=== PATIENT | male | born 1960 | race Caucasian/White ===

== ENCOUNTER 2016-07-16 07:56 | Emergency (ER) | payer BC ==
[2016-07-16 08:07] VITALS: BP 157/93; PULSE 89; RESP 18; TEMP 98.5
[2016-07-16] MEDS ORDERED: IBUPROFEN 600 MG TAB PO STA (08:19)
[2016-07-16] MEDS ORDERED: HYDROcodone/APAP 7.5-325MG 1 EACH TAB PO ONE (08:19)
--- NOTE | 2016-07-16 08:30 | ED ---
General Adult HPI - General Chief complaint: Recheck/Abnormal Lab/Rx Stated complaint: POSS HEMMEROID Time Seen by Provider: 07/16/16 08:00 Source: patient, RN notes reviewed Mode of arrival: ambulatory Limitations: no limitations - History of Present Illness Initial comments: This is a 55-year-old male with a benign history other than he is a smoker who states she's had 2 days of perirectal pain. CT worse today he could not sleep all night because of it he denies any blood per rectum he states there is a lump in that area. This started 2 days ago. He does state he was cutting firewood yesterday but it sounded muscle heavy lifting. He denies any fevers chills nausea vomiting sweats or other symptoms no prior history of hemorrhoids. - Related Data Previous Rx's Medication Instructions Recorded Hydrocodone/Acetaminophen [[place] 1 each PO Q6HR PRN #20 tab 07/16/16 5-325] Hydrocortisone [Anusol-Hc] 1 applic RECTAL TID #30 gm 07/16/16 Ibuprofen [Motrin] 800 mg PO Q6HR PRN #20 tab 07/16/16 Allergies Allergy/AdvReac Type Severity Reaction Status Date / Time No Known Allergies Allergy Verified 07/16/16 08:07 Review of Systems ROS Statement: Those systems with pertinent positive or pertinent negative responses have been documented in the HPI. ROS Other: All systems not noted in ROS Statement are negative. Past Medical History Past Medical History: Hypertension, Thyroid Disorder History of Any Multi-Drug Resistant Organisms: None Reported Additional Past Surgical History / Comment(s): Throat surgery Past Psychological History: No Psychological Hx Reported Smoking Status: Current every day smoker Past Alcohol Use History: Occasional Past Drug Use History: None Reported General Exam - General Exam Comments Initial Comments: This is a well-developed well-nourished awake alert oriented 3 male Limitations: no limitations General appearance: alert, anxious, in distress Head exam: Present: atraumatic, normocephalic, normal inspection Eye exam: Present: normal appearance, PERRL, EOMI Neck exam: Present: normal inspection Rectal exam: Present: hemorrhoids, other (There is a tender enlarged hemorrhoid at about 7 o'clock position. Is approximately 1 cm in diameter. It is pink in color somewhat tender to palpation no bleeding. No anal fissures noted. Rectal tone is normal) Neurological exam: Present: alert, oriented X3, CN II-XII intact Psychiatric exam: Present: normal affect, normal mood Skin exam: Present: warm, dry, intact, normal color. Absent: rash Course Vital Signs 07/16/16 08:03 Temperature 98.5 F Pulse Rate 89 Respiratory 18 Rate Blood Pressure 157/93 O2 Sat by Pulse 96 Oximetry Medical Decision Making - Medical Decision Making I did a long discussion with patient regarding the findings he does demonstrate inflamed hemorrhoid. It is not ready for surgical intervention. He'll be placed on appropriate care he is a follow-up with his doctor in 2 days or return when necessary he did take one 200 mg Advil prior to coming to the hospital he'll be given additional medication prior to discharge Disposition Clinical Impression: Inflamed external hemorrhoid, Anal or rectal pain Disposition: HOME SELF-CARE Condition: Good Instructions: Hemorrhoids (ED), Thrombosed Hemorrhoid (ED) Prescriptions: Hydrocodone/Acetaminophen [[place] 5-325] 1 each PO Q6HR PRN #20 tab PRN Reason: Pain Hydrocortisone [Anusol-Hc] 1 applic RECTAL TID #30 gm Ibuprofen [Motrin] 800 mg PO Q6HR PRN #20 tab PRN Reason: Pain
== END 2016-07-16 08:45 | disposition home or self-care (01) ==
LOC: EC 07:56
DX: K64.4 Residual hemorrhoidal skin tags (principal); F17.200 Nicotine dependence, unspecified, uncomplicated
CPT/HCPCS: 99283

== ENCOUNTER → 2016-07-22 | Outpatient (CLI) | payer BC ==
--- NOTE | 2016-07-22 14:56 | XR ---
EXAMINATION TYPE: XR chest 2V DATE OF EXAM: 07/22/2016 2:15 PM COMPARISON: NONE HISTORY: Chest pain, R07.89 TECHNIQUE: Frontal and lateral views of the chest are obtained. FINDINGS: There is no focal air space opacity, pleural effusion, or pneumothorax seen. The cardiac silhouette size is within normal limits. Metallic density present within the soft tissues the anterio r aspect of the abdomen. Density measures approximately 6 mm in greatest dimension, correlate for his tory of penetrating trauma. The osseous structures are intact. IMPRESSION: No acute cardiopulmonary process.
--- NOTE | 2016-07-23 12:30 | ECHOF ---
Referral Reason:R07.89 Chest Pain MEASUREMENTS -------- HEIGHT: 182.9 cm WEIGHT: 88.5 kg BP: IVSd: 1.2 cm (0.6 - 1.1) LVIDd: 4.7 cm (3.9 - 5.3) LVPWd: 1.2 cm (0.6 - 1.1) IVSs: 1.9 cm LVIDs: 3.4 cm LVPWs: 1.6 cm Ao Diam: 2.8 cm (2.0 - 3.7) AV Cusp: 2.1 cm (1.5 - 2.6) LA Diam: 3.9 cm (2.7 - 3.8) MV EXCURSION: 18.395 mm (> 18.000) MV EF SLOPE: 90 mm/s (70 - 150) EPSS: 0.8 cm MV E Giovanni: 1.10 m/s MV DecT: 155 ms MV A Giovanni: 1.13 m/s MV E/A Ratio: 0.98 RAP: 5.00 mmHg RVSP: 13.09 mmHg FINDINGS -------- Sinus rhythm. This was a technically good study. There is mild concentric left ventricular hypertrophy. Overall left ventricular systolic function is mildly impaired with, an EF between 45 - 50 %. Apical lateral LV wall motion is normal. Apical inferior LV wall motion is normal. The right ventricle is normal in size and function. The left atrium is normal in size. The right atrium is normal in size. Aortic valve is trileaflet and is mildly thickened. The mitral valve leaflets are mildly thickened. Mild mitral annular calcification present. Mild mitral regurgitation is present. Mild tricuspid regurgitation present. The right ventricular systolic pressure, as measured by Doppler, is 13.09mmHg. Pulmonic valve appears structurally normal. The aortic root, ascending aorta and aortic arch are normal. The pericardium is normal. CONCLUSIONS -------- 1. Sinus rhythm. 2. Aortic valve is trileaflet and is mildly thickened. 3. The mitral valve leaflets are mildly thickened. 4. Mild mitral annular calcification present. 5. Mild mitral regurgitation is present. 6. Mild tricuspid regurgitation present. 7. The right ventricular systolic pressure, as measured by Doppler, is 13.09mmHg. 8. Pulmonic valve appears structurally normal. 9. The aortic root, ascending aorta and aortic arch are normal. 10. The pericardium is normal. 11. This was a technically good study. 12. There is mild concentric left ventricular hypertrophy. 13. Overall left ventricular systolic function is mildly impaired with, an EF between 45 - 50 %. 14. Apical lateral LV wall motion is normal. 15. Apical inferior LV wall motion is normal. 16. The right ventricle is normal in size and function. 17. The left atrium is normal in size. 18. The right atrium is normal in size. [employer]: Deb Guzman RDCS
== END | disposition home or self-care (01) ==
LOC: RADECHMAIN 13:50
PROVIDERS: ATTEND Family Medicine
DX: I08.1 Rheumatic disorders of both mitral and tricuspid valves (principal); J20.8 Acute bronchitis due to other specified organisms
CPT/HCPCS: 71020; 93306

== ENCOUNTER → 2016-08-08 | Outpatient (CLI) | payer BC ==
--- NOTE | 2016-08-08 22:45 | CTL ---
EXAMINATION TYPE: CT Low Dose Lung DATE OF EXAM ORDERED: 08/08/2016 7:52 PM COMPARISON: None HISTORY: Cough, tobacco use. Lung cancer screening CT DLP: 110.[address] CTDI: 2.80 mGy Automated exposure control for dose reduction was used. SCREENING VISIT: COMPARISON: None TECHNIQUE: Low dose computed tomography scan was performed through the chest at 1 mm thick sections a nd reconstructed images in the coronal plane at [address] DIAGNOSTIC QUALITY: Satisfactory FINDINGS: LUNG NODULES: None. 3 mm nodule right upper lobe axial image 95 a nodule with a size of . Nodule Size in Millimeters mm was visualized with Nodule Type: that is Nod ule state: in nature on image # CT Image slide number . LUNGS: Changes of mild COPD noted. There are subsegmental areas of consolidation most likely the basis of at electasis. Within the right upper lobe anteriorly there is interlobular septal thickening may been th e basis of early interstitial lung disease or pulmonary fibrosis. No consolidation or pneumothorax. No pleural effusion. There is neural pleural thickening or calcifications. The heart is enlarged. Hypertrophic degenerative changes spine. Shotty adenopathy in the mediastinum. Assessment for adenopa thy limited due to lack of contrast in technique. There is coronary artery calcification small hiatal hernia noted Atherosclerotic change aorta noted. IMPRESSION: Single 3 mm right upper lobe pulmonary nodule. FOLLOW UP CT CHEST RECOMMENDATION: 6 month follow-up recommended CT LUNG RAD: Lung-Rad 2 Benign Appearance or Behavior
== END | disposition home or self-care (01) ==
LOC: RADCTMAIN 19:21
PROVIDERS: ATTEND Internal Medicine Cardiovascular Disease
DX: Z12.2 Encounter for screening for malignant neoplasm of respiratory organs (principal); R91.1 Solitary pulmonary nodule; Z87.891 Personal history of nicotine dependence

== ENCOUNTER → 2016-08-17 | Outpatient (CLI) | payer BC | END | disposition home or self-care (01) | LOC: LABWHC1 12:58 | PROVIDERS: ATTEND Internal Medicine Cardiovascular Disease | DX: B34.8 Other viral infections of unspecified site (principal); I10 Essential (primary) hypertension | CPT/HCPCS: 36415 ==

== ENCOUNTER → 2017-07-12 | Outpatient (CLI) | payer BC ==
[2017-07-12 10:24] LABS: Cholesterol 152 mg/dL (<200); HDL Cholesterol 56 mg/dL (40-60); LDL Cholesterol,Calculated 74 mg/dL (0-99); Triglycerides 111 mg/dL (<150)
== END | disposition home or self-care (01) ==
LOC: LABWHC1 09:12
PROVIDERS: ATTEND Internal Medicine Cardiovascular Disease
DX: E78.5 Hyperlipidemia, unspecified (principal)
CPT/HCPCS: 36415; 80061

== ENCOUNTER 2019-08-24 10:32 | Emergency (ER) | payer BC ==
[2019-08-24 10:57] VITALS: TEMP 98.1
[2019-08-24] MEDS ORDERED: SODIUM CHLORIDE 0.9% 1,000 ML IV STA (11:29)
[2019-08-24] MEDS ORDERED: KETOROLAC 30 MG/ML 1 ML VIAL IVP STA (11:29)
[2019-08-24] MEDS ORDERED: ORPHENADRINE 30 MG/ML 2 ML VIAL IVP STA (11:30)
[2019-08-24 12:00] LABS: Appearance,Urine Clear (Clear); Bilirubin,Urine Negative (Negative); Blood,Urine Negative (Negative); Color,Urine Yellow; Glucose,Urine (UA) Negative (Negative); Ketones,Urine Negative (Negative); Leukocyte Esterase,Urine Negative (Negative); Nitrite,Urine Negative (Negative); Protein,Urine Negative (Negative); Specific Gravity,Urine 1.015 (1.001-1.035); Urobilinogen,Urine <2.0 mg/dL (<2.0)
[2019-08-24 12:02] LABS: Basophils # (A) 0.2 k/uL (0-0.2); Basophils % (A) 2 %; Eosinophils # (A) 0.8 k/uL (0-0.7); Eosinophils % (A) 6 %; HGB 16.1 gm/dL (13.0-17.5); Lymphocytes # (A) 1.3 k/uL (1.0-4.8); Lymphocytes % (A) 11 %; MCH 30.5 pg (25.0-35.0); MCHC 33.6 g/dL (31.0-37.0); MCV 90.7 fL (80.0-100.0); Monocytes # (A) 0.7 k/uL (0-1.0); Monocytes % (A) 6 %; Neutrophils # (A) 8.6 k/uL (1.3-7.7); Neutrophils % (A) 73 %; Platelet Count 222 k/uL (150-450); RBC 5.29 m/uL (4.30-5.90); RDW 12.9 % (11.5-15.5); WBC 11.7 k/uL (3.8-10.6)
[2019-08-24 12:09] LABS: Albumin 4.4 g/dL (3.5-5.0); Calcium 9.5 mg/dL (8.4-10.2); Potassium 4.9 mmol/L (3.5-5.1); Total Bilirubin 0.7 mg/dL (0.2-1.3); Total Protein 7.3 g/dL (6.3-8.2)
[2019-08-24 12:13] LABS: INR 0.9 (<1.2); Partial Thromboplastin Time 24.8 sec (22.0-30.0); Prothrombin Time 9.8 sec (9.0-12.0)
--- NOTE | 2019-08-24 12:16 | ED ---
Back Pain HPI - General Chief Complaint: Back Pain/Injury Stated Complaint: Back Pain Time Seen by Provider: 08/24/19 11:21 Source: patient, RN notes reviewed Mode of arrival: ambulatory Limitations: no limitations - History of Present Illness Initial Comments: 58-year-old male presents emergency Department chief complaint low back pain. Patient states started day or 2 ago. Patient denies any injury. He states that he hasn't soreness in which she states she took a bath. Patient states the pain seemed to worsen. Patient states that he has constant pain in his lower back that is minimally exacerbated by movement. He has no symptoms into his legs including paresthesias, saddle anesthesias or pain of his lower extremity is. Patient denies any bowel, bladder incontinence or retention denies any abdominal pain no fevers or chills. Patient denies a history kidney stones no recent infections. - Related Data Previous Rx's Medication Instructions Recorded Hydrocodone/Acetaminophen [[place] 1 each PO Q6HR PRN #20 tab 07/16/16 5-325] Hydrocortisone [Anusol-Hc] 1 applic RECTAL TID #30 gm 07/16/16 Ibuprofen [Motrin] 800 mg PO Q6HR PRN #20 tab 07/16/16 Cyclobenzaprine [Flexeril] 10 mg PO TID PRN #15 tab 08/24/19 Ibuprofen [Motrin] 600 mg PO Q8HR PRN #30 tab 08/24/19 Allergies Allergy/AdvReac Type Severity Reaction Status Date / Time No Known Allergies Allergy Verified 08/24/19 10:56 Review of Systems ROS Statement: Those systems with pertinent positive or pertinent negative responses have been documented in the HPI. ROS Other: All systems not noted in ROS Statement are negative. Past Medical History Past Medical History: Coronary Artery Disease (CAD), Hypertension, Thyroid Disorder History of Any Multi-Drug Resistant Organisms: None Reported Past Surgical History: Heart Catheterization With Stent Additional Past Surgical History / Comment(s): Throat surgery Past Psychological History: No Psychological Hx Reported Smoking Status: Current every day smoker Past Alcohol Use History: Occasional Past Drug Use History: None Reported General Exam Limitations: no limitations General appearance: alert, in no apparent distress Head exam: Present: atraumatic, normocephalic, normal inspection Neck exam: Present: normal inspection, full ROM. Absent: tenderness, meningismus, lymphadenopathy Respiratory exam: Present: normal lung sounds bilaterally. Absent: respiratory distress, wheezes, rales, rhonchi, stridor Cardiovascular Exam: Present: regular rate, normal rhythm, normal heart sounds. Absent: systolic murmur, diastolic murmur, rubs, gallop, clicks GI/Abdominal exam: Present: soft, normal bowel sounds. Absent: distended, tenderness, guarding, rebound, rigid Back exam: Present: full ROM, tenderness, paraspinal tenderness. Absent: CVA tenderness (R), CVA tenderness (L), vertebral tenderness Neurological exam: Present: alert, oriented X3, CN II-XII intact, reflexes normal. Absent: motor sensory deficit Skin exam: Present: warm, dry, intact, normal color. Absent: rash Course Vital Signs 08/24/19 08/24/19 10:54 13:11 Temperature 98.1 F Pulse Rate 82 61 Respiratory 16 18 Rate Blood Pressure 131/79 155/98 O2 Sat by Pulse 96 98 Oximetry Medical Decision Making - Medical Decision Making 58-year-old male presents for back pain. Patient had labs, urinalysis and CT which has not shown any other causes for back pain-1 listhesis L5-S1. Patient is neurovascularly intact with no red flag symptoms. Patient be discharged in stable condition return parameters were discussed. - Lab Data Result diagrams: 08/24/19 11:51 08/24/19 11:51 Lab Results 08/24/19 08/24/19 08/24/19 Range/Units 11:51 11:51 11:51 WBC 11.7 H (3.8-10.6) k/uL RBC 5.29 (4.30-5.90) m/uL Hgb 16.1 (13.0-17.5) gm/dL Hct 48.0 (39.0-53.0) % MCV 90.7 (80.0-100.0) fL MCH 30.5 (25.0-35.0) pg MCHC 33.6 (31.0-37.0) g/dL RDW 12.9 (11.5-15.5) % Plt Count 222 (150-450) k/uL Neutrophils % 73 % Lymphocytes % 11 % Monocytes % 6 % Eosinophils % 6 % Basophils % 2 % Neutrophils # 8.6 H (1.3-7.7) k/uL Lymphocytes # 1.3 (1.0-4.8) k/uL Monocytes # 0.7 (0-1.0) k/uL Eosinophils # 0.8 H (0-0.7) k/uL Basophils # 0.2 (0-0.2) k/uL PT 9.8 (9.0-12.0) sec INR 0.9 (<1.2) APTT 24.8 (22.0-30.0) sec Sodium 133 L (137-145) mmol/L Potassium 4.9 (3.5-5.1) mmol/L Chloride 104 (98-107) mmol/L Carbon Dioxide 20 L (22-30) mmol/L Anion Gap 9 mmol/L BUN 21 H (9-20) mg/dL Creatinine 1.08 (0.66-1.25) mg/dL Est GFR (CKD-EPI)AfAm 86 (>60 ml/min/1.73 sqM) Est GFR (CKD-EPI)NonAf 74 (>60 ml/min/1.73 sqM) Glucose 106 H (74-99) mg/dL Calcium 9.5 (8.4-10.2) mg/dL Total Bilirubin 0.7 (0.2-1.3) mg/dL AST 27 (17-59) U/L ALT 21 (4-49) U/L Alkaline Phosphatase 80 (38-126) U/L Total Protein 7.3 (6.3-8.2) g/dL Albumin 4.4 (3.5-5.0) g/dL Amylase 78 (30-110) U/L Lipase 98 (23-300) U/L Urine Color Urine Appearance (Clear) Urine pH (5.0-8.0) Ur Specific [place] (1.001-1.035) Urine Protein (Negative) Urine Glucose (UA) (Negative) Urine Ketones (Negative) Urine Blood (Negative) Urine Nitrite (Negative) Urine Bilirubin (Negative) Urine Urobilinogen (<2.0) mg/dL Ur Leukocyte Esterase (Negative) 08/24/19 Range/Units 11:51 WBC (3.8-10.6) k/uL RBC (4.30-5.90) m/uL Hgb (13.0-17.5) gm/dL Hct (39.0-53.0) % MCV (80.0-100.0) fL MCH (25.0-35.0) pg MCHC (31.0-37.0) g/dL RDW (11.5-15.5) % Plt Count (150-450) k/uL Neutrophils % % Lymphocytes % % Monocytes % % Eosinophils % % Basophils % % Neutrophils # (1.3-7.7) k/uL Lymphocytes # (1.0-4.8) k/uL Monocytes # (0-1.0) k/uL Eosinophils # (0-0.7) k/uL Basophils # (0-0.2) k/uL PT (9.0-12.0) sec INR (<1.2) APTT (22.0-30.0) sec Sodium (137-145) mmol/L Potassium (3.5-5.1) mmol/L Chloride (98-107) mmol/L Carbon Dioxide (22-30) mmol/L Anion Gap mmol/L BUN (9-20) mg/dL Creatinine (0.66-1.25) mg/dL Est GFR (CKD-EPI)AfAm (>60 ml/min/1.73 sqM) Est GFR (CKD-EPI)NonAf (>60 ml/min/1.73 sqM) Glucose (74-99) mg/dL Calcium (8.4-10.2) mg/dL Total Bilirubin (0.2-1.3) mg/dL AST (17-59) U/L ALT (4-49) U/L Alkaline Phosphatase (38-126) U/L Total Protein (6.3-8.2) g/dL Albumin (3.5-5.0) g/dL Amylase (30-110) U/L Lipase (23-300) U/L Urine Color Yellow Urine Appearance Clear (Clear) Urine pH 6.0 (5.0-8.0) Ur Specific [place] 1.015 (1.001-1.035) Urine Protein Negative (Negative) Urine Glucose (UA) Negative (Negative) Urine Ketones Negative (Negative) Urine Blood Negative (Negative) Urine Nitrite Negative (Negative) Urine Bilirubin Negative (Negative) Urine Urobilinogen <2.0 (<2.0) mg/dL Ur Leukocyte Esterase Negative (Negative) Disposition Clinical Impression: Lumbar back pain Disposition: HOME SELF-CARE Condition: Stable Instructions (If sedation given, give patient instructions): Acute Low Back Pain (ED) Additional Instructions: Please return to the Emergency Department if symptoms worsen or any other concerns. Prescriptions: Cyclobenzaprine [Flexeril] 10 mg PO TID PRN #15 tab PRN Reason: Muscle Spasm Ibuprofen [Motrin] 600 mg PO Q8HR PRN #30 tab PRN Reason: Pain Is patient prescribed a controlled substance at d/c from ED?: No Referrals: Jose Kern DO [Primary Care Provider] - 1-2 days Time of Disposition: 13:32
[2019-08-24] MEDS ORDERED: ONDANSETRON 4 MG/2 ML VIAL IVP STA (12:17)
[2019-08-24] MEDS ORDERED: MORPHINE SULFATE 4 MG/ML SYRINGE IVP STA (12:17)
[2019-08-24 13:11] VITALS: BP 155/98; PULSE 61; RESP 18
--- NOTE | 2019-08-24 13:22 | CT ---
EXAMINATION TYPE: CT abdomen pelvis w con DATE OF EXAM: 08/24/2019 REFERENCE: NONE HISTORY: low back pain, flank pain HISTORY: Right lower back/flank pain CT DLP: 1017.4 mGy Automated exposure control for dose reduction was used. TECHNIQUE: Helical acquisition through the abdomen and pelvis was obtained following the oral ingesti on of without Oral Contrast and following intravenous administration of 100 mL of Isovue 300. The mary a was reformatted in axial, coronal and sagittal projections. FINDINGS: There is a slightly irregular, 1.3 cm pleural-based mass in the right middle lobe best see n on image 1. Visualized portions of the lungs are otherwise clear. There is no pleural or pericardia l fluid. The heart is not enlarged. There are coronary artery calcifications as well as other vascula r calcifications present. Within the abdomen. The liver and spleen are unremarkable. There is a tiny splenule just anterior to the spleen. The gallbladder is contracted. Both adrenal glands are unremarkable. Both kidneys demonstrate function and appear morphologically normal. The pancreas is unremarkable. There is no significant retroperitoneal, iliac or inguinal adenopathy. The bladder wall appears mildly thickened. This may be due to chronic bladder outlet obstruction. There is diverticulosis of the sigmoid colon: With scattered diverticula elsewhere throughout the lef t side of the colon without radiographic evidence of diverticulitis. The appendix is not visualized w ith certainty. Small bowel loops are normal in caliber. There is a bilateral lysis at L5 with a grade 1 spondylolisthesis of L5 on S1. There is degenerative disc disease at the L5-S1 level. There is mild hypertrophic spondylosis throughout the lumbar and vis ualized thoracic spine. No bony destructive lesion is seen. IMPRESSION: 1. SOLITARY RIGHT-SIDED PULMONARY NODULE. A NONEMERGENT CT SCAN OF THE CHEST WOULD BE SUGGESTED. 2. THICKENING OF THE BLADDER WALL MAY REFLECT CHRONIC BLADDER OUTLET OBSTRUCTION. 3. UNCOMPLICATED DIVERTICULOSIS OF THE SIGMOID COLON. 4. BILATERAL LYSIS AT L5 WITH A GRADE 1 SPONDYLOLISTHESIS OF L5 ON S1. 5. DEGENERATIVE CHANGE WITHIN THE SPINE.
[2019-08-24] MEDS ORDERED: ACET/COD 300 MG/30 MG STARTER PACK 6 TAB BTL PO STA (13:30)
== END 2019-08-24 13:46 | disposition home or self-care (01) ==
LOC: EC 10:32
DX: M43.17 Spondylolisthesis, lumbosacral region (principal); I25.10 Atherosclerotic heart disease of native coronary artery without angina pectoris; I10 Essential (primary) hypertension; F17.200 Nicotine dependence, unspecified, uncomplicated; Z95.5 Presence of coronary angioplasty implant and graft
CPT/HCPCS: 36415; 80053; 82150; 83690; 85025; 85610; 85730; 81003; 74177; 99284; 96374; 96375 ×3; 96361; J2270; J2360; J2405; J1885; Q9967

== ENCOUNTER → 2019-10-01 | Outpatient (CLI) | payer BC ==
--- NOTE | 2019-10-01 13:42 | CT ---
EXAMINATION TYPE: CT chest wo/w con DATE OF EXAM: 10/01/2019 COMPARISON: 08/08/[address] abdomen pelvis 08/24/2019 HISTORY: Pulmonary mass CT DLP: 745.1 mGycm Automated exposure control for dose reduction was used. CONTRAST: CT scan of the chest is performed without and with IV Contrast, patient injected with 100 mL of Isovu e 300. FINDINGS: LUNGS: Subpleural nodular density measuring 1 cm redemonstrated however is present back to 08/08/2016 and is felt to reflect an area of parenchymal scarring. No concerning pulmonary nodule or mass is salas ntified. There is no pleural effusion or pneumothorax seen. The tracheobronchial tree is patent. MEDIASTINUM: There are no greater than 1 cm hilar or mediastinal lymph nodes. No pericardial effusi on is seen. Thoracic aorta is of normal caliber. The heart is not enlarged. UPPER ABDOMEN: Fatty liver. OTHER: No additional significant abnormality is seen. IMPRESSION: Subpleural nodular density measuring 1 cm redemonstrated however is present back to 08/08 and is felt to reflect an area of parenchymal scarring. No concerning pulmonary nodule or mass is identified.
== END | disposition home or self-care (01) ==
LOC: RADCTMAIN 12:58
PROVIDERS: ATTEND Family Medicine
DX: J98.4 Other disorders of lung (principal)
CPT/HCPCS: 71270; Q9967

== ENCOUNTER 2020-12-05 19:32 | Emergency (ER) | payer BC ==
[2020-12-05] MEDS ORDERED: SODIUM CHLORIDE 0.9% 1,000 ML IV STA (19:53)
[2020-12-05] MEDS ORDERED: KETOROLAC 15 MG/ML 1 ML VIAL IVP STA (19:53)
--- NOTE | 2020-12-05 19:56 | ED ---
General Adult HPI - General Chief complaint: Abdominal Pain Stated complaint: lower abdominal pain Time Seen by Provider: 12/05/20 19:38 Source: patient, RN notes reviewed Mode of arrival: ambulatory Limitations: no limitations - History of Present Illness Initial comments: 59-year-old male with a past medical history of CAD, hypertension presents to [facility] emergency room for chief complaint of lower abdominal pain. Patient was sports this started about 8 hours prior to arrival. Patient denies nausea vomiting or diarrhea. States that since then the pain seems to have worsened. Patient denies fevers or chills. Patient denies having this pain before. Patient does have a history of diverticulosis found on colonoscopy.Patient has no other complaints at this time including shortness of breath, chest pain, nausea or vomiting, headache, or visual changes. - Related Data Home Medications Medication Instructions Recorded Confirmed Aspirin 81 mg PO DAILY 12/05/20 12/05/20 Atorvastatin Calcium [Lipitor] 80 mg PO DAILY 12/05/20 12/05/20 Chlorthalidone 25 mg PO DAILY 12/05/20 12/05/20 Clopidogrel [Plavix] 75 mg PO DAILY 12/05/20 12/05/20 Ezetimibe [Zetia] 10 mg PO DAILY 12/05/20 12/05/20 Levothyroxine Sodium 25 mcg PO DAILY 12/05/20 12/05/20 Losartan Potassium [Cozaar] 100 mg PO DAILY 12/05/20 12/05/20 Metoprolol Succinate (ER) [Toprol 50 mg PO DAILY 12/05/20 12/05/20 Xl] Previous Rx's Medication Instructions Recorded Dicyclomine [Bentyl] 20 mg PO TID PRN #20 tablet 12/05/20 Allergies Allergy/AdvReac Type Severity Reaction Status Date / Time No Known Allergies Allergy Verified 12/05/20 20:33 Review of Systems ROS Statement: Those systems with pertinent positive or pertinent negative responses have been documented in the HPI. ROS Other: All systems not noted in ROS Statement are negative. Past Medical History Past Medical History: Coronary Artery Disease (CAD), Hypertension, Thyroid Disorder History of Any Multi-Drug Resistant Organisms: None Reported Past Surgical History: Heart Catheterization With Stent Additional Past Surgical History / Comment(s): Throat surgery Past Psychological History: No Psychological Hx Reported Smoking Status: Current every day smoker Past Alcohol Use History: Occasional Past Drug Use History: Marijuana General Exam Limitations: no limitations General appearance: alert, in no apparent distress Head exam: Present: atraumatic, normocephalic, normal inspection Eye exam: Present: normal appearance, PERRL, EOMI. Absent: scleral icterus, conjunctival injection, periorbital swelling ENT exam: Present: normal exam, mucous membranes moist Neck exam: Present: normal inspection, full ROM. Absent: tenderness, meningismus, lymphadenopathy Respiratory exam: Present: normal lung sounds bilaterally. Absent: respiratory distress, wheezes, rales, rhonchi, stridor Cardiovascular Exam: Present: regular rate, normal rhythm, normal heart sounds. Absent: systolic murmur, diastolic murmur, rubs, gallop, clicks GI/Abdominal exam: Present: soft, normal bowel sounds. Absent: distended, tenderness, guarding, rebound, rigid Neurological exam: Present: alert Course Vital Signs 12/05/20 19:33 Temperature 98.1 F Pulse Rate 87 Respiratory 20 Rate Blood Pressure 152/77 O2 Sat by Pulse 98 Oximetry Medical Decision Making - Medical Decision Making Vitals are stable. Patient well-appearing. No abdominal tenderness on exam. CBC CMP unremarkable. Slight dehydration, patient was given IV fluids. Urinalysis unremarkable. CT abdomen and pelvis showed a normal appendix without renal stone or obstruction. There is some colonic diverticulosis without diverticulitis. No adverse change compared to old exam. Patient was given Toradol and had resolution of pain. At this time patient can be discharged to [facility] with primary care. I recommend he returns for any worsening symptoms. - Lab Data Result diagrams: 12/05/20 20:04 12/05/20 20:04 Lab Results 12/05/20 12/05/20 12/05/20 Range/Units 20:04 20:04 20:04 WBC 8.4 (3.8-10.6) k/uL RBC 4.87 (4.30-5.90) m/uL Hgb 14.9 (13.0-17.5) gm/dL Hct 43.8 (39.0-53.0) % MCV 89.8 (80.0-100.0) fL MCH 30.6 (25.0-35.0) pg MCHC 34.1 (31.0-37.0) g/dL RDW 12.5 (11.5-15.5) % Plt Count 131 L (150-450) k/uL MPV 8.8 Neutrophils % 65 % Lymphocytes % 19 % Monocytes % 5 % Eosinophils % 9 % Basophils % 1 % Neutrophils # 5.5 (1.3-7.7) k/uL Lymphocytes # 1.6 (1.0-4.8) k/uL Monocytes # 0.4 (0-1.0) k/uL Eosinophils # 0.8 H (0-0.7) k/uL Basophils # 0.1 (0-0.2) k/uL Sodium 136 L (137-145) mmol/L Potassium 4.0 (3.5-5.1) mmol/L Chloride 102 (98-107) mmol/L Carbon Dioxide 25 (22-30) mmol/L Anion Gap 9 mmol/L BUN 22 H (9-20) mg/dL Creatinine 0.94 (0.66-1.25) mg/dL Est GFR (CKD-EPI)AfAm >90 (>60 ml/min/1.73 sqM) Est GFR (CKD-EPI)NonAf 88 (>60 ml/min/1.73 sqM) Glucose 119 H (74-99) mg/dL Plasma Lactic Acid Gareth (0.7-2.0) mmol/L Calcium 9.5 (8.4-10.2) mg/dL Total Bilirubin 0.4 (0.2-1.3) mg/dL AST 38 (17-59) U/L ALT 34 (4-49) U/L Alkaline Phosphatase 88 (38-126) U/L Total Protein 7.1 (6.3-8.2) g/dL Albumin 4.4 (3.5-5.0) g/dL Amylase 83 (30-110) U/L Lipase 109 (23-300) U/L Urine Color Yellow Urine Appearance Clear (Clear) Urine pH 6.5 (5.0-8.0) Ur Specific [place] 1.021 (1.001-1.035) Urine Protein Trace H (Negative) Urine Glucose (UA) Negative (Negative) Urine Ketones Negative (Negative) Urine Blood Negative (Negative) Urine Nitrite Negative (Negative) Urine Bilirubin Negative (Negative) Urine Urobilinogen 2.0 (<2.0) mg/dL Ur Leukocyte Esterase Negative (Negative) 12/05/20 Range/Units 20:04 WBC (3.8-10.6) k/uL RBC (4.30-5.90) m/uL Hgb (13.0-17.5) gm/dL Hct (39.0-53.0) % MCV (80.0-100.0) fL MCH (25.0-35.0) pg MCHC (31.0-37.0) g/dL RDW (11.5-15.5) % Plt Count (150-450) k/uL MPV Neutrophils % % Lymphocytes % % Monocytes % % Eosinophils % % Basophils % % Neutrophils # (1.3-7.7) k/uL Lymphocytes # (1.0-4.8) k/uL Monocytes # (0-1.0) k/uL Eosinophils # (0-0.7) k/uL Basophils # (0-0.2) k/uL Sodium (137-145) mmol/L Potassium (3.5-5.1) mmol/L Chloride (98-107) mmol/L Carbon Dioxide (22-30) mmol/L Anion Gap mmol/L BUN (9-20) mg/dL Creatinine (0.66-1.25) mg/dL Est GFR (CKD-EPI)AfAm (>60 ml/min/1.73 sqM) Est GFR (CKD-EPI)NonAf (>60 ml/min/1.73 sqM) Glucose (74-99) mg/dL Plasma Lactic Acid Gareth 0.9 (0.7-2.0) mmol/L Calcium (8.4-10.2) mg/dL Total Bilirubin (0.2-1.3) mg/dL AST (17-59) U/L ALT (4-49) U/L Alkaline Phosphatase (38-126) U/L Total Protein (6.3-8.2) g/dL Albumin (3.5-5.0) g/dL Amylase (30-110) U/L Lipase (23-300) U/L Urine Color Urine Appearance (Clear) Urine pH (5.0-8.0) Ur Specific [place] (1.001-1.035) Urine Protein (Negative) Urine Glucose (UA) (Negative) Urine Ketones (Negative) Urine Blood (Negative) Urine Nitrite (Negative) Urine Bilirubin (Negative) Urine Urobilinogen (<2.0) mg/dL Ur Leukocyte Esterase (Negative) Disposition Clinical Impression: Abdominal pain Disposition: HOME SELF-CARE Condition: Good Instructions (If sedation given, give patient instructions): Abdominal Pain (ED) Additional Instructions: Please follow-up with your doctor in one to 2 days. Return to the emergency room for any worsening symptoms. Prescriptions: Dicyclomine [Bentyl] 20 mg PO TID PRN #20 tablet PRN Reason: abdominal pain Is patient prescribed a controlled substance at d/c from ED?: No Referrals: Jose Kern DO [Primary Care Provider] - 1-2 days Time of Disposition: 21:50
[2020-12-05 20:23] LABS: Basophils # (A) 0.1 k/uL (0-0.2); Basophils % (A) 1 %; Eosinophils # (A) 0.8 k/uL (0-0.7); Eosinophils % (A) 9 %; HCT 43.8 % (39.0-53.0); HGB 14.9 gm/dL (13.0-17.5); Lymphocytes # (A) 1.6 k/uL (1.0-4.8); Lymphocytes % (A) 19 %; MCH 30.6 pg (25.0-35.0); MCHC 34.1 g/dL (31.0-37.0); MCV 89.8 fL (80.0-100.0); Mean Platelet Volume 8.8; Monocytes # (A) 0.4 k/uL (0-1.0); Monocytes % (A) 5 %; Neutrophils # (A) 5.5 k/uL (1.3-7.7); Neutrophils % (A) 65 %; Platelet Count 131 k/uL (150-450); RBC 4.87 m/uL (4.30-5.90); RDW 12.5 % (11.5-15.5); WBC 8.4 k/uL (3.8-10.6)
[2020-12-05 20:28] LABS: Appearance,Urine Clear (Clear); Bilirubin,Urine Negative (Negative); Blood,Urine Negative (Negative); Color,Urine Yellow; Glucose,Urine (UA) Negative (Negative); Ketones,Urine Negative (Negative); Leukocyte Esterase,Urine Negative (Negative); Nitrite,Urine Negative (Negative); PH, Urine 6.5 (5.0-8.0); Protein,Urine Trace (Negative); Specific Gravity,Urine 1.021 (1.001-1.035)
[2020-12-05 20:40] LABS: ALT 34 U/L (4-49); African American GFR (CKD) >90 (>60 ml/min/1.73 sqM); Albumin 4.4 g/dL (3.5-5.0); Amylase 83 U/L (30-110); Anion Gap 9 mmol/L; Blood Urea Nitrogen 22 mg/dL (9-20); Calcium 9.5 mg/dL (8.4-10.2); Carbon Dioxide 25 mmol/L (22-30); Chloride 102 mmol/L (98-107); Glucose 119 mg/dL (74-99); Lipase 109 U/L (23-300); Non-African American GFR(CKD) 88 (>60 ml/min/1.73 sqM); Sodium 136 mmol/L (137-145); Total Bilirubin 0.4 mg/dL (0.2-1.3); Total Protein 7.1 g/dL (6.3-8.2)
[2020-12-05 20:42] LABS: AST 38 U/L (17-59); Alkaline Phosphatase 88 U/L (38-126)
--- NOTE | 2020-12-05 21:26 | CT ---
EXAMINATION TYPE: CT abdomen pelvis w con DATE OF EXAM: 12/05/2020 COMPARISON: 08/24/2019 HISTORY: lower anterior abdominal pain CT DLP: 1052.4 mGycm Automated exposure control for dose reduction was used. CONTRAST: Performed with IV Contrast, patient injected with 100 mL of Isovue 300. Images obtained from the diaphragm to the floor the pelvis with IV contrast. Lung bases are clear. There is no pleural effusion. Heart size is normal. There is no pericardial eff usion. Liver spleen stomach pancreas gallbladder appear normal. The bile ducts are not dilated. Gallb ladder is contracted. There is no adrenal mass. There is normal contrast opacification of the kidneys. There is no hydronep hrosis. There is 1 cm cortical cyst upper pole left kidney. Delayed images show normal renal excretio n. There is 1 cm cortical cyst medial left kidney. There is no retroperitoneal adenopathy. Ureters ar e not dilated. Bladder distends smoothly. There is no inguinal hernia. There is no free fluid in the pelvis. There are numerous sigmoid diverticula. I see no diverticulitis . There is no mesenteric edema. There is no ascites or free air. There is no bowel obstruction. Appendi x appears normal. There is a mild first-degree L5-S1 spondylolisthesis. There is bilateral L5 spondylolysis. There is n o lumbar compression fracture. Bony pelvis is intact. The hip joints are intact. IMPRESSION: Normal appendix. No renal stone or obstruction. There is some colonic diverticulosis without divertic ulitis. No adverse change compared to old exam.
[2020-12-05 22:14] VITALS: BP 137/89; PULSE 69; RESP 18; TEMP 98.3
== END 2020-12-05 22:10 | disposition home or self-care (01) ==
LOC: EC 19:32
DX: R10.30 Lower abdominal pain, unspecified (principal); I10 Essential (primary) hypertension; I25.10 Atherosclerotic heart disease of native coronary artery without angina pectoris; F17.200 Nicotine dependence, unspecified, uncomplicated; F12.90 Cannabis use, unspecified, uncomplicated; Z79.82 Long term (current) use of aspirin
CPT/HCPCS: 36415; 80053; 82150; 83605; 83690; 85025; 81003; 74177; 99284; 96374; J1885; Q9967

== ENCOUNTER → 2023-10-24 | Outpatient (CLI) | payer BC ==
--- NOTE | 2023-10-24 13:51 | XR ---
EXAMINATION TYPE: XR chest 2V DATE OF EXAM: 10/24/2023 1:25 PM CLINICAL INDICATION:Male, 62 years old with history of J44.1 COPD; PHH COMPARISON: None TECHNIQUE: XR chest 2V Frontal and lateral views of the chest. FINDINGS: Lungs/Pleura: There is flattening of the diaphragm with increased lucency of the lungs. No evidence o f pneumothorax, pleural effusion or focal consolidation. Pulmonary vascularity: Unremarkable. Heart/mediastinum: Cardiomediastinal silhouette is unremarkable. Musculoskeletal: No acute osseous pathology. Other findings: None IMPRESSION: 1. No acute cardiopulmonary disease process. 2. COPD changes.
== END | disposition home or self-care (01) ==
LOC: RADXRMAIN 13:12
PROVIDERS: ATTEND Family Medicine
DX: J44.1 Chronic obstructive pulmonary disease with (acute) exacerbation (principal)
CPT/HCPCS: 71046

== ENCOUNTER → 2023-12-15 | Outpatient (CLI) | payer MEDICARE ==
--- NOTE | 2023-12-21 09:58 | CTL ---
EXAMINATION TYPE: CT Low Dose Lung DATE OF EXAM: 12/15/2023 1:37 PM CLINICAL INDICATION:Male, 62 years old with history of Z122 ENCNTR SCREEN FOR MALIGNANT NEOPLASM OF R ABBEY; personal tobacco use , history of tobacco use. COMPARISON: Subsequent CT 12/21/2023. TECHNIQUE: Multiple axial non-contrast scans were obtained from approximately the lung apices through the upper abdomen. Coronal and sagittal reformatted images were obtained. Low dose technique was uti lized. CT DLP: 87.1 mGycm, Automated exposure control for dose reduction was used. CT Contrast: Contrast used: None Oral contrast used: None FINDINGS: ======== Lack of intravenous contrast and low dose technique limits the evaluation of the vascular and soft ti ssue structures. LUNGS: Scattered airspace opacities are seen in the left lower lobe and area of suspected partial obs truction due to left perihilar mass. No focal consolidation, pneumothorax or pleural effusion. Nodules: RUL: None. RML: None. RLL: None. DEEPTHI: left perihilar conglomerate mass measuring at least 4.9 x 3.8 cm. LLL: None. AIRWAY: There is narrowing of the airway near the left pulmonary hilum multiple airways. HEART: Size within normal limits. Mild coronary artery atherosclerosis. MEDIASTINUM: Multiple enlarged lymph nodes right paratracheal and left 10L.r higher paratracheal aruna uring up to 12 mm prevascular space measuring up to 8 mm, AP window measuring up to 11 mm all in shor t axis. VASCULATURE No aortic aneurysm. MUSCULOSKELETAL: No acute osseous abnormalities SOFT TISSUES/LYMPH NODES: Unremarkable. LOWER NECK: No significant findings. UPPER ABDOMEN: No significant findings. IMPRESSION: 1. Left perihilar mass very suspicious for malignancy. Mediastinal lymph nodes also present concernin g for metastatic disease. PET/CT for evaluation there is recommended for staging as well as bronchosc opic guided tissue sampling. 2. Mild emphysema. CT LUNG RAD AND CT CHEST RECOMMENDATION: Lung-Rad 4B or 4X Very Suspicious: Follow-up Chest CT with o r without contrast or PET/CT and/or tissue sampling. PET/CT may be used when there is a > 8 mm solid component. S Modifier (other clinically significant findings): None Recommend smoking cessation (if current smoker), or continuation of smoking cessation (if prior smoke r). Annual screening for lung cancer with low-dose computed tomography is recommended in adults ages 55 to 77 years who have a 30 pack-year smoking history and currently smoke or have quit within the pa st 15 years. Screening should be discontinued once a person has not smoked for 15 years or develops a health problem that substantially limits life expectancy or the ability or willingness to have curat emerald lung surgery. Lung rads 2021 [email or web address]
== END | disposition home or self-care (01) ==
LOC: RADCTMAIN 12:55
PROVIDERS: ATTEND Internal Medicine
DX: Z12.2 Encounter for screening for malignant neoplasm of respiratory organs (principal); F17.210 Nicotine dependence, cigarettes, uncomplicated; J43.9 Emphysema, unspecified
CPT/HCPCS: 71271

== ENCOUNTER 2023-12-20 16:09 | Inpatient (IN) | payer MEDICARE ==
--- NOTE | 2023-12-20 17:03 | ED ---
Chest Pain HPI - General Source: patient, RN notes reviewed Mode of arrival: ambulatory Limitations: no limitations <Marilyn Morton - Last Filed: 12/20/23 17:01> <Sebastián Parra - Last Filed: 12/20/23 22:09> - General Chief Complaint: Chest Pain Stated Complaint: coughing up blood sent by Time Seen by Provider: 12/20/23 17:01 - History of Present Illness Initial Comments: Quick [id number] male presenting with hemoptysis x 1 day. States he has been coughing up a large amount of blood since last night with some shortness of breath and chest pain. States he recently had a CT scan about 1 week ago where they told him they found a nodule suspicious for lung cancer. He is currently awaiting a PET scan. He was sent by his PCP for immediate evaluation. (Marilyn Morton) Dictation was produced using [employer] dictation software. please excuse any grammatical, word or spelling errors. Chief Complaint: 62-year-old male presents to the ER for worsening hemoptysis History of Present Illness: Patient 62-year-old male presents to the emergency department with hemoptysis. Patient has had worsening dyspnea for the last several weeks. He has had outpatient workups. He had a recent CT that was concerning for lung malignancy. He has a scheduled PET scan and spine follow-up with the agricultural technical officer. Today he complained to the agricultural technical officer that he was having worsening hemoptysis. States that he coughed up about a handful of bright red blood. He was instructed to come to the ER for further evaluation. Patient does complain of some mild sharp pain. He has a known area of lung mass on his left chest. It is unclear what this mass is. He spoke with agricultural technical officer and they were considering performing a bronchoscopy while inpatient. States that his shortness of breath has been progressively getting worse. The ROS documented in this emergency department record has been reviewed and confirmed by me. Those systems with pertinent positive or negative responses have been documented in the HPI. All other systems are other negative and/or noncontributory. (Sebastián Parra) - Related Data Home Medications Medication Instructions Recorded Confirmed Aspirin 81 mg PO DAILY 12/05/20 12/05/20 Atorvastatin Calcium [Lipitor] 80 mg PO DAILY 12/05/20 12/05/20 Chlorthalidone 25 mg PO DAILY 12/05/20 12/05/20 Clopidogrel [Plavix] 75 mg PO DAILY 12/05/20 12/05/20 Ezetimibe [Zetia] 10 mg PO DAILY 12/05/20 12/05/20 Levothyroxine Sodium 25 mcg PO DAILY 12/05/20 12/05/20 Losartan Potassium [Cozaar] 100 mg PO DAILY 12/05/20 12/05/20 Metoprolol Succinate (ER) [Toprol 50 mg PO DAILY 12/05/20 12/05/20 Xl] Previous Rx's Medication Instructions Recorded Dicyclomine [Bentyl] 20 mg PO TID PRN #20 tablet 12/05/20 Allergies Allergy/AdvReac Type Severity Reaction Status Date / Time No Known Allergies Allergy Verified 12/20/23 16:57 Review of Systems ROS Other: All systems not noted in ROS Statement are negative. <Marilyn Morton - Last Filed: 12/20/23 17:01> ROS Other: All systems not noted in ROS Statement are negative. <Sebastián Parra - Last Filed: 12/20/23 22:09> ROS Statement: Those systems with pertinent positive or pertinent negative responses have been documented in the HPI. Past Medical History Past Medical History: Coronary Artery Disease (CAD), Hypertension, Thyroid Disorder History of Any Multi-Drug Resistant Organisms: None Reported Past Surgical History: Heart Catheterization With Stent Additional Past Surgical History / Comment(s): Throat surgery Past Psychological History: No Psychological Hx Reported Smoking Status: Former smoker Past Alcohol Use History: Occasional Past Drug Use History: Marijuana <Marilyn Morton - Last Filed: 12/20/23 17:01> General Exam Limitations: no limitations <Marilyn Morton - Last Filed: 12/20/23 17:01> <Sebastián Parra - Last Filed: 12/20/23 22:09> - General Exam Comments Initial Comments: Visual Physical Exam Vital signs reviewed General: Well-appearing, nontoxic, no acute distress. Head: Normocephalic, atraumatic Eyes: PERRLA, EOMI ENT: Airway patent Chest: Nonlabored breathing Skin: No visual rash, normal skin tone Neuro: Alert and oriented 3 Musculoskeletal: No gross abnormalities (Marilyn Morton) PHYSICAL EXAM: General Impression: Alert and oriented x3, not in acute distress HEENT: Normocephalic atraumatic, extra-ocular movements intact, pupils equal and reactive to light bilaterally, mucous membranes moist. Cardiovascular: Heart regular rate and rhythm Chest: diminished lung sounds to the left chest Abdomen: abdomen soft, non-tender, non-distended, no organomegaly Musculoskeletal: Pulses present and equal in all extremities, no peripheral edema Motor: no focal deficits noted Neurological: CN II-XII grossly intact, no focal motor or sensory deficits noted Skin: Intact with no visualized rashes Psych: Normal affect and mood (Sebastián Parra) Course Vital Signs 12/20/23 16:52 Temperature 98.3 F Pulse Rate 104 H Respiratory 18 Rate Blood Pressure 123/78 O2 Sat by Pulse 97 Oximetry Chest Pain MDM <Marilyn Morton - Last Filed: 12/20/23 17:01> <Sebastián Parra - Last Filed: 12/20/23 22:09> - MDM I completed the quick note portion of this chart signed Marilyn Morton PA-C (Marilyn Morton) Was pt. sent in by a medical professional or institution ([facility], PROPERTY TECHNICIAN, urgent care, hospital, or skilled nursing...) When possible be specific @ -No Did you speak to anyone other than the patient for history (EMS, parent, family, police, friend...)? What history was obtained from this source @ -No Did you review nursing and triage notes (agree or disagree)? Why? @ -I reviewed and agree with nursing and triage notes Were old charts reviewed (outside hosp., previous admission, EMS record, old EKG, old radiological studies, urgent care reports/EKG's, skilled nursing records)? Report findings @ -Previous low-dose CT was obtained showing perihilar mass Differential Diagnosis (chest pain, altered mental status, abdominal pain women, abdominal pain men, vaginal bleeding, musculoskeletal, weakness, fever, dyspnea, syncope, headache, dizziness, GI bleed, back pain, seizure, CVA, palpatations, mental health)? @ -Differential Dyspnea: Coronary syndrome, arrhythmia, tamponade, asthma, COPD, pulmonary embolism, pneumonia, pneumothorax, pulmonary effusion, anaphylaxis, diabetic ketoacidosis, flailed chest, pulmonary contusion, diaphragmatic rupture, anemia, neuromuscular, this is not meant to be an all-inclusive list. EKG interpreted by me (3pts min.). @ -None done X-rays interpreted by me (1pt min.). @ -Chest x-ray shows left lower lung airspace disease CT interpreted by me (1pt min.). @ -None done U/S interpreted by me (1pt. min.). @ -None done What testing was considered but not performed or refused? (CT, X-rays, U/S, labs)? Why? @ -None What meds were considered but not given or refused? Why? @ -None Did you discuss the management of the patient with other professionals (professionals i.e. , PA, PROPERTY TECHNICIAN, lab, RT, psych nurse, transition social worker, rouge presser, teacher, aviation tactical readiness officer, onsite case manager)? Give summary @ -Case discussed with hospitalist for admission Was smoking cessation discussed for >3mins.? @ -No Was critical care preformed (if so, how long)? @ -No Were there social determinants of health that impacted care today? How? ([place] elessness, low income, unemployed, alcoholism, drug addiction, transportation, low edu. Level, literacy, decrease access to med. care, skilled nursing, rehab)? @ -No Was there de-escalation of care discussed even if they declined (Discuss DNR or withdrawal of care, Hospice)? DNR status @ -No What co-morbidities impacted this encounter? (DM, HTN, Smoking, COPD, CAD, Cancer, CVA, ARF, Chemo, Hep., AIDS, mental health diagnosis, sleep apnea, morbid obesity)? @ -None Was patient admitted / discharged? Hospital course, mention meds given and route, prescriptions, significant lab abnormalities, going to OR and other pertinent info. @ -62-year-old male sent in by agricultural technical officer for hospital admission for worsening hemoptysis. Patient has tentative diagnosis of new onset lung cancer. Vital signs upon arrival shows tachycardia 104, rest of vital signs within acceptable limits. Laboratory evaluation obtained. CBC, coag panel metabolic panel is unremarkable. Troponin is negative. D-dimer is age-adjusted normal. Patient be admitted consultation to pulmonology. Undiagnosed new problem with uncertain prognosis? @ -No Drug Therapy requiring intensive monitoring for toxicity (Heparin, Nitro, Insul in, Cardizem)? @ -No Were any procedures done? @ -No Diagnosis/symptom? Acute, or Chronic, or Acute on Chronic? Uncomplicated (without systemic symptoms) or Complicated (systemic symptoms)? @ -Hemoptysis Side effects of treatment? @ -No Exacerbation, Progression, or Severe Exacerbation? @ -No Poses a threat to life or bodily function? How? (Chest pain, [place], NH, pneumonia, PE, COPD, DKA, ARF, appy, cholecystitis, CVA, Diverticulitis, Homicidal, Suicidal, threat to staff... and all critical care pts) @ -yes (Sebastián Parra) Disposition <Marilyn Morton - Last Filed: 12/20/23 17:01> Decision Time: 22:09 <Sebastián Parra - Last Filed: 12/20/23 22:09> Clinical Impression: Hemoptysis Disposition: ADMITTED IP TO THIS HOSP Condition: Fair Referrals: Jose Kern DO [Primary Care Provider] - 1-2 days
[2023-12-20 17:48] LABS: INR 0.9 (<1.2); Partial Thromboplastin Time 24.9 sec (22.0-30.0); Prothrombin Time 10.1 sec (10.0-12.5)
[2023-12-20 17:50] LABS: ALT 18 U/L (4-49); AST 23 U/L (17-59); African American GFR (CKD) 89 (>60 ml/min/1.73 sqM); Albumin 3.7 g/dL (3.5-5.0); Alkaline Phosphatase 114 U/L (38-126); Anion Gap 6 mmol/L; Blood Urea Nitrogen 21 mg/dL (9-20); Calcium 8.9 mg/dL (8.4-10.2); Carbon Dioxide 22 mmol/L (22-30); Chloride 103 mmol/L (98-107); Glucose 102 mg/dL (74-99); Magnesium 1.8 mg/dL (1.6-2.3); Non-African American GFR(CKD) 77 (>60 ml/min/1.73 sqM); Potassium 3.8 mmol/L (3.5-5.1); Sodium 131 mmol/L (137-145); Total Bilirubin 0.6 mg/dL (0.2-1.3); Total Protein 6.6 g/dL (6.3-8.2)
[2023-12-20 18:01] LABS: Basophils % (A) 0 %; Eosinophils # (A) 0.1 k/uL (0-0.7); Eosinophils % (A) 1 %; HCT 35.3 % (39.0-53.0); HGB 11.8 gm/dL (13.0-17.5); Lymphocytes # (A) 1.5 k/uL (1.0-4.8); Lymphocytes % (A) 13 %; MCH 28.9 pg (25.0-35.0); MCHC 33.4 g/dL (31.0-37.0); MCV 86.5 fL (80.0-100.0); Monocytes # (A) 0.8 k/uL (0-1.0); Monocytes % (A) 7 %; Neutrophils # (A) 9.1 k/uL (1.3-7.7); Neutrophils % (A) 78 %; Platelet Count 267 k/uL (150-450); RBC 4.08 m/uL (4.30-5.90); RDW 14.7 % (11.5-15.5); WBC 11.7 k/uL (3.8-10.6)
--- NOTE | 2023-12-20 21:07 | XR ---
EXAMINATION TYPE: XR chest 1V portable DATE OF EXAM: 12/20/2023 8:51 PM CLINICAL INDICATION:Male, 62 years old with history of chest pain; H COMPARISON: Chest radiographs from 12/01/2023 TECHNIQUE: XR chest 1V portable Frontal view of the chest. FINDINGS: Lungs/Pleura: Left lower lung airspace disease as seen on recent CT chest. Pulmonary vascularity: Unremarkable. Heart/mediastinum: Cardiomediastinal silhouette is unremarkable. Musculoskeletal: No acute osseous pathology. IMPRESSION: Left lower lung airspace disease, concerning for infectious/inflammatory process.
[2023-12-20] MEDS ORDERED: NALOXONE 0.4 MG/ML 1 ML VIAL IV PRN (22:04)
[2023-12-20] MEDS: SODIUM CHLORIDE 0.9% 1,000 ML IV SCH (23:21)
[2023-12-21] MEDS: KETOROLAC 15 MG/ML 1 ML VIAL IVP STA (00:07)
[2023-12-21] MEDS ORDERED: RX INFO: IV CONTRAST WAS GIVEN 1 EACH MISC MISCELLANE PRN (00:18)
--- NOTE | 2023-12-21 05:11 | CT ---
EXAM: CT Chest With Intravenous Contrast CLINICAL HISTORY: ITS.REASON CT Reason: hemoptysis and lung mass TECHNIQUE: Axial computed tomography images of the chest with intravenous contrast. CTDI is 7.10 mGy and DLP is 34.9 mGy-cm. This CT exam was performed using one or more of the following dose reduction techniques: automated exposure control, adjustment of the mA and/or kV according to patient size, and/or use of iterative reconstruction technique. COMPARISON: Prior dated 12/15/2023 FINDINGS: Lungs: Approximately 4 cm left lower lobe mass similar to the prior. [place] or involves the left lower lobe bronchus. Debris within the left mainstem bronchus and within the upper and lower lobe airways. Left lower lobe atelectasis new since the prior and may reflect postobstructive atelectasis. Multiple left lower lobe nodules not well visualized. Mild dependent right basilar atelectasis. Pleural space: Unremarkable. No pneumothorax. No significant effusion. Heart: Marked coronary calcifications. No cardiomegaly. No significant pericardial effusion. Mediastinum: Mediastinal and left hilar adenopathy as on the recent prior. Bones/joints: Degenerative changes of the spine. No acute fracture. No dislocation. Soft tissues: Unremarkable. Vasculature: Unremarkable. No thoracic aortic aneurysm. Lymph nodes: See above. Kidneys and ureters: Left renal low-density lesions similar to the prior and likely cysts. IMPRESSION: 1. Approximately 4 cm left lower lobe mass similar to the prior. Worrisome for malignancy. [place] or involves the left lower lobe bronchus. Debris within the left mainstem bronchus and within the upper and lower lobe airways. 2. Left lower lobe atelectasis new since the prior and may reflect postobstructive atelectasis. Multiple left lower lobe nodules not well visualized. 3. Mediastinal and left hilar adenopathy as on the recent prior.
[2023-12-21] MEDS: AZITHROMYCIN 500 MG in SODIUM CHLORIDE 0.9% 250 ML IVPB SCH (06:11)
--- NOTE | 2023-12-21 06:38 | P.CNPUL ---
History of Present Illness Consult date: 12/21/23 Requesting physician: Sebastián Parra Reason for consult: lung mass, other (Hemoptysis) Chief complaint: Hemoptysis History of present illness: Patient is a 62-year-old white male with past medical history significant for coronary artery disease with previous PCI/stenting approximately 5 years ago, prior CVA/TIA, hyperlipidemia, hypertension, hypothyroidism, and former tobacco smoker. Patient quit smoking approximately 1 month ago. Prior to this he was a 1 pack/day smoker for most of his adult life. His primary care provider is Dr. Kern. Over the last couple months he has had a mostly nonproductive persistent chronic cough. This is accompanied with sustained left-sided chest pain. He was recently found to have a new left hilar lung mass and did have an office visit with Dr. Suárez 2 days ago. He is scheduled for a PET scan on January 03. Last night he reportedly developed some hemoptysis. Reportedly initially covering the palm of his hand, this is since slowed down to mostly quarter or nickel size. No current samples for direct observation and quantification. Probably less then 100 ml/24hrs. No signs of asphyxiation. He does take Plavix and 81 mg strength aspirin outpatient. Initial chest x-ray on arrival showed a left lower lung airspace disease, concerning for infectious or inflammatory process. CBC: WBC count 11.7, hemoglobin 11.8, hematocrit 35.3, platelets 267. Coagulation profile unremarkable. BMP also unremarkable. Troponin less than 0.012. Patient is currently lying in bed, on room air, in no acute distress. SpO2 95%. He continues to have a persistent cough, hemoptysis has significantly lessened. Plavix is on hold. Afebrile. Continues to have persistent left- sided chest pain. Follow-up chest CT with contrast redemonstrates the prior id entified left hilar mass that is pushing on the left left lower bronchus with cutoff sign, along with some new left lower lobe opacification possible reabsorptive atelectasis, but underlying postobstructive pneumonia cannot be excluded. Review of Systems REVIEW OF SYSTEMS: CONSTITUTIONAL: Denies any recent unexplained weight loss, fevers, night sweats EYES: Denies change in vision. EARS, NOSE, MOUTH, THROAT: Denies headaches, denies sore throat. CARDIOVASCULAR: Denies radiating chest pain, heart palpitations, syncopal events. RESPIRATORY: See HPI. GASTROINTESTINAL: Denies change in appetite, abdominal pain, nausea and vomiting, or diarrhea GENITOURINARY: Denies hematuria, denies infections. MUSKULOSKELETAL: Denies pain, denies swelling. INTEGUMENTARY: Denies rash, denies eczema. NEUROLOGICAL: Denies recent memory loss, no recent seizure activity. PSYCHIATRIC: Denies anxiety, denies depression. HEMATOLOGIC/LYMPHATIC: Denies anemia, denies enlarged lymph node Past Medical History Past Medical History: Coronary Artery Disease (CAD), Hypertension, Thyroid Disorder History of Any Multi-Drug Resistant Organisms: None Reported Past Surgical History: Heart Catheterization With Stent Additional Past Surgical History / Comment(s): Throat surgery Past Psychological History: No Psychological Hx Reported Smoking Status: Former smoker Past Alcohol Use History: Occasional Past Drug Use History: Marijuana Medications and Allergies Home Medications Medication Instructions Recorded Confirmed Type Aspirin 81 mg PO DAILY 12/05/20 12/21/23 History Atorvastatin Calcium [Lipitor] 80 mg PO HS 12/05/20 12/21/23 History Clopidogrel [Plavix] 75 mg PO DAILY 12/05/20 12/21/23 History Ezetimibe [Zetia] 10 mg PO DAILY 12/05/20 12/21/23 History Levothyroxine Sodium 25 mcg PO DAILY 12/05/20 12/21/23 History Losartan Potassium [Cozaar] 100 mg PO DAILY 12/05/20 12/21/23 History Metoprolol Succinate (ER) [Toprol 50 mg PO DAILY 12/05/20 12/21/23 History Xl] Albuterol Sulfate [Ventolin HFA] 2 puff INHALATION RT-Q4H 12/21/23 12/21/23 History Fluticasone/Umeclidin/Vilanter 1 puff INHALATION RT-DAILY 12/21/23 12/21/23 History [Trelegy Ellipta 100-62.5-25] Sildenafil Citrate [Sildenafil] 20 mg PO DAILY PRN 12/21/23 12/21/23 History Allergies Allergy/AdvReac Type Severity Reaction Status Date / Time No Known Allergies Allergy Verified 12/21/23 07:29 Physical Exam Vitals: Vital Signs Temp Pulse Resp BP Pulse Ox 12/21/23 04:00 90 18 98/67 95 12/21/23 02:13 98.4 F 89 18 104/60 95 12/21/23 01:43 82 16 88/50 95 12/21/23 00:22 98 16 103/68 94 L 12/20/23 23:14 100 16 87/46 93 L 12/20/23 16:52 98.3 F 104 H 18 123/78 97 Intake and Output 12/20/23 12/20/23 12/21/23 14:59 22:59 06:59 Other: Weight 87.543 kg GENERAL EXAM: Alert, 62-year-old white male, well-nourished, with a congested persistent cough, fairly comfortable in no apparent distress. HEAD: Normocephalic and atraumatic EYES: Normal reaction of pupils, equal size. NOSE: Clear with pink turbinates. THROAT: No erythema or exudates. NECK: No masses, no JVD. CHEST: No chest wall deformity. LUNGS: Equal air entry with diminished left basilar lung sounds along with scattered rhonchi. On room air. No conversational dyspnea or accessory muscle use.. CVS: S1 and S2 normal with no audible murmur, regular rhythm. No extra heart sounds ABDOMEN: No hepatosplenomegaly, active bowel sounds, no guarding or rigidity. SPINE: No scoliosis or deformity SKIN: No rashes CENTRAL NERVOUS SYSTEM: No focal deficits, tone is normal in all 4 extremities. EXTREMITIES: There is no peripheral edema, clubbing, or cyanosis. Peripheral pulses are intact. Results - Laboratory Findings CBC and BMP: 12/21/23 09:26 12/21/23 09:26 PT/INR, D-dimer PT 10.1 sec (10.0-12.5) 12/20/23 16:56 INR 0.9 (<1.2) 12/20/23 16:56 D-Dimer 0.52 mg/L FEU (<0.60) 12/20/23 16:56 Abnormal lab findings: Abnormal Labs 12/20/23 12/20/23 16:56 16:56 WBC 11.7 H RBC 4.08 L Hgb 11.8 L Hct 35.3 L Neutrophils # 9.1 H Sodium 131 L BUN 21 H Glucose 102 H - Diagnostic Findings Chest x-ray: image reviewed CT scan - chest: image reviewed Assessment and Plan Assessment: Hemoptysis, nonmassive, likely < 100 ml/24hrs, no signs of asphyxiation, improved, currently n.p.o. for possible bronchoscopy and airway examination. Left hilar mass, measuring approximately 4 cm, highly suspicious for bronchogenic carcinoma. I did order a follow-up chest CT with contrast which redemonstrated the previously seen left hilar fullness/mass encroaching on the left lower lobe bronchus, along with cutoff sign, debris in the ascending left main bronchus, and new lower lobe opacification, likely postobstructive atelectasis, however, cannot completely exclude underlying postobstructive pneu monia. Mediastinal and left hilar adenopathy redemonstrated. PET scan reportedly scheduled for January 03 Chronic obstructive pulmonary disease, patient was recently started on Trelegy and as needed albuterol inhaler by Dr. Suárez in the pulmonary office. History of CVA/TIA History of coronary artery disease with remote history of PCI/stenting History of hyperlipidemia History of hypertension Former tobacco smoker, with over 55-stbc-tsoe history, quitting approximately 1 month ago Marijuana smoker Plan: Currently on room air. Patient's hemoptysis has significantly improved while in the emergency department. No sign of respiratory compromise. Follow-up CT scan of the chest with contrast was performed, and noted as above. Patient will be given at least 1 dose of azithromycin and Rocephin. Check procalcitonin level. Patient is currently n.p.o., possible bronchoscopy with airway examination later this morning. Left hilar mass in question will have to be biopsied, however, patient is currently on dual antiplatelet medications including Plavix. Last dose reportedly taken yesterday morning. Continue to hold Plavix and aspirin Follow-up PET scan scheduled outpatient for January 03 Additional recommendations are forthcoming. I have personally seen and examined the patient, performed the documentation and the assessment and plan as written. Number of minutes spent on the visit:20 This is a 62-year-old male patient was seen in consultation for hemoptysis. The patient is currently on Plavix. CAT scan of the chest was done with contrast and it showed a 4 cm left lower lobe mass worrisome for malignancy. There is also narrowing of the left lower lobe bronchus and debris's in the distal left mainstem bronchus which could be potentially blood versus endobronchial tumor. There is also atelectatic changes in the left lower lobe. There is also evidence of mediastinal lymphadenopathy and left hilar lymphadenopathy. Obviously, the findings are very worrisome for malignancy. The patient is currently hospitalized. The patient is on broad-spectrum antibiotics. I had a nice discussion with the patient explaining to him the findings. The plan is to keep the patient n.p.o. after midnight for a bronchoscopy and airway inspection and biopsies tomorrow. Plavix will be kept on hold. He is known to have coronary disease with previous PCI and stenting along with hypertension hyperlipidemia. He is smoke-free for now. 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 This evaluation was done and joint evaluation. Case was discussed with the patient and his and daughter at the bedside. Evaluation was done more than 30 minutes. Bronchoscopy is to follow. Time with Patient: Greater than 30
[2023-12-21] MEDS: ALBUTEROL NEBULIZED 2.5 MG/3 ML INHALATION PRN (08:46)
[2023-12-21] MEDS: SYMBICORT 80-4.5 MCG INHALER INHALATION SCH (08:46)
[2023-12-21 09:51] LABS: Basophils # (A) 0.1 k/uL (0-0.2); Basophils % (A) 1 %; Eosinophils # (A) 0.2 k/uL (0-0.7); Eosinophils % (A) 2 %; HCT 33.5 % (39.0-53.0); HGB 10.8 gm/dL (13.0-17.5); Lymphocytes # (A) 1.6 k/uL (1.0-4.8); Lymphocytes % (A) 17 %; MCH 28.7 pg (25.0-35.0); MCHC 32.3 g/dL (31.0-37.0); MCV 88.9 fL (80.0-100.0); Mean Platelet Volume 8.2; Monocytes # (A) 0.9 k/uL (0-1.0); Monocytes % (A) 9 %; Neutrophils # (A) 6.4 k/uL (1.3-7.7); Neutrophils % (A) 69 %; Platelet Count 255 k/uL (150-450); RBC 3.77 m/uL (4.30-5.90); RDW 15.1 % (11.5-15.5); WBC 9.3 k/uL (3.8-10.6)
[2023-12-21] MEDS ORDERED: KETOROLAC 15 MG/ML 1 ML VIAL IVP PRN (09:55)
[2023-12-21 09:57] LABS: African American GFR (CKD) 63 (>60 ml/min/1.73 sqM); Anion Gap 4 mmol/L; Blood Urea Nitrogen 25 mg/dL (9-20); Calcium 8.4 mg/dL (8.4-10.2); Carbon Dioxide 24 mmol/L (22-30); Chloride 104 mmol/L (98-107); Glucose 97 mg/dL (74-99); Non-African American GFR(CKD) 54 (>60 ml/min/1.73 sqM); Sodium 132 mmol/L (137-145)
[2023-12-21] MEDS: CLOPIDOGREL 75 MG TAB PO SCH (10:07)
[2023-12-21] MEDS: traMADol 50 MG TAB PO SCH (10:34)
[2023-12-21] MEDS: LEVOTHYROXINE 25 MCG TAB PO SCH (11:52)
[2023-12-21] MEDS: EZETIMIBE 10 MG TAB PO SCH (11:52)
[2023-12-21] MEDS: ALBUTEROL HFA INHALER INHALATION SCH (13:26)
[2023-12-21] MEDS: ACETAMINOPHEN TAB 325 MG TAB PO PRN (14:45)
[2023-12-21] MEDS: BENZONATATE 100 MG CAP PO PRN (14:46)
[2023-12-21] MEDS: ATORVASTATIN 80 MG TAB PO SCH (21:01)
--- NOTE | 2023-12-21 22:57 | P.HPIM ---
History of Present Illness H&P Date: 12/21/23 This is a 62-year-old male with medical history of coronary artery disease with prior cardiac stenting, hypertension, hypothyroidism and former smoker. Patient reports quitting around . Patient comes in with a 3 to 4-week history of hemoptysis shortness of breath. Patient does report taking up to 6 aspirin per day and feels this may be attributing to some of his bloody sputum. He is maintained on aspirin and Plavix daily for the history of the cardiac stenting. Patient denies any chest pain he is not having any shortness of breath no nausea vomiting or diarrhea he is not having any bloody stool. His chest x-ray shows left lower lung airspace disease concerning for infectious or inflammatory process. He has a normal D-dimer. Sodium of 131 BUN of 21 creatinine 1.03 troponin level is negative and procalcitonin was checked at 0.06. A follow-up chest CT was obtained revealing approximately 4 cm left lower lobe mass similar to the prior. Worrisome for malignancy. [place] or involves the left lower lobe bronchus debris within the left mainstem bronchus and within the upper and lower lobe airways. Left lower lobe atelectasis new since the prior and may reflect postobstructive atelectasis. Multiple left lower lobe nodules not well-visualized. Mediastinal and left hilar adenopathy as on the recent prior. Patient was admitted to the hospital with a pulmonary cons ultation. He has been started empirically on IV ceftriaxone and oral azithromycin. REVIEW OF SYSTEMS: CONSTITUTIONAL: No fever, no malaise, no fatigue. HEENT: No recent visual problems or hearing problems. Denied any sore throat. CARDIOVASCULAR: No chest pain, orthopnea, PND, no palpitations, no syncope. PULMONARY: Reports shortness of breath, cough and hemoptysis GASTROINTESTINAL: No diarrhea, no nausea, no vomiting, no abdominal pain. NEUROLOGICAL: No headaches, no weakness, no numbness. HEMATOLOGICAL: Denies any bleeding or petechiae. GENITOURINARY: Denies any burning micturition, frequency, or urgency. MUSCULOSKELETAL/RHEUMATOLOGICAL: Denies any joint pain, or any muscle pain. ENDOCRINE: Denies any polyuria or polydipsia. The rest of the 14-point review of systems is negative. PHYSICAL EXAMINATION: GENERAL: The patient is alert and oriented x3, not in any acute distress. Well developed, well nourished. Obese. HEENT: Pupils are round and equally reacting to light. EOMI. No scleral icterus. No conjunctival pallor. Normocephalic, atraumatic. No pharyngeal erythema. No thyromegaly. CARDIOVASCULAR: S1 and S2 present. No murmurs, rubs, or gallops. PULMONARY: Chest is clear to auscultation, no wheezing or crackles. ABDOMEN: Soft, nontender, nondistended, normoactive bowel sounds. No palpable organomegaly. MUSCULOSKELETAL: No joint swelling or deformity. EXTREMITIES: No cyanosis, clubbing. no edema. NEUROLOGICAL: Gross neurological examination did not reveal any focal deficits. SKIN: No rashes. Assessment and Plan Hemoptysis secondary to pneumonia; post obstructive Lung mass, left hilar, concern for carcinoma and involvement of the left lower lobe bronchus. Patient scheduled to undergo bronchoscopy and biopsy tomorrow. 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 on discharge Chronic obstructive pulmonary disease maintained on trelegy which has been resumed Hyponatremia possible hypervolemic will stop IV fluids and repeat blood work in the AM Mild acute renal injury again will stop IV fluids and repeat blood work in the AM Hx of heart failure with systolic dysfunction EF 45-50% back in 2017 History of CVA/TIA Hx of hypertension Hx of hyperlipidemia Hypothyroidism resumed on levothyroxine Former smoker quit 1 month ago was about a 1 pack per day smoker Marijuana use GI prophylaxis DVT prophylaxis Full Code The impression and plan of care has been dictated by Denia Soni, Nurse Practitioner as directed. Dr. Delmar MD I have performed a history and physical examination and medical decision making of this patient, discussed the same with the dictator, and agree with the dictators assessment and plan as written, documented as a scribe. Based on total visit time, I have performed more than 50% of this visit. Past Medical History Past Medical History: Coronary Artery Disease (CAD), Hypertension, Thyroid Disorder History of Any Multi-Drug Resistant Organisms: None Reported Past Surgical History: Heart Catheterization With Stent Additional Past Surgical History / Comment(s): Throat surgery Past Psychological History: No Psychological Hx Reported Smoking Status: Former smoker Past Alcohol Use History: Occasional Past Drug Use History: Marijuana - Past Family History Father History Unknown: Yes Family Medical History: Cancer Additional Family Medical History / Comment(s): Lung ca Mother Additional Family Medical History / Comment(s): at age og 96 Medications and Allergies Home Medications Medication Instructions Recorded Confirmed Type Aspirin 81 mg PO DAILY 12/05/20 12/21/23 History Atorvastatin Calcium [Lipitor] 80 mg PO HS 12/05/20 12/21/23 History Clopidogrel [Plavix] 75 mg PO DAILY 12/05/20 12/21/23 History Ezetimibe [Zetia] 10 mg PO DAILY 12/05/20 12/21/23 History Levothyroxine Sodium 25 mcg PO DAILY 12/05/20 12/21/23 History Losartan Potassium [Cozaar] 100 mg PO DAILY 12/05/20 12/21/23 History Metoprolol Succinate (ER) [Toprol 50 mg PO DAILY 12/05/20 12/21/23 History Xl] Albuterol Sulfate [Ventolin HFA] 2 puff INHALATION RT-Q4H 12/21/23 12/21/23 History Fluticasone/Umeclidin/Vilanter 1 puff INHALATION RT-DAILY 12/21/23 12/21/23 History [Trelegy Ellipta 100-62.5-25] Sildenafil Citrate [Sildenafil] 20 mg PO DAILY PRN 12/21/23 12/21/23 History Allergies Allergy/AdvReac Type Severity Reaction Status Date / Time No Known Allergies Allergy Verified 12/21/23 07:29 Physical Exam Vitals: Vital Signs Temp Pulse Pulse Resp BP BP Pulse Ox 12/21/23 08:58 75 12/21/23 08:49 70 12/21/23 08:00 98.2 F 73 20 105/59 96 12/21/23 06:11 80 18 112/59 96 12/21/23 04:00 90 18 98/67 95 12/21/23 02:13 98.4 F 89 18 104/60 95 12/21/23 01:43 82 16 88/50 95 12/21/23 00:22 98 16 103/68 94 L 12/20/23 23:14 100 16 87/46 93 L 12/20/23 16:52 98.3 F 104 H 18 123/78 97 Intake and Output 12/20/23 12/21/23 12/21/23 22:59 06:59 14:59 Other: Voiding Method Toilet # Voids 1 Weight 87.543 kg Results CBC & Chem 7: 12/21/23 09:26 12/21/23 09:26 Labs: Abnormal Lab Results - Last 24 Hours (Table) 12/20/23 12/20/23 12/21/23 Range/Units 16:56 16:56 09:26 WBC 11.7 H (3.8-10.6) k/uL RBC 4.08 L 3.77 L (4.30-5.90) m/uL Hgb 11.8 L 10.8 L (13.0-17.5) gm/dL Hct 35.3 L 33.5 L (39.0-53.0) % Neutrophils # 9.1 H (1.3-7.7) k/uL Sodium 131 L (137-145) mmol/L BUN 21 H (9-20) mg/dL Creatinine (0.66-1.25) mg/dL Glucose 102 H (74-99) mg/dL 12/21/23 Range/Units 09:26 WBC (3.8-10.6) k/uL RBC (4.30-5.90) m/uL Hgb (13.0-17.5) gm/dL Hct (39.0-53.0) % Neutrophils # (1.3-7.7) k/uL Sodium 132 L (137-145) mmol/L BUN 25 H (9-20) mg/dL Creatinine 1.37 H (0.66-1.25) mg/dL Glucose (74-99) mg/dL Assessment and Plan Time with Patient: Greater than 30
[2023-12-22] MEDS ORDERED: NON FORMULARY DRUG (Fluticasone/Umeclidin/Vilanter [Trelegy Ellipta 100-62.5-25] 1 EACH Bl INHALATION SCH (08:00)
[2023-12-22 08:38] LABS: Basophils # (A) 0.07 X 10*3/uL (0.00-0.10); Basophils % (A) 0.5 %; Eosinophils # (A) 0.09 X 10*3/uL (0.04-0.35); Eosinophils % (A) 0.7 %; HCT 32.2 % (39.6-50.0); HGB 10.2 g/dL (13.0-17.0); Lymphocytes # (A) 0.86 X 10*3/uL (0.90-5.00); Lymphocytes % (A) 6.6 %; MCH 27.9 pg (27.0-32.0); MCHC 31.7 g/dL (32.0-37.0); Mean Platelet Volume 10.7 FL (9.5-12.2); Monocytes # (A) 0.81 X 10*3/uL (0.20-1.00); Monocytes % (A) 6.3 %; NRBC Per 100 WBC 0 X 10*3/uL (0.00-0.01); Neutrophils # (A) 11.07 X 10*3/uL (1.80-7.70); Neutrophils % (A) 85.6 %; Platelet Count 260 X 10*3/uL (140-440); RBC 3.66 X 10*6/uL (4.40-5.60); RDW 15.8 % (11.5-14.5); WBC 12.94 X 10*3/uL (4.50-10.00)
[2023-12-22 08:53] LABS: Blood Urea Nitrogen 17.4 mg/dL (9.0-27.0); Glucose 114 mg/dL (70-110)
[2023-12-22 08:54] LABS: Calcium 8.7 mg/dL (8.7-10.3); Carbon Dioxide 20.1 mmol/L (21.6-31.8); Chloride 99 mmol/L (96-109); Magnesium 1.7 mg/dL (1.5-2.4); Potassium 4.1 mmol/L (3.5-5.5); Sodium 133 mmol/L (135-145)
[2023-12-22] MEDS: METOPROLOL SUCCINATE (ER) 50 MG TAB.ER.24H PO SCH (09:00)
[2023-12-22] MEDS: ASPIRIN 81 MG PO SCH (10:03)
[2023-12-22] MEDS ORDERED: Magnesium Replacement Protocol 1 EACH MISC MISCELLANE PRN (10:19)
[2023-12-22] MEDS: MAGNESIUM SULFATE-D5W PMX 1 GM in DEXTROSE/WATER 1 100ML.BAG IVPB ONE (10:49)
[2023-12-22] MEDS: IV FLUID CONTINUATION 1,000 ML IV ONE ×2 (12:15→15:15)
[2023-12-22] MEDS: ONDANSETRON 4 MG/2 ML VIAL IVP STA (12:51)
[2023-12-22] MEDS: DEXAMETHASONE SOD PHOSPHATE 4 MG/ML 1 ML VIAL IVP STA (12:58)
[2023-12-22] MEDS ORDERED: GLYCOPYRROLATE 0.2 MG/ML 2 ML VIAL ONE (13:50)
[2023-12-22] MEDS ORDERED: fentaNYL (PF) 50 MCG/ML 2 ML AMP ONE (13:50)
[2023-12-22] MEDS ORDERED: MIDAZOLAM 2 MG/2 ML VIAL ONE (13:50)
[2023-12-22] MEDS ORDERED: NEOSTIGMINE 1 MG/ML 10 ML VIAL ONE (13:50)
[2023-12-22] MEDS ORDERED: SUCCINYLCHOLINE CHLORIDE 200 MG/10 ML VIAL IV ONE (13:50)
[2023-12-22] MEDS ORDERED: PROPOFOL 10 MG/ML 20 ML VIAL IV ONE (13:50)
[2023-12-22] MEDS ORDERED: LIDOCAINE 1% INJ 10MG/ML (20 ML MDV) ONE (13:50)
[2023-12-22] MEDS ORDERED: ROCURONIUM 10 MG/ML (5 ML VIAL) IV ONE (13:50)
[2023-12-22] MEDS: HEPARIN SODIUM,PORCINE 5,000 UNIT/ML 1 ML VIAL SQ SCH (21:00)
--- NOTE | 2023-12-23 00:04 | P.PN ---
Subjective Progress Note Date: 12/22/23 Patient is a 62-year-old white male with past medical history significant for coronary artery disease with previous PCI/stenting approximately 5 years ago, prior CVA/TIA, hyperlipidemia, hypertension, hypothyroidism, and former tobacco smoker. Patient quit smoking approximately 1 month ago. Prior to this he was a 1 pack/day smoker for most of his adult life. His primary care provider is Dr. Kern. Over the last couple months he has had a mostly nonproductive persistent chronic cough. This is accompanied with sustained left-sided chest pain. He was recently found to have a new left hilar lung mass and did have an office visit with Dr. Suárez 2 days ago. He is scheduled for a PET scan on January 03. Last night he reportedly developed some hemoptysis. Reportedly initially covering the palm of his hand, this is since slowed down to mostly quarter or nickel size. No current samples for direct observation and quantification. Probably less then 100 ml/24hrs. No signs of asphyxiation. He does take Plavix and 81 mg strength aspirin outpatient. Initial chest x-ray on arrival showed a left lower lung airspace disease, concerning for infectious or inflammatory process. CBC: WBC count 11.7, hemoglobin 11.8, hematocrit 35.3, platelets 267. Coagulation profile unremarkable. BMP also unremarkable. Troponin less than 0.012. Patient is currently lying in bed, on room air, in no acute distress. SpO2 95%. He continues to have a persistent cough, hemoptysis has significantly lessened. Plavix is on hold. Afebrile. Continues to have persistent left- sided chest pain. Follow-up chest CT with contrast redemonstrates the prior identified left hilar mass that is pushing on the left left lower bronchus with cutoff sign, along with some new left lower lobe opacification possible reab sorptive atelectasis, but underlying postobstructive pneumonia cannot be excluded. On today's evaluation of 12/22/2023, the patient is still having some episodes of hemoptysis. He is currently on Plavix. He is n.p.o. and the patient is going to undergo a bronchoscopy today. He is doing well. No specific complaints. He is NPO. White cell count is at 12 with a hemoglobin of 10.2 and a platelet count of 260. Electrolytes are all within normal limits. proBNP level is 637. Objective - Vital Signs Vital signs: Vital Signs Temp 97.9 F 12/22/23 17:49 Pulse 85 12/22/23 17:49 Resp 14 12/22/23 17:49 BP 106/74 12/22/23 17:49 Pulse Ox 97 12/22/23 17:49 FiO2 Intake & Output 12/21/23 12/22/23 12/22/23 18:59 06:59 18:59 Intake Total 600 350 Balance 600 350 Weight 87.543 kg Intake: IV 350 Oral 600 Other: Voiding Method Toilet Toilet Toilet # Voids 1 1 - Exam GENERAL EXAM: Alert, 62-year-old white male, well-nourished, with a congested persistent cough, fairly comfortable in no apparent distress. HEAD: Normocephalic and atraumatic EYES: Normal reaction of pupils, equal size. NOSE: Clear with pink turbinates. THROAT: No erythema or exudates. NECK: No masses, no JVD. CHEST: No chest wall deformity. LUNGS: Equal air entry with diminished left basilar lung sounds along with scattered rhonchi. On room air. No conversational dyspnea or accessory muscle use.. CVS: S1 and S2 normal with no audible murmur, regular rhythm. No extra heart sounds ABDOMEN: No hepatosplenomegaly, active bowel sounds, no guarding or rigidity. SPINE: No scoliosis or deformity SKIN: No rashes CENTRAL NERVOUS SYSTEM: No focal deficits, tone is normal in all 4 extremities. EXTREMITIES: There is no peripheral edema, clubbing, or cyanosis. Peripheral pulses are intact. - Labs CBC & Chem 7: 12/22/23 05:36 12/22/23 05:36 Labs: Abnormal Lab Results - Last 24 Hours (Table) 12/22/23 12/22/23 Range/Units 05:36 05:36 WBC 12.94 H (4.50-10.00) X 10*3/uL RBC 3.66 L (4.40-5.60) X 10*6/uL Hgb 10.2 L (13.0-17.0) g/dL Hct 32.2 L (39.6-50.0) % MCHC 31.7 L (32.0-37.0) g/dL RDW 15.8 H (11.5-14.5) % Neutrophils # 11.07 H (1.80-7.70) X 10*3/uL Lymphocytes # 0.86 L (0.90-5.00) X 10*3/uL Sodium 133 L (135-145) mmol/L Carbon Dioxide 20.1 L (21.6-31.8) mmol/L Anion Gap 13.90 H (4.00-12.00) mmol/L Glucose 114 H (70-110) mg/dL Microbiology - Last 24 Hours (Table) 12/21/23 05:45 Blood Culture - Preliminary Blood 12/21/23 05:30 Blood Culture - Preliminary Blood Assessment and Plan Assessment: Hemoptysis, nonmassive, likely < 100 ml/24hrs, no signs of asphyxiation, improved, currently n.p.o. for possible bronchoscopy and airway examination. Left hilar mass, measuring approximately 4 cm, highly suspicious for bronchogenic carcinoma. I did order a follow-up chest CT with contrast which redemonstrated the previously seen left hilar fullness/mass encroaching on the left lower lobe bronchus, along with cutoff sign, debris in the ascending left main bronchus, and new lower lobe opacification, likely postobstructive atelectasis, however, cannot completely exclude underlying postobstructive pneumonia. Mediastinal and left hilar adenopathy redemonstrated. PET scan reportedly scheduled for January 03 Chronic obstructive pulmonary disease, patient was recently started on Trelegy and as needed albuterol inhaler by Dr. Suárez in the pulmonary office. History of CVA/TIA History of coronary artery disease with remote history of PCI/stenting History of hyperlipidemia History of hypertension Former tobacco smoker, with over [id number] history, quitting approximately 1 month ago Marijuana smoker Plan: Currently on room air. Keep the antiplatelet agents on hold Bronchoscopy today
--- NOTE | 2023-12-23 00:11 | P.PCN ---
Date of Procedure: 12/23/23 Preoperative Diagnosis: Hemoptysis Postoperative Diagnosis: Left lower lobe mass invading the secondary manuel on the left with significant compromise of the airways to the left upper lobe and left lower lobe Hemoptysis originating from left lower lobe mass Procedure(s) Performed: Flexible bronchoscopy and airway inspection Endobronchial biopsy left lower lobe mass bronchoalveolar lavage of the left lower lobe Endobronchial ultrasound Endobronchial ultrasound-guided transbronchial needle aspirate of the left lower lobe mass and subcarinal station 7 lymph nodes Anesthesia: GETA Surgeon: Rocco Weiss Estimated Blood Loss (ml): 0 Pathology: other Condition: stable Disposition: same day Operative Findings: This is a 62-year-old male patient has been encountering hemoptysis and there is suspicion for a lung cancer as the patient has a left lower lobe mass causing left lower lobe atelectasis and hemoptysis. The patient was intubated in the usual fashion and placed on mechanical ventilator. The patient was intubated by #8 orotracheal tube. After achieving adequate oxygenation, the flexible bronchoscope was introduced through the orotracheal tube and airway inspection was done. Distal trachea was within normal limits. Right mainstem bronchus, right upper lobe bronchus, bronchus intermedius and right middle lobe and right lower lobe bronchi were all within normal limits and there was no significant abnormalities noted on the right side and the 10 segments on the right were inspected and they were within normal limits. Left mainstem bronchus was then examined. There was some limited scant bloody respiratory secretions. The secretions were suctioned out. The bronchoscope was advanced and the secondary manuel between the left upper and left lower lobe was abnormal. There was significant bulge representation of the left lower lobe mass that was invading the manuel causing significant airway compromise to the left lower lobe and reduction of the lumen of the left lower lobe bronchus by around 90%. Left upper lobe bronchus was also significant narrowing in the order of 60 to 70%. The pleural surface of the tumor was friable. Along its medial border, the tumor was friable and I anticipated that this was the source of bleeding. There was no active bleed. I was able to pass the bronchoscope into the left lower lobe with some difficulties as the airway was considerably narrowed. I was also able to introduce my bronchoscope into the left upper lobe. I estimate the left upper lobe bronchus to be around 6 mm in size and the left lower lobe bronchus is even narrower than 5 mm. Under direct visualization, endobronchial biopsies obtained from the left lower lobe mass. Following that, the endobronchial ultrasound was introduced. The left lower lobe mass was clearly seen by endobronchial ultrasound and using a 22-gauge VISI shot needle, transbronchial needle aspirate of left lower lobe mass was done and a total of 6-8 passes were taken. Following that, mediastinal evaluation was done and the patient was found to hav e around 3 cm subcarinal station 7 lymph node. Transbronchial needle aspirate of the subcarinal station was done and a total of 3 passes were obtained. Bronchial lavage of the left lower lobe was also done with a total of 60 cc of fluid was infused and 20 cc was aspirated without any major difficulties. The aspirate was bloody. Therapeutic airway suctioning was done. The bronchoscope was removed and the patient went was extubated and transferred to recovery in stable condition. Extubated some scant hemoptysis. There was no active bleeding at the completion of the procedure.
--- NOTE | 2023-12-23 07:29 | P.PN ---
Subjective Progress Note Date: 12/22/23 This is a 62-year-old male with medical history of coronary artery disease with prior cardiac stenting, hypertension, hypothyroidism and former smoker. Patient reports quitting around . Patient comes in with a 3 to 4-week history of hemoptysis shortness of breath. Patient does report taking up to 6 aspirin per day and feels this may be attributing to some of his bloody sputum. He is maintained on aspirin and Plavix daily for the history of the cardiac stenting. Patient denies any chest pain he is not having any shortness of breath no nausea vomiting or diarrhea he is not having any bloody stool. His chest x-ray shows left lower lung airspace disease concerning for infectious or inflammatory process. He has a normal D-dimer. Sodium of 131 BUN of 21 creatinine 1.03 troponin level is negative and procalcitonin was checked at 0.06. A follow-up chest CT was obtained revealing approximately 4 cm left lower lobe mass similar to the prior. Worrisome for malignancy. [place] or involves the left lower lobe bronchus debris within the left mainstem bronchus and within the upper and lower lobe airways. Left lower lobe atelectasis new since the prior and may reflect postobstructive atelectasis. Multiple left lower lobe nodules not well-visualized. Mediastinal and left hilar adenopathy as on the recent prior. Patient was admitted to the hospital with a pulmonary consultati on. He has been started empirically on IV ceftriaxone and oral azithromycin. 12/22/2023 Patient is evaluated in follow up. He will be undergoing bronchoscopy and biopsy today. He continues on IV azithromycin and IV ceftriaxone. Sodium up to 133, BUN 17.4 and creatinine 1.0. Continue off IV fluids at this time. REVIEW OF SYSTEMS: CONSTITUTIONAL: No fever, no malaise, no fatigue. HEENT: No recent visual problems or hearing problems. Denied any sore throat. CARDIOVASCULAR: No chest pain, orthopnea, PND, no palpitations, no syncope. PULMONARY: Reports shortness of breath, cough and hemoptysis GASTROINTESTINAL: No diarrhea, no nausea, no vomiting, no abdominal pain. NEUROLOGICAL: No headaches, no weakness, no numbness. The rest of the 14-point review of systems is negative. PHYSICAL EXAMINATION: GENERAL: The patient is alert and oriented x3, not in any acute distress. Well developed, well nourished. Obese. HEENT: Pupils are round and equally reacting to light. EOMI. No scleral icterus. No conjunctival pallor. Normocephalic, atraumatic. No pharyngeal erythema. No thyromegaly. CARDIOVASCULAR: S1 and S2 present. No murmurs, rubs, or gallops. PULMONARY: Chest is clear to auscultation, no wheezing or crackles. ABDOMEN: Soft, nontender, nondistended, normoactive bowel sounds. No palpable organomegaly. MUSCULOSKELETAL: No joint swelling or deformity. EXTREMITIES: No cyanosis, clubbing. no edema. NEUROLOGICAL: Gross neurological examination did not reveal any focal deficits. SKIN: No rashes. Assessment and Plan Hemoptysis secondary to pneumonia; post obstructive Lung mass, left hilar, concern for carcinoma and involvement of the left lower lobe bronchus. Patient scheduled to undergo bronchoscopy and biopsy today Postobstructive pneumonia patient has been started on IV azithromycin and ceftriaxone Hx of coronary artery disease on aspirin plavix, last coronary stent placed in 2016 and patient can probably stop the plavix at this time and continue on aspirin only recommending to discuss with primary orderly on discharge Chronic obstructive pulmonary disease maintained on trelegy which has been resumed Hyponatremia possible hypervolemic will stop IV fluids and repeat blood work in the AM Mild acute renal injury again will stop IV fluids and repeat blood work in the AM Hx of heart failure with systolic dysfunction EF 45-50% back in 2017 History of CVA/TIA Hx of hypertension Hx of hyperlipidemia Hypothyroidism resumed on levothyroxine Former smoker quit 1 month ago was about a 1 pack per day smoker Marijuana use GI prophylaxis DVT prophylaxis Full Code The impression and plan of care has been dictated by Denia Soni, Nurse Practitioner as directed. Dr. Delmar MD I have performed a history and physical examination and medical decision making of this patient, discussed the same with the dictator, and agree with the dictators assessment and plan as written, documented as a scribe. Based on total visit time, I have performed more than 50% of this visit. Objective - Vital Signs Vital signs: Vital Signs Temp 98.8 F 12/22/23 12:22 Pulse 84 12/22/23 12:22 Resp 18 12/22/23 12:22 BP 111/65 12/22/23 12:22 Pulse Ox 96 12/22/23 12:22 FiO2 Intake & Output 12/21/23 12/22/23 12/22/23 18:59 06:59 18:59 Intake Total 600 275 Balance 600 275 Intake: IV 275 Oral 600 Other: Voiding Method Toilet Toilet Toilet # Voids 1 1 - Labs CBC & Chem 7: 12/22/23 05:36 12/22/23 05:36 Labs: Abnormal Lab Results - Last 24 Hours (Table) 12/22/23 12/22/23 Range/Units 05:36 05:36 WBC 12.94 H (4.50-10.00) X 10*3/uL RBC 3.66 L (4.40-5.60) X 10*6/uL Hgb 10.2 L (13.0-17.0) g/dL Hct 32.2 L (39.6-50.0) % MCHC 31.7 L (32.0-37.0) g/dL RDW 15.8 H (11.5-14.5) % Neutrophils # 11.07 H (1.80-7.70) X 10*3/uL Lymphocytes # 0.86 L (0.90-5.00) X 10*3/uL Sodium 133 L (135-145) mmol/L Carbon Dioxide 20.1 L (21.6-31.8) mmol/L Anion Gap 13.90 H (4.00-12.00) mmol/L Glucose 114 H (70-110) mg/dL Microbiology - Last 24 Hours (Table) 12/21/23 05:45 Blood Culture - Preliminary Blood 12/21/23 05:30 Blood Culture - Preliminary Blood Assessment and Plan Time with Patient: Less than 30
[2023-12-23 07:52] LABS: Basophils % (A) 0 %; Eosinophils % (A) 0 %; HGB 10.4 gm/dL (13.0-17.5); Lymphocytes # (A) 1.4 k/uL (1.0-4.8); Lymphocytes % (A) 12 %; MCH 28.9 pg (25.0-35.0); MCHC 32.6 g/dL (31.0-37.0); MCV 88.6 fL (80.0-100.0); Mean Platelet Volume 7.9; Monocytes # (A) 0.6 k/uL (0-1.0); Monocytes % (A) 6 %; Neutrophils % (A) 80 %; Platelet Count 273 k/uL (150-450); RBC 3.61 m/uL (4.30-5.90); RDW 14.8 % (11.5-15.5); WBC 11.2 k/uL (3.8-10.6)
[2023-12-23 07:56] VITALS: RESP 20
[2023-12-23 08:06] LABS: African American GFR (CKD) >90 (>60 ml/min/1.73 sqM); Anion Gap 6 mmol/L; Blood Urea Nitrogen 18 mg/dL (9-20); Calcium 8.5 mg/dL (8.4-10.2); Carbon Dioxide 23 mmol/L (22-30); Chloride 102 mmol/L (98-107); Glucose 115 mg/dL (74-99); Magnesium 1.7 mg/dL (1.6-2.3); Non-African American GFR(CKD) >90 (>60 ml/min/1.73 sqM); Potassium 3.8 mmol/L (3.5-5.1); Sodium 131 mmol/L (137-145)
[2023-12-23] MEDS: PANTOPRAZOLE 40 MG TABLET PO SCH (09:54)
[2023-12-23] MEDS: MAGNESIUM SULFATE-D5W PMX 1 GM in DEXTROSE/WATER 1 100ML.BAG IVPB ONE (11:09)
[2023-12-23 13:23] VITALS: BP 113/67; PULSE 78; TEMP 98.8
--- NOTE | 2023-12-23 15:44 | P.PN ---
Progress Note - Text Progress Note Date: 12/23/23 Pt's chart reviewed, however pt was discharged prior to being seen
--- NOTE | 2023-12-23 20:28 | P.PN ---
Subjective Progress Note Date: 12/23/23 Patient is a 62-year-old white male with past medical history significant for coronary artery disease with previous PCI/stenting approximately 5 years ago, prior CVA/TIA, hyperlipidemia, hypertension, hypothyroidism, and former tobacco smoker. Patient quit smoking approximately 1 month ago. Prior to this he was a 1 pack/day smoker for most of his adult life. His primary care provider is Dr. Kern. Over the last couple months he has had a mostly nonproductive persistent chronic cough. This is accompanied with sustained left-sided chest pain. He was recently found to have a new left hilar lung mass and did have an office visit with Dr. Suárez 2 days ago. He is scheduled for a PET scan on January 03. Last night he reportedly developed some hemoptysis. Reportedly initially covering the palm of his hand, this is since slowed down to mostly quarter or nickel size. No current samples for direct observation and quantification. Probably less then 100 ml/24hrs. No signs of asphyxiation. He does take Plavix and 81 mg strength aspirin outpatient. Initial chest x-ray on arrival showed a left lower lung airspace disease, concerning for infectious or inflammatory process. CBC: WBC count 11.7, hemoglobin 11.8, hematocrit 35.3, platelets 267. Coagulation profile unremarkable. BMP also unremarkable. Troponin less than 0.012. Patient is currently lying in bed, on room air, in no acute distress. SpO2 95%. He continues to have a persistent cough, hemoptysis has significantly lessened. Plavix is on hold. Afebrile. Continues to have persistent left- sided chest pain. Follow-up chest CT with contrast redemonstrates the prior identified left hilar mass that is pushing on the left left lower bronchus with cutoff sign, along with some new left lower lobe opacification possible reab sorptive atelectasis, but underlying postobstructive pneumonia cannot be excluded. On today's evaluation of 12/22/2023, the patient is still having some episodes of hemoptysis. He is currently on Plavix. He is n.p.o. and the patient is going to undergo a bronchoscopy today. He is doing well. No specific complaints. He is NPO. White cell count is at 12 with a hemoglobin of 10.2 and a platelet count of 260. Electrolytes are all within normal limits. proBNP level is 637. On today's evaluation of 12/23/2023, the patient is stable. Doing well. No ongoing hemoptysis for now. Bronchoscopy and biopsies and endobronchial ultrasound was also completed and the results are still pending for now. The patient has some exertional dyspnea. He is on room air oxygen. WBC count 11.2 with anemia 10.4. BUN is 18 with a creatinine of 0.8 and sodium is at 131. The patient is currently off antiplatelet agents. He is maintained on Trelegy Ellipta on outpatient basis. Objective - Vital Signs Vital signs: Vital Signs Temp 98.5 F 12/23/23 07:30 Pulse 73 12/23/23 07:30 Resp 20 12/23/23 07:30 BP 122/78 12/23/23 07:30 Pulse Ox 94 L 12/23/23 07:30 FiO2 Intake & Output 12/22/23 12/23/23 12/23/23 18:59 06:59 18:59 Intake Total 350 750 Balance 350 750 Weight 87.543 kg Intake: IV 350 Oral 750 Other: Voiding Method Toilet Toilet Toilet # Voids 2 - Exam GENERAL EXAM: Alert, 62-year-old white male, well-nourished, with a congested persistent cough, fairly comfortable in no apparent distress. HEAD: Normocephalic and atraumatic EYES: Normal reaction of pupils, equal size. NOSE: Clear with pink turbinates. THROAT: No erythema or exudates. NECK: No masses, no JVD. CHEST: No chest wall deformity. LUNGS: Equal air entry with diminished left basilar lung sounds along with scattered rhonchi. On room air. No conversational dyspnea or accessory muscle use.. CVS: S1 and S2 normal with no audible murmur, regular rhythm. No extra heart sounds ABDOMEN: No hepatosplenomegaly, active bowel sounds, no guarding or rigidity. SPINE: No scoliosis or deformity SKIN: No rashes CENTRAL NERVOUS SYSTEM: No focal deficits, tone is normal in all 4 extremities. EXTREMITIES: There is no peripheral edema, clubbing, or cyanosis. Peripheral pulses are intact. - Labs CBC & Chem 7: 12/23/23 07:20 12/23/23 07:20 Labs: Abnormal Lab Results - Last 24 Hours (Table) 12/23/23 12/23/23 Range/Units 07:20 07:20 WBC 11.2 H (3.8-10.6) k/uL RBC 3.61 L (4.30-5.90) m/uL Hgb 10.4 L (13.0-17.5) gm/dL Hct 32.0 L (39.0-53.0) % Neutrophils # 9.0 H (1.3-7.7) k/uL Sodium 131 L (137-145) mmol/L Glucose 115 H (74-99) mg/dL Microbiology - Last 24 Hours (Table) 12/22/23 14:02 Gram Stain - Preliminary Bronchoalviolar Lavage - Left 12/21/23 05:45 Blood Culture - Preliminary Blood 12/21/23 05:30 Blood Culture - Preliminary Blood Assessment and Plan Assessment: Hemoptysis, currently inactive and stable and the patient is off Plavix. Left hilar mass, measuring approximately 4 cm, highly suspicious for bronchogenic carcinoma. I did order a follow-up chest CT with contrast which redemonstrated the previously seen left hilar fullness/mass encroaching on the left lower lobe bronchus, along with cutoff sign, debris in the ascending left main bronchus, and new lower lobe opacification, likely postobstructive atelectasis. Please refer to the results of the bronchoscopy and endobronchial ultrasound. PET scan reportedly scheduled for January 03 Chronic obstructive pulmonary disease, patient was recently started on Trelegy and as needed albuterol inhaler by Dr. Suárez in the pulmonary office. History of CVA/TIA History of coronary artery disease with remote history of PCI/stenting History of hyperlipidemia History of hypertension Former tobacco smoker, with over [id number] history, quitting approximately 1 month ago Marijuana smoker Plan: Bronchoscopy, biopsy of the left lower lobe mass, endobronchial ultrasound was done and the results are still pending for now. No active hemoptysis the patient is off Plavix Currently on room air. The patient to be discharged home today to be followed up on outpatient basis. Will need immediate attention and treatment once diagnosis is confirmed.
--- NOTE | 2023-12-25 23:22 | P.DS ---
Providers Date of admission: 12/20/23 22:04 Attending physician: Telma Dave Consults: 12/20/23 22:02 Consult Physician Routine Consulting Provider: Rocco Weiss Consult Reason/Comments: hemoptysis Do you want consulting provider notified?: Yes 12/23/23 10:35 Consult Physician Routine Consulting Provider: Debo Dawkins Consult Reason/Comments: new lung mass Do you want consulting provider notified?: Yes Primary care physician: Jose K[facility] Hospital Course: Final Diagnosis Hemoptysis secondary to pneumonia; post obstructive Lung mass, left hilar, concern for carcinoma and involvement of the left lower lobe bronchus. Postobstructive pneumonia patient has been started on IV azithromycin and ceftriaxone Hx of coronary artery disease on aspirin plavix, last coronary stent placed in 2016 Chronic obstructive pulmonary disease maintained on trelegy Hyponatremia possible hypervolemic Mild acute renal injury again will stop IV fluids and repeat blood work in the AM Hx of heart failure with systolic dysfunction EF 45-50% back in 2017 History of CVA/TIA Hx of hypertension Hx of hyperlipidemia Hypothyroidism resumed on levothyroxine Former smoker quit 1 month ago was about a 1 pack per day smoker Marijuana use Discharge Disposition Patient is stable for discharge home. Will require close follow up in the office with pulmonary and oncology services and to further discuss biopsy results. Patient recommended to remain off plavix at this time however he wishes to discuss this further with his primary commercial assistant. Patient has been taken off losartan at this time. Has a PET scan already scheduled on January 03 and recommending to keep this appointment. Repeat blood work in 2 to 3 days. Follow up with Dr. Kern in 1 to 2 days. Hospital Course This is a 62-year-old male with medical history of coronary artery disease with prior cardiac stenting, hypertension, hypothyroidism and former smoker. Patient reports quitting around . Patient comes in with a 3 to 4-week history of hemoptysis shortness of breath. Patient does report taking up to 6 aspirin per day and feels this may be attributing to some of his bloody sputum. He is maintained on aspirin and Plavix daily for the history of the cardiac stenting. Patient denies any chest pain he is not having any shortness of breath no nausea vomiting or diarrhea he is not having any bloody stool. His chest x-ray shows left lower lung airspace disease concerning for infectious or inflammatory process. He has a normal D-dimer. Sodium of 131 BUN of 21 creatinine 1.03 troponin level is negative and procalcitonin was checked at 0.06. A follow-up chest CT was obtained revealing approximately 4 cm left lower lobe mass similar to the prior. Worrisome for malignancy. [place] or involves the left lower lobe bronchus debris within the left mainstem bronchus and within the upper and lower lobe airways. Left lower lobe atelectasis new since the prior and may reflect postobstructive atelectasis. Multiple left lower lobe nodules not well-visualized. Mediastinal and left hilar adenopathy as on the recent prior. Patient was admitted to the hospital with a pulmonary consultation. He has been started empirically on IV ceftriaxone and oral azithromycin. Bronchoscopy and biopsies and endobronchial ultrasound was also completed by pulmonary. Patient will follow up in the office for reports. Patie nts hemoptysis has improved and advise to continue on aspirin 81 mg daily and avoid any additional aspirin products on discharge. Patient will see oncology in the office as well. Sodium level 131, BUN 18, creatinine 0.86. Magnesium 1.7. Please see medication reconciliation for a list of current medications. Thank you for allowing us to participate in the care of this patient. The impression and plan of care has been dictated by Denia Soni, Nurse Practitioner as directed. Dr. Delmar MD I have performed a history and physical examination and medical decision making of this patient, discussed the same with the dictator, and agree with the dictators assessment and plan as written, documented as a scribe. Based on total visit time, I have performed more than 50% of this visit. Patient Condition at Discharge: Good Plan - Discharge Summary New Discharge Prescriptions: New Benzonatate [Tessalon Perles] 200 mg PO TID PRN #30 cap PRN Reason: Cough Continue Metoprolol Succinate (ER) [Toprol XL] 50 mg PO DAILY Levothyroxine Sodium 25 mcg PO DAILY Atorvastatin Calcium [Lipitor] 80 mg PO HS Aspirin 81 mg PO DAILY Sildenafil Citrate 20 mg PO DAILY PRN PRN Reason: E.D. Albuterol Sulfate [Ventolin HFA] 2 puff INHALATION RT-Q4H Ezetimibe [Zetia] 10 mg PO DAILY Fluticasone/Umeclidin/Vilanter [Trelegy Ellipta 100-62.5-25] 1 puff INHALATION RT-DAILY Discontinued Clopidogrel [Plavix] 75 mg PO DAILY Losartan Potassium [Cozaar] 100 mg PO DAILY Discharge Medication List Aspirin 81 mg PO DAILY 12/05/20 [History] Atorvastatin Calcium [Lipitor] 80 mg PO HS 12/05/20 [History] Ezetimibe [Zetia] 10 mg PO DAILY 12/05/20 [History] Levothyroxine Sodium 25 mcg PO DAILY 12/05/20 [History] Metoprolol Succinate (ER) [Toprol XL] 50 mg PO DAILY 12/05/20 [History] Albuterol Sulfate [Ventolin HFA] 2 puff INHALATION RT-Q4H 12/21/23 [History] Fluticasone/Umeclidin/Vilanter [Trelegy Ellipta 100-62.5-25] 1 puff INHALATION RT-DAILY 12/21/23 [History] Sildenafil Citrate 20 mg PO DAILY PRN 12/21/23 [History] Benzonatate [Tessalon Perles] 200 mg PO TID PRN #30 cap 12/23/23 [Rx] Follow up Appointment(s)/Referral(s): Jose Kern DO [Primary Care Provider] - 1-2 days Angel Suárez MD [STAFF PHYSICIAN] - 1 Week Debo Dawkins MD [STAFF PHYSICIAN] - 1 Week Ambulatory/Diagnostic Orders: Basic Metabolic Panel [LAB.AMB] Time Frame: 3 Days, Location: None Selected Magnesium [LAB.AMB] Location: None Selected Patient Instructions/Handouts: Benzonatate (By mouth) Activity/Diet/Wound Care/Special Instructions: Keep your PET scan for 01/03 Recommend to hold plavix but can follow up your commercial assistant to discuss. Follow up with pulmonary in the office Discharge Disposition: HOME SELF-CARE
--- NOTE | 2023-12-29 11:22 | CDI ---
Documentation Clarification Form Date: 12/23/23 From: Zahira Teran Admit Date: 12/20/2023 10:04:00 PM Patient Name: Chris Vaughan Visit Number: [id number] Discharge Date: 12/23/2023 02:55:00 PM ATTENTION: The Clinical Documentation Specialists (CDI) and [facility] Coding Staff appreciate your assistance in clarifying documentation. Please respond to the clarification below the line at the bottom and electronically sign. The CDI & [facility] Coding staff will review the response and follow-up if needed. Please note: Queries are made part of the Legal Health Record. If you have any questions, please contact the author of this message via ITS. Dr. 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 And SUBCARINAL STATION 7NODE, ASPIRATE: Rare atypical cells suspicious fornon-small cell carcinoma, limited for definitive diagnosis due to low cellularity. Coding guidelines do not allow coding professionals to code based on pathology results; therefore, clarification is requested. History/risk factors: HTN w chronic systolic CHF, hypothyroidism, HLD, CAD Clinical Indicators: Encounteringhemoptysisand there is suspicion for alung canceras the patient has a left lower lobemasscausing left lower lobeatelectasisandhemoptysis. Treatment: Bronchoscopy with endobronchial biopsy, transbronchial needle aspirate and subcarnial lymph nodes. 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 And SUBCARINAL STATION 7NODE, ASPIRATE: Rare atypical cells suspicious fornon- small cell carcinoma, limited for definitive diagnosis due to low cellularity: [ x] Yes [ ] No [ ] Other (please specify) [ ] Unable to determine MITCHELLD
== END 2023-12-23 14:55 | disposition home or self-care (01) | DRG 167 ==
LOC: EC 16:09 → 5NMEDONC 22:04
PROVIDERS: ADMIT Hospitalist; ATTEND Hospitalist
PROC: 07D78ZX Extraction of Thorax Lymphatic, Via Natural or Artificial Opening Endoscopic, Diagnostic (ICD-10-PCS; principal; 2023-12-20)
PROC: 0BBJ8ZX Excision of Left Lower Lung Lobe, Via Natural or Artificial Opening Endoscopic, Diagnostic (ICD-10-PCS; principal; 2023-12-20)
PROC: 0B9J8ZX Drainage of Left Lower Lung Lobe, Via Natural or Artificial Opening Endoscopic, Diagnostic (ICD-10-PCS; principal; 2023-12-20)
PROC: 0BDJ8ZX Extraction of Left Lower Lung Lobe, Via Natural or Artificial Opening Endoscopic, Diagnostic (ICD-10-PCS; principal; 2023-12-20)
PROC: 0B9J8ZZ Drainage of Left Lower Lung Lobe, Via Natural or Artificial Opening Endoscopic (ICD-10-PCS; principal; 2023-12-20)
DX: J18.9 Pneumonia, unspecified organism (principal); C34.32 Malignant neoplasm of lower lobe, left bronchus or lung; E87.1 Hypo-osmolality and hyponatremia; N17.9 Acute kidney failure, unspecified; R04.2 Hemoptysis; I50.22 Chronic systolic (congestive) heart failure; J98.11 Atelectasis; I11.0 Hypertensive heart disease with heart failure; D64.9 Anemia, unspecified; E03.9 Hypothyroidism, unspecified; E78.5 Hyperlipidemia, unspecified; I25.10 Atherosclerotic heart disease of native coronary artery without angina pectoris; R59.0 Localized enlarged lymph nodes; Z79.02 Long term (current) use of antithrombotics/antiplatelets; Z79.82 Long term (current) use of aspirin; Z79.51 Long term (current) use of inhaled steroids; Z79.890 Hormone replacement therapy; Z79.899 Other long term (current) drug therapy; Z87.891 Personal history of nicotine dependence; Z95.5 Presence of coronary angioplasty implant and graft; Z86.73 Personal history of transient ischemic attack (TIA), and cerebral infarction without residual deficits
CPT/HCPCS: 31624; 31625; 31629; 31652; 36415; 71045; 71260; 80048; 80053; 83735; 83880; 84145; 84484; 85025; 85379; 85610; 85730; 87040; 87070; 87205; 88305; 88341; 93005; 94640; 96361; 96365; 96366; 96367; 96375; 99285

== ENCOUNTER → 2023-12-27 | Outpatient (CLI) | payer MEDICARE ==
[2023-12-27 15:37] LABS: BUN/Creat Ratio 22.11 Ratio (12.00-20.00); Blood Urea Nitrogen 19.9 mg/dL (9.0-27.0); Calcium 9.3 mg/dL (8.7-10.3); Carbon Dioxide 20.8 mmol/L (21.6-31.8); Chloride 97 mmol/L (96-109); Glucose 99 mg/dL (70-110); Magnesium 1.5 mg/dL (1.5-2.4); Sodium 131 mmol/L (135-145)
== END | disposition home or self-care (01) ==
LOC: LABWHC1 10:10
PROVIDERS: ATTEND Nurse Practitioner Family
DX: E87.1 Hypo-osmolality and hyponatremia (principal)
CPT/HCPCS: 36415; 80048; 83735

== ENCOUNTER → 2024-01-03 | Outpatient (CLI) | payer MEDICARE ==
--- NOTE | 2024-01-03 22:36 | MR ---
EXAMINATION TYPE: MR brain wo/w con DATE OF EXAM: 01/03/2024 COMPARISON: NONE HISTORY: Lung cancer, Weakness left side, TECHNIQUE: Multiplanar, multisequence images of the brain and brainstem is performed without and with IV contras t, utilizing 8.5 mL intravenous Gadavist . FINDINGS: Diffusion weighted images demonstrate no evidence of a recent infarct or other diffusion ab normality. There is mild ventricular and sulcal prominence. There are some scattered foci of T2 hype rintensity seen throughout the white matter bilaterally. Approximately 15 distinct tiny lesions are s een. Lesions are nonspecific in appearance and distribution. Suspect old lacunar infarct right cerebe llum axial image 9 measuring near 4 mm in size Midline structures demonstrate normal morphology. The craniocervical junction appears within normal limits. Post contrast images demonstrate no abnormal enhancement or enhancing masses. The dural veno us sinuses appear patent. The globes are intact bilaterally.. Nasal septum slightly deviated to right of midline. Mild to moderate mucosal thickening involving the ethmoid sinuses bilaterally. Patchy fl uid signal in the mastoid air cells left greater than right is present IMPRESSION: 1. No MRI evidence for recent infarct. 2. No abnormal enhancing intraparenchymal masses to suggest metastatic disease to the brain. 3. Mild diffuse age-related cerebral atrophy and mild to moderate nonspecific white matter changes fa vor product of chronic small vessel ischemic change in patient of this age. Tiny old right cerebellar lacunar infarct. 4. Abnormal fluid in the mastoid air cells could reflect mastoiditis, left greater than right. Correl ate clinically. 5. Chronic ethmoid sinusitis.
== END | disposition home or self-care (01) ==
LOC: RADMRIMAIN 21:45
PROVIDERS: ATTEND Internal Medicine Hematology & Oncology
DX: C34.32 Malignant neoplasm of lower lobe, left bronchus or lung (principal); I67.82 Cerebral ischemia; J32.2 Chronic ethmoidal sinusitis; G31.9 Degenerative disease of nervous system, unspecified; Z86.73 Personal history of transient ischemic attack (TIA), and cerebral infarction without residual deficits
CPT/HCPCS: 70553; A9585

== ENCOUNTER → 2024-01-04 | Outpatient (CLI) | payer MEDICARE ==
--- NOTE | 2024-01-07 07:54 | PE ---
EXAMINATION TYPE: PET CT fusion skull to thigh DATE OF EXAM: 01/04/2024 CLINICAL INDICATION:Male, 63 years old with history of Lung Ca R91.8; TECHNIQUE: Following the intravenous administration of 10.28 mCi of F-18 FDG, whole body images are performed from the skull base to the midthigh. Images are reviewed on the computer in the coronal, axial, and sagittal planes. Reconstructed rotating images are created on independent workstation and reviewed on the computer. A non-contrast CT is performed in conjunction with the PET scan. Glucose level 88 mg/dL CT DLP: 463 mGycm, Automated exposure control for dose reduction was used. COMPARISON: CT 12/21/2023, PET/CT None, MRI: None FINDINGS: Mediastinal SUV mean is 1.7. Hepatic parenchyma SUV mean is 2.4. SKULL BASE AND NECK: * Right supraclavicular lymph node with elevated FDG activity max SUV 7.0 * Left supraclavicular lymph node max SUV 4.0 CHEST, MEDIASTINUM, AND HILAR REGION: N Left lower lobe consolidation changes with area of focal intense radiotracer uptake max SUV 19.80 jeniffer suring 6.1 x 4.1 cm More distal to this towards the periphery is airspace consolidation concerning for infectious/inflamm atory process.. Abnormal lymphadenopathy in the mediastinum with increased metabolic activity max SUV: * Right low paratracheal 5.7. Measuring 16 mm * AP window 9.7 measuring 12 mm * Subcarinal some 7.0 measuring 13 mm * Prevascular space left 6.8. * Prevascular space right 5.1. ABDOMEN AND PELVIS: No suspicious radiotracer activity. MUSCULOSKELETAL STRUCTURES: No suspicious radiotracer activity. OTHER CT: Atherosclerosis of the carotid arteries. Atherosclerosis of the coronary arteries. Left phu al cysts. Clonic diverticulosis. Fat-containing umbilical hernia. Left fat-containing inguinal hernia. IMPRESSION: Left lower lobe infrahilar mass with metastatic disease to the mediastinum and bilateral supraclavicu lar regions.
== END | disposition home or self-care (01) ==
LOC: RADPETMAIN 13:57
PROVIDERS: ATTEND Internal Medicine
DX: R22.2 Localized swelling, mass and lump, trunk (principal); C78.00 Secondary malignant neoplasm of unspecified lung
CPT/HCPCS: 78815; A9552

== ENCOUNTER 2024-01-13 10:52 | Inpatient (IN) | payer MEDICARE ==
--- NOTE | 2024-01-13 11:34 | ED ---
SOB HPI - General Chief Complaint: Shortness of Breath Stated Complaint: SOB Time Seen by Provider: 01/13/24 11:33 Source: patient, RN notes reviewed Mode of arrival: wheelchair Limitations: no limitations - History of Present Illness Initial Comments: This is a 63-year-old male who presents to the emergency department for shortness of breath. States that he was diagnosed with lung cancer last month and is scheduled to start chemotherapy and radiation treatment in 2 days. He has had progressively worsening shortness of breath since the diagnosis last month and has gotten to the point where he feels like he will stop breathing. He also reports an excessive amount of coughing. Denies any substantial chest pain, fevers, or chills. MD Complaint: shortness of breath, cough - Related Data Home Medications Medication Instructions Recorded Confirmed Aspirin 81 mg PO DAILY 12/05/20 01/13/24 Atorvastatin Calcium [Lipitor] 80 mg PO HS 12/05/20 01/13/24 Ezetimibe [Zetia] 10 mg PO DAILY 12/05/20 01/13/24 Levothyroxine Sodium 25 mcg PO DAILY 12/05/20 01/13/24 Metoprolol Succinate (ER) [Toprol 50 mg PO DAILY 12/05/20 01/13/24 XL] Albuterol Sulfate [Ventolin HFA] 2 puff INHALATION RT-Q4H 12/21/23 01/13/24 Fluticasone/Umeclidin/Vilanter 1 puff INHALATION RT-DAILY 12/21/23 01/13/24 [Trelegy Ellipta 100-62.5-25] Sildenafil Citrate 20 mg PO DAILY PRN 12/21/23 01/13/24 HYDROcodone/APAP 5-325MG [[place] 1 tab PO Q6H PRN 01/13/24 01/13/24 5-325] OLANZapine 10 mg PO DIRECTED 01/13/24 01/13/24 Ondansetron Odt [Zofran Odt] 4 mg PO Q6H PRN 01/13/24 01/13/24 Previous Rx's Medication Instructions Recorded Benzonatate [Tessalon Perles] 200 mg PO TID PRN #30 cap 12/23/23 Allergies Allergy/AdvReac Type Severity Reaction Status Date / Time No Known Allergies Allergy Verified 01/13/24 14:08 Review of Systems ROS Statement: Those systems with pertinent positive or pertinent negative responses have been documented in the HPI. ROS Other: All systems not noted in ROS Statement are negative. Past Medical History Past Medical History: Coronary Artery Disease (CAD), Cancer, Hypertension, Thyroid Disorder Additional Past Medical History / Comment(s): lung ca History of Any Multi-Drug Resistant Organisms: None Reported Past Surgical History: Heart Catheterization With Stent Additional Past Surgical History / Comment(s): Throat surgery Date of Last Stent Placement:: 2016 Past Psychological History: No Psychological Hx Reported Smoking Status: Former smoker Past Alcohol Use History: Occasional Past Drug Use History: Marijuana - Past Family History Father History Unknown: Yes Family Medical History: Cancer Additional Family Medical History / Comment(s): Lung ca Mother Additional Family Medical History / Comment(s): at age og 96 General Exam Limitations: no limitations General appearance: alert, in no apparent distress Head exam: Present: atraumatic, normocephalic, normal inspection Respiratory exam: Present: normal lung sounds bilaterally. Absent: respiratory distress, wheezes, rales, rhonchi, stridor Cardiovascular Exam: Present: regular rate, normal rhythm, normal heart sounds. Absent: systolic murmur, diastolic murmur, rubs, gallop, clicks Neurological exam: Present: alert, oriented X3, CN II-XII intact Psychiatric exam: Present: normal affect, normal mood Skin exam: Present: warm, dry, intact, normal color. Absent: rash Course Vital Signs 01/13/24 11:04 Temperature 99 F Pulse Rate 107 H Respiratory 24 Rate Blood Pressure 107/64 O2 Sat by Pulse 94 L Oximetry Medical Decision Making - Medical Decision Making This is a 63 year old male who presents to the emergency department for shortness of breath. Was pt. sent in by a medical professional or institution? @ -No Did you speak to anyone other than the patient for history? @ -No Did you review nursing and triage notes? @ -Yes, and I agree, it is accurate with regards to the patient's symptoms. Were old charts reviewed? @ -No Differential Diagnosis? @ -Differential Dyspnea: Coronary syndrome, arrhythmia, tamponade, asthma, COPD, pulmonary embolism, pneumonia, pneumothorax, pulmonary effusion, anaphylaxis, diabetic ketoacidosis, flailed chest, pulmonary contusion, diaphragmatic rupture, anemia, neuromuscular, this is not meant to be an all-inclusive list. EKG interpreted by me (3pts min.)? @ -EKG interpreted by me demonstrating the following: Sinus rhythm. Ventricular rate 94 bpm, NV interval 124 ms, QRS duration 101 ms, QTc 397 ms. X-rays interpreted by me (1pt min.)? @ -Chest x-ray obtained, my interpretation identifies no localized consolidations or infiltrates. CT interpreted by me (1pt min.)? @ -CTA of the chest obtained. My interpretation identifies no evidence of a pulmonary embolus. U/S interpreted by me (1pt. min.)? @ -Not obtained What testing was considered but not performed? (CT, X-rays, U/S, labs)? Why? @ -None What meds were considered but not given? Why? @ -None Did you discuss the management of the patient with other professionals? @ -Yes, Dr. Eubanks, who accepts the patient for admission. Did you reconcile home meds? @ -Yes Was smoking cessation discussed for >3mins.? @ -I discussed smoking cessation for greater than 3 minutes. The risk of smoking were discussed with the patient including but not limited to risks of cancer, stroke, coronary artery disease and COPD. Also discussed with patient were multiple methods of quitting smoking. Lastly we discussed the financial cost of smoking. Was critical care preformed (if so, how long)? @ -No Were there social determinants of health that impacted care today? How? (Homelessness, low income, unemployed, alcoholism, drug addiction, transportation, low edu. Level, literacy, decrease access to med. care, senior care, rehab)? @ -No Was there de-escalation of care discussed even if they declined? (Discuss DNR or withdrawal of care, Hospice)? @ -No What co-morbidities impacted this encounter? (DM, HTN, Smoking, COPD, CAD, Cancer, CVA, Hep., AIDS, mental health diagnosis, sleep apnea, morbid obesity)? @ -Smoking, lung cancer, CAD, HTN Was patient admitted / discharged? @ -Admitted. Lab work demonstrates leukocytosis with a white blood cell count of 12.8. He also has hyponatremia with a sodium of 129. D-dimer is elevated at 2.82, however this is not unexpected given the patient's cancer history. COVID, influenza, and RSV testing negative. Chest x-ray reveals no acute process. CTA of the chest obtained demonstrating no evidence of a pulmonary embolus. The left perihilar mass is causing near complete obstruction of the left main bronchus and obstruction of multiple left lower lung large airways. He also has scattered mediastinal and lower neck lymph nodes compatible with metastatic dis ease. CT notes that the size of the mass appears similar to imaging on 01/03. Patient continued to feel like he could not catch his breath and felt like he would stop breathing. He was also struggling to lay flat. Patient subsequently admitted to medicine for further management of shortness of breath associated with lung cancer and obstruction of left main bronchus. Consult placed for pulmonology and heme/onc. Undiagnosed new problem with uncertain prognosis? @ -None Drug Therapy requiring intensive monitoring for toxicity (Heparin, Nitro, Insulin, Cardizem)? @ -None Were any procedures done? @ -None Diagnosis/symptom? @ -Lung cancer, bronchus obstruction, dyspnea Acute, or Chronic, or Acute on Chronic? @ -Acute Uncomplicated (without systemic symptoms) or Complicated (systemic symptoms)? @ -Complicated Side effects of treatment? @ -None Exacerbation, Progression, or Severe Exacerbation] @ -Not applicable Poses a threat to life or bodily function? @ -Yes This case was discussed in detail with the attending ED physician, Dr. Loving. Presentation, findings, and treatment plan discussed in detail as well. - Lab Data Result diagrams: 01/13/24 11:34 01/13/24 11:34 Lab Results 01/13/24 01/13/24 01/13/24 Range/Units 11:24 11:34 11:34 WBC 12.8 H (3.8-10.6) k/uL RBC 3.49 L (4.30-5.90) m/uL Hgb 9.6 L (13.0-17.5) gm/dL Hct 29.8 L (39.0-53.0) % MCV 85.4 (80.0-100.0) fL MCH 27.6 (25.0-35.0) pg MCHC 32.3 (31.0-37.0) g/dL RDW 14.6 (11.5-15.5) % Plt Count 464 H (150-450) k/uL MPV 7.6 Neutrophils % 87 % Lymphocytes % 7 % Monocytes % 5 % Eosinophils % 0 % Basophils % 0 % Neutrophils # 11.1 H (1.3-7.7) k/uL Lymphocytes # 0.8 L (1.0-4.8) k/uL Monocytes # 0.6 (0-1.0) k/uL Eosinophils # 0.0 (0-0.7) k/uL Basophils # 0.1 (0-0.2) k/uL PT 11.1 (10.0-12.5) sec INR 1.0 (<1.2) APTT 25.9 (22.0-30.0) sec D-Dimer 2.82 H (<0.60) mg/L FEU Sodium (137-145) mmol/L Potassium (3.5-5.1) mmol/L Chloride (98-107) mmol/L Carbon Dioxide (22-30) mmol/L Anion Gap mmol/L BUN (9-20) mg/dL Creatinine (0.66-1.25) mg/dL Est GFR (CKD-EPI)AfAm (>60 ml/min/1.73 sqM) Est GFR (CKD-EPI)NonAf (>60 ml/min/1.73 sqM) Glucose (74-99) mg/dL Plasma Lactic Acid Gareth (0.7-2.0) mmol/L Calcium (8.4-10.2) mg/dL Magnesium (1.6-2.3) mg/dL Total Bilirubin (0.2-1.3) mg/dL AST (17-59) U/L ALT (4-49) U/L Alkaline Phosphatase (38-126) U/L Troponin I (0.000-0.034) ng/mL Total Protein (6.3-8.2) g/dL Albumin (3.5-5.0) g/dL Influenza Type A (PCR) Not Detected (Not Detectd) Influenza Type B (PCR) Not Detected (Not Detectd) RSV (PCR) Not Detected (Not Detectd) SARS-CoV-2 (PCR) Not Detected (Not Detectd) 01/13/24 01/13/24 01/13/24 Range/Units 11:34 11:34 11:34 WBC (3.8-10.6) k/uL RBC (4.30-5.90) m/uL Hgb (13.0-17.5) gm/dL Hct (39.0-53.0) % MCV (80.0-100.0) fL MCH (25.0-35.0) pg MCHC (31.0-37.0) g/dL RDW (11.5-15.5) % Plt Count (150-450) k/uL MPV Neutrophils % % Lymphocytes % % Monocytes % % Eosinophils % % Basophils % % Neutrophils # (1.3-7.7) k/uL Lymphocytes # (1.0-4.8) k/uL Monocytes # (0-1.0) k/uL Eosinophils # (0-0.7) k/uL Basophils # (0-0.2) k/uL PT (10.0-12.5) sec INR (<1.2) APTT (22.0-30.0) sec D-Dimer (<0.60) mg/L FEU Sodium 129 L (137-145) mmol/L Potassium 4.4 (3.5-5.1) mmol/L Chloride 100 (98-107) mmol/L Carbon Dioxide 24 (22-30) mmol/L Anion Gap 5 mmol/L BUN 13 (9-20) mg/dL Creatinine 0.62 L (0.66-1.25) mg/dL Est GFR (CKD-EPI)AfAm >90 (>60 ml/min/1.73 sqM) Est GFR (CKD-EPI)NonAf >90 (>60 ml/min/1.73 sqM) Glucose 142 H (74-99) mg/dL Plasma Lactic Acid Gareth 1.2 (0.7-2.0) mmol/L Calcium 8.3 L (8.4-10.2) mg/dL Magnesium 1.8 (1.6-2.3) mg/dL Total Bilirubin 0.5 (0.2-1.3) mg/dL AST 58 (17-59) U/L ALT 46 (4-49) U/L Alkaline Phosphatase 91 (38-126) U/L Troponin I <0.012 (0.000-0.034) ng/mL Total Protein 5.8 L (6.3-8.2) g/dL Albumin 2.8 L (3.5-5.0) g/dL Influenza Type A (PCR) (Not Detectd) Influenza Type B (PCR) (Not Detectd) RSV (PCR) (Not Detectd) SARS-CoV-2 (PCR) (Not Detectd) - Radiology Data Radiology results: report reviewed, image reviewed Disposition Clinical Impression: Lung cancer, Bronchial obstruction, Nicotine dependence Disposition: ADMITTED IP TO THIS HOSP
[2024-01-13 11:46] LABS: Basophils # (A) 0.1 k/uL (0-0.2); Basophils % (A) 0 %; Eosinophils % (A) 0 %; HCT 29.8 % (39.0-53.0); HGB 9.6 gm/dL (13.0-17.5); Lymphocytes # (A) 0.8 k/uL (1.0-4.8); Lymphocytes % (A) 7 %; MCH 27.6 pg (25.0-35.0); MCHC 32.3 g/dL (31.0-37.0); MCV 85.4 fL (80.0-100.0); Mean Platelet Volume 7.6; Monocytes # (A) 0.6 k/uL (0-1.0); Monocytes % (A) 5 %; Neutrophils # (A) 11.1 k/uL (1.3-7.7); Neutrophils % (A) 87 %; Platelet Count 464 k/uL (150-450); RBC 3.49 m/uL (4.30-5.90); RDW 14.6 % (11.5-15.5); WBC 12.8 k/uL (3.8-10.6)
[2024-01-13 11:59] LABS: ALT 46 U/L (4-49); AST 58 U/L (17-59); African American GFR (CKD) >90 (>60 ml/min/1.73 sqM); Albumin 2.8 g/dL (3.5-5.0); Alkaline Phosphatase 91 U/L (38-126); Anion Gap 5 mmol/L; Blood Urea Nitrogen 13 mg/dL (9-20); Calcium 8.3 mg/dL (8.4-10.2); Carbon Dioxide 24 mmol/L (22-30); Chloride 100 mmol/L (98-107); Glucose 142 mg/dL (74-99); Magnesium 1.8 mg/dL (1.6-2.3); Non-African American GFR(CKD) >90 (>60 ml/min/1.73 sqM); Potassium 4.4 mmol/L (3.5-5.1); Sodium 129 mmol/L (137-145); Total Bilirubin 0.5 mg/dL (0.2-1.3); Total Protein 5.8 g/dL (6.3-8.2)
[2024-01-13 12:03] LABS: Partial Thromboplastin Time 25.9 sec (22.0-30.0); Prothrombin Time 11.1 sec (10.0-12.5)
--- NOTE | 2024-01-13 12:03 | XR ---
EXAMINATION TYPE: XR chest 2V DATE OF EXAM: 01/13/2024 11:58 AM CLINICAL INDICATION:Male, 63 years old with history of difficulty breathing; [facility] COMPARISON: Chest radiographs from 12/20/2023 TECHNIQUE: XR chest 2V Frontal view of the chest. FINDINGS: Lungs/Pleura: There is no evidence of pleural effusion, focal consolidation, or pneumothorax. Pulmonary vascularity: Unremarkable. Heart/mediastinum: Cardiomediastinal silhouette is unremarkable. Musculoskeletal: No acute osseous pathology. IMPRESSION: No acute cardiopulmonary disease/process.
[2024-01-13] MEDS: SODIUM CHLORIDE 0.9% 1,000 ML IV STA (12:05)
--- NOTE | 2024-01-13 12:54 | CT ---
EXAMINATION TYPE: CT chest angio for PE CT DLP: 348.3 mGycm, Automated exposure control for dose reduction was used. DATE OF EXAM: 01/13/2024 12:44 PM COMPARISON: PET/CT 01/04/2024 CLINICAL INDICATION:Male, 63 years old with history of KACI, lung cancer pt; KACI, lung cancer pt. TECHNIQUE/CONTRAST: CTA scan of the thorax is performed with IV Contrast, patient injected with 100 ml mL of Isovue 370, MIP images are created and reviewed these are created on a separate workstation.. FINDINGS: Pulmonary Artery: There is no evidence for a filling defect within the pulmonary vasculature to sugge st acute pulmonary embolism. The pulmonary artery is of normal size. Lungs/Pleura: Left perihilar mass measuring similarly from 01/04/2024 at least 4 7 x 35 mm and coronal imaging. Which narrows the vascular structures and near completely obstructs the left bronchus. No e vidence of focal consolidation, pleural effusion or pneumothorax. Airway: Obstruction of the left main bronchus and left lower lobe airway secondary to ill-defined sof t tissue mass. Heart: Heart is within normal limits for size. Vasculature: No evidence of aortic aneurysm. Mediastinum: Lymph nodes throughout the mediastinum which were FDG avid on prior PET/CT 01/04/2024. Musculoskeletal: No acute osseous abnormalities Soft Tissues/lymph nodes: Unremarkable. Lower neck: There remains supraclavicular lymph nodes as seen on prior PET/CT. Measuring 11 mm on the right and millimeters on the left in short axis Upper Abdomen: No significant findings. IMPRESSION: 1. No evidence of pulmonary embolism. 2. Left inferior perihilar mass causing near complete obstruction of the left main bronchus and obstr uction multiple left lower lung large airways. There is scattered mediastinal and lower neck lymph no dania compatible with metastatic disease.
[2024-01-13] MEDS ORDERED: ACETAMINOPHEN TAB 325 MG TAB PO PRN (13:09)
[2024-01-13] MEDS ORDERED: ONDANSETRON 4 MG/2 ML VIAL IVP PRN (13:09)
[2024-01-13] MEDS ORDERED: NALOXONE 0.4 MG/ML 1 ML VIAL IV PRN (13:09)
[2024-01-13] MEDS: BENZONATATE 100 MG CAP PO STA (14:13)
[2024-01-13] MEDS: HYDROcodone/APAP 10-325MG 1 EACH TAB PO ONE (14:13)
[2024-01-13] MEDS ORDERED: ONDANSETRON ODT 4 MG TAB PO PRN (14:29)
[2024-01-13] MEDS ORDERED: HYDROcodone/APAP 5-325MG 1 EACH TAB PO PRN (14:29)
[2024-01-13] MEDS ORDERED: SILDENAFIL 20 MG TAB PO PRN (14:29)
[2024-01-13] MEDS: IPRATROPIUM-ALBUTEROL 3 ML NEB INHALATION PRN (16:54)
[2024-01-13] MEDS: HYDROcodone/APAP 5-325MG 1 EACH TAB PO PRN (20:03)
--- NOTE | 2024-01-13 20:18 | P.HPIM ---
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 Patient presents today with worsening dyspnea over 2 days, he cannot walk for shortness unless he got short of breath and he has to stop His cough and phlegm are scanned and little at the end of frequent. He complains also from some chest pain about 6-5 in severity on the left side, nonradiating. Patient recently received first radiotherapy with Dr. Bah on last Monday Also patient lost his appetite not eating much. No dysuria or urgency. No headache dizziness weakness numbness. Patient non-smoker no alcohol no illicit drugs. He quit smoking. Also patient is mildly tachycardic. Will. Blood pressure on the soft side but is improving. Patient has mild leukocytosis and anemia. Platelet count is elevated 464. Sodium low 129. D-dimer elevated 2.8 Chest x-ray was negative for acute process CTA of the chest showing no pulmonary embolism but showing a left perihilar mass with near complete obstruction of the left main bronchus with obstructing many lung airways with scattered mediastinal and lower neck lymphedema most likely secondary to metastatic disease. Review of Systems Is a 50 review of systems CONSTITUTIONAL: No fever, no malaise, no fatigue. HEENT: No recent visual problems or hearing problems. Denied any sore throat. CARDIOVASCULAR: No orthopnea, PND, no palpitations, no syncope. PULMONARY: No chest wall tenderness, no hemoptysis. GASTROINTESTINAL: No diarrhea, no nausea, no vomiting, no abdominal pain. Normoactive bowel sounds. NEUROLOGICAL: No headaches, no weakness, no numbness. HEMATOLOGICAL: Denies any bleeding or petechiae. GENITOURINARY: Denies any burning micturition, frequency, or urgency. MUSCULOSKELETAL/RHEUMATOLOGICAL: Denies any joint pain, swelling, or any muscle pain. ENDOCRINE: Denies any polyuria or polydipsia. Past Medical History Past Medical History: Coronary Artery Disease (CAD), Cancer, Hypertension, Thyroid Disorder Additional Past Medical History / Comment(s): lung ca History of Any Multi-Drug Resistant Organisms: None Reported Past Surgical History: Heart Catheterization With Stent Additional Past Surgical History / Comment(s): Throat surgery Date of Last Stent Placement:: 2016 Past Psychological History: No Psychological Hx Reported Smoking Status: Former smoker Past Alcohol Use History: Occasional Past Drug Use History: Marijuana - Past Family History Father History Unknown: Yes Family Medical History: Cancer Additional Family Medical History / Comment(s): Lung ca Mother Additional Family Medical History / Comment(s): at age og 96 Medications and Allergies Home Medications Medication Instructions Recorded Confirmed Type Aspirin 81 mg PO DAILY 12/05/20 01/13/24 History Atorvastatin Calcium [Lipitor] 80 mg PO HS 12/05/20 01/13/24 History Ezetimibe [Zetia] 10 mg PO DAILY 12/05/20 01/13/24 History Levothyroxine Sodium 25 mcg PO DAILY 12/05/20 01/13/24 History Metoprolol Succinate (ER) [Toprol 50 mg PO DAILY 12/05/20 01/13/24 History XL] Albuterol Sulfate [Ventolin HFA] 2 puff INHALATION RT-Q4H 12/21/23 01/13/24 History Fluticasone/Umeclidin/Vilanter 1 puff INHALATION RT-DAILY 12/21/23 01/13/24 History [Trelegy Ellipta 100-62.5-25] Sildenafil Citrate 20 mg PO DAILY PRN 12/21/23 01/13/24 History Benzonatate [Tessalon Perles] 200 mg PO TID PRN #30 cap 12/23/23 01/13/24 Rx HYDROcodone/APAP 5-325MG [[place] 1 tab PO Q6H PRN 01/13/24 01/13/24 History 5-325] OLANZapine 10 mg PO DIRECTED 01/13/24 01/13/24 History Ondansetron Odt [Zofran Odt] 4 mg PO Q6H PRN 01/13/24 01/13/24 History Allergies Allergy/AdvReac Type Severity Reaction Status Date / Time No Known Allergies Allergy Verified 01/13/24 14:08 Physical Exam Vitals: Vital Signs Temp Pulse Resp BP Pulse Ox 01/13/24 11:04 99 F 107 H 24 107/64 94 L Intake and Output 01/12/24 01/13/24 01/13/24 22:59 06:59 14:59 Other: Weight 86.183 kg -GENERAL: The patient is alert and oriented x3, not in any acute distress. Well developed, well nourished. Patient looks tired with mild dyspnea HEENT: Pupils are round and equally reacting to light. EOMI. No scleral icterus. No conjunctival pallor. Normocephalic, atraumatic. No pharyngeal erythema. No thyromegaly. CARDIOVASCULAR: S1 and S2 present. No murmurs, rubs, or gallops. -PULMONARY: Chest is clear to auscultation, no wheezing , no crackles. Activity is limited till you see your doctor. Decreased breath sounds on the right side ABDOMEN: Soft, nontender, nondistended, normoactive bowel sounds. No palpable organomegaly. MUSCULOSKELETAL: No joint swelling or deformity. EXTREMITIES: No cyanosis, clubbing, or pedal edema. -NEUROLOGICAL: Gross neurological examination did not reveal any focal deficits. Bilateral feet and hand swelling SKIN: No rashes. no petechiae. Results CBC & Chem 7: 01/13/24 11:34 01/13/24 11:34 Labs: Abnormal Lab Results - Last 24 Hours (Table) 01/13/24 01/13/24 01/13/24 Range/Units 11:34 11:34 11:34 WBC 12.8 H (3.8-10.6) k/uL RBC 3.49 L (4.30-5.90) m/uL Hgb 9.6 L (13.0-17.5) gm/dL Hct 29.8 L (39.0-53.0) % Plt Count 464 H (150-450) k/uL Neutrophils # 11.1 H (1.3-7.7) k/uL Lymphocytes # 0.8 L (1.0-4.8) k/uL D-Dimer 2.82 H (<0.60) mg/L FEU Sodium 129 L (137-145) mmol/L Creatinine 0.62 L (0.66-1.25) mg/dL Glucose 142 H (74-99) mg/dL Calcium 8.3 L (8.4-10.2) mg/dL Total Protein 5.8 L (6.3-8.2) g/dL Albumin 2.8 L (3.5-5.0) g/dL Assessment and Plan Assessment: Mass 4 cm with biopsy positive for non-small cell cancer squamous cell cancer with metastasis to the mediastinal and lower neck lymphadenopathy Near complete obstruction of the left main bronchus secondary to tumor Hypovolemic hyponatremia Hypertension Hypothyroidism Coronary artery disease Plan: Continue with bronchodilator Add oxygen 2 L to 3 L via nasal cannula Pulmonary consult Monitor sodium Encourage hydration Oncology team. Replace electrolytes Monitor labs Labs and medication were reviewed.. Continue same treatment. Continue with symptomatic treatment. Resume home medication. Monitor labs and vitals. DVT and GI prophylaxis. Further recommendations as per clinical course of the patient DVT prophylaxis: Subcutaneous heparin GI Prophylaxis: Pepcid PT/OT: Pending Prognosis is guarded
[2024-01-13] MEDS: IPRATROPIUM 0.5 MG/2.5 ML NEBU INHALATION SCH (21:38)
[2024-01-13] MEDS: ATORVASTATIN 80 MG TAB PO SCH (21:42)
[2024-01-13] MEDS: SYMBICORT 80-4.5 MCG INHALER INHALATION SCH (21:47)
[2024-01-13] MEDS: ALBUTEROL HFA INHALER INHALATION SCH (22:45)
[2024-01-13] MEDS: OLANZapine 10 MG TAB PO SCH (22:45)
[2024-01-14] MEDS: METOPROLOL SUCCINATE (ER) 50 MG TAB.ER.24H PO SCH (09:06)
[2024-01-14] MEDS: LEVOTHYROXINE 25 MCG TAB PO SCH (09:06)
[2024-01-14] MEDS: ASPIRIN 81 MG PO SCH (09:06)
[2024-01-14] MEDS: PANTOPRAZOLE 40 MG/10 ML VIAL IV SCH (09:07)
[2024-01-14 09:56] LABS: Basophils # (A) 0.04 X 10*3/uL (0.00-0.10); Basophils % (A) 0.3 %; Eosinophils # (A) 0.04 X 10*3/uL (0.04-0.35); Eosinophils % (A) 0.3 %; HCT 25.9 % (39.6-50.0); HGB 8.6 g/dL (13.0-17.0); Lymphocytes # (A) 0.79 X 10*3/uL (0.90-5.00); MCH 27.8 pg (27.0-32.0); MCHC 33.2 g/dL (32.0-37.0); MCV 83.8 FL (80.0-97.0); Mean Platelet Volume 10.7 FL (9.5-12.2); Monocytes # (A) 0.95 X 10*3/uL (0.20-1.00); Monocytes % (A) 7.3 %; NRBC Per 100 WBC 0 X 10*3/uL (0.00-0.01); Neutrophils # (A) 11.19 X 10*3/uL (1.80-7.70); Neutrophils % (A) 85.6 %; Platelet Count 411 X 10*3/uL (140-440); RBC 3.09 X 10*6/uL (4.40-5.60); RDW 15.6 % (11.5-14.5); WBC 13.07 X 10*3/uL (4.50-10.00)
[2024-01-14 09:58] LABS: BUN/Creat Ratio 16.29 Ratio (12.00-20.00); Blood Urea Nitrogen 11.4 mg/dL (9.0-27.0); Calcium 8.4 mg/dL (8.7-10.3); Carbon Dioxide 22.5 mmol/L (21.6-31.8); Chloride 100 mmol/L (96-109); Glucose 117 mg/dL (70-110); Potassium 4.2 mmol/L (3.5-5.5); Sodium 134 mmol/L (135-145)
[2024-01-14] MEDS: ALPRAZolam 0.5 MG TAB PO PRN ×2 (11:05→21:19)
[2024-01-14] MEDS: FUROSEMIDE 10 MG/ML 2 ML VIAL IV SCH ×2 (11:05→21:20)
[2024-01-14] MEDS: BENZONATATE 100 MG CAP PO PRN (11:05)
--- NOTE | 2024-01-14 12:22 | XR ---
EXAMINATION TYPE: XR chest 1V portable DATE OF EXAM: 01/14/2024 11:18 AM CLINICAL INDICATION:Male, 63 years old with history of SOB; COMPARISON: None TECHNIQUE: XR chest 1V portable Frontal view of the chest. FINDINGS: Lungs/Pleura: There is no evidence of pleural effusion, focal consolidation, or pneumothorax. Pulmonary vascularity: Unremarkable. Heart/mediastinum: Cardiomediastinal silhouette is unremarkable. Musculoskeletal: No acute osseous pathology. IMPRESSION: No significant change from 01/13/2024. No acute cardiopulmonary disease/process.
--- NOTE | 2024-01-14 12:39 | US ---
EXAMINATION TYPE: US venous doppler duplex LE BI DATE OF EXAM: 01/14/2024 12:31 PM COMPARISON: NONE CLINICAL INDICATION: Male, 63 years old with history of edema; Leg edema, worse on the right SIDE PERFORMED: bilateral TECHNIQUE: The lower extremity deep venous system is examined utilizing real time linear array sonog fernandez with graded compression, doppler sonography and color-flow sonography. VESSELS IMAGED: Common Femoral Vein Deep Femoral Vein Greater Saphenous Vein * Femoral Vein Popliteal Vein Small Saphenous Vein * Proximal Calf Veins (* superficial vessels) Right Leg: No evidence of DVT Left Leg: No evidence of DVT IMPRESSION: Grayscale, color doppler, spectral doppler imaging performed of the deep veins of the lo wer extremities. There is normal flow, compressibility, vascular waveforms.
--- NOTE | 2024-01-14 12:40 | P.CONS ---
History of Present Illness - Reason for Consult Consult date: 01/14/24 Lung cancer - Chief Complaint Dyspnea - History of Present Illness Mr. 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 He notes feeling warm, but denies any objective fevers, chills, night sweats, or hemoptysis. He denies any sick contacts. He feels he is working hard to breathe air in. He does have increased swelling in the lower extremities bilaterally, which is more prominent on the right. In addition, he appears to have increased swelling in the right arm. He denies any numbness or tingling in the right arm. He started radiation therapy on 01/10/2024 and was scheduled to start cisplatin/etoposide concurrently with radiation therapy on 01/15/2024. On presentation to the ED he was afebrile with maximum heart rate 107 and saturating 96 to 100% on 2 L nasal cannula. CBC noted WBC 12.8 (ANC 11.1), hemoglobin 9.6 (MCV 85.4), platelets 464. CMP noted no acute metabolic abnormalities with sodium 129. Troponin was negative. Viral PCR for influenza A/B, RSV, and COVID were negative. D-dimer was elevated at 2.82. Chest x-ray revealed no acute cardiopulmonary process. CTA revealed no evidence of pulmonary embolism, but did note left inferior perihilar mass causing near complete obstruction of the left main bronchus and obstruction of multiple left lower lung large airways. He was given 1 L bolus of normal saline and admitted to internal medicine for additional management. Review of Systems 14 point review of systems conducted pertinent positives and negatives as noted per HPI. Past Medical History Past Medical History: Coronary Artery Disease (CAD), Cancer, Hypertension, Th yroid Disorder Additional Past Medical History / Comment(s): lung ca History of Any Multi-Drug Resistant Organisms: None Reported Past Surgical History: Heart Catheterization With Stent Additional Past Surgical History / Comment(s): Throat surgery Date of Last Stent Placement:: 2016 Past Psychological History: No Psychological Hx Reported Smoking Status: Former smoker Past Alcohol Use History: Occasional Past Drug Use History: Marijuana Additional Drug Use History / Comment(s): pt quit smoking November 2023 - Past Family History Father History Unknown: Yes Family Medical History: Cancer Additional Family Medical History / Comment(s): Lung ca Mother Additional Family Medical History / Comment(s): at age og 96 Medications and Allergies Home Medications Medication Instructions Recorded Confirmed Type Aspirin 81 mg PO DAILY 12/05/20 01/13/24 History Atorvastatin Calcium [Lipitor] 80 mg PO HS 12/05/20 01/13/24 History Ezetimibe [Zetia] 10 mg PO DAILY 12/05/20 01/13/24 History Levothyroxine Sodium 25 mcg PO DAILY 12/05/20 01/13/24 History Metoprolol Succinate (ER) [Toprol 50 mg PO DAILY 12/05/20 01/13/24 History XL] Albuterol Sulfate [Ventolin HFA] 2 puff INHALATION RT-Q4H 12/21/23 01/13/24 History Fluticasone/Umeclidin/Vilanter 1 puff INHALATION RT-DAILY 12/21/23 01/13/24 History [Trelegy Ellipta 100-62.5-25] Sildenafil Citrate 20 mg PO DAILY PRN 12/21/23 01/13/24 History Benzonatate [Tessalon Perles] 200 mg PO TID PRN #30 cap 12/23/23 01/13/24 Rx HYDROcodone/APAP 5-325MG [[place] 1 tab PO Q6H PRN 01/13/24 01/13/24 History 5-325] OLANZapine 10 mg PO DIRECTED 01/13/24 01/13/24 History Ondansetron Odt [Zofran Odt] 4 mg PO Q6H PRN 01/13/24 01/13/24 History Allergies Allergy/AdvReac Type Severity Reaction Status Date / Time No Known Allergies Allergy Verified 01/13/24 14:08 Physical Exam Vitals: Vital Signs Temp Pulse Pulse Resp BP BP BP 01/14/24 09:15 80 01/14/24 09:07 01/14/24 09:06 78 01/14/24 07:42 98.2 F 78 16 102/71 01/14/24 02:00 98.5 F 91 16 113/70 01/13/24 21:58 98 18 01/13/24 21:47 98 18 01/13/24 21:20 98.2 F 18 105/52 01/13/24 20:00 91 16 01/13/24 19:34 98.8 F 97 15 108/66 01/13/24 18:00 98.2 F 99 18 105/52 01/13/24 17:05 107 H 01/13/24 16:58 100 01/13/24 11:20 16 01/13/24 11:04 99 F 107 H 24 107/64 Pulse Ox 01/14/24 09:15 01/14/24 09:07 96 01/14/24 09:06 01/14/24 07:42 96 01/14/24 02:00 100 01/13/24 21:58 01/13/24 21:47 01/13/24 21:20 99 01/13/24 20:00 01/13/24 19:34 96 01/13/24 18:00 96 01/13/24 17:05 01/13/24 16:58 01/13/24 11:20 01/13/24 11:04 94 L Intake and Output 01/13/24 01/14/24 01/14/24 22:59 06:59 14:59 Intake Total 480 Balance 480 Intake: Oral 480 Other: Voiding Method Toilet Urinal # Voids 3 Weight 86.183 kg - Constitutional General appearance: cooperative, mild distress - EENT Eyes: EOMI - Neck Increased swelling in the right upper extremity compared to the left with pa lpable right supraclavicular lymph node Neck: lymphadenopathy - Respiratory Respiratory: left: diminished (Diminished lung sounds in the left lung base) - Cardiovascular Rhythm: regular - Gastrointestinal General gastrointestinal: no distended, normal bowel sounds, soft, no tenderness - Integumentary Integumentary: no rash - Neurologic Neurologic: CNII-XII intact - Psychiatric Psychiatric: A&O x's 3 Results CBC & Chem 7: 01/14/24 06:12 01/14/24 06:12 Labs: Abnormal Lab Results - Last 24 Hours (Table) 01/13/24 01/13/24 01/13/24 Range/Units 11:34 11:34 11:34 WBC 12.8 H (3.8-10.6) k/uL RBC 3.49 L (4.30-5.90) m/uL Hgb 9.6 L (13.0-17.5) gm/dL Hct 29.8 L (39.0-53.0) % RDW (11.5-14.5) % Plt Count 464 H (150-450) k/uL Immature Gran # (0.00-0.04) X 10*3/uL Neutrophils # 11.1 H (1.3-7.7) k/uL Lymphocytes # 0.8 L (1.0-4.8) k/uL D-Dimer 2.82 H (<0.60) mg/L FEU Sodium 129 L (137-145) mmol/L Creatinine 0.62 L (0.66-1.25) mg/dL Glucose 142 H (74-99) mg/dL Calcium 8.3 L (8.4-10.2) mg/dL Total Protein 5.8 L (6.3-8.2) g/dL Albumin 2.8 L (3.5-5.0) g/dL 01/14/24 01/14/24 Range/Units 06:12 06:12 WBC 13.07 H (3.8-10.6) k/uL RBC 3.09 L (4.30-5.90) m/uL Hgb 8.6 L (13.0-17.5) gm/dL Hct 25.9 L (39.0-53.0) % RDW 15.6 H (11.5-14.5) % Plt Count (150-450) k/uL Immature Gran # 0.06 H (0.00-0.04) X 10*3/uL Neutrophils # 11.19 H (1.3-7.7) k/uL Lymphocytes # 0.79 L (1.0-4.8) k/uL D-Dimer (<0.60) mg/L FEU Sodium 134 L (137-145) mmol/L Creatinine (0.66-1.25) mg/dL Glucose 117 H (74-99) mg/dL Calcium 8.4 L (8.4-10.2) mg/dL Total Protein (6.3-8.2) g/dL Albumin (3.5-5.0) g/dL CT scan - chest: report reviewed, image reviewed Assessment and Plan (1) Stage III squamous cell carcinoma of left lung Current Visit: Yes Status: Acute Code(s): C34.92 - MALIGNANT NEOPLASM OF UNSP PART OF LEFT BRONCHUS OR LUNG SNOMED Code(s): 749520555 (2) Bronchial obstruction Current Visit: Yes Status: Acute Code(s): J98.09 - OTHER DISEASES OF BRONCHUS, NOT ELSEWHERE CLASSIFIED SNOMED Code(s): 96360717 (3) Neutrophilic leukocytosis Current Visit: Yes Status: Acute Code(s): D72.9 - DISORDER OF WHITE BLOOD CELLS, UNSPECIFIED SNOMED Code(s): 426732526 (4) Normocytic anemia Current Visit: Yes Status: Acute Code(s): D64.9 - ANEMIA, UNSPECIFIED SNOMED Code(s): 067012436 Plan: #Stage IIIC squamous cell carcinoma of the left lower lobe -Biopsy of left lower lobe lung lesion and station 7 subcarinal lymph node from 12/22/2023 revealed squamous cell carcinoma -Noted to have 6.1 cm mass in the left lower lobe with mediastinal and bilateral supraclavicular lymphadenopathy on PET/CT from 01/04/2024 -Brain MRI on 01/03/2024 notes no evidence of intracranial metastases -Circulating tumor DNA analysis revealed no targetable mutations -Initiated radiation therapy on 01/10/2024 and was scheduled to initiate chemoth erapy with cisplatin/etoposide on 01/15/2024 -He presented progressive dyspnea since initiating radiation therapy with CT PE revealing no evidence of pulmonary embolism, but did note large perihilar mass causing near complete obstruction of the left mainstem bronchus in addition to obstruction of multiple large airways of the left lower lung -Clinically, he has increased swelling of the lower extremities bilaterally as well as mild swelling of the right upper extremity compared to the left. It is unclear if he may have SVC syndrome -Imaging and case was discussed with Dr. Weiss of pulmonology -Consulted radiation oncology to resume radiation therapy inpatient -Hydrocortisone 60 mg IV every 6 hours scheduled ordered to reduce endobronchial inflammation -Given his clinical presentation and radiographic findings, I do believe he would benefit from starting chemotherapy inpatient. We will place orders for chemotherapy tomorrow -Toxicities and route of chemotherapy administration were reviewed with Chris and his today -Olanzapine 10 mg nightly has been ordered inpatient. Order for fosaprepitant IV 30 minutes prior to chemotherapy has been placed #Bilateral lower extremity swelling -More prominent on right than left -Agree with duplex of lower extremities ordered per pulmonology #Normocytic anemia -Could be anemia of inflammation secondary to malignancy -Anemia workup ordered including iron studies, vitamin B12/methylmalonic acid, and folic acid #Neutrophilic leukocytosis -Likely secondary to inflammation from malignancy without any signs or symptoms concerning for infection -Hold on infectious workup at this time Debo Dawkins MD Time with Patient: Greater than 30
--- NOTE | 2024-01-14 13:19 | P.CNPUL ---
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 I performed the patient's bronchoscopy and the patient has a left hilar mass at the level of the secondary manuel and the left lower lobe causing significant mass effect and obstruction of the left lower lobe bronchus. The patient also had an outpatient PET/CT that showed mediastinal lymphadenopathy uptake and bilateral supraclavicular lymphadenopathy uptake. Based on that, the patient was seen by medical oncology. The patient was supposed to start systemic chemotherapy with cis hughes and TOWER TECHNICIAN-16 as of tomorrow. The patient was also given a session of radiation therapy on 01/10/2024 and due to the holidays no further treatment was given. Patient is coming in with worsening shortness of breath. He is quite anxious. He also has developed some edema in his upper and lower extremities. Currently on 2 L of oxygen by nasal cannula. The viral screen has been negative. D-dimer is at 2.8. CT of the chest was done that showed no significant changes in terms of his malignancy. The patient continues to have a left hilar mass and some atelectatic changes in the left lower lobe. There is significant mass effect on the left lower lobe bronchus. The patient has no evidence of any pulmonary embolism. He is currently on 2 L of oxygen by nasal cannula. He is complaining of shortness of breath. He has also COPD maintained on Trelegy Ellipta on outpatient basis. No hemoptysis. Review of Systems Constitutional: Reports fatigue, Reports weight loss Eyes: denies as per HPI, denies blurred vision, denies bulging eye, denies decreased vision, denies diplopia, denies discharge, denies dry eye, denies irritation, denies itching, denies pain, denies photophobia, denies loss of pe ripheral vision, denies loss of vision, denies tunnel vision/blind spots Ears: deny: decreased hearing, ear discharge, earache, tinnitus Ears, nose, mouth and throat: Reports as per HPI Breasts: absent: as per HPI, gynecomastia Cardiovascular: Reports decreased exercise tolerance, Reports dyspnea on exertion, Reports shortness of breath Respiratory: Reports dyspnea, Reports wheezing Gastrointestinal: Reports as per HPI Genitourinary: Reports as per HPI Musculoskeletal: Reports as per HPI Musculoskeletal: bilateral: ankle swelling, absent: ankle pain, ankle stiffness, as per HPI, elbow pain, elbow stiffness, elbow swelling, foot pain, foot stiffness, foot swelling, hand pain, hand stiffness, hand swelling, hip pain, hip stiffness, hip swelling, knee pain, knee stiffness, knee swelling, shoulder pain, shoulder stiffness, shoulder swelling, wrist pain, wrist stiffness, wrist swelling Integumentary: Reports as per HPI Neurological: Reports weakness Psychiatric: Reports as per HPI, Reports anxiety Endocrine: Reports as per HPI, Reports fatigue Hematologic/Lymphatic: Reports as per HPI Allergic/Immunologic: Reports as per HPI Past Medical History Past Medical History: Coronary Artery Disease (CAD), Cancer, Hypertension, Thyroid Disorder Additional Past Medical History / Comment(s): lung ca History of Any Multi-Drug Resistant Organisms: None Reported Past Surgical History: Heart Catheterization With Stent Additional Past Surgical History / Comment(s): Throat surgery Date of Last Stent Placement:: 2016 Past Psychological History: No Psychological Hx Reported Smoking Status: Former smoker Past Alcohol Use History: Occasional Past Drug Use History: Marijuana Additional Drug Use History / Comment(s): pt quit smoking November 2023 - Past Family History Father History Unknown: Yes Family Medical History: Cancer Additional Family Medical History / Comment(s): Lung ca Mother Additional Family Medical History / Comment(s): at age og 96 Medications and Allergies Home Medications Medication Instructions Recorded Confirmed Type Aspirin 81 mg PO DAILY 12/05/20 01/13/24 History Atorvastatin Calcium [Lipitor] 80 mg PO HS 12/05/20 01/13/24 History Ezetimibe [Zetia] 10 mg PO DAILY 12/05/20 01/13/24 History Levothyroxine Sodium 25 mcg PO DAILY 12/05/20 01/13/24 History Metoprolol Succinate (ER) [Toprol 50 mg PO DAILY 12/05/20 01/13/24 History XL] Albuterol Sulfate [Ventolin HFA] 2 puff INHALATION RT-Q4H 12/21/23 01/13/24 History Fluticasone/Umeclidin/Vilanter 1 puff INHALATION RT-DAILY 12/21/23 01/13/24 History [Trelegy Ellipta 100-62.5-25] Sildenafil Citrate 20 mg PO DAILY PRN 12/21/23 01/13/24 History Benzonatate [Tessalon Perles] 200 mg PO TID PRN #30 cap 12/23/23 01/13/24 Rx HYDROcodone/APAP 5-325MG [Harrington 1 tab PO Q6H PRN 01/13/24 01/13/24 History 5-325] OLANZapine 10 mg PO DIRECTED 01/13/24 01/13/24 History Ondansetron Odt [Zofran Odt] 4 mg PO Q6H PRN 01/13/24 01/13/24 History Allergies Allergy/AdvReac Type Severity Reaction Status Date / Time No Known Allergies Allergy Verified 01/13/24 14:08 Physical Exam Vitals: Vital Signs Temp Pulse Pulse Resp BP BP BP 01/14/24 09:15 80 01/14/24 09:07 01/14/24 09:06 78 01/14/24 07:42 98.2 F 78 16 102/71 01/14/24 02:00 98.5 F 91 16 113/70 01/13/24 21:58 98 18 01/13/24 21:47 98 18 01/13/24 21:20 98.2 F 18 105/52 01/13/24 20:00 91 16 01/13/24 19:34 98.8 F 97 15 108/66 01/13/24 18:00 98.2 F 99 18 105/52 01/13/24 17:05 107 H 01/13/24 16:58 100 01/13/24 11:20 16 Pulse Ox 01/14/24 09:15 01/14/24 09:07 96 01/14/24 09:06 01/14/24 07:42 96 01/14/24 02:00 100 01/13/24 21:58 01/13/24 21:47 01/13/24 21:20 99 01/13/24 20:00 01/13/24 19:34 96 01/13/24 18:00 96 01/13/24 17:05 01/13/24 16:58 01/13/24 11:20 Intake and Output 01/13/24 01/14/24 01/14/24 22:59 06:59 14:59 Intake Total 480 Balance 480 Intake: Oral 480 Other: Voiding Method Toilet Urinal # Voids 3 Weight 86.183 kg GENERAL EXAM: Alert, 62-year-old white male, well-nourished, with a congested persistent cough, fairly comfortable in no apparent distress. The patient is currently on 20 cannula HEAD: Normocephalic and atraumatic EYES: Normal reaction of pupils, equal size. NOSE: Clear with pink turbinates. THROAT: No erythema or exudates. NECK: No masses, no JVD. CHEST: No chest wall deformity. LUNGS: Equal air entry with diminished left basilar lung sounds along with scattered rhonchi and scant expiratory wheezes of the lungs bilaterally. No conversational dyspnea or accessory muscle use.. CVS: S1 and S2 normal with no audible murmur, regular rhythm. No extra heart sounds ABDOMEN: No hepatosplenomegaly, active bowel sounds, no guarding or rigidity. SPINE: No scoliosis or deformity SKIN: No rashes CENTRAL NERVOUS SYSTEM: No focal deficits, tone is normal in all 4 extremities. EXTREMITIES: There is peripheral edema, clubbing, or cyanosis. Peripheral pulses are intact. Results - Laboratory Findings CBC and BMP: 01/14/24 06:12 01/14/24 06:12 PT/INR, D-dimer PT 11.1 sec (10.0-12.5) 01/13/24 11:34 INR 1.0 (<1.2) 01/13/24 11:34 D-Dimer 2.82 mg/L FEU (<0.60) H 01/13/24 11:34 Abnormal lab findings: Abnormal Labs 01/13/24 01/13/24 01/13/24 11:34 11:34 11:34 WBC 12.8 H RBC 3.49 L Hgb 9.6 L Hct 29.8 L RDW Plt Count 464 H Immature Gran # Neutrophils # 11.1 H Lymphocytes # 0.8 L D-Dimer 2.82 H Sodium 129 L Creatinine 0.62 L Glucose 142 H Calcium 8.3 L Total Protein 5.8 L Albumin 2.8 L 01/14/24 01/14/24 06:12 06:12 WBC 13.07 H RBC 3.09 L Hgb 8.6 L Hct 25.9 L RDW 15.6 H Plt Count Immature Gran # 0.06 H Neutrophils # 11.19 H Lymphocytes # 0.79 L D-Dimer Sodium 134 L Creatinine Glucose 117 H Calcium 8.4 L Total Protein Albumin - Diagnostic Findings Chest x-ray: image reviewed CT scan - chest: image reviewed Assessment and Plan Plan: Acute on chronic shortness of breath in a patient with 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 CAT scan of the chest was reviewed. No evidence of any disease progression in terms of malignancy. No evidence of pneumonia. He has an acute COPD exacerbation in addition to his background lung cancer. Acute hypoxic respiratory failure currently on 2 L of oxygen by nasal cannula History of hemoptysis, currently inactive and stable Stage IIIc squamous cell carcinoma of the lung. The patient has a left inf rahilar mass, measuring approximately 4 cm, highly suspicious for bronchogenic carcinoma. The left hilar fullness/mass encroaching on the left lower lobe bronchus, along with cutoff sign, debris in the ascending left main bronchus, and new lower lobe opacification, likely postobstructive atelectasis. Please refer to the results of the bronchoscopy and endobronchial ultrasound. The patient was given a session of radiation therapy on 01/10/2024 PET scan showed mediastinal lymphadenopathy and supraclavicular lymphadenopathy Chronic obstructive pulmonary disease, patient was recently started on Trelegy and as needed albuterol inhaler by Dr. Suárez in the pulmonary office. History of CVA/TIA History of coronary artery disease with remote history of PCI/stenting History of hyperlipidemia History of hypertension Former tobacco smoker, with over [id number] history, quitting approximately 1 month ago Plan Titrate oxygen flow to maintain saturation above 90% Delmis muniz 4 times a day IV Solu-Medrol 60 mg every 6 hours IV Lasix 20 mg IV every 12 hours Xanax for increased anxiety Should be able to continue his radiation therapy that was started on 01/10/2024 during this current hospital stay. Will talk to radiation oncology Discussed with medical oncology and will plan for inpatient systemic chemotherapy as the patient has critical obstruction of the left lower lobe bronchus due to his left infrahilar mass.
[2024-01-14] MEDS: methylPREDNISolone SOD SUCCI 125 MG/2 ML VIAL IV SCH (13:40)
[2024-01-14] MEDS: EZETIMIBE 10 MG TAB PO SCH (13:40)
[2024-01-14] MEDS: HYDROCORTISONE SUCCINATE 100 MG/2 ML VIAL IV SCH (13:44)
[2024-01-14 17:18] LABS: Glucose,Whole Blood 150 mg/dL (70-110)
[2024-01-14 19:59] LABS: Glucose,Whole Blood 291 mg/dL (70-110)
[2024-01-14] MEDS: MORPHINE SULFATE 4 MG/ML SYRINGE IV PRN (20:09)
[2024-01-14] MEDS: OLANZapine 10 MG TAB PO SCH (21:20)
[2024-01-14 22:40] LABS: % Iron Saturation 6.9 (15.00-50.00)
[2024-01-14 23:24] LABS: Glucose,Whole Blood 259 mg/dL (70-110)
[2024-01-15 07:20] LABS: Glucose,Whole Blood 199 mg/dL (70-110)
--- NOTE | 2024-01-15 08:21 | P.PN ---
Subjective This is a pleasant 63 years old male with past medical history of hypertension, hypothyroidism, coronary artery disease, recently diagnosed left perihilar mass with a positive biopsy from 12/24 showing non-small cell lung cancer with squamous cell cancer with metastasis to the mediastinal and lower neck lymphadenopathy. Patient presents today with worsening dyspnea over 2 days, he cannot walk for shortness unless he got short of breath and he has to stop His cough and phlegm are scanned and little at the end of frequent. He complains also from some chest pain about 6-5 in severity on the left side, nonradiating. Patient recently received first radiotherapy with Dr. Bah on last Monday Also patient lost his appetite not eating much. No dysuria or urgency. No headache dizziness weakness numbness. Patient non-smoker no alcohol no illicit drugs. He quit smoking. Also patient is mildly tachycardic. Will. Blood pressure on the soft side but is improving. Patient has mild leukocytosis and anemia. Platelet count is elevated 464. Sodium low 129. D-dimer elevated 2.8 Chest x-ray was negative for acute process CTA of the chest showing no pulmonary embolism but showing a left perihilar mass with near complete obstruction of the left main bronchus with obstructing many lung airways with scattered mediastinal and lower neck lymphedema most likely secondary to metastatic disease. 01/14/24 Patient complaining of shortness of breath He has swelling of both hands and feet No chest pain. Hospital oxygen saturation on 2-3 L/min via nasal cannula IV Lasix 40 mg added as well as a steroid Plan to treat with radiotherapy and chemotherapy while in the hospital because of his near complete obstruction of the left main bronchus Review of systems CONSTITUTIONAL: No fever, no malaise, no fatigue. HEENT: No recent visual problems or hearing problems. Denied any sore throat. CARDIOVASCULAR: No orthopnea, PND, no palpitations, no syncope. HEMATOLOGICAL: Denies any bleeding or petechiae. GENITOURINARY: Denies any burning micturition, frequency, or urgency. MUSCULOSKELETAL/RHEUMATOLOGICAL: Denies any joint pain, swelling, or any muscle pain. ENDOCRINE: Denies any polyuria or polydipsia. Active Medications Generic Name Dose Route Start Last Admin Trade Name Freq PRN Reason Stop Dose Admin Acetaminophen 650 mg 01/13/24 13:09 Acetaminophen Tab 325 Mg Tab PO Q6HR PRN Mild Pain or Fever > 100.5 Hydrocodone Bitart/Acetaminophen 1 each 01/13/24 13:09 01/14/24 03:05 Hydrocodone/Apap 5-325mg 1 Each Tab PO 1 each Q4HR PRN Administration Moderate Pain (Scale 4 to 6) Albuterol/Ipratropium 3 ml 01/13/24 13:49 01/13/24 16:54 Ipratropium-Albuterol 3 Ml Neb INHALATION 3 ml QID PRN Administration Shortness Of Breath Or Wheezing Alprazolam 0.5 mg 01/14/24 20:20 01/14/24 21:19 Alprazolam 0.5 Mg Tab PO 0.5 mg Q6H PRN Administration Anxiety Aspirin 81 mg 01/14/24 09:00 01/15/24 08:02 Aspirin 81 Mg PO 81 mg DAILY DANIELLE Administration Atorvastatin Calcium 80 mg 01/13/24 21:00 01/14/24 21:19 Atorvastatin 80 Mg Tab PO 80 mg HS DANIELLE Administration Benzonatate 200 mg 01/13/24 14:29 01/15/24 08:09 Benzonatate 100 Mg Cap PO 200 mg TID PRN Administration Cough Budesonide/Formoterol Fumarate 2 puff 01/14/24 08:00 01/14/24 20:03 Symbicort 80-4.5 Mcg Inhaler INHALATION 2 puff RT-BID DANIELLE Administration Ezetimibe 10 mg 01/14/24 09:00 01/15/24 08:02 Ezetimibe 10 Mg Tab PO 10 mg DAILY DANIELLE Administration Furosemide 20 mg 01/14/24 21:00 01/15/24 08:02 Furosemide 10 Mg/Ml 2 Ml Vial IV 20 mg Q12HR DANIELLE Administration Fosaprepitant 150 mg/ Sodium 145 mls @ 300 mls/hr 01/15/24 14:30 Chloride IV ONCE NR Ipratropium [place] 0.5 mg 01/13/24 16:00 01/14/24 20:03 Ipratropium 0.5 Mg/2.5 Ml Nebu INHALATION 0.5 mg RT-QID DANIELLE Administration Levothyroxine Sodium 25 mcg 01/14/24 09:00 01/15/24 08:02 Levothyroxine 25 Mcg Tab PO 25 mcg DAILY DANIELLE Administration Methylprednisolone Sodium Succinate 60 mg 01/14/24 12:00 01/15/24 06:08 Methylprednisolone Sod Succi 125 Mg/2 Ml Vial IV 60 mg Q6HR DANIELLE Administration Metoprolol Succinate 50 mg 01/14/24 09:00 01/15/24 08:02 Metoprolol Succinate (Er) 50 Mg Tab.Er.24h PO 50 mg DAILY DANIELLE Administration Morphine Sulfate 4 mg 01/13/24 13:09 01/14/24 20:09 Morphine Sulfate 4 Mg/Ml Syringe IV 4 mg Q4HR PRN Administration Severe Pain (Scale 7 to 10) Naloxone HCl 0.2 mg 01/13/24 13:09 Naloxone 0.4 Mg/Ml 1 Ml Vial IV Q2M PRN Opioid Reversal Olanzapine 10 mg 01/14/24 21:00 01/14/24 21:20 Olanzapine 10 Mg Tab PO 10 mg HS DANIELLE Administration Ondansetron HCl 4 mg 01/13/24 13:09 Ondansetron 4 Mg/2 Ml Vial IVP Q8HR PRN Nausea And Vomiting Ondansetron HCl 4 mg 01/13/24 14:29 Ondansetron Odt 4 Mg Tab PO Q6H PRN Nausea Pantoprazole Sodium 40 mg 01/14/24 09:00 01/15/24 08:02 Pantoprazole 40 Mg/10 Ml Vial IV 40 mg DAILY DANIELLE Administration Objective - Vital Signs Vital signs: Vital Signs Temp 98.3 F 01/14/24 12:58 Pulse 68 01/14/24 12:58 Resp 16 01/14/24 12:58 BP 104/69 01/14/24 12:58 Pulse Ox 94 L 01/14/24 12:58 FiO2 Intake & Output 01/13/24 01/14/24 01/14/24 18:59 06:59 18:59 Intake Total 720 Balance 720 Weight 86.183 kg 86.183 kg Intake: Oral 720 Other: Voiding Method Toilet Toilet Urinal Urinal # Voids 3 - Exam -GENERAL: The patient is alert and oriented x3, not in any acute distress. Well developed, well nourished. Patient looks tired with mild dyspnea HEENT: Pupils are round and equally reacting to light. EOMI. No scleral icterus. No conjunctival pallor. Normocephalic, atraumatic. No pharyngeal erythema. No thyromegaly. CARDIOVASCULAR: S1 and S2 present. No murmurs, rubs, or gallops. -PULMONARY: Chest is clear to auscultation, no wheezing , no crackles. Activity is limited till you see your doctor. Decreased breath sounds on the right side ABDOMEN: Soft, nontender, nondistended, normoactive bowel sounds. No palpable organomegaly. MUSCULOSKELETAL: No joint swelling or deformity. EXTREMITIES: No cyanosis, clubbing, or pedal edema. -NEUROLOGICAL: Gross neurological examination did not reveal any focal deficits. Bilateral feet and hand swelling SKIN: No rashes. no petechiae. - Labs CBC & Chem 7: 01/14/24 06:12 01/14/24 06:12 Labs: Abnormal Lab Results - Last 24 Hours (Table) 01/14/24 01/14/24 Range/Units 06:12 06:12 WBC 13.07 H (4.50-10.00) X 10*3/uL RBC 3.09 L (4.40-5.60) X 10*6/uL Hgb 8.6 L (13.0-17.0) g/dL Hct 25.9 L (39.6-50.0) % RDW 15.6 H (11.5-14.5) % Immature Gran # 0.06 H (0.00-0.04) X 10*3/uL Neutrophils # 11.19 H (1.80-7.70) X 10*3/uL Lymphocytes # 0.79 L (0.90-5.00) X 10*3/uL Sodium 134 L (135-145) mmol/L Glucose 117 H (70-110) mg/dL Calcium 8.4 L (8.7-10.3) mg/dL Assessment and Plan Assessment: Mass 4 cm with biopsy positive for non-small cell cancer squamous cell cancer with metastasis to the mediastinal and lower neck lymphadenopathy Near complete obstruction of the left main bronchus secondary to tumor Hypovolemic hyponatremia Hypertension Hypothyroidism Coronary artery disease Plan: Continue with bronchodilator Add oxygen 2 L to 3 L via nasal cannula Start IV Lasix 20 mg twice daily IV Solu-Medrol 60 mg Pulmonary consult Monitor sodium Encourage hydration Oncology team. Replace electrolytes Monitor labs Labs and medication were reviewed.. Continue same treatment. Continue with symptomatic treatment. Resume home medication. Monitor labs and vitals. DVT and GI prophylaxis. Further recommendations as per clinical course of the patient DVT prophylaxis: Subcutaneous heparin GI Prophylaxis: Pepcid PT/OT: Pending Prognosis is guarded
[2024-01-15] MEDS: MAGNESIUM SULFATE IV ONE (10:07)
[2024-01-15] MEDS: [UNRECOGNIZED DRUG - OTHER] IV ONE (10:07)
[2024-01-15] MEDS: POTASSIUM CHLORIDE IV ONE (10:07)
[2024-01-15 12:09] LABS: Glucose,Whole Blood 301 mg/dL (70-110)
[2024-01-15] MEDS: DEXAMETHASONE SOD PHOSPHATE 10 MG/ML 1 ML VIAL IV SCH (12:15)
[2024-01-15] MEDS: FAMOTIDINE 20 MG/2 ML VIAL IV SCH (12:17)
[2024-01-15] MEDS: ONDANSETRON 16 MG in SODIUM CHLORIDE 0.9% 50 ML IVPB SCH (12:17)
[2024-01-15] MEDS: FOSAPREPITANT DIMEGLUMINE 150 MG in SODIUM CHLORIDE 0.9% 145 ML IV ONE (12:43)
--- NOTE | 2024-01-15 12:52 | P.PN ---
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 I performed the patient's bronchoscopy and the patient has a left hilar mass at the level of the secondary manuel and the left lower lobe causing significant mass effect and obstruction of the left lower lobe bronchus. The patient also had an outpatient PET/CT that showed mediastinal lymphadenopathy uptake and bilateral supraclavicular lymphadenopathy uptake. Based on that, the patient was seen by medical oncology. The patient was supposed to start systemic chemotherapy with cis confed[place] coos and BEARING GRINDER-16 as of tomorrow. The patient was also given a session of radiation therapy on 01/10/2024 and due to the holidays no further treatment was given. Patient is coming in with worsening shortness of breath. He is quite anxious. He also has developed some edema in his upper and lower extremities. Currently on 2 L of oxygen by nasal cannula. The viral screen has been negative. D-dimer is at 2.8. CT of the chest was done that showed no significant changes in terms of his malignancy. The patient continues to have a left hilar mass and some atelectatic changes in the left lower lobe. There is significant mass effect on the left lower lobe bronchus. The patient has no evidence of any pulmonary embolism. He is currently on 2 L of oxygen by nasal cannula. He is complaining of shortness of breath. He has also COPD maintained on Trelegy Ellipta on outpatient basis. No hemoptysis. The patient is seen today January 15, 2024 in follow-up on the regular medical floor. He is currently sitting up in bed. Awake and alert in no acute distress. He does have some dyspnea with conversation. Dyspnea with exertion. Maintaining good O2 saturations in the 90s on room air. Chest x-ray remains stable. No acute cardiopulmonary process. Dopplers of the lower extremities were negative for DVT. Glucose 199. He is continued on DuoNeb inhalations, Symbicort, Solu-Medrol. He remains on IV diuretics. The plan is to start cisplatin and etoposide today per medical oncology. Objective - Vital Signs Vital signs: Vital Signs Temp 97.9 F 01/15/24 12:03 Pulse 91 01/15/24 12:03 Resp 16 01/15/24 12:03 BP 98/61 01/15/24 12:03 Pulse Ox 93 L 01/15/24 12:03 FiO2 Intake & Output 01/14/24 01/15/24 01/15/24 18:59 06:59 18:59 Intake Total 1200 Output Total 700 Balance 500 Intake: Oral 1200 Output: Urine 700 Other: Voiding Method Toilet Urinal # Voids 1 # Bowel Movements 1 - Exam GENERAL EXAM: Alert, anxious 63-year-old male, on room air, comfortable in no apparent distress. HEAD: Normocephalic. EYES: Normal reaction of pupils, equal size. NOSE: Clear with pink turbinates. THROAT: No erythema or exudates. NECK: No masses, no JVD. CHEST: No chest wall deformity. LUNGS: Equal air entry with few scattered rhonchi, diminished left basilar lung sounds. CVS: S1 and S2 normal with no audible murmur, regular rhythm. ABDOMEN: No hepatosplenomegaly, normal bowel sounds, no guarding or rigidity. SPINE: No scoliosis or deformity SKIN: No rashes CENTRAL NERVOUS SYSTEM: No focal deficits, tone is normal in all 4 extremities. EXTREMITIES: There is 1+ peripheral edema. No clubbing, no cyanosis. Peripheral pulses are intact. - Labs CBC & Chem 7: 01/14/24 06:12 01/14/24 06:12 Labs: Abnormal Lab Results - Last 24 Hours (Table) 01/14/24 01/14/24 01/14/24 Range/Units 12:44 17:16 19:53 POC Glucose (mg/dL) 150 H 291 H (70-110) mg/dL Iron 12 L (65-175) UG/DL TIBC 174 L (228-460) UG/DL % Saturation 6.90 L (15.00-50.00) Transferrin 124.0 L (204.0-354.0) mg/dL Ferritin 601.0 H (22.0-322.0) ng/mL 01/14/24 01/15/24 01/15/24 Range/Units 23:22 07:18 12:07 POC Glucose (mg/dL) 259 H 199 H 301 H (70-110) mg/dL Iron (65-175) UG/DL TIBC (228-460) UG/DL % Saturation (15.00-50.00) Transferrin (204.0-354.0) mg/dL Ferritin (22.0-322.0) ng/mL Assessment and Plan Assessment: Acute on chronic shortness of breath in a patient with 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 CAT scan of the chest was reviewed. No evidence of any disease progression in terms of malignancy. No evidence of pneumonia. He has an acute COPD exacerbation in addition to his background lung cancer. Acute hypoxic respiratory failure currently on 2 L of oxygen by nasal cannula History of hemoptysis, currently inactive and stable Stage IIIc squamous cell carcinoma of the lung. The patient has a left infrahilar mass, measuring approximately 4 cm, highly suspicious for bronchogenic carcinoma. The left hilar fullness/mass encroaching on the left lower lobe bronchus, along with cutoff sign, debris in the ascending left main bronchus, and new lower lobe opacification, likely postobstructive atelectasis. Please refer to the results of the bronchoscopy and endobronchial ultrasound. The patient was given a session of radiation therapy on 01/10/2024. The patient is being initiated on cisplatin and etoposide today January 15, 2024 PET scan showed mediastinal lymphadenopathy and supraclavicular lymphadenopathy Chronic obstructive pulmonary disease, patient was recently started on Trelegy and as needed albuterol inhaler by Dr. Suárez in the pulmonary office. History of CVA/TIA History of coronary artery disease with remote history of PCI/stenting History of hyperlipidemia History of hypertension Former tobacco smoker, with over [id number] history, quitting approximately 1 month ago Plan: The patient was seen and evaluated Labs and medications reviewed Continued on DuoNeb inhalations, Symbicort Discontinue Solu-Medrol The patient is initiated on Decadron The patient will start chemotherapy today Continued on IV diuretics We will continue to follow I have personally seen and examined the patient, performed the documentation and the assessment and plan as written. Number of minutes spent on the visit: 10.
[2024-01-15] MEDS: SODIUM CHLORIDE 0.9% IV ONE (14:12)
[2024-01-15] MEDS: MANNITOL IV ONE (14:12)
[2024-01-15] MEDS: CISPLATIN IV ONE (14:12)
[2024-01-15] MEDS: [UNRECOGNIZED DRUG - OTHER] IV ONE (14:12)
[2024-01-15] MEDS: ETOPOSIDE IV SCH (15:29)
[2024-01-15] MEDS: SODIUM CHLORIDE 0.9% IV SCH (15:29)
[2024-01-15] MEDS: SODIUM CHLORIDE 0.9% 1,000 ML IV SCH (15:37)
[2024-01-15] MEDS ORDERED: DEXTROSE 50% SYRINGE 50 ML IVP PRN ×2 (16:18)
[2024-01-15] MEDS: SALT AND SODA MOUTHWASH 1,000 ML PO SCH (17:00)
[2024-01-15 17:04] LABS: Glucose,Whole Blood 277 mg/dL (70-110)
[2024-01-15] MEDS: INSULIN ASPART (NovoLOG) 100 UNIT/ML VIAL SQ SCH (17:45)
[2024-01-15 20:13] LABS: Glucose,Whole Blood 260 mg/dL (70-110)
--- NOTE | 2024-01-15 21:24 | P.PN ---
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 Patient presents today with worsening dyspnea over 2 days, he cannot walk for shortness unless he got short of breath and he has to stop His cough and phlegm are scanned and little at the end of frequent. He complains also from some chest pain about 6-5 in severity on the left side, n onradiating. Patient recently received first radiotherapy with Dr. Bah on last Monday Also patient lost his appetite not eating much. No dysuria or urgency. No headache dizziness weakness numbness. Patient non-smoker no alcohol no illicit drugs. He quit smoking. Also patient is mildly tachycardic. Will. Blood pressure on the soft side but is improving. Patient has mild leukocytosis and anemia. Platelet count is elevated 464. Sodium low 129. D-dimer elevated 2.8 Chest x-ray was negative for acute process CTA of the chest showing no pulmonary embolism but showing a left perihilar mass with near complete obstruction of the left main bronchus with obstructing many lung airways with scattered mediastinal and lower neck lymphedema most likely secondary to metastatic disease. 01/14/24 Patient complaining of shortness of breath He has swelling of both hands and feet No chest pain. Hospital oxygen saturation on 2-3 L/min via nasal cannula IV Lasix 40 mg added as well as a steroid Plan to treat with radiotherapy and chemotherapy while in the hospital because of his near complete obstruction of the left main bronchus 01/15/2024 Patient is evaluated in follow up today on the medical floor. Continues to report shortness of breath and congested cough. He has been evaluated by on cology and recommending to initiate the patient on chemotherapy starting today with cisplatin and etoposide. Patient will also continue with radiation to the lung mass. He will be taken off the IV lasix, lower extremity swelling has improved. He is being hydrated. Venous doppler negative for DVT bilaterally. Review of Systems Constitutional: Denied any fatigue denied any fever. Cardio vascular: denied any chest pain, palpitations Gastrointestinal: denied any nausea, vomiting, diarrhea Pulmonary: Reports shortness of breath and cough Neurologic denied any new focal deficits All inpatient medications were reviewed and appropriate changes in these medications as dictated in the interval history and assessment and plan. PHYSICAL EXAMINATION: GENERAL: The patient is alert and oriented x3, not in any acute distress. Well developed, well nourished. HEENT: Pupils are round and equally reacting to light. EOMI. No scleral icterus. No conjunctival pallor. Normocephalic, atraumatic. No pharyngeal erythema. No thyromegaly. CARDIOVASCULAR: S1 and S2 present. No murmurs, rubs, or gallops. PULMONARY: Diminished with scattered ronchi ABDOMEN: Soft, nontender, nondistended, normoactive bowel sounds. No palpable organomegaly. MUSCULOSKELETAL: No joint swelling or deformity. EXTREMITIES: No cyanosis, clubbing, or pedal edema. NEUROLOGICAL: Gross neurological examination did not reveal any focal deficits. SKIN: No rashes. Assessment and Plan Assessment Mass 4 cm with biopsy positive for non-small cell cancer squamous cell cancer with metastasis to the mediastinal and lower neck lymphadenopathy Near complete obstruction of the left main bronchus secondary to tumor Hypoxemic respiratory failure secondary to above Hypovolemic hyponatremia Steroid induced hyperglycemia Hypertension Hypothyroidism Coronary artery disease Plan: Continue with bronchodilator Continue on oxygen 2 L to 3 L via nasal cannula Stop lasix, continue IV hydration IV Solu-Medrol 60 mg Continue accuchecks ACHS Pulmonary consult, oncology consult Patient will be started on IV chemotherapy today Continue with radiation therapy Labs in the AM. The impression and plan of care has been dictated by Denia Soni Nurse Practitioner as directed. Dr. Delmar MD I have performed a history and physical examination and medical decision making of this patient, discussed the same with the dictator, and agree with the dictators assessment and plan as written, documented as a scribe. Based on total visit time, I have performed more than 50% of this visit. Objective - Vital Signs Vital signs: Vital Signs Temp 97.7 F 01/15/24 07:17 Pulse 101 H 01/15/24 07:17 Resp 16 01/15/24 07:17 BP 124/72 01/15/24 07:17 Pulse Ox 96 01/15/24 07:17 FiO2 Intake & Output 01/14/24 01/15/24 01/15/24 18:59 06:59 18:59 Intake Total 1200 Output Total 700 Balance 500 Intake: Oral 1200 Output: Urine 700 Other: Voiding Method Toilet Urinal # Voids 1 # Bowel Movements 1 - Labs CBC & Chem 7: 01/14/24 06:12 01/14/24 06:12 Labs: Abnormal Lab Results - Last 24 Hours (Table) 01/14/24 01/14/24 01/14/24 Range/Units 12:44 17:16 19:53 POC Glucose (mg/dL) 150 H 291 H (70-110) mg/dL Iron 12 L (65-175) UG/DL TIBC 174 L (228-460) UG/DL % Saturation 6.90 L (15.00-50.00) Transferrin 124.0 L (204.0-354.0) mg/dL Ferritin 601.0 H (22.0-322.0) ng/mL 01/14/24 01/15/24 Range/Units 23:22 07:18 POC Glucose (mg/dL) 259 H 199 H (70-110) mg/dL Iron (65-175) UG/DL TIBC (228-460) UG/DL % Saturation (15.00-50.00) Transferrin (204.0-354.0) mg/dL Ferritin (22.0-322.0) ng/mL Assessment and Plan Time with Patient: Less than 30
--- NOTE | 2024-01-15 22:53 | P.PN ---
Subjective Progress Note Date: 01/15/24 No acute events, reporting ongoing SOB at todays visit. Plan to start inpt chemo today with Cisplatin/Etoposide. Rad onc following, as plan is to continue concurrent RT. Spoke at length with family today regarding diagnosis, prognosis, and treatment regimen. Objective - Vital Signs Vital signs: Vital Signs Temp 97.8 F 01/15/24 14:15 Pulse 88 01/15/24 14:15 Resp 16 01/15/24 14:15 BP 101/63 01/15/24 14:15 Pulse Ox 96 01/15/24 14:15 FiO2 Intake & Output 01/14/24 01/15/24 01/15/24 18:59 06:59 18:59 Intake Total 1200 Output Total 700 Balance 500 Intake: Oral 1200 Output: Urine 700 Other: Voiding Method Toilet Urinal # Voids 1 # Bowel Movements 1 - Constitutional General appearance: Present: average body habitus, no acute distress - EENT Eyes: Present: anicteric sclerae, EOMI ENT: Present: hearing grossly normal - Respiratory Details: breathing mildly labored - Cardiovascular Details: skin warm and dry - Integumentary Integumentary: Absent: cyanotic - Musculoskeletal Musculoskeletal: Present: strength equal bilaterally - Psychiatric Psychiatric: Present: A&O x's 3 - Labs CBC & Chem 7: 01/14/24 06:12 01/14/24 06:12 Labs: Abnormal Lab Results - Last 24 Hours (Table) 01/14/24 01/14/24 01/14/24 Range/Units 12:44 17:16 19:53 POC Glucose (mg/dL) 150 H 291 H (70-110) mg/dL Iron 12 L (65-175) UG/DL TIBC 174 L (228-460) UG/DL % Saturation 6.90 L (15.00-50.00) Transferrin 124.0 L (204.0-354.0) mg/dL Ferritin 601.0 H (22.0-322.0) ng/mL 01/14/24 01/15/24 01/15/24 Range/Units 23:22 07:18 12:07 POC Glucose (mg/dL) 259 H 199 H 301 H (70-110) mg/dL Iron (65-175) UG/DL TIBC (228-460) UG/DL % Saturation (15.00-50.00) Transferrin (204.0-354.0) mg/dL Ferritin (22.0-322.0) ng/mL Assessment and Plan (1) Neutrophilic leukocytosis Current Visit: Yes Status: Acute Priority: Medium Code(s): D72.9 - DISORDER OF WHITE BLOOD CELLS, UNSPECIFIED SNOMED Code(s): 804298330 (2) Normocytic anemia Current Visit: Yes Status: Acute Priority: Medium Code(s): D64.9 - ANEMIA, UNSPECIFIED SNOMED Code(s): 187612650 (3) Stage III squamous cell carcinoma of left lung Current Visit: Yes Status: Acute Priority: High Code(s): C34.92 - MALIGNANT NEOPLASM OF UNSP PART OF LEFT BRONCHUS OR LUNG SNOMED Code(s): 450122882 Plan: #Stage IIIC squamous cell carcinoma of the left lower lobe -Biopsy of left lower lobe lung lesion and station 7 subcarinal lymph node from 12/22/2023 revealed squamous cell carcinoma -Noted to have 6.1 cm mass in the left lower lobe with mediastinal and bilateral supraclavicular lymphadenopathy on PET/CT from 01/04/2024 -Brain MRI on 01/03/2024 notes no evidence of intracranial metastases -Circulating tumor DNA analysis revealed no targetable mutations -Initiated radiation therapy on 01/10/2024 and was scheduled to initiate chemotherapy with cisplatin/etoposide on 01/15/2024 -He presented progressive dyspnea since initiating radiation therapy with CT PE revealing no evidence of pulmonary embolism, but did note large perihilar mass causing near complete obstruction of the left mainstem bronchus in addition to obstruction of multiple large airways of the left lower lung -Clinically, he has increased swelling of the lower extremities bilaterally as well as mild swelling of the right upper extremity compared to the left. It is unclear if he may have SVC syndrome -Imaging and case was discussed with Dr. Weiss of pulmonology -Consulted radiation oncology to resume radiation therapy inpatient -Continues on IV steroids -Given his clinical presentation and radiographic findings, I do believe he would benefit from starting chemotherapy inpatient. Orders have been placed with plans to start [employer] today -Toxicities and route of chemotherapy administration were reviewed with Chris and his -Olanzapine 10 mg nightly has been ordered inpatient. Order for fosaprepitant IV 30 minutes prior to chemotherapy has been placed #Bilateral lower extremity swelling -More prominent on right than left -Agree with duplex of lower extremities ordered per pulmonology -BLE Dopplers negative for DVT #Normocytic anemia -Anemia workup ordered including iron studies, vitamin B12/methylmalonic acid, and folic acid -Anemia appears to be related to inflammation secondary to malignancy. Vitamin B12 488. MMA and folate pending -Continue to monitor CBC #Neutrophilic leukocytosis -Likely secondary to inflammation from malignancy without any signs or symptoms concerning for infection -Hold on infectious workup at this time
[2024-01-15] MEDS: INSULIN DETEMIR (LEVEMIR) 100 UNIT/ML SYR SQ SCH (23:13)
[2024-01-16 03:07] LABS: Glucose,Whole Blood 172 mg/dL (70-110)
[2024-01-16 07:12] LABS: Glucose,Whole Blood 164 mg/dL (70-110)
[2024-01-16] MEDS ORDERED: SODIUM CHLORIDE 0.9% IV SCH (09:00)
[2024-01-16] MEDS ORDERED: FUROSEMIDE 10 MG/ML 2 ML VIAL IV SCH (09:00)
[2024-01-16] MEDS ORDERED: FOSAPREPITANT DIMEGLUMINE IV SCH (09:00)
[2024-01-16 10:33] LABS: Basophils # (A) 0.03 X 10*3/uL (0.00-0.10); Basophils % (A) 0.2 %; Eosinophils # (A) 0 X 10*3/uL (0.04-0.35); Eosinophils % (A) 0 %; HCT 24.9 % (39.6-50.0); Lymphocytes % (A) 3.3 %; MCHC 32.1 g/dL (32.0-37.0); MCV 84.1 FL (80.0-97.0); Mean Platelet Volume 10.7 FL (9.5-12.2); Monocytes # (A) 0.47 X 10*3/uL (0.20-1.00); Monocytes % (A) 2.6 %; NRBC Per 100 WBC 0 X 10*3/uL (0.00-0.01); Neutrophils # (A) 16.88 X 10*3/uL (1.80-7.70); Neutrophils % (A) 92.7 %; Platelet Count 404 X 10*3/uL (140-440); RBC 2.96 X 10*6/uL (4.40-5.60); RDW 15.3 % (11.5-14.5); WBC 18.19 X 10*3/uL (4.50-10.00)
[2024-01-16 12:06] LABS: Glucose,Whole Blood 136 mg/dL (70-110)
[2024-01-16 12:53] LABS: Magnesium 2.1 mg/dL (1.5-2.4)
--- NOTE | 2024-01-16 13:05 | P.PN ---
Subjective Progress Note Date: 01/16/24 This is a 63-year-old male patient with a recent diagnosis of 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 I performed the patient's bronchoscopy and the patient has a left hilar mass at the level of the secondary manuel and the left lower lobe causing significant mass effect and obstruction of the left lower lobe bronchus. The patient also had an outpatient PET/CT that showed mediastinal lymphadenopathy uptake and bilateral supraclavicular lymphadenopathy uptake. Based on that, the patient was seen by medical oncology. The patient was supposed to start systemic chemotherapy with cis [place] and [employer]16 as of tomorrow. The patient was also given a session of radiation therapy on 01/10/2024 and due to the holidays no further treatment was given. Patient is coming in with worsening shortness of breath. He is quite anxious. He also has developed some edema in his upper and lower extremities. Currently on 2 L of oxygen by nasal cannula. The viral screen has been negative. D-dimer is at 2.8. CT of the chest was done that showed no significant changes in terms of his malignancy. The patient continues to have a left hilar mass and some atelectatic changes in the left lower lobe. There is significant mass effect on the left lower lobe bronchus. The patient has no evidence of any pulmonary embolism. He is currently on 2 L of oxygen by nasal cannula. He is complaining of shortness of breath. He has also COPD maintained on Trelegy Ellipta on outpatient basis. No hemoptysis. The patient is seen today January 15, 2024 in follow-up on the regular medical floor. He is currently sitting up in bed. Awake and alert in no acute distress. He does have some dyspnea with conversation. Dyspnea with exertion. Maintaining good O2 saturations in the 90s on room air. Chest x-ray remains stable. No acute cardiopulmonary process. Dopplers of the lower extremities were negative for DVT. Glucose 199. He is continued on DuoNeb inhalations, Symbicort, Solu-Medrol. He remains on IV diuretics. The plan is to start cisplatin and etoposide today per medical oncology. The patient is seen today January 16, 2024 in follow-up on the regular medical floor. He is currently resting in bed. Awake and alert in no acute distress. He is maintaining O2 saturations in the 90s on 2 L/min per nasal cannula. He did receive etoposide and cisplatin yesterday. He remains on Decadron 10 mg IV every 24 hours. Plan is for a radiation treatment again today. White count 18.1. Hemoglobin 8.0. Platelets 404. Glucose 164. Magnesium 2.1. He remains on DuoNebs and Symbicort, Objective - Vital Signs Vital signs: Vital Signs Temp 97.5 F L 01/16/24 09:51 Pulse 88 01/16/24 12:29 Resp 18 01/16/24 09:51 BP 108/67 01/16/24 09:51 Pulse Ox 97 01/16/24 09:51 FiO2 Intake & Output 01/15/24 01/16/24 01/16/24 18:59 06:59 18:59 Intake Total 1773 Balance 177 Intake: Intake, IV Titration 1772 Amount CISplatin 103 mg Mannitol 653 25% 12.5 gm In Sodium Chloride 0.9% 500 ml 500 ml In Empty Bag 1 bag @ 653 mls/hr IV ONCE ONE Rx #:[id number] Etoposide 100 mg In 255 Sodium Chloride 0.9% 250 ml @ 255 mls/hr IV Q24H [facility] Rx#:[id number] Fosaprepitant Dimeglumine 145 80 mg In Sodium Chloride 0.9% 145 ml @ 300 mls/hr IV DAILY [facility] Rx#: [id number] Ondansetron 16 mg In 58 Sodium Chloride 0.9% 50 ml @ 232 mls/hr IVPB Q24H [facility] Rx#:[id number] Potassium Chloride 20 meq 512 Magnesium Sulfate gm 1 gm In Sodium Chloride 0.9 % 500 ml 500 ml @ 256 mls /hr IV ONCE ONE Rx#: [id number] Sodium Chloride 0.9% 1, 150 000 ml @ 50 mls/hr IV . Q20H [facility] Rx#:[id number] Other: # Voids 1 - Exam GENERAL EXAM: Alert, 63-year-old male, on 2 L nasal cannula, in no apparent distress. HEAD: Normocephalic. EYES: Normal reaction of pupils, equal size. NOSE: Clear with pink turbinates. THROAT: No erythema or exudates. NECK: No masses, no JVD. CHEST: No chest wall deformity. LUNGS: Equal air entry with few scattered rhonchi, diminished left basilar lung sounds. CVS: S1 and S2 normal with no audible murmur, regular rhythm. ABDOMEN: No hepatosplenomegaly, normal bowel sounds, no guarding or rigidity. SPINE: No scoliosis or deformity SKIN: No rashes CENTRAL NERVOUS SYSTEM: No focal deficits, tone is normal in all 4 extremities. EXTREMITIES: There is 1+ peripheral edema. No clubbing, no cyanosis. Peripheral pulses are intact. - Labs CBC & Chem 7: 01/16/24 06:26 01/14/24 06:12 Labs: Abnormal Lab Results - Last 24 Hours (Table) 01/15/24 01/15/24 01/16/24 Range/Units 17:03 20:10 03:05 WBC (4.50-10.00) X 10*3/uL RBC (4.40-5.60) X 10*6/uL Hgb (13.0-17.0) g/dL Hct (39.6-50.0) % RDW (11.5-14.5) % Immature Gran # (0.00-0.04) X 10*3/uL Neutrophils # (1.80-7.70) X 10*3/uL Lymphocytes # (0.90-5.00) X 10*3/uL Eosinophils # (0.04-0.35) X 10*3/uL POC Glucose (mg/dL) 277 H 260 H 172 H (70-110) mg/dL 01/16/24 01/16/24 01/16/24 Range/Units 06:26 07:11 12:05 WBC 18.19 H (4.50-10.00) X 10*3/uL RBC 2.96 L (4.40-5.60) X 10*6/uL Hgb 8.0 L (13.0-17.0) g/dL Hct 24.9 L (39.6-50.0) % RDW 15.3 H (11.5-14.5) % Immature Gran # 0.21 H (0.00-0.04) X 10*3/uL Neutrophils # 16.88 H (1.80-7.70) X 10*3/uL Lymphocytes # 0.60 L (0.90-5.00) X 10*3/uL Eosinophils # 0 L (0.04-0.35) X 10*3/uL POC Glucose (mg/dL) 164 H 136 H (70-110) mg/dL Assessment and Plan Assessment: Acute on chronic shortness of breath in a patient with 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 CAT scan of the chest was reviewed. No evidence of any disease progression in terms of malignancy. No evidence of pneumonia. He has an acute COPD exacerbation in addition to his background lung cancer Acute hypoxic respiratory failure currently on 2 L of oxygen by nasal cannula History of hemoptysis, currently inactive and stable Stage IIIc squamous cell carcinoma of the lung. The patient has a left infrahilar mass, measuring approximately 4 cm, highly suspicious for bronchogenic carcinoma. The left hilar fullness/mass encroaching on the left lower lobe bronchus, along with cutoff sign, debris in the ascending left main bronchus, and new lower lobe opacification, likely postobstructive atelectasis. Please refer to the results of the bronchoscopy and endobronchial ultrasound. The patient was given a session of radiation therapy on 01/10/2024. The patient is being initiated on cisplatin and etoposide today January 15, 2024 PET scan showed mediastinal lymphadenopathy and supraclavicular lymphadenopathy Chronic obstructive pulmonary disease, patient was recently started on Trelegy and as needed albuterol inhaler by Dr. Suárez in the pulmonary office. History of CVA/TIA History of coronary artery disease with remote history of PCI/stenting History of hyperlipidemia History of hypertension Former tobacco smoker, with over [id number] history, quitting approximately 1 month ago Plan: The patient was seen and evaluated Labs and medications reviewed Continues on bronchodilators Remains on Decadron Received chemotherapy yesterday Continues with concurrent radiation treatments Titrate the FiO2 as tolerated We will continue to follow I have personally seen and examined the patient, performed the documentation and the assessment and plan as written. Number of minutes spent on the visit: 10.
[2024-01-16 13:16] LABS: ALT 89 U/L (10-49); AST 75 U/L (14-35); Albumin 2.8 g/dL (3.8-4.9); Albumin/Globulin Ratio 1.12 Ratio (1.60-3.17); Alkaline Phosphatase 106 U/L (41-126); BUN/Creat Ratio 29.25 Ratio (12.00-20.00); Blood Urea Nitrogen 23.4 mg/dL (9.0-27.0); Calcium 8.1 mg/dL (8.7-10.3); Chloride 106 mmol/L (96-109); Globulin 2.5 g/dL (1.6-3.3); Glucose 142 mg/dL (70-110); Potassium 4.4 mmol/L (3.5-5.5); Sodium 138 mmol/L (135-145); Total Bilirubin <0.2 mg/dL (0.3-1.2); Total Protein 5.3 g/dL (6.2-8.2)
[2024-01-16 17:15] LABS: Glucose,Whole Blood 177 mg/dL (70-110)
[2024-01-16 20:31] LABS: Glucose,Whole Blood 162 mg/dL (70-110)
--- NOTE | 2024-01-16 21:53 | P.PN ---
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 Patient presents today with worsening dyspnea over 2 days, he cannot walk for shortness unless he got short of breath and he has to stop His cough and phlegm are scanned and little at the end of frequent. He complains also from some chest pain about 6-5 in severity on the left side, n onradiating. Patient recently received first radiotherapy with Dr. Bah on last Monday Also patient lost his appetite not eating much. No dysuria or urgency. No headache dizziness weakness numbness. Patient non-smoker no alcohol no illicit drugs. He quit smoking. Also patient is mildly tachycardic. Will. Blood pressure on the soft side but is improving. Patient has mild leukocytosis and anemia. Platelet count is elevated 464. Sodium low 129. D-dimer elevated 2.8 Chest x-ray was negative for acute process CTA of the chest showing no pulmonary embolism but showing a left perihilar mass with near complete obstruction of the left main bronchus with obstructing many lung airways with scattered mediastinal and lower neck lymphedema most likely secondary to metastatic disease. 01/14/24 Patient complaining of shortness of breath He has swelling of both hands and feet No chest pain. Hospital oxygen saturation on 2-3 L/min via nasal cannula IV Lasix 40 mg added as well as a steroid Plan to treat with radiotherapy and chemotherapy while in the hospital because of his near complete obstruction of the left main bronchus 01/15/2024 Patient is evaluated in follow up today on the medical floor. Continues to report shortness of breath and congested cough. He has been evaluated by on cology and recommending to initiate the patient on chemotherapy starting today with cisplatin and etoposide. Patient will also continue with radiation to the lung mass. He will be taken off the IV lasix, lower extremity swelling has improved. He is being hydrated. Venous doppler negative for DVT bilaterally. 01/16/2024 Patient evaluated today in follow up. Underwent chemotherapy yesterday, jeremy ated well. Patient will undergo radiation tomorrow. White blood cell count 18.19, hgb 8.0. Hemodynamically stable. Review of Systems Constitutional: Denied any fatigue denied any fever. Cardio vascular: denied any chest pain, palpitations Gastrointestinal: denied any nausea, vomiting, diarrhea Pulmonary: Reports shortness of breath and cough Neurologic denied any new focal deficits All inpatient medications were reviewed and appropriate changes in these medications as dictated in the interval history and assessment and plan. PHYSICAL EXAMINATION: GENERAL: The patient is alert and oriented x3, not in any acute distress. Well developed, well nourished. HEENT: Pupils are round and equally reacting to light. EOMI. No scleral icterus. No conjunctival pallor. Normocephalic, atraumatic. No pharyngeal erythema. No thyromegaly. CARDIOVASCULAR: S1 and S2 present. No murmurs, rubs, or gallops. PULMONARY: Diminished with scattered ronchi ABDOMEN: Soft, nontender, nondistended, normoactive bowel sounds. No palpable organomegaly. MUSCULOSKELETAL: No joint swelling or deformity. EXTREMITIES: No cyanosis, clubbing, or pedal edema. NEUROLOGICAL: Gross neurological examination did not reveal any focal deficits. SKIN: No rashes. Assessment and Plan Assessment Mass 4 cm with biopsy positive for non-small cell cancer squamous cell cancer with metastasis to the mediastinal and lower neck lymphadenopathy Near complete obstruction of the left main bronchus secondary to tumor Hypoxemic respiratory failure secondary to above Hypovolemic hyponatremia Steroid induced hyperglycemia Hypertension Hypothyroidism Coronary artery disease Plan: Continue with bronchodilator Continue on oxygen 2 L to 3 L via nasal cannula Stop lasix, continue IV hydration IV Solu-Medrol 60 mg Continue accuchecks ACHS Pulmonary consult, oncology consult On chemotherapy day 2 of 5. Rad Onc following patient scheduled to undergo radiation treatment tomorrow. Labs in the AM. The impression and plan of care has been dictated by Denia Soni, Nurse Practitioner as directed. Dr. Delmar MD I have performed a history and physical examination and medical decision making of this patient, discussed the same with the dictator, and agree with the dictators assessment and plan as written, documented as a scribe. Based on total visit time, I have performed more than 50% of this visit. Objective - Vital Signs Vital signs: Vital Signs Temp 97.5 F L 01/16/24 19:00 Pulse 84 01/16/24 21:14 Resp 16 01/16/24 19:00 BP 121/75 01/16/24 19:00 Pulse Ox 99 01/16/24 19:00 FiO2 Intake & Output 01/16/24 01/16/24 01/17/24 06:59 18:59 06:59 Intake Total 1025 Balance 1025 Intake: Intake, IV Titration 905 Amount Etoposide 100 mg In 255 Sodium Chloride 0.9% 250 ml @ 255 mls/hr IV Q24H [facility] Rx#:[id number] Ondansetron 16 mg In 50 Sodium Chloride 0.9% 50 ml @ 232 mls/hr IVPB Q24H D[facility] Rx#:[id number] Sodium Chloride 0.9% 1, 600 000 ml @ 50 mls/hr IV . Q20H D[facility]LE Rx#:[id number] Oral 120 Other: # Voids 1 3 - Labs CBC & Chem 7: 01/16/24 06:26 01/16/24 06:26 Labs: Abnormal Lab Results - Last 24 Hours (Table) 01/16/24 01/16/24 01/16/24 Range/Units 03:05 06:26 06:26 WBC 18.19 H (4.50-10.00) X 10*3/uL RBC 2.96 L (4.40-5.60) X 10*6/uL Hgb 8.0 L (13.0-17.0) g/dL Hct 24.9 L (39.6-50.0) % RDW 15.3 H (11.5-14.5) % Immature Gran # 0.21 H (0.00-0.04) X 10*3/uL Neutrophils # 16.88 H (1.80-7.70) X 10*3/uL Lymphocytes # 0.60 L (0.90-5.00) X 10*3/uL Eosinophils # 0 L (0.04-0.35) X 10*3/uL Carbon Dioxide 20.0 L (21.6-31.8) mmol/L BUN/Creatinine Ratio 29.25 H (12.00-20.00) Ratio Glucose 142 H (70-110) mg/dL POC Glucose (mg/dL) 172 H (70-110) mg/dL Calcium 8.1 L (8.7-10.3) mg/dL Total Bilirubin <0.2 L (0.3-1.2) mg/dL AST 75 H (14-35) U/L ALT 89 H (10-49) U/L Total Protein 5.3 L (6.2-8.2) g/dL Albumin 2.8 L (3.8-4.9) g/dL Albumin/Globulin Ratio 1.12 L (1.60-3.17) Ratio 01/16/24 01/16/24 01/16/24 Range/Units 07:11 12:05 17:13 WBC (4.50-10.00) X 10*3/uL RBC (4.40-5.60) X 10*6/uL Hgb (13.0-17.0) g/dL Hct (39.6-50.0) % RDW (11.5-14.5) % Immature Gran # (0.00-0.04) X 10*3/uL Neutrophils # (1.80-7.70) X 10*3/uL Lymphocytes # (0.90-5.00) X 10*3/uL Eosinophils # (0.04-0.35) X 10*3/uL Carbon Dioxide (21.6-31.8) mmol/L BUN/Creatinine Ratio (12.00-20.00) Ratio Glucose (70-110) mg/dL POC Glucose (mg/dL) 164 H 136 H 177 H (70-110) mg/dL Calcium (8.7-10.3) mg/dL Total Bilirubin (0.3-1.2) mg/dL AST (14-35) U/L ALT (10-49) U/L Total Protein (6.2-8.2) g/dL Albumin (3.8-4.9) g/dL Albumin/Globulin Ratio (1.60-3.17) Ratio 01/16/24 Range/Units 20:29 WBC (4.50-10.00) X 10*3/uL RBC (4.40-5.60) X 10*6/uL Hgb (13.0-17.0) g/dL Hct (39.6-50.0) % RDW (11.5-14.5) % Immature Gran # (0.00-0.04) X 10*3/uL Neutrophils # (1.80-7.70) X 10*3/uL Lymphocytes # (0.90-5.00) X 10*3/uL Eosinophils # (0.04-0.35) X 10*3/uL Carbon Dioxide (21.6-31.8) mmol/L BUN/Creatinine Ratio (12.00-20.00) Ratio Glucose (70-110) mg/dL POC Glucose (mg/dL) 162 H (70-110) mg/dL Calcium (8.7-10.3) mg/dL Total Bilirubin (0.3-1.2) mg/dL AST (14-35) U/L ALT (10-49) U/L Total Protein (6.2-8.2) g/dL Albumin (3.8-4.9) g/dL Albumin/Globulin Ratio (1.60-3.17) Ratio Assessment and Plan Time with Patient: Less than 30
[2024-01-17 02:30] LABS: Glucose,Whole Blood 149 mg/dL (70-110)
[2024-01-17 03:41] LABS: Methylmalonic Acid 0.25 umol/L (<0.40)
[2024-01-17 08:13] LABS: Glucose,Whole Blood 146 mg/dL (70-110)
[2024-01-17 08:52] LABS: Basophils % (A) 0 %; Eosinophils % (A) 0 %; HCT 26.5 % (39.0-53.0); HGB 8.6 gm/dL (13.0-17.5); Hypochromasia Slight; Lymphocytes # (A) 0.5 k/uL (1.0-4.8); Lymphocytes % (A) 3 %; MCH 27.7 pg (25.0-35.0); MCHC 32.6 g/dL (31.0-37.0); MCV 84.9 fL (80.0-100.0); Mean Platelet Volume 8.4; Monocytes # (A) 0.8 k/uL (0-1.0); Monocytes % (A) 5 %; Neutrophils # (A) 14.7 k/uL (1.3-7.7); Neutrophils % (A) 91 %; Platelet Count 362 k/uL (150-450); RBC 3.12 m/uL (4.30-5.90); RDW 14.7 % (11.5-15.5); WBC 16.2 k/uL (3.8-10.6)
[2024-01-17 08:53] LABS: ALT 63 U/L (4-49); AST 46 U/L (17-59); African American GFR (CKD) >90 (>60 ml/min/1.73 sqM); Albumin 2.5 g/dL (3.5-5.0); Albumin/Globulin Ratio 0.9; Alkaline Phosphatase 92 U/L (38-126); Anion Gap 4 mmol/L; Blood Urea Nitrogen 30 mg/dL (9-20); Calcium 8.4 mg/dL (8.4-10.2); Carbon Dioxide 23 mmol/L (22-30); Chloride 107 mmol/L (98-107); Globulin 2.7 g/dL; Glucose 115 mg/dL (74-99); Non-African American GFR(CKD) 86 (>60 ml/min/1.73 sqM); Potassium 4.5 mmol/L (3.5-5.1); Sodium 134 mmol/L (137-145); Total Bilirubin 0.3 mg/dL (0.2-1.3); Total Protein 5.2 g/dL (6.3-8.2)
--- NOTE | 2024-01-17 11:04 | XR ---
EXAMINATION TYPE: XR chest 1V portable DATE OF EXAM: 01/17/2024 10:58 AM CLINICAL INDICATION:Male, 63 years old with history of SOB, hypoxia; COMPARISON: Chest radiographs from 01/14/2024. TECHNIQUE: XR chest 1V portable Frontal view of the chest. FINDINGS: Lungs/Pleura: There is no evidence of pleural effusion, focal consolidation, or pneumothorax. Pulmonary vascularity: Unremarkable. Heart/mediastinum: Cardiomediastinal silhouette is unremarkable. Musculoskeletal: No acute osseous pathology. Other findings: Right PICC with tip terminating in the superior vena cava. IMPRESSION: Right PICC with tip in appropriate position. No acute cardiopulmonary disease/process.
[2024-01-17 11:59] LABS: Glucose,Whole Blood 147 mg/dL (70-110)
--- NOTE | 2024-01-17 13:15 | P.PN ---
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 I performed the patient's bronchoscopy and the patient has a left hilar mass at the level of the secondary manuel and the left lower lobe causing significant mass effect and obstruction of the left lower lobe bronchus. The patient also had an outpatient PET/CT that showed mediastinal lymphadenopathy uptake and bilateral supraclavicular lymphadenopathy uptake. Based on that, the patient was seen by medical oncology. The patient was supposed to start systemic chemotherapy with cis little traverse and VTC TECHNICIAN-16 as of tomorrow. The patient was also given a session of radiation therapy on 01/10/2024 and due to the holidays no further treatment was given. Patient is coming in with worsening shortness of breath. He is quite anxious. He also has developed some edema in his upper and lower extremities. Currently on 2 L of oxygen by nasal cannula. The viral screen has been negative. D-dimer is at 2.8. CT of the chest was done that showed no significant changes in terms of his malignancy. The patient continues to have a left hilar mass and some atelectatic changes in the left lower lobe. There is significant mass effect on the left lower lobe bronchus. The patient has no evidence of any pulmonary embolism. He is currently on 2 L of oxygen by nasal cannula. He is complaining of shortness of breath. He has also COPD maintained on Trelegy Ellipta on outpatient basis. No hemoptysis. The patient is seen today January 15, 2024 in follow-up on the regular medical floor. He is currently sitting up in bed. Awake and alert in no acute distress. He does have some dyspnea with conversation. Dyspnea with exertion. Maintaining good O2 saturations in the 90s on room air. Chest x-ray remains stable. No acute cardiopulmonary process. Dopplers of the lower extremities were negative for DVT. Glucose 199. He is continued on DuoNeb inhalations, Symbicort, Solu-Medrol. He remains on IV diuretics. The plan is to start cisplatin and etoposide today per medical oncology. The patient is seen today January 16, 2024 in follow-up on the regular medical floor. He is currently resting in bed. Awake and alert in no acute distress. He is maintaining O2 saturations in the 90s on 2 L/min per nasal cannula. He did receive etoposide and cisplatin yesterday. He remains on Decadron 10 mg IV every 24 hours. Plan is for a radiation treatment again today. White count 18.1. Hemoglobin 8.0. Platelets 404. Glucose 164. Magnesium 2.1. He remains on DuoNebs and Symbicort, The patient is seen today January 17, 2024 in follow-up on the regular medical floor. He is awake and alert in no acute distress. Resting fairly comfortably in bed. Denies any worsening shortness of breath, cough or congestion. Maintaining O2 saturations in the 90s on 2 L/min per nasal cannula. He is continued on DuoNeb inhalations, Symbicort. Remains on Decadron. Continuing with radiation treatments. White count 16.2. Hemoglobin 8.6. Platelets 362. Sodium 134. Potassium 4.5. Bicarb 23. BUN 30. Creatinine 0.93. Glucose 115. proBNP 6020. Right upper extremity PICC line was placed today. Chest x-ray reveals no acute cardiopulmonary process. Objective - Vital Signs Vital signs: Vital Signs Temp 97.7 F 01/17/24 11:13 Pulse 88 01/17/24 11:44 Resp 18 01/17/24 11:13 BP 119/74 01/17/24 11:13 Pulse Ox 96 01/17/24 11:13 FiO2 Intake & Output 01/16/24 01/17/24 01/17/24 18:59 06:59 18:59 Intake Total 1025 Balance 1025 Intake: Intake, IV Titration 905 Amount Etoposide 100 mg In 255 Sodium Chloride 0.9% 250 ml @ 255 mls/hr IV Q24H [facility] Rx#:[id number] Ondansetron 16 mg In 50 Sodium Chloride 0.9% 50 ml @ 232 mls/hr IVPB Q24H [facility] Rx#:[id number] Sodium Chloride 0.9% 1, 600 000 ml @ 50 mls/hr IV . Q20H [facility] Rx#:[id number] Oral 120 Other: Voiding Method Toilet Toilet # Voids 3 3 - Exam GENERAL EXAM: Alert, weak 63-year-old male, resting in bed, on 2 L nasal cannula, in no apparent distress. HEAD: Normocephalic. EYES: Normal reaction of pupils, equal size. NOSE: Clear with pink turbinates. THROAT: No erythema or exudates. NECK: No masses, no JVD. CHEST: No chest wall deformity. LUNGS: Equal air entry with few scattered rhonchi, diminished left basilar lung sounds. CVS: S1 and S2 normal with no audible murmur, regular rhythm. ABDOMEN: No hepatosplenomegaly, normal bowel sounds, no guarding or rigidity. SPINE: No scoliosis or deformity SKIN: No rashes CENTRAL NERVOUS SYSTEM: No focal deficits, tone is normal in all 4 extremities. EXTREMITIES: There is 1+ peripheral edema. No clubbing, no cyanosis. Peripheral pulses are intact. - Labs CBC & Chem 7: 01/17/24 07:41 01/17/24 07:41 Labs: Abnormal Lab Results - Last 24 Hours (Table) 01/16/24 01/16/24 01/16/24 Range/Units 06:26 17:13 20:29 WBC (3.8-10.6) k/uL RBC (4.30-5.90) m/uL Hgb (13.0-17.5) gm/dL Hct (39.0-53.0) % Neutrophils # (1.3-7.7) k/uL Lymphocytes # (1.0-4.8) k/uL Sodium (137-145) mmol/L Carbon Dioxide 20.0 L (21.6-31.8) mmol/L BUN (9-20) mg/dL BUN/Creatinine Ratio 29.25 H (12.00-20.00) Ratio Glucose 142 H (70-110) mg/dL POC Glucose (mg/dL) 177 H 162 H (70-110) mg/dL Calcium 8.1 L (8.7-10.3) mg/dL Total Bilirubin <0.2 L (0.3-1.2) mg/dL AST 75 H (14-35) U/L ALT 89 H (10-49) U/L Total Protein 5.3 L (6.2-8.2) g/dL Albumin 2.8 L (3.8-4.9) g/dL Albumin/Globulin Ratio 1.12 L (1.60-3.17) Ratio 01/17/24 01/17/24 01/17/24 Range/Units 02:28 07:41 07:41 WBC 16.2 H (3.8-10.6) k/uL RBC 3.12 L (4.30-5.90) m/uL Hgb 8.6 L (13.0-17.5) gm/dL Hct 26.5 L (39.0-53.0) % Neutrophils # 14.7 H (1.3-7.7) k/uL Lymphocytes # 0.5 L (1.0-4.8) k/uL Sodium 134 L (137-145) mmol/L Carbon Dioxide (21.6-31.8) mmol/L BUN 30 H (9-20) mg/dL BUN/Creatinine Ratio (12.00-20.00) Ratio Glucose 115 H (70-110) mg/dL POC Glucose (mg/dL) 149 H (70-110) mg/dL Calcium (8.7-10.3) mg/dL Total Bilirubin (0.3-1.2) mg/dL AST (14-35) U/L ALT 63 H (10-49) U/L Total Protein 5.2 L (6.2-8.2) g/dL Albumin 2.5 L (3.8-4.9) g/dL Albumin/Globulin Ratio (1.60-3.17) Ratio 01/17/24 01/17/24 Range/Units 08:12 11:57 WBC (3.8-10.6) k/uL RBC (4.30-5.90) m/uL Hgb (13.0-17.5) gm/dL Hct (39.0-53.0) % Neutrophils # (1.3-7.7) k/uL Lymphocytes # (1.0-4.8) k/uL Sodium (137-145) mmol/L Carbon Dioxide (21.6-31.8) mmol/L BUN (9-20) mg/dL BUN/Creatinine Ratio (12.00-20.00) Ratio Glucose (70-110) mg/dL POC Glucose (mg/dL) 146 H 147 H (70-110) mg/dL Calcium (8.7-10.3) mg/dL Total Bilirubin (0.3-1.2) mg/dL AST (14-35) U/L ALT (10-49) U/L Total Protein (6.2-8.2) g/dL Albumin (3.8-4.9) g/dL Albumin/Globulin Ratio (1.60-3.17) Ratio Assessment and Plan Assessment: Acute on chronic shortness of breath in a patient with 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 CAT scan of the chest was reviewed. No evidence of any disease progression in terms of malignancy. No evidence of pneumonia. He has an acute COPD exacerbation in addition to his background lung cancer. Chest x-r ay reveals no acute pulmonary process. Acute hypoxic respiratory failure currently on 2 L of oxygen by nasal cannula History of hemoptysis, currently inactive and stable Stage IIIc squamous cell carcinoma of the lung. The patient has a left infrahilar mass, measuring approximately 4 cm, highly suspicious for bronchogenic carcinoma. The left hilar fullness/mass encroaching on the left lower lobe bronchus, along with cutoff sign, debris in the ascending left main bronchus, and new lower lobe opacification, likely postobstructive atelectasis. Please refer to the results of the bronchoscopy and endobronchial ultrasound. The patient was given a session of radiation therapy on 01/10/2024. The patient was initiated on cisplatin and etoposide January 15, 2024. Receiving concurrent radiation PET scan showed mediastinal lymphadenopathy and supraclavicular lymphadenopathy Chronic obstructive pulmonary disease, patient was recently started on Trelegy and as needed albuterol inhaler History of CVA/TIA History of coronary artery disease with remote history of PCI/stenting History of hyperlipidemia History of hypertension Former tobacco smoker, with over 34-crlx-snol history, quitting approximately 1 month ago Plan: The patient was seen and evaluated Chest x-ray, labs and medications reviewed Continues on bronchodilators Remains on Decadron Continues with radiation treatments Titrate the FiO2 as tolerated We will continue to follow I have personally seen and examined the patient, performed the documentation and the assessment and plan as written. Number of minutes spent on the visit: 10.
[2024-01-17] MEDS: FUROSEMIDE 10 MG/ML 4 ML VIAL IV STA (16:32)
--- NOTE | 2024-01-17 16:33 | P.PN ---
Subjective Progress Note Date: 01/17/24 Principal diagnosis: Tonia IIIC Sq cell NSCLC In f/u pt is slightly confused today, reports slept good but family reports he has been sleeping all day. Upper extremity swelling is stable, he is moving both arms today independently. Cont to tolerate chemo overall well. Noted de creased appetite today. He was simulated for radiation last week, treatment will start on . No other acute c/o, all questions and concerns addressed I Objective - Vital Signs Vital signs: Vital Signs Temp 97.9 F 01/17/24 15:07 Pulse 86 01/17/24 15:55 Resp 20 01/17/24 15:07 BP 123/76 01/17/24 15:07 Pulse Ox 99 01/17/24 15:07 FiO2 Intake & Output 01/16/24 01/17/24 01/17/24 18:59 06:59 18:59 Intake Total 1025 Balance 1025 Intake: Intake, IV Titration 905 Amount Etoposide 100 mg In 255 Sodium Chloride 0.9% 250 ml @ 255 mls/hr IV Q24H [facility] Rx#:[id number] Ondansetron 16 mg In 50 Sodium Chloride 0.9% 50 ml @ 232 mls/hr IVPB Q24H [facility] Rx#:[id number] Sodium Chloride 0.9% 1, 600 000 ml @ 50 mls/hr IV . Q20H [facility] Rx#:[id number] Oral 120 Other: Voiding Method Toilet Toilet # Voids 3 3 - Constitutional General appearance: Present: average body habitus, cooperative, no acute distress - EENT Eyes: Present: anicteric sclerae, EOMI ENT: Present: hearing grossly normal - Respiratory Respiratory: bilateral: diminished - Cardiovascular Details: BUE swelling Rhythm: regular Heart sounds: normal: S1, S2 Abnormal Heart Sounds: Absent: systolic murmur, diastolic murmur, rub, S3 Gallop, S4 Gallop, click, other - Peripheral edema leg Peripheral Edema: bilateral: Trace - Gastrointestinal General gastrointestinal: Present: normal bowel sounds, soft - Neurologic Neurologic: Present: CNII-XII intact - Psychiatric Psychiatric Comment(s): alert, oriented x 3, some statements he makes do not align with current conversation. - Labs CBC & Chem 7: 01/17/24 07:41 01/17/24 07:41 Labs: Abnormal Lab Results - Last 24 Hours (Table) 01/16/24 01/16/24 01/17/24 Range/Units 17:13 20:29 02:28 WBC (3.8-10.6) k/uL RBC (4.30-5.90) m/uL Hgb (13.0-17.5) gm/dL Hct (39.0-53.0) % Neutrophils # (1.3-7.7) k/uL Lymphocytes # (1.0-4.8) k/uL Sodium (137-145) mmol/L BUN (9-20) mg/dL Glucose (74-99) mg/dL POC Glucose (mg/dL) 177 H 162 H 149 H (70-110) mg/dL ALT (4-49) U/L Total Protein (6.3-8.2) g/dL Albumin (3.5-5.0) g/dL 01/17/24 01/17/24 01/17/24 Range/Units 07:41 07:41 08:12 WBC 16.2 H (3.8-10.6) k/uL RBC 3.12 L (4.30-5.90) m/uL Hgb 8.6 L (13.0-17.5) gm/dL Hct 26.5 L (39.0-53.0) % Neutrophils # 14.7 H (1.3-7.7) k/uL Lymphocytes # 0.5 L (1.0-4.8) k/uL Sodium 134 L (137-145) mmol/L BUN 30 H (9-20) mg/dL Glucose 115 H (74-99) mg/dL POC Glucose (mg/dL) 146 H (70-110) mg/dL ALT 63 H (4-49) U/L Total Protein 5.2 L (6.3-8.2) g/dL Albumin 2.5 L (3.5-5.0) g/dL 01/17/24 Range/Units 11:57 WBC (3.8-10.6) k/uL RBC (4.30-5.90) m/uL Hgb (13.0-17.5) gm/dL Hct (39.0-53.0) % Neutrophils # (1.3-7.7) k/uL Lymphocytes # (1.0-4.8) k/uL Sodium (137-145) mmol/L BUN (9-20) mg/dL Glucose (74-99) mg/dL POC Glucose (mg/dL) 147 H (70-110) mg/dL ALT (4-49) U/L Total Protein (6.3-8.2) g/dL Albumin (3.5-5.0) g/dL Assessment and Plan (1) Bronchial obstruction Current Visit: Yes Status: Acute Priority: High Code(s): J98.09 - OTHER DISEASES OF BRONCHUS, NOT ELSEWHERE CLASSIFIED SNOMED Code(s): 58862985 (2) Stage III squamous cell carcinoma of left lung Current Visit: Yes Status: Acute Priority: High Code(s): C34.92 - MALIGNANT NEOPLASM OF UNSP PART OF LEFT BRONCHUS OR LUNG SNOMED Code(s): 855842776 Plan: Stage IIIC squamous cell carcinoma of the left lower lobe -Biopsy of left lower lobe lung lesion and station 7 subcarinal lymph node from 12/22/2023 revealed squamous cell carcinoma. Noted to have 6.1 cm mass in the left lower lobe with mediastinal and bilateral supraclavicular lymphadenopathy on PET/CT from 01/04/2024. Brain MRI on 01/03/2024 notes no evidence of intracranial metastases. Circulating tumor DNA analysis revealed no targetable mutations -He presented to hospital with progressive dyspnea. CTA revealing no evidence of pulmonary embolism, but did note large perihilar mass causing near complete obstruction of the left mainstem bronchus in addition to obstruction of multiple large airways of the left lower lung -Chemo initiated cis/INDIGO VAT TENDER CLOTH 01/15/24. Simulated with plans to start radiation 01/18/2024. Cont treatment as ordered. Cont supportive meds -BUE swelling L>R, possibly SVC syndrome. IV fluids have been decreased as long as pt is drinking well. Bilateral lower extremity swelling-doppler neg for DVT Normocytic anemia -Anemia workup results-iron studies most consistent with anemia of inflammation 2/2 malignancy. Vitamin B12 low normal, folate normal, methylmalonic acid WNL, no specific supplementation needed at this time -Continue to monitor CBC -Hgb stable at 8.6 today. Transfuse for Hgb <7 or if symptomatic Neutrophilic leukocytosis -Stable, 16 today -Likely secondary to inflammation from malignancy, as well as steroids that are being given chemo. -No fevers, signs or symptoms concerning for infection. Cont to monitor closely -IS added, ambulate 4 times a day
--- NOTE | 2024-01-17 16:36 | P.PN ---
Subjective Progress Note Date: 01/16/24 Principal diagnosis: Tonia IIIC Sq cell NSCLC In f/u pt is still SOB with activity, occ cough, tolerating treatment so far well. He was simulated for radiation last week, treatment will start on . No other acute c/o, all questions and concerns addressed I Objective - Vital Signs Vital signs: Vital Signs Temp 97.5 F L 01/16/24 09:51 Pulse 77 01/16/24 09:51 Resp 18 01/16/24 09:51 BP 108/67 01/16/24 09:51 Pulse Ox 97 01/16/24 09:51 FiO2 Intake & Output 01/15/24 01/16/24 01/16/24 18:59 06:59 18:59 Intake Total 1772 Balance 1772 Intake: Intake, IV Titration 1772 Amount CISplatin 103 mg Mannitol 653 25% 12.5 gm In Sodium Chloride 0.9% 500 ml 500 ml In Empty Bag 1 bag @ 653 mls/hr IV ONCE ONE Rx #:[id number] Etoposide 100 mg In 255 Sodium Chloride 0.9% 250 ml @ 255 mls/hr IV Q24H [facility] Rx#:[id number] Fosaprepitant Dimeglumine 145 80 mg In Sodium Chloride 0.9% 145 ml @ 300 mls/hr IV DAILY [facility] Rx#: [id number] Ondansetron 16 mg In 58 Sodium Chloride 0.9% 50 ml @ 232 mls/hr IVPB Q24H [facility] Rx#:[id number] Potassium Chloride 20 meq 512 Magnesium Sulfate gm 1 gm In Sodium Chloride 0.9 % 500 ml 500 ml @ 256 mls /hr IV ONCE ONE Rx#: [id number] Sodium Chloride 0.9% 1, 150 000 ml @ 50 mls/hr IV . Q20H [facility] Rx#:[id number] Other: # Voids 1 - Constitutional General appearance: Present: average body habitus, cooperative, mild distress - EENT Eyes: Present: anicteric sclerae, EOMI ENT: Present: hearing grossly normal - Respiratory Respiratory: bilateral: diminished - Cardiovascular Details: LUE swelling, moderate Rhythm: regular Heart sounds: normal: S1, S2 Abnormal Heart Sounds: Absent: systolic murmur, diastolic murmur, rub, S3 Gallop, S4 Gallop, click, other - Gastrointestinal General gastrointestinal: Present: normal bowel sounds, soft - Neurologic Neurologic: Present: CNII-XII intact - Musculoskeletal Musculoskeletal Comment(s): Pt has to lift his left arm up then he can raise it over his head - Psychiatric Psychiatric: Present: A&O x's 3, appropriate affect, intact judgment & insight - Labs CBC & Chem 7: 01/17/24 07:41 01/17/24 07:41 Labs: Abnormal Lab Results - Last 24 Hours (Table) 01/15/24 01/15/24 01/16/24 Range/Units 17:03 20:10 03:05 WBC (4.50-10.00) X 10*3/uL RBC (4.40-5.60) X 10*6/uL Hgb (13.0-17.0) g/dL Hct (39.6-50.0) % RDW (11.5-14.5) % Immature Gran # (0.00-0.04) X 10*3/uL Neutrophils # (1.80-7.70) X 10*3/uL Lymphocytes # (0.90-5.00) X 10*3/uL Eosinophils # (0.04-0.35) X 10*3/uL POC Glucose (mg/dL) 277 H 260 H 172 H (70-110) mg/dL 01/16/24 01/16/24 01/16/24 Range/Units 06:26 07:11 12:05 WBC 18.19 H (4.50-10.00) X 10*3/uL RBC 2.96 L (4.40-5.60) X 10*6/uL Hgb 8.0 L (13.0-17.0) g/dL Hct 24.9 L (39.6-50.0) % RDW 15.3 H (11.5-14.5) % Immature Gran # 0.21 H (0.00-0.04) X 10*3/uL Neutrophils # 16.88 H (1.80-7.70) X 10*3/uL Lymphocytes # 0.60 L (0.90-5.00) X 10*3/uL Eosinophils # 0 L (0.04-0.35) X 10*3/uL POC Glucose (mg/dL) 164 H 136 H (70-110) mg/dL - Imaging and Cardiology Venous US: report reviewed (BLE neg for DVT) Assessment and Plan (1) Bronchial obstruction Current Visit: Yes Status: Acute Priority: High Code(s): J98.09 - OTHER DISEASES OF BRONCHUS, NOT ELSEWHERE CLASSIFIED SNOMED Code(s): 47607682 (2) 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 Noted to have 6.1 cm mass in the left lower lobe with mediastinal and bilateral supraclavicular lymphadenopathy on PET/CT from 01/04/2024. Brain MRI on 01/03/2024 notes no evidence of intracranial metastases. Circulating tumor DNA analysis revealed no targetable mutations -Simulated with plans to start radiation 01/18/2024. Chemotherapy with cisplatin/etoposide initiated 01/15/2024 -He presented to hospital with progressive dyspnea. CTA revealing no evidence of pulmonary embolism, but did note large perihilar mass causing near complete obstruction of the left mainstem bronchus in addition to obstruction of multiple large airways of the left lower lung -Right upper extremity compared to the left. It is unclear if he may have SVC syndrome -Consulted radiation oncology to see inpatient -Continues on IV steroids Bilateral lower extremity swelling-doppler neg for DVT Normocytic anemia -Anemia workup results-iron studies most consistent with anemia of inflammation 2/2 malignancy. Vitamin B12 low normal, folate normal, methylmalonic acid pending -Continue to monitor CBC -Hgb slightly worse at 8 today. No reported bleeding. Transfuse for Hgb <7 or if symptomatic Neutrophilic leukocytosis -Slightly worse at 18 today, no specific intervention, cont to monitor -Likely secondary to inflammation from malignancy, as well as steroids that are being given chemo. -No fevers, signs or symptoms concerning for infection. Cont to monitor closely -IS added, ambulate 4 times a day
[2024-01-17 17:11] LABS: Glucose,Whole Blood 165 mg/dL (70-110)
--- NOTE | 2024-01-17 20:35 | P.PN ---
Subjective Progress Note Date: 01/17/24 This is a pleasant 63 years old male with past medical history of hypertension, hypothyroidism, coronary artery disease, recently diagnosed left perihilar mass with a positive biopsy from 12/24 showing non-small cell lung cancer with squamous cell cancer with metastasis to the mediastinal and lower neck lym phadenopathy. Patient presents today with worsening dyspnea over 2 days, he cannot walk for shortness unless he got short of breath and he has to stop His cough and phlegm are scanned and little at the end of frequent. He complains also from some chest pain about 6-5 in severity on the left side, n onradiating. Patient recently received first radiotherapy with Dr. Bah on last Monday Also patient lost his appetite not eating much. No dysuria or urgency. No headache dizziness weakness numbness. Patient non-smoker no alcohol no illicit drugs. He quit smoking. Also patient is mildly tachycardic. Will. Blood pressure on the soft side but is improving. Patient has mild leukocytosis and anemia. Platelet count is elevated 464. Sodium low 129. D-dimer elevated 2.8 Chest x-ray was negative for acute process CTA of the chest showing no pulmonary embolism but showing a left perihilar mass with near complete obstruction of the left main bronchus with obstructing many lung airways with scattered mediastinal and lower neck lymphedema most likely secondary to metastatic disease. 01/14/24 Patient complaining of shortness of breath He has swelling of both hands and feet No chest pain. Hospital oxygen saturation on 2-3 L/min via nasal cannula IV Lasix 40 mg added as well as a steroid Plan to treat with radiotherapy and chemotherapy while in the hospital because of his near complete obstruction of the left main bronchus 01/15/2024 Patient is evaluated in follow up today on the medical floor. Continues to report shortness of breath and congested cough. He has been evaluated by on cology and recommending to initiate the patient on chemotherapy starting today with cisplatin and etoposide. Patient will also continue with radiation to the lung mass. He will be taken off the IV lasix, lower extremity swelling has improved. He is being hydrated. Venous doppler negative for DVT bilaterally. 01/16/2024 Patient evaluated today in follow up. Underwent chemotherapy yesterday, jeremy ated well. Patient will undergo radiation tomorrow. White blood cell count 18.19, hgb 8.0. Hemodynamically stable. 01/17/2024 Patient is evaluated in follow up today. On day 2 of chemotherapy with et oposide. Patient slept well last night. He does have increased peripheral edema. Was continued on normal saline at 50 ml/hr which will be discontinued. Sodium down to 134. White blood cell count 16.2, hgb 8.6, sodium 134, potassium 4.5, BUN 30, creatinine 9.3. Review of Systems Constitutional: Denied any fatigue denied any fever. Cardio vascular: denied any chest pain, palpitations Gastrointestinal: denied any nausea, vomiting, diarrhea Pulmonary: Reports shortness of breath and cough Neurologic denied any new focal deficits All inpatient medications were reviewed and appropriate changes in these medications as dictated in the interval history and assessment and plan. PHYSICAL EXAMINATION: GENERAL: The patient is alert and oriented x3, not in any acute distress. Well developed, well nourished. HEENT: Pupils are round and equally reacting to light. EOMI. No scleral icterus. No conjunctival pallor. Normocephalic, atraumatic. No pharyngeal erythema. No thyromegaly. CARDIOVASCULAR: S1 and S2 present. No murmurs, rubs, or gallops. PULMONARY: Diminished with scattered ronchi ABDOMEN: Soft, nontender, nondistended, normoactive bowel sounds. No palpable organomegaly. MUSCULOSKELETAL: No joint swelling or deformity. EXTREMITIES: No cyanosis, clubbing, or pedal edema. NEUROLOGICAL: Gross neurological examination did not reveal any focal deficits. SKIN: No rashes. Assessment and Plan Assessment Mass 4 cm with biopsy positive for non-small cell cancer squamous cell cancer with metastasis to the mediastinal and lower neck lymphadenopathy Near complete obstruction of the left main bronchus secondary to tumor Hypoxemic respiratory failure secondary to above Hyponatremia hypervolemic Steroid induced hyperglycemia Hypertension Hypothyroidism Coronary artery disease Plan: Continue with bronchodilator Continue on oxygen 2 L to 3 L via nasal cannula IV Solu-Medrol 60 mg Continue accuchecks ACHS Pulmonary consult, oncology consult On chemotherapy day 2 of 5. Labs in the AM. Check a chest xray and probnp may need lasix, stop fluids. The impression and plan of care has been dictated by Denia Soni, Nurse Practitioner as directed. Dr. Delmar MD I have performed a history and physical examination and medical decision making of this patient, discussed the same with the dictator, and agree with the dictators assessment and plan as written, documented as a scribe. Based on total visit time, I have performed more than 50% of this visit. Objective - Vital Signs Vital signs: Vital Signs Temp 97.9 F 01/17/24 15:07 Pulse 87 01/17/24 19:59 Resp 20 01/17/24 15:07 BP 123/76 01/17/24 15:07 Pulse Ox 99 01/17/24 15:07 FiO2 Intake & Output 01/17/24 01/17/24 01/18/24 06:59 18:59 06:59 Intake Total 1620 Balance 1620 Intake: Oral 1620 Other: Voiding Method Toilet Toilet # Voids 3 - Labs CBC & Chem 7: 01/17/24 07:41 01/17/24 07:41 Labs: Abnormal Lab Results - Last 24 Hours (Table) 01/17/24 01/17/24 01/17/24 Range/Units 02:28 07:41 07:41 WBC 16.2 H (3.8-10.6) k/uL RBC 3.12 L (4.30-5.90) m/uL Hgb 8.6 L (13.0-17.5) gm/dL Hct 26.5 L (39.0-53.0) % Neutrophils # 14.7 H (1.3-7.7) k/uL Lymphocytes # 0.5 L (1.0-4.8) k/uL Sodium 134 L (137-145) mmol/L BUN 30 H (9-20) mg/dL Glucose 115 H (74-99) mg/dL POC Glucose (mg/dL) 149 H (70-110) mg/dL ALT 63 H (4-49) U/L Total Protein 5.2 L (6.3-8.2) g/dL Albumin 2.5 L (3.5-5.0) g/dL 01/17/24 01/17/24 01/17/24 Range/Units 08:12 11:57 17:09 WBC (3.8-10.6) k/uL RBC (4.30-5.90) m/uL Hgb (13.0-17.5) gm/dL Hct (39.0-53.0) % Neutrophils # (1.3-7.7) k/uL Lymphocytes # (1.0-4.8) k/uL Sodium (137-145) mmol/L BUN (9-20) mg/dL Glucose (74-99) mg/dL POC Glucose (mg/dL) 146 H 147 H 165 H (70-110) mg/dL ALT (4-49) U/L Total Protein (6.3-8.2) g/dL Albumin (3.5-5.0) g/dL Assessment and Plan Time with Patient: Less than 30
[2024-01-17 20:50] LABS: Glucose,Whole Blood 200 mg/dL (70-110)
[2024-01-17] MEDS: SENNOSIDES 8.6 MG TAB PO SCH (22:02)
[2024-01-18 01:45] LABS: Glucose,Whole Blood 131 mg/dL (70-110)
[2024-01-18 07:38] LABS: Glucose,Whole Blood 87 mg/dL (70-110)
[2024-01-18 08:57] LABS: Basophils # (A) 0.01 X 10*3/uL (0.00-0.10); Basophils % (A) 0.1 %; Eosinophils # (A) 0 X 10*3/uL (0.04-0.35); Eosinophils % (A) 0 %; HCT 27.9 % (39.6-50.0); HGB 9.1 g/dL (13.0-17.0); Lymphocytes # (A) 0.89 X 10*3/uL (0.90-5.00); Lymphocytes % (A) 6.1 %; MCH 27.2 pg (27.0-32.0); MCHC 32.6 g/dL (32.0-37.0); MCV 83.5 FL (80.0-97.0); Monocytes % (A) 4.1 %; NRBC Per 100 WBC 0 X 10*3/uL (0.00-0.01); Neutrophils # (A) 12.91 X 10*3/uL (1.80-7.70); Neutrophils % (A) 88.9 %; Platelet Count 399 X 10*3/uL (140-440); RBC 3.34 X 10*6/uL (4.40-5.60); RDW 15.7 % (11.5-14.5); WBC 14.52 X 10*3/uL (4.50-10.00)
[2024-01-18 09:04] LABS: ALT 61 U/L (10-49); AST 35 U/L (14-35); Albumin/Globulin Ratio 1.15 Ratio (1.60-3.17); Alkaline Phosphatase 118 U/L (41-126); BUN/Creat Ratio 34.62 Ratio (12.00-20.00); Blood Urea Nitrogen 27.7 mg/dL (9.0-27.0); Calcium 8.2 mg/dL (8.7-10.3); Carbon Dioxide 25.2 mmol/L (21.6-31.8); Chloride 100 mmol/L (96-109); Globulin 2.6 g/dL (1.6-3.3); Glucose 95 mg/dL (70-110); Sodium 135 mmol/L (135-145); Total Bilirubin 0.3 mg/dL (0.3-1.2); Total Protein 5.6 g/dL (6.2-8.2)
[2024-01-18] MEDS: DOCUSATE 100 MG CAP PO SCH (12:17)
[2024-01-18] MEDS: polyethylene glycoL 3350 17 GM POWD.PACK PO SCH (12:17)
[2024-01-18] MEDS: SENNOSIDES-DOCUSATE SODIUM 1 EACH TAB PO SCH (12:17)
[2024-01-18 12:26] LABS: Glucose,Whole Blood 82 mg/dL (70-110)
--- NOTE | 2024-01-18 13:17 | P.PN ---
Subjective Progress Note Date: 01/18/24 This is a 63-year-old male patient with a recent diagnosis of 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 I performed the patient's bronchoscopy and the patient has a left hilar mass at the level of the secondary manuel and the left lower lobe causing significant mass effect and obstruction of the left lower lobe bronchus. The patient also had an outpatient PET/CT that showed mediastinal lymphadenopathy uptake and bilateral supraclavicular lymphadenopathy uptake. Based on that, the patient was seen by medical oncology. The patient was supposed to start systemic chemotherapy with cis [place] and [employer] C[employer] ASSISTANT-16 as of tomorrow. The patient was also given a session of radiation therapy on 01/10/2024 and due to the holidays no further treatment was given. Patient is coming in with worsening shortness of breath. He is quite anxious. He also has developed some edema in his upper and lower extremities. Currently on 2 L of oxygen by nasal cannula. The viral screen has been negative. D-dimer is at 2.8. CT of the chest was done that showed no significant changes in terms of his malignancy. The patient continues to have a left hilar mass and some atelectatic changes in the left lower lobe. There is significant mass effect on the left lower lobe bronchus. The patient has no evidence of any pulmonary embolism. He is currently on 2 L of oxygen by nasal cannula. He is complaining of shortness of breath. He has also COPD maintained on Trelegy Ellipta on outpatient basis. No hemoptysis. The patient is seen today January 15, 2024 in follow-up on the regular medical floor. He is currently sitting up in bed. Awake and alert in no acute distress. He does have some dyspnea with conversation. Dyspnea with exertion. Maintaining good O2 saturations in the 90s on room air. Chest x-ray remains stable. No acute cardiopulmonary process. Dopplers of the lower extremities were negative for DVT. Glucose 199. He is continued on DuoNeb inhalations, Symbicort, Solu-Medrol. He remains on IV diuretics. The plan is to start cisplatin and etoposide today per medical oncology. The patient is seen today January 16, 2024 in follow-up on the regular medical floor. He is currently resting in bed. Awake and alert in no acute distress. He is maintaining O2 saturations in the 90s on 2 L/min per nasal cannula. He did receive etoposide and cisplatin yesterday. He remains on Decadron 10 mg IV every 24 hours. Plan is for a radiation treatment again today. White count 18.1. Hemoglobin 8.0. Platelets 404. Glucose 164. Magnesium 2.1. He remains on DuoNebs and Symbicort, The patient is seen today January 17, 2024 in follow-up on the regular medical floor. He is awake and alert in no acute distress. Resting fairly comfortably in bed. Denies any worsening shortness of breath, cough or congestion. Maintaining O2 saturations in the 90s on 2 L/min per nasal cannula. He is continued on DuoNeb inhalations, Symbicort. Remains on Decadron. Continuing with radiation treatments. White count 16.2. Hemoglobin 8.6. Platelets 362. Sodium 134. Potassium 4.5. Bicarb 23. BUN 30. Creatinine 0.93. Glucose 115. proBNP 6020. Right upper extremity PICC line was placed today. Chest x-ray reveals no acute cardiopulmonary process. The patient is seen today January 18, 2024 in follow-up on the regular medical floor. He is currently resting in bed. Awake and alert in no acute distress. He did have radiation therapy again today. He is maintaining good O2 saturations in the 90s on 3 L/min per nasal cannula. He has been afebrile. Hemodynamically stable. White count 14.5. Hemoglobin 9.1. Platelets 399. Sodium 135. Potassium 4.0. Bicarb 25. BUN 28. Creatinine 0.8. Glucose 95. He remains on Decadron 10 mg IV daily. Remains on DuoNeb inhalations and Symbicort. To complete 5 days of etoposide. Today will be dose #4. Objective - Vital Signs Vital signs: Vital Signs Temp 98.3 F 01/18/24 12:52 Pulse 96 01/18/24 12:52 Resp 16 01/18/24 12:52 BP 115/70 01/18/24 12:52 Pulse Ox 94 L 01/18/24 12:52 FiO2 Intake & Output 01/17/24 01/18/24 01/18/24 18:59 06:59 18:59 Intake Total 1620 Balance 1620 Intake: Oral 1620 Other: Voiding Method Toilet Toilet # Voids 3 - Exam GENERAL EXAM: Alert, 63-year-old male, resting in bed, on 3 L nasal cannula, in no apparent distress. HEAD: Normocephalic. EYES: Normal reaction of pupils, equal size. NOSE: Clear with pink turbinates. THROAT: No erythema or exudates. NECK: No masses, no JVD. CHEST: No chest wall deformity. LUNGS: Equal air entry with few scattered rhonchi, diminished left basilar lung sounds. CVS: S1 and S2 normal with no audible murmur, regular rhythm. ABDOMEN: No hepatosplenomegaly, normal bowel sounds, no guarding or rigidity. SPINE: No scoliosis or deformity SKIN: No rashes CENTRAL NERVOUS SYSTEM: No focal deficits, tone is normal in all 4 extremities. EXTREMITIES: There is 1+ peripheral edema. No clubbing, no cyanosis. Tanja pheral pulses are intact. - Labs CBC & Chem 7: 01/18/24 05:19 01/18/24 05:19 Labs: Abnormal Lab Results - Last 24 Hours (Table) 01/17/24 01/17/24 01/18/24 Range/Units 17:09 20:48 01:38 WBC (4.50-10.00) X 10*3/uL RBC (4.40-5.60) X 10*6/uL Hgb (13.0-17.0) g/dL Hct (39.6-50.0) % RDW (11.5-14.5) % Immature Gran # (0.00-0.04) X 10*3/uL Neutrophils # (1.80-7.70) X 10*3/uL Lymphocytes # (0.90-5.00) X 10*3/uL Eosinophils # (0.04-0.35) X 10*3/uL BUN (9.0-27.0) mg/dL BUN/Creatinine Ratio (12.00-20.00) Ratio POC Glucose (mg/dL) 165 H 200 H 131 H (70-110) mg/dL Calcium (8.7-10.3) mg/dL ALT (10-49) U/L Total Protein (6.2-8.2) g/dL Albumin (3.8-4.9) g/dL Albumin/Globulin Ratio (1.60-3.17) Ratio 01/18/24 01/18/24 Range/Units 05:19 05:19 WBC 14.52 H (4.50-10.00) X 10*3/uL RBC 3.34 L (4.40-5.60) X 10*6/uL Hgb 9.1 L (13.0-17.0) g/dL Hct 27.9 L (39.6-50.0) % RDW 15.7 H (11.5-14.5) % Immature Gran # 0.11 H (0.00-0.04) X 10*3/uL Neutrophils # 12.91 H (1.80-7.70) X 10*3/uL Lymphocytes # 0.89 L (0.90-5.00) X 10*3/uL Eosinophils # 0 L (0.04-0.35) X 10*3/uL BUN 27.7 H (9.0-27.0) mg/dL BUN/Creatinine Ratio 34.62 H (12.00-20.00) Ratio POC Glucose (mg/dL) (70-110) mg/dL Calcium 8.2 L (8.7-10.3) mg/dL ALT 61 H (10-49) U/L Total Protein 5.6 L (6.2-8.2) g/dL Albumin 3.0 L (3.8-4.9) g/dL Albumin/Globulin Ratio 1.15 L (1.60-3.17) Ratio Assessment and Plan Assessment: Acute on chronic shortness of breath in a patient with 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 CAT scan of the chest was reviewed. No evidence of any disease progression in terms of malignancy. No evidence of pneumonia. He has an acute COPD exacerbation in addition to his background lung cancer. Chest x- ray reveals no acute pulmonary process. Acute hypoxic respiratory failure currently on 3 L of oxygen by nasal cannula History of hemoptysis, currently inactive and stable Stage IIIc squamous cell carcinoma of the lung. The patient has a left infrahilar mass, measuring approximately 4 cm, highly suspicious for bronchogenic carcinoma. The left hilar fullness/mass encroaching on the left lower lobe bronchus, along with cutoff sign, debris in the ascending left main bronchus, and new lower lobe opacification, likely postobstructive atelectasis. Please refer to the results of the bronchoscopy and endobronchial ultrasound. The patient was given a session of radiation therapy on 01/10/2024. The patient was initiated on cisplatin and etoposide January 15, 2024. Receiving concurrent radiation PET scan showed mediastinal lymphadenopathy and supraclavicular lymphadenopathy Chronic obstructive pulmonary disease, patient was recently started on Trelegy and as needed albuterol inhaler History of CVA/TIA History of coronary artery disease with remote history of PCI/stenting History of hyperlipidemia History of hypertension Former tobacco smoker, with over [id number] history, quitting approximately 1 month ago Plan: The patient was seen and evaluated Labs and medications reviewed Continues on bronchodilators Remains on Decadron Receiving concurrent chemo/radiation Titrate the FiO2 as tolerated We will continue to follow I have personally seen and examined the patient, performed the documentation and the assessment and plan as written. Number of minutes spent on the visit: 10.
--- NOTE | 2024-01-18 17:04 | P.PN ---
Subjective Progress Note Date: 01/18/24 Principal diagnosis: Tonia IIIC Sq cell NSCLC In f/u pt cont to report that he is tired, sleeping a lot. No specific chemo SE to report, he has not had a BM for over a week. Swelling in upper extremities is significantly improved, he can move his arms without hesitation. SOB is stable Objective - Vital Signs Vital signs: Vital Signs Temp 97.6 F 01/18/24 07:53 Pulse 85 01/18/24 08:11 Resp 20 01/18/24 07:53 BP 141/79 01/18/24 07:53 Pulse Ox 96 01/18/24 08:01 FiO2 Intake & Output 01/17/24 01/18/24 01/18/24 18:59 06:59 18:59 Intake Total 1620 Balance 1620 Intake: Oral 1620 Other: Voiding Method Toilet Toilet # Voids 3 - Constitutional General appearance: Present: average body habitus, cooperative, no acute distress - EENT Eyes: Present: anicteric sclerae, EOMI - Respiratory Details: resp are less labored at rest then when seen prior Respiratory: bilateral: diminished - Cardiovascular Rhythm: regular Heart sounds: normal: S1, S2 Abnormal Heart Sounds: Present: systolic murmur - Peripheral edema leg Peripheral Edema: bilateral: None - Gastrointestinal General gastrointestinal: Present: normal bowel sounds, soft - Integumentary Integumentary Comment(s): ana complexion - Neurologic Neurologic: Present: CNII-XII intact - Musculoskeletal Musculoskeletal: Present: generalized weakness - Psychiatric Psychiatric: Present: A&O x's 3, appropriate affect, intact judgment & insight - Labs CBC & Chem 7: 01/18/24 05:19 01/18/24 05:19 Labs: Abnormal Lab Results - Last 24 Hours (Table) 01/17/24 01/17/24 01/17/24 Range/Units 11:57 17:09 20:48 WBC (4.50-10.00) X 10*3/uL RBC (4.40-5.60) X 10*6/uL Hgb (13.0-17.0) g/dL Hct (39.6-50.0) % RDW (11.5-14.5) % Immature Gran # (0.00-0.04) X 10*3/uL Neutrophils # (1.80-7.70) X 10*3/uL Lymphocytes # (0.90-5.00) X 10*3/uL Eosinophils # (0.04-0.35) X 10*3/uL BUN (9.0-27.0) mg/dL BUN/Creatinine Ratio (12.00-20.00) Ratio POC Glucose (mg/dL) 147 H 165 H 200 H (70-110) mg/dL Calcium (8.7-10.3) mg/dL ALT (10-49) U/L Total Protein (6.2-8.2) g/dL Albumin (3.8-4.9) g/dL Albumin/Globulin Ratio (1.60-3.17) Ratio 01/18/24 01/18/24 01/18/24 Range/Units 01:38 05:19 05:19 WBC 14.52 H (4.50-10.00) X 10*3/uL RBC 3.34 L (4.40-5.60) X 10*6/uL Hgb 9.1 L (13.0-17.0) g/dL Hct 27.9 L (39.6-50.0) % RDW 15.7 H (11.5-14.5) % Immature Gran # 0.11 H (0.00-0.04) X 10*3/uL Neutrophils # 12.91 H (1.80-7.70) X 10*3/uL Lymphocytes # 0.89 L (0.90-5.00) X 10*3/uL Eosinophils # 0 L (0.04-0.35) X 10*3/uL BUN 27.7 H (9.0-27.0) mg/dL BUN/Creatinine Ratio 34.62 H (12.00-20.00) Ratio POC Glucose (mg/dL) 131 H (70-110) mg/dL Calcium 8.2 L (8.7-10.3) mg/dL ALT 61 H (10-49) U/L Total Protein 5.6 L (6.2-8.2) g/dL Albumin 3.0 L (3.8-4.9) g/dL Albumin/Globulin Ratio 1.15 L (1.60-3.17) Ratio Assessment and Plan (1) Bronchial obstruction Current Visit: Yes Status: Acute Priority: High Code(s): J98.09 - OTHER DISEASES OF BRONCHUS, NOT ELSEWHERE CLASSIFIED SNOMED Code(s): 02219024 (2) 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 Noted to have 6.1 cm mass in the left lower lobe with mediastinal and bilateral supraclavicular lymphadenopathy on PET/CT from 01/04/2024. Brain MRI on 01/03/2024 notes no evidence of intracranial metastases. Circulating tumor DNA analysis revealed no targetable mutations -He presented to hospital with progressive dyspnea. CTA revealing no evidence of pulmonary embolism, but did note large perihilar mass causing near complete obstruction of the left mainstem bronchus in addition to obstruction of multiple large airways of the left lower lung -Simulated with plans to start radiation today. Chemotherapy with cisplatin/etoposide initiated 01/15/2024. -Swelling of the upper extremities is significantly improved. May have been some degree of SVC syndrome and fluid overload. Bilateral lower extremity swelling-doppler neg for DVT Normocytic anemia -Anemia workup results-iron studies most consistent with anemia of inflammation 2/2 malignancy. Vitamin B12 low normal, folate normal, methylmalonic acid normal. No supplement at this time. -Continue to monitor CBC while inpt -Hgb stable today at 9.1. No reported bleeding. -Transfuse for Hgb <7 or if symptomatic Neutrophilic leukocytosis -14.5 today, slightly better. No specific intervention, cont to monitor -Likely secondary to inflammation from malignancy, as well as steroids that are being given with chemo. -No fevers, signs or symptoms concerning for infection. Cont to monitor closely -IS added, ambulate 4 times a day (this was stressed again as very important) No BM for possibly 1 week-miralax BID today, senna/colace BID. See if he has BM by tomorrow, if not, may have to get more aggressive regimen. [place]chard fluids recommended
[2024-01-18 17:09] LABS: Glucose,Whole Blood 89 mg/dL (70-110)
[2024-01-18] MEDS: polyethylene glycoL 3350 17 GM POWD.PACK PO STA (17:14)
[2024-01-18] MEDS: polyethylene glycoL 3350 17 GM POWD.PACK PO ONE (19:46)
--- NOTE | 2024-01-18 20:31 | P.PN ---
Subjective Progress Note Date: 01/18/24 This is a pleasant 63 years old male with past medical history of hypertension, hypothyroidism, coronary artery disease, recently diagnosed left perihilar mass with a positive biopsy from 12/24 showing non-small cell lung cancer with squamous cell cancer with metastasis to the mediastinal and lower neck lym phadenopathy. Patient presents today with worsening dyspnea over 2 days, he cannot walk for shortness unless he got short of breath and he has to stop His cough and phlegm are scanned and little at the end of frequent. He complains also from some chest pain about 6-5 in severity on the left side, n onradiating. Patient recently received first radiotherapy with Dr. Bah on last Monday Also patient lost his appetite not eating much. No dysuria or urgency. No headache dizziness weakness numbness. Patient non-smoker no alcohol no illicit drugs. He quit smoking. Also patient is mildly tachycardic. Will. Blood pressure on the soft side but is improving. Patient has mild leukocytosis and anemia. Platelet count is elevated 464. Sodium low 129. D-dimer elevated 2.8 Chest x-ray was negative for acute process CTA of the chest showing no pulmonary embolism but showing a left perihilar mass with near complete obstruction of the left main bronchus with obstructing many lung airways with scattered mediastinal and lower neck lymphedema most likely secondary to metastatic disease. 01/14/24 Patient complaining of shortness of breath He has swelling of both hands and feet No chest pain. Hospital oxygen saturation on 2-3 L/min via nasal cannula IV Lasix 40 mg added as well as a steroid Plan to treat with radiotherapy and chemotherapy while in the hospital because of his near complete obstruction of the left main bronchus 01/15/2024 Patient is evaluated in follow up today on the medical floor. Continues to report shortness of breath and congested cough. He has been evaluated by on cology and recommending to initiate the patient on chemotherapy starting today with cisplatin and etoposide. Patient will also continue with radiation to the lung mass. He will be taken off the IV lasix, lower extremity swelling has improved. He is being hydrated. Venous doppler negative for DVT bilaterally. 01/16/2024 Patient evaluated today in follow up. Underwent chemotherapy yesterday, jeremy ated well. Patient will undergo radiation tomorrow. White blood cell count 18.19, hgb 8.0. Hemodynamically stable. 01/17/2024 Patient is evaluated in follow up today. On day 2 of chemotherapy with et oposide. Patient slept well last night. He does have increased peripheral edema. Was continued on normal saline at 50 ml/hr which will be discontinued. Sodium down to 134. White blood cell count 16.2, hgb 8.6, sodium 134, potassium 4.5, BUN 30, creatinine 9.3. 01/18/2024 Patient evaluated today resting in bed. Continues to report significant fatigue and has been mostly bedrest. Patient continues on course of chemotherapy, oncology is following closely. Patients shortness of breath has improved with dose of IV lasix and he is now requiring less oxygen. Sodium normalized to 135, potassium 4.0, BUN 27.7, creatinine 0.8. White blood cell count 14.52, hgb 9.1. Hemodynamically stable. Review of Systems Constitutional: Denied any fatigue denied any fever. Cardio vascular: denied any chest pain, palpitations Gastrointestinal: denied any nausea, vomiting, diarrhea Pulmonary: Reports shortness of breath and cough Neurologic denied any new focal deficits All inpatient medications were reviewed and appropriate changes in these medications as dictated in the interval history and assessment and plan. PHYSICAL EXAMINATION: GENERAL: The patient is alert and oriented x3, not in any acute distress. Well developed, well nourished. HEENT: Pupils are round and equally reacting to light. EOMI. No scleral icterus. No conjunctival pallor. Normocephalic, atraumatic. No pharyngeal erythema. No thyromegaly. CARDIOVASCULAR: S1 and S2 present. No murmurs, rubs, or gallops. PULMONARY: Diminished with scattered ronchi ABDOMEN: Soft, nontender, nondistended, normoactive bowel sounds. No palpable organomegaly. MUSCULOSKELETAL: No joint swelling or deformity. EXTREMITIES: No cyanosis, clubbing, or pedal edema. NEUROLOGICAL: Gross neurological examination did not reveal any focal deficits. SKIN: No rashes. Assessment and Plan Assessment Mass 4 cm with biopsy positive for non-small cell cancer squamous cell cancer with metastasis to the mediastinal and lower neck lymphadenopathy Near complete obstruction of the left main bronchus secondary to tumor Hypoxemic respiratory failure secondary to above Hyponatremia hypervolemic Steroid induced hyperglycemia Hypertension Hypothyroidism Coronary artery disease Plan: Continue with bronchodilator Continue on oxygen 2 L to 3 L via nasal cannula IV Solu-Medrol 60 mg Continue accuchecks ACHS Pulmonary consult, oncology consult On chemotherapy day 4 of 5. Labs in the AM. Repeat dose of IV lasix today The impression and plan of care has been dictated by Denia Soni, Nurse Practitioner as directed. Dr. Delmar MD I have performed a history and physical examination and medical decision making of this patient, discussed the same with the dictator, and agree with the dictators assessment and plan as written, documented as a scribe. Based on total visit time, I have performed more than 50% of this visit. Objective - Vital Signs Vital signs: Vital Signs Temp 98.3 F 01/18/24 12:52 Pulse 96 01/18/24 12:52 Resp 16 01/18/24 12:52 BP 115/70 01/18/24 12:52 Pulse Ox 94 L 01/18/24 12:52 FiO2 Intake & Output 01/17/24 01/18/24 01/18/24 18:59 06:59 18:59 Intake Total 1620 Balance 1620 Intake: Oral 1620 Other: Voiding Method Toilet Toilet # Voids 3 - Labs CBC & Chem 7: 01/18/24 05:19 01/18/24 05:19 Labs: Abnormal Lab Results - Last 24 Hours (Table) 01/17/24 01/17/24 01/18/24 Range/Units 17:09 20:48 01:38 WBC (4.50-10.00) X 10*3/uL RBC (4.40-5.60) X 10*6/uL Hgb (13.0-17.0) g/dL Hct (39.6-50.0) % RDW (11.5-14.5) % Immature Gran # (0.00-0.04) X 10*3/uL Neutrophils # (1.80-7.70) X 10*3/uL Lymphocytes # (0.90-5.00) X 10*3/uL Eosinophils # (0.04-0.35) X 10*3/uL BUN (9.0-27.0) mg/dL BUN/Creatinine Ratio (12.00-20.00) Ratio POC Glucose (mg/dL) 165 H 200 H 131 H (70-110) mg/dL Calcium (8.7-10.3) mg/dL ALT (10-49) U/L Total Protein (6.2-8.2) g/dL Albumin (3.8-4.9) g/dL Albumin/Globulin Ratio (1.60-3.17) Ratio 01/18/24 01/18/24 Range/Units 05:19 05:19 WBC 14.52 H (4.50-10.00) X 10*3/uL RBC 3.34 L (4.40-5.60) X 10*6/uL Hgb 9.1 L (13.0-17.0) g/dL Hct 27.9 L (39.6-50.0) % RDW 15.7 H (11.5-14.5) % Immature Gran # 0.11 H (0.00-0.04) X 10*3/uL Neutrophils # 12.91 H (1.80-7.70) X 10*3/uL Lymphocytes # 0.89 L (0.90-5.00) X 10*3/uL Eosinophils # 0 L (0.04-0.35) X 10*3/uL BUN 27.7 H (9.0-27.0) mg/dL BUN/Creatinine Ratio 34.62 H (12.00-20.00) Ratio POC Glucose (mg/dL) (70-110) mg/dL Calcium 8.2 L (8.7-10.3) mg/dL ALT 61 H (10-49) U/L Total Protein 5.6 L (6.2-8.2) g/dL Albumin 3.0 L (3.8-4.9) g/dL Albumin/Globulin Ratio 1.15 L (1.60-3.17) Ratio Assessment and Plan Time with Patient: Less than 30
[2024-01-18 20:32] LABS: Glucose,Whole Blood 202 mg/dL (70-110)
[2024-01-18 23:56] LABS: Glucose,Whole Blood 96 mg/dL (70-110)
[2024-01-19 03:22] LABS: Glucose,Whole Blood 102 mg/dL (70-110)
[2024-01-19 07:07] LABS: Glucose,Whole Blood 93 mg/dL (70-110)
[2024-01-19] MEDS: polyethylene glycoL 3350 17 GM POWD.PACK PO SCH (08:18)
[2024-01-19 10:34] LABS: Blood Urea Nitrogen 26.8 mg/dL (9.0-27.0); Calcium 8.1 mg/dL (8.7-10.3); Carbon Dioxide 24.1 mmol/L (21.6-31.8); Chloride 98 mmol/L (96-109); Glucose 89 mg/dL (70-110); Magnesium 1.8 mg/dL (1.5-2.4); Potassium 3.8 mmol/L (3.5-5.5); Sodium 134 mmol/L (135-145)
[2024-01-19 10:56] LABS: Basophils # (A) 0.01 X 10*3/uL (0.00-0.10); Basophils % (A) 0.1 %; Eosinophils # (A) 0.02 X 10*3/uL (0.04-0.35); Eosinophils % (A) 0.1 %; HGB 9.7 g/dL (13.0-17.0); Lymphocytes # (A) 1.28 X 10*3/uL (0.90-5.00); Lymphocytes % (A) 9.5 %; MCH 26.6 pg (27.0-32.0); MCHC 32.3 g/dL (32.0-37.0); MCV 82.2 FL (80.0-97.0); Mean Platelet Volume 10.8 FL (9.5-12.2); Monocytes # (A) 0.23 X 10*3/uL (0.20-1.00); Monocytes % (A) 1.7 %; NRBC Per 100 WBC 0 X 10*3/uL (0.00-0.01); Neutrophils # (A) 11.79 X 10*3/uL (1.80-7.70); Neutrophils % (A) 87.9 %; Platelet Count 340 X 10*3/uL (140-440); RBC 3.65 X 10*6/uL (4.40-5.60); RBC Morphology Normal (Normal); RDW 15.7 % (11.5-14.5); WBC 13.42 X 10*3/uL (4.50-10.00)
[2024-01-19 12:04] LABS: Glucose,Whole Blood 101 mg/dL (70-110)
[2024-01-19 12:20] VITALS: BMI 25.7
--- NOTE | 2024-01-19 12:45 | P.PN ---
Subjective Progress Note Date: 01/19/24 This is a 63-year-old male patient with a recent diagnosis of 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 I performed the patient's bronchoscopy and the patient has a left hilar mass at the level of the secondary manuel and the left lower lobe causing significant mass effect and obstruction of the left lower lobe bronchus. The patient also had an outpatient PET/CT that showed mediastinal lymphadenopathy uptake and bilateral supraclavicular lymphadenopathy uptake. Based on that, the patient was seen by medical oncology. The patient was supposed to start systemic chemotherapy with [facility] and [employer]16 as of tomorrow. The patient was also given a session of radiation therapy on 01/10/2024 and due to the holidays no further treatment was given. Patient is coming in with worsening shortness of breath. He is quite anxious. He also has developed some edema in his upper and lower extremities. Currently on 2 L of oxygen by nasal cannula. The viral screen has been negative. D-dimer is at 2.8. CT of the chest was done that showed no significant changes in terms of his malignancy. The patient continues to have a left hilar mass and some atelectatic changes in the left lower lobe. There is significant mass effect on the left lower lobe bronchus. The patient has no evidence of any pulmonary embolism. He is currently on 2 L of oxygen by nasal cannula. He is complaining of shortness of breath. He has also COPD maintained on Trelegy Ellipta on outpatient basis. No hemoptysis. The patient is seen today January 15, 2024 in follow-up on the regular medical floor. He is currently sitting up in bed. Awake and alert in no acute distress. He does have some dyspnea with conversation. Dyspnea with exertion. Maintaining good O2 saturations in the 90s on room air. Chest x-ray remains stable. No acute cardiopulmonary process. Dopplers of the lower extremities were negative for DVT. Glucose 199. He is continued on DuoNeb inhalations, Symbicort, Solu-Medrol. He remains on IV diuretics. The plan is to start cisplatin and etoposide today per medical oncology. The patient is seen today January 16, 2024 in follow-up on the regular medical floor. He is currently resting in bed. Awake and alert in no acute distress. He is maintaining O2 saturations in the 90s on 2 L/min per nasal cannula. He did receive etoposide and cisplatin yesterday. He remains on Decadron 10 mg IV every 24 hours. Plan is for a radiation treatment again today. White count 18.1. Hemoglobin 8.0. Platelets 404. Glucose 164. Magnesium 2.1. He remains on DuoNebs and Symbicort, The patient is seen today January 17, 2024 in follow-up on the regular medical floor. He is awake and alert in no acute distress. Resting fairly comfortably in bed. Denies any worsening shortness of breath, cough or congestion. Maintaining O2 saturations in the 90s on 2 L/min per nasal cannula. He is continued on DuoNeb inhalations, Symbicort. Remains on Decadron. Continuing with radiation treatments. White count 16.2. Hemoglobin 8.6. Platelets 362. Sodium 134. Potassium 4.5. Bicarb 23. BUN 30. Creatinine 0.93. Glucose 115. proBNP 6020. Right upper extremity PICC line was placed today. Chest x-ray reveals no acute cardiopulmonary process. The patient is seen today January 18, 2024 in follow-up on the regular medical floor. He is currently resting in bed. Awake and alert in no acute distress. He did have radiation therapy again today. He is maintaining good O2 saturations in the 90s on 3 L/min per nasal cannula. He has been afebrile. Hemodynamically stable. White count 14.5. Hemoglobin 9.1. Platelets 399. Sodium 135. Potassium 4.0. Bicarb 25. BUN 28. Creatinine 0.8. Glucose 95. He remains on Decadron 10 mg IV daily. Remains on DuoNeb inhalations and Symbicort. To complete 5 days of etoposide. Today will be dose #4. The patient is seen today January 19, 2024 in follow-up on the regular medical floor. He is awake and alert in no acute distress. Resting comfortably in bed. Maintaining O2 saturations in the 90s on 2 L/min per nasal cannula. He has been afebrile. Hemodynamically stable. White count 13.4. Hemoglobin 9.7. Platelets 340. Sodium 134. Potassium 3.8. Bicarb 24. BUN 27. Creatinine 0.8. Glucose 89. Continued on DuoNeb inhalations, Symbicort, Decadron. Today is his fifth dose of etoposide. Continuing with radiation. Edema of the upper extremities is improving. Objective - Vital Signs Vital signs: Vital Signs Temp 98.0 F 01/19/24 07:09 Pulse 88 01/19/24 12:01 Resp 16 01/19/24 07:09 BP 101/62 01/19/24 07:09 Pulse Ox 96 01/19/24 07:09 FiO2 Intake & Output 01/18/24 01/19/24 01/19/24 18:59 06:59 18:59 Intake Total 540 305 Balance 540 305 Weight 86.183 kg Intake: Intake, IV Titration 305 Amount Etoposide 100 mg In 255 Sodium Chloride 0.9% 250 ml @ 255 mls/hr IV Q24H DANIELLE Rx#:[id number] Ondansetron 16 mg In 50 Sodium Chloride 0.9% 50 ml @ 232 mls/hr IVPB Q24H DANIELLE Rx#:[id number] Oral 540 Other: Voiding Method Toilet # Voids 2 3 - Exam GENERAL EXAM: Alert, very weak 63-year-old male, resting in bed, on 3 L nasal cannula, in no apparent distress. HEAD: Normocephalic. EYES: Normal reaction of pupils, equal size. NOSE: Clear with pink turbinates. THROAT: No erythema or exudates. NECK: No masses, no JVD. CHEST: No chest wall deformity. LUNGS: Equal air entry with few scattered rhonchi, diminished left basilar lung sounds. CVS: S1 and S2 normal with no audible murmur, regular rhythm. ABDOMEN: No hepatosplenomegaly, normal bowel sounds, no guarding or rigidity. SPINE: No scoliosis or deformity SKIN: No rashes CENTRAL NERVOUS SYSTEM: No focal deficits, tone is normal in all 4 extremities. EXTREMITIES: There is trace peripheral edema. No clubbing, no cyanosis. Peripheral pulses are intact. - Labs CBC & Chem 7: 01/19/24 06:24 01/19/24 06:24 Labs: Abnormal Lab Results - Last 24 Hours (Table) 01/18/24 01/19/24 01/19/24 Range/Units 20:30 06:24 06:24 WBC 13.42 H (4.50-10.00) X 10*3/uL RBC 3.65 L (4.40-5.60) X 10*6/uL Hgb 9.7 L (13.0-17.0) g/dL Hct 30.0 L (39.6-50.0) % MCH 26.6 L (27.0-32.0) pg RDW 15.7 H (11.5-14.5) % Immature Gran # 0.09 H (0.00-0.04) X 10*3/uL Neutrophils # 11.79 H (1.80-7.70) X 10*3/uL Eosinophils # 0.02 L (0.04-0.35) X 10*3/uL Sodium 134 L (135-145) mmol/L BUN/Creatinine Ratio 33.50 H (12.00-20.00) Ratio POC Glucose (mg/dL) 202 H (70-110) mg/dL Calcium 8.1 L (8.7-10.3) mg/dL Assessment and Plan Assessment: Acute on chronic shortness of breath in a patient with 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 CAT scan of the chest was reviewed. No evidence of any disease progression in terms of malignancy. No evidence of pneumonia. He has an acute COPD exacerbation in addition to his background lung cancer. Chest x- ray reveals no acute pulmonary process. Acute hypoxic respiratory failure currently on 3 L of oxygen by nasal cannula History of hemoptysis, currently inactive and stable Stage IIIc squamous cell carcinoma of the lung. The patient has a left infrahilar mass, measuring approximately 4 cm, highly suspicious for bronchogenic carcinoma. The left hilar fullness/mass encroaching on the left lower lobe bronchus, along with cutoff sign, debris in the ascending left main bronchus, and new lower lobe opacification, likely postobstructive atelectasis. Please refer to the results of the bronchoscopy and endobronchial ultrasound. The patient was given a session of radiation therapy on 01/10/2024. The patient was initiated on cisplatin and etoposide January 15, 2024. Receiving concurrent radiation PET scan showed mediastinal lymphadenopathy and supraclavicular lymphadenopathy Chronic obstructive pulmonary disease, patient was recently started on Trelegy and as needed albuterol inhaler History of CVA/TIA History of coronary artery disease with remote history of PCI/stenting History of hyperlipidemia History of hypertension Former tobacco smoker, with over 90-ycoa-gums history, quitting approximately 1 month ago Plan: The patient was seen and evaluated Labs and medications reviewed Upper extremity edema improving Receiving concurrent chemo/radiation Titrate the FiO2 as tolerated May require home oxygen Home once cleared by oncology I have personally seen and examined the patient, performed the documentation and the assessment and plan as written. Number of minutes spent on the visit: 10.
--- NOTE | 2024-01-19 16:10 | XR ---
EXAMINATION TYPE: XR chest 1V portable DATE OF EXAM: 01/19/2024 COMPARISON: 01/17/2024 HISTORY: Shortness of breath TECHNIQUE: Single frontal view of the chest is obtained. FINDINGS: There is suggestion of a small pleural effusion. A retrocardiac infiltrate cannot be entirely exclude d. The heart size and pulmonary vasculature are normal. The osseous structures are intact. IMPRESSION: Possible mild acute cardiopulmonary disease involving the left lung base as described above.
[2024-01-19] MEDS: POTASSIUM CHLORIDE ER 20 MEQ TAB.ER PO STA (16:13)
[2024-01-19] MEDS: MAGNESIUM SULFATE-D5W PMX 1 GM in DEXTROSE/WATER 1 100ML.BAG IVPB SCH (16:22)
[2024-01-19] MEDS: HEPARIN SODIUM,PORCINE 5,000 UNIT/ML 1 ML VIAL SQ STA (16:22)
[2024-01-19 17:13] LABS: Glucose,Whole Blood 162 mg/dL (70-110)
[2024-01-19 20:00] LABS: Glucose,Whole Blood 193 mg/dL (70-110)
--- NOTE | 2024-01-19 23:14 | P.PN ---
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 Patient presents today with worsening dyspnea over 2 days, he cannot walk for shortness unless he got short of breath and he has to stop His cough and phlegm are scanned and little at the end of frequent. He complains also from some chest pain about 6-5 in severity on the left side, n onradiating. Patient recently received first radiotherapy with Dr. Bah on last Monday Also patient lost his appetite not eating much. No dysuria or urgency. No headache dizziness weakness numbness. Patient non-smoker no alcohol no illicit drugs. He quit smoking. Also patient is mildly tachycardic. Will. Blood pressure on the soft side but is improving. Patient has mild leukocytosis and anemia. Platelet count is elevated 464. Sodium low 129. D-dimer elevated 2.8 Chest x-ray was negative for acute process CTA of the chest showing no pulmonary embolism but showing a left perihilar mass with near complete obstruction of the left main bronchus with obstructing many lung airways with scattered mediastinal and lower neck lymphedema most likely secondary to metastatic disease. 01/14/24 Patient complaining of shortness of breath He has swelling of both hands and feet No chest pain. Hospital oxygen saturation on 2-3 L/min via nasal cannula IV Lasix 40 mg added as well as a steroid Plan to treat with radiotherapy and chemotherapy while in the hospital because of his near complete obstruction of the left main bronchus 01/15/2024 Patient is evaluated in follow up today on the medical floor. Continues to report shortness of breath and congested cough. He has been evaluated by on cology and recommending to initiate the patient on chemotherapy starting today with cisplatin and etoposide. Patient will also continue with radiation to the lung mass. He will be taken off the IV lasix, lower extremity swelling has improved. He is being hydrated. Venous doppler negative for DVT bilaterally. 01/16/2024 Patient evaluated today in follow up. Underwent chemotherapy yesterday, jeremy ated well. Patient will undergo radiation tomorrow. White blood cell count 18.19, hgb 8.0. Hemodynamically stable. 01/17/2024 Patient is evaluated in follow up today. On day 2 of chemotherapy with et oposide. Patient slept well last night. He does have increased peripheral edema. Was continued on normal saline at 50 ml/hr which will be discontinued. Sodium down to 134. White blood cell count 16.2, hgb 8.6, sodium 134, potassium 4.5, BUN 30, creatinine 9.3. 01/18/2024 Patient evaluated today resting in bed. Continues to report significant fatigue and has been mostly bedrest. Patient continues on course of chemotherapy, oncology is following closely. Patients shortness of breath has improved with dose of IV lasix and he is now requiring less oxygen. Sodium normalized to 135, potassium 4.0, BUN 27.7, creatinine 0.8. White blood cell count 14.52, hgb 9.1. Hemodynamically stable. 01/19/2024 Patient is evaluated today resting in bed. Patient has completed 5/5 days of etoposide. Patient went for radiation today. Patient received a second dose of IV lasix yesterday. He is requiring less oxygen demands. Sodium today 134, BUN 26.8, creatinine 0.8. Magnesium 1.8. White blood cell count 13.42. Hemoglobin 9.7. Blood pressure in the high 90s systolic. Review of Systems Constitutional: Reports fatigue denied any fever. Cardio vascular: denied any chest pain, palpitations Gastrointestinal: denied any nausea, vomiting, diarrhea Pulmonary: Reports shortness of breath and cough Neurologic denied any new focal deficits All inpatient medications were reviewed and appropriate changes in these medications as dictated in the interval history and assessment and plan. PHYSICAL EXAMINATION: GENERAL: The patient is alert and oriented x3, not in any acute distress. Well developed, well nourished. HEENT: Pupils are round and equally reacting to light. EOMI. No scleral icterus. No conjunctival pallor. Normocephalic, atraumatic. No pharyngeal erythema. No thyromegaly. CARDIOVASCULAR: S1 and S2 present. No murmurs, rubs, or gallops. PULMONARY: Diminished with scattered ronchi ABDOMEN: Soft, nontender, nondistended, normoactive bowel sounds. No palpable organomegaly. MUSCULOSKELETAL: No joint swelling or deformity. EXTREMITIES: No cyanosis, clubbing, or pedal edema. NEUROLOGICAL: Gross neurological examination did not reveal any focal deficits. SKIN: No rashes. Assessment and Plan Assessment Mass 4 cm with biopsy positive for non-small cell cancer squamous cell cancer with metastasis to the mediastinal and lower neck lymphadenopathy Near complete obstruction of the left main bronchus secondary to tumor Hypoxemic respiratory failure secondary to above Hyponatremia hypervolemic Steroid induced hyperglycemia Hypertension Hypothyroidism Coronary artery disease Chronic systolic dysfunction Plan: Continue with bronchodilator Continue on oxygen 2 L to 3 L via nasal cannula IV Solu-Medrol 60 mg Continue accuchecks ACHS Pulmonary consult, oncology consult On chemotherapy day 5 of . Labs in the AM. PT/OT consultation. The impression and plan of care has been dictated by Denia Soni, Nurse Practitioner as directed. Dr. Delmar MD I have performed a history and physical examination and medical decision making of this patient, discussed the same with the dictator, and agree with the dictators assessment and plan as written, documented as a scribe. Based on total visit time, I have performed more than 50% of this visit. Objective - Vital Signs Vital signs: Vital Signs Temp 98.4 F 01/19/24 15:39 Pulse 97 01/19/24 15:39 Resp 18 01/19/24 15:39 BP 106/72 01/19/24 15:39 Pulse Ox 94 L 01/19/24 15:39 FiO2 Intake & Output 01/18/24 01/19/24 01/19/24 18:59 06:59 18:59 Intake Total 540 305 Balance 540 305 Weight 86.183 kg Intake: Intake, IV Titration 305 Amount Etoposide 100 mg In 255 Sodium Chloride 0.9% 250 ml @ 255 mls/hr IV Q24H DANIELLE Rx#:[id number] Ondansetron 16 mg In 50 Sodium Chloride 0.9% 50 ml @ 232 mls/hr IVPB Q24H DANIELLE Rx#:[id number] Oral 540 Other: Voiding Method Toilet Toilet # Voids 2 3 - Labs CBC & Chem 7: 01/19/24 06:24 01/19/24 06:24 Labs: Abnormal Lab Results - Last 24 Hours (Table) 01/18/24 01/19/24 01/19/24 Range/Units 20:30 06:24 06:24 WBC 13.42 H (4.50-10.00) X 10*3/uL RBC 3.65 L (4.40-5.60) X 10*6/uL Hgb 9.7 L (13.0-17.0) g/dL Hct 30.0 L (39.6-50.0) % MCH 26.6 L (27.0-32.0) pg RDW 15.7 H (11.5-14.5) % Immature Gran # 0.09 H (0.00-0.04) X 10*3/uL Neutrophils # 11.79 H (1.80-7.70) X 10*3/uL Eosinophils # 0.02 L (0.04-0.35) X 10*3/uL Sodium 134 L (135-145) mmol/L BUN/Creatinine Ratio 33.50 H (12.00-20.00) Ratio POC Glucose (mg/dL) 202 H (70-110) mg/dL Calcium 8.1 L (8.7-10.3) mg/dL Assessment and Plan Time with Patient: Less than 30
--- NOTE | 2024-01-20 00:13 | P.PN ---
Subjective Progress Note Date: 01/19/24 No acute events, reporting improvement in SOB. Feeling fatigued and appetite is somewhat diminished, but tolerating oral intake. Denies vomiting and diarrhea. Reports two BMs today, feeling improvement in discomfort. Day 5 of Etoposide today, with day 8 of cisplatin scheduled for 01/21. Overall has been tolerating regimen well. Undergoing concurrent RT. Objective - Vital Signs Vital signs: Vital Signs Temp 98.4 F 01/19/24 13:09 Pulse 86 01/19/24 13:09 Resp 14 01/19/24 13:09 BP 105/68 01/19/24 13:09 Pulse Ox 93 L 01/19/24 13:09 FiO2 Intake & Output 01/18/24 01/19/24 01/19/24 18:59 06:59 18:59 Intake Total 540 305 Balance 540 305 Weight 86.183 kg Intake: Intake, IV Titration 305 Amount Etoposide 100 mg In 255 Sodium Chloride 0.9% 250 ml @ 255 mls/hr IV Q24H DANIELLE Rx#:[id number] Ondansetron 16 mg In 50 Sodium Chloride 0.9% 50 ml @ 232 mls/hr IVPB Q24H DANIELLE Rx#:[id number] Oral 540 Other: Voiding Method Toilet Toilet # Voids 2 3 - Constitutional General appearance: Present: average body habitus, no acute distress - EENT Eyes: Present: anicteric sclerae, EOMI ENT: Present: hearing grossly normal - Respiratory Details: breathing is even and unlabored - Cardiovascular Details: well perfused - Gastrointestinal General gastrointestinal: Present: soft. Absent: tenderness - Integumentary Integumentary: Absent: cyanotic - Musculoskeletal Musculoskeletal: Present: strength equal bilaterally - Psychiatric Psychiatric: Present: A&O x's 3 - Labs CBC & Chem 7: 01/19/24 06:24 01/19/24 06:24 Labs: Abnormal Lab Results - Last 24 Hours (Table) 01/18/24 01/19/24 01/19/24 Range/Units 20:30 06:24 06:24 WBC 13.42 H (4.50-10.00) X 10*3/uL RBC 3.65 L (4.40-5.60) X 10*6/uL Hgb 9.7 L (13.0-17.0) g/dL Hct 30.0 L (39.6-50.0) % MCH 26.6 L (27.0-32.0) pg RDW 15.7 H (11.5-14.5) % Immature Gran # 0.09 H (0.00-0.04) X 10*3/uL Neutrophils # 11.79 H (1.80-7.70) X 10*3/uL Eosinophils # 0.02 L (0.04-0.35) X 10*3/uL Sodium 134 L (135-145) mmol/L BUN/Creatinine Ratio 33.50 H (12.00-20.00) Ratio POC Glucose (mg/dL) 202 H (70-110) mg/dL Calcium 8.1 L (8.7-10.3) mg/dL Assessment and Plan (1) Neutrophilic leukocytosis Current Visit: Yes Status: Acute Priority: Medium Code(s): D72.9 - DISORDER OF WHITE BLOOD CELLS, UNSPECIFIED SNOMED Code(s): 357101912 (2) Normocytic anemia Current Visit: Yes Status: Acute Priority: Medium Code(s): D64.9 - ANEMIA, UNSPECIFIED SNOMED Code(s): 194744867 (3) 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 Noted to have 6.1 cm mass in the left lower lobe with mediastinal and bilateral supraclavicular lymphadenopathy on PET/CT from 01/04/2024. Brain MRI on 01/03/2024 notes no evidence of intracranial metastases. Circulating tumor DNA analysis revealed no targetable mutations -He presented to hospital with progressive dyspnea. CTA revealing no evidence of pulmonary embolism, but did note large perihilar mass causing near complete obstruction of the left mainstem bronchus in addition to obstruction of multiple large airways of the left lower lung -Simulated with plans to start radiation today. Chemotherapy with cisplatin/etoposide initiated 01/15/2024. -Swelling of the upper extremities is significantly improved. May have been some degree of SVC syndrome and fluid overload. Normocytic anemia -Anemia workup results-iron studies most consistent with anemia of inflammation 2/2 malignancy. Vitamin B12 low normal, folate normal, methylmalonic acid normal. No supplement at this time. -Continue to monitor CBC while inpt -Hgb stable today at 9.7. No reported bleeding. -Transfuse for Hgb <7 or if symptomatic Neutrophilic leukocytosis -13.4 today, slowly improving. No intervention at this time, cont to monitor -Likely secondary to inflammation from malignancy, as well as steroids that are being given with chemo. -No fevers, signs or symptoms concerning for infection. Cont to monitor closely
[2024-01-20 06:03] LABS: Glucose,Whole Blood 106 mg/dL (70-110)
[2024-01-20 07:48] LABS: Basophils % (A) 0 %; Eosinophils % (A) 0 %; HCT 29.5 % (39.0-53.0); HGB 9.4 gm/dL (13.0-17.5); Lymphocytes # (A) 1.2 k/uL (1.0-4.8); Lymphocytes % (A) 10 %; MCH 26.7 pg (25.0-35.0); MCHC 31.9 g/dL (31.0-37.0); MCV 83.8 fL (80.0-100.0); Mean Platelet Volume 8.4; Monocytes # (A) 0.6 k/uL (0-1.0); Monocytes % (A) 4 %; Neutrophils # (A) 10.7 k/uL (1.3-7.7); Neutrophils % (A) 85 %; Platelet Count 240 k/uL (150-450); RBC 3.52 m/uL (4.30-5.90); RDW 14.8 % (11.5-15.5); WBC 12.5 k/uL (3.8-10.6)
[2024-01-20 07:53] LABS: ALT 31 U/L (4-49); AST 21 U/L (17-59); African American GFR (CKD) >90 (>60 ml/min/1.73 sqM); Albumin 2.6 g/dL (3.5-5.0); Alkaline Phosphatase 98 U/L (38-126); Anion Gap 6 mmol/L; Blood Urea Nitrogen 34 mg/dL (9-20); Calcium 7.9 mg/dL (8.4-10.2); Carbon Dioxide 24 mmol/L (22-30); Chloride 102 mmol/L (98-107); Glucose 91 mg/dL (74-99); Non-African American GFR(CKD) >90 (>60 ml/min/1.73 sqM); Potassium 3.9 mmol/L (3.5-5.1); Sodium 132 mmol/L (137-145); Total Bilirubin 0.7 mg/dL (0.2-1.3); Total Protein 5.2 g/dL (6.3-8.2)
[2024-01-20] MEDS: ISOSORBIDE MONONITRATE ER 30 MG TAB.ER.24H PO SCH (09:09)
[2024-01-20] MEDS: HEPARIN SODIUM,PORCINE 5,000 UNIT/ML 1 ML VIAL SQ SCH (09:09)
--- NOTE | 2024-01-20 10:08 | P.CRDCN ---
History of Present Illness History of present illness: HISTORY OF PRESENT ILLNESS: This is a 63-year-old male with a past medical history significant for hyperlipidemia, coronary artery disease with previous stenting, hypothyroidism, and lung cancer. Patient follows with a cosmetics counter manager out of [facility]. We have been asked to see the patient in consultation for chest pain. Patient examined at the bedside. Patient states he presented to the hospital a little over a week ago with a chief complaint of shortness of breath. The patient does have stage III squamous cell carcinoma of the lung and has been undergoing radiation and chemotherapy. The patient does report having a frequent productive cough. The patient states yesterday he had an episode of chest pain. He also reports having some stabbing pain in the middle of his back. He denied any radiation of the pain. EKG completed which did not reveal any acute ischemic changes. The patient states he has not had any further episodes of chest pain or pressure. The patient's family ember at the bedside states that he was on Plavix but this was discontinued as he was coughing up blood. However the patient states his last stenting was in 2017. DIAGNOSTICS: - EKG reveals sinus mechanism with no signs of acute ischemia. - Chest xray possible mild acute cardiopulmonary disease involving the left lung base - Laboratory data: WBC 12.5. Hemoglobin 9.4. Platelet count 240. Sodium 132. Potassium 3.9. BUN 34. Creatinine 0.71. Troponin 0.012. 0.042. 0.040. - Current home cardiac medications include aspirin 81 mg daily, Zetia 10 mg daily, atorvastatin 80 mg at night, metoprolol succinate 50 mg daily. - Most recent echocardiogram obtained in 2017 revealed ejection fraction 45 to 50% with apical lateral and apical inferior hypokinesis REVIEW OF SYSTEMS: At the time of my exam: CONSTITUTIONAL: Denies fever or chills. HEENT: Denies blurred vision, vision changes, or eye pain. Denies hemoptysis CARDIOVASCULAR: Denies chest pain. Denies orthopnea. Denies PND. Denies palpitations RESPIRATORY: Denies shortness of breath. GASTROINTESTINAL: Denies abdominal pain. Denies nausea or vomiting. HEMATOLOGIC: Denies bleeding disorders. GENITOURINARY: Denies any blood in urine. SKIN: Denies pruitis. Denies rash. PHYSICAL EXAM: VITAL SIGNS: Reviewed. GENERAL: Well-developed in no acute distress. HEENT: Head is normocephalic. Pupils are equal, round. Sclerae anicteric. Mucous membranes of the mouth are moist. Neck supple. No JVD or thyromegaly LUNGS: Respirations even and unlabored. Lungs essentially clear to auscultation bilaterally. HEART: Regular rate and rhythm. S1 and S2 heard. ABDOMEN: Soft. Nondistended. Nontender. EXTREMITIES: Normal range of motion. No clubbing or cyanosis. Peripheral pulses intact. No lower extremity edema NEUROLOGIC: Awake and alert. Oriented x 3. ASSESSMENT: Shortness of breath Acute hypoxic respiratory failure requiring supplemental oxygen Elevated troponin, likely type II OH secondary to oxygen supply and demand mismatch, no evidence of acute coronary syndrome Chest pain, acute coronary syndrome ruled out, likely secondary to active pulmonary issues Stage III squamous cell carcinoma of the lung, undergoing chemotherapy and radiation Coronary artery disease with previous stenting, last in 2016 History of mild ischemic cardiomyopathy, 45 to 50%, per echo in 2017 History of hemoptysis with subsequent discontinuation of Plavix History of COPD Hyperlipidemia History of CVA/TIA Former nicotine dependence PLAN: An acute coronary event has been ruled out Obtain 2D echo to assess cardiac structure and function Continue aspirin 81 mg daily. Patient does not need to be continued on Plavix as his last stenting was in 2016 Add Imdur 30 mg daily Recommend outpatient stress testing with patient's primary cosmetics counter manager at [facility] once his acute issues have resolved Further recommendations pending patient course Nurse practitioner note has been reviewed by physician. Signing provider agrees with the documented findings, assessment, and plan of care documented by [employer] INST[employer]ER as a scribe. Past Medical History Past Medical History: Coronary Artery Disease (CAD), Cancer, Hypertension, Thyroid Disorder Additional Past Medical History / Comment(s): lung ca History of Any Multi-Drug Resistant Organisms: None Reported Past Surgical History: Heart Catheterization With Stent Additional Past Surgical History / Comment(s): Throat surgery Date of Last Stent Placement:: 2016 Past Psychological History: No Psychological Hx Reported Smoking Status: Former smoker Past Alcohol Use History: Occasional Past Drug Use History: Marijuana Additional Drug Use History / Comment(s): pt quit smoking November 2023 - Past Family History Father History Unknown: Yes Family Medical History: Cancer Additional Family Medical History / Comment(s): Lung ca Mother Additional Family Medical History / Comment(s): at age og 96 Medications and Allergies Home Medications Medication Instructions Recorded Confirmed Type Aspirin 81 mg PO DAILY 12/05/20 01/13/24 History Atorvastatin Calcium [Lipitor] 80 mg PO HS 12/05/20 01/13/24 History Ezetimibe [Zetia] 10 mg PO DAILY 12/05/20 01/13/24 History Levothyroxine Sodium 25 mcg PO DAILY 12/05/20 01/13/24 History Metoprolol Succinate (ER) [Toprol 50 mg PO DAILY 12/05/20 01/13/24 History XL] Albuterol Sulfate [Ventolin HFA] 2 puff INHALATION RT-Q4H 12/21/23 01/13/24 History Fluticasone/Umeclidin/Vilanter 1 puff INHALATION RT-DAILY 12/21/23 01/13/24 History [[place] Ellipta 100-62.5-25] Sildenafil Citrate 20 mg PO DAILY PRN 12/21/23 01/13/24 History Benzonatate [Tessalon Perles] 200 mg PO TID PRN #30 cap 12/23/23 01/13/24 Rx HYDROcodone/APAP 5-325MG [Lostant 1 tab PO Q6H PRN 01/13/24 01/13/24 History 5-325] OLANZapine 10 mg PO DIRECTED 01/13/24 01/13/24 History Ondansetron Odt [Zofran Odt] 4 mg PO Q6H PRN 01/13/24 01/13/24 History Allergies Allergy/AdvReac Type Severity Reaction Status Date / Time No Known Allergies Allergy Verified 01/13/24 14:08 Physical Exam Vitals: Vital Signs Temp Pulse Pulse Resp BP Pulse Ox Pulse Ox 01/20/24 07:53 97.5 F L 90 18 107/73 95 01/20/24 03:35 95 18 114/68 93 L 01/20/24 00:30 86 18 104/66 94 L 01/19/24 20:39 86 01/19/24 20:30 97.9 F 91 17 95/60 93 L 01/19/24 20:27 85 01/19/24 18:23 85 01/19/24 18:22 98.1 F 85 17 91/60 94 L 01/19/24 17:36 98.9 F 91 20 96/60 94 L 01/19/24 16:27 88 01/19/24 16:12 96 01/19/24 15:58 98.3 F 87 18 93/59 91 L 01/19/24 15:39 98.4 F 97 18 106/72 94 L 01/19/24 15:07 98.4 F 86 18 109/72 92 L 01/19/24 13:09 98.4 F 86 14 105/68 93 L 01/19/24 12:47 92 L 01/19/24 12:20 99.2 F 92 18 93/59 92 L 01/19/24 12:01 88 01/19/24 11:52 88 01/19/24 08:22 88 Pulse Ox Pulse Ox Pulse Ox 01/20/24 07:53 01/20/24 03:35 01/20/24 00:30 01/19/24 20:39 01/19/24 20:30 01/19/24 20:27 01/19/24 18:23 01/19/24 18:22 01/19/24 17:36 01/19/24 16:27 01/19/24 16:12 01/19/24 15:58 01/19/24 15:39 01/19/24 15:07 01/19/24 13:09 01/19/24 12:47 95 94 L 93 L 01/19/24 12:20 01/19/24 12:01 01/19/24 11:52 01/19/24 08:22 Intake and Output 01/19/24 01/20/24 01/20/24 22:59 06:59 14:59 Intake Total 1277 Balance 1277 Intake: Intake, IV Titration 500 Amount Etoposide 100 mg In 250 Sodium Chloride 0.9% 250 ml @ 255 mls/hr IV Q24H DANIELLE Rx#:[id number] Magnesium Sulfate-D5w Pmx 200 1 gm In Dextrose/Water 1 100ml.bag @ 100 mls/hr IVPB Q1H DANIELLE Rx#: [id number] Ondansetron 16 mg In 50 Sodium Chloride 0.9% 50 ml @ 232 mls/hr IVPB Q24H DANIELLE Rx#:[id number] Oral 777 Other: Voiding Method Toilet Toilet Toilet # Bowel Movements 1 Results 01/20/24 06:44 01/20/24 06:44 Cardiac Enzymes 01/19/24 01/19/24 01/20/24 Range/Units 16:05 21:18 06:44 AST 21 (17-59) U/L Troponin I 0.042 H* 0.040 H* (0.000-0.034) ng/mL CBC 01/19/24 01/20/24 Range/Units 06:24 06:44 WBC 13.42 H 12.5 H (4.50-10.00) X 10*3/uL RBC 3.65 L 3.52 L (4.40-5.60) X 10*6/uL Hgb 9.7 L 9.4 L (13.0-17.0) g/dL Hct 30.0 L 29.5 L (39.6-50.0) % Plt Count 340 240 (140-440) X 10*3/uL Comprehensive Metabolic Panel 01/19/24 01/20/24 Range/Units 06:24 06:44 Sodium 134 L 132 L (135-145) mmol/L Potassium 3.8 3.9 (3.5-5.5) mmol/L Chloride 98 102 (96-109) mmol/L Carbon Dioxide 24.1 24 (21.6-31.8) mmol/L BUN 26.8 34 H (9.0-27.0) mg/dL Creatinine 0.8 0.71 (0.6-1.5) mg/dL Glucose 89 91 (70-110) mg/dL Calcium 8.1 L 7.9 L (8.7-10.3) mg/dL AST 21 (17-59) U/L ALT 31 (4-49) U/L Alkaline Phosphatase 98 (38-126) U/L Total Protein 5.2 L (6.3-8.2) g/dL Albumin 2.6 L (3.5-5.0) g/dL Current Medications Generic Name Dose Route Start Last Admin Trade Name Freq PRN Reason Stop Dose Admin Acetaminophen 650 mg 01/13/24 13:09 Acetaminophen Tab 325 Mg Tab PO Q6HR PRN Mild Pain or Fever > 100.5 Hydrocodone Bitart/Acetaminophen 1 each 01/13/24 13:09 01/18/24 17:18 Hydrocodone/Apap 5-325mg 1 Each Tab PO 1 each Q4HR PRN Administration Moderate Pain (Scale 4 to 6) Albuterol/Ipratropium 3 ml 01/13/24 13:49 01/13/24 16:54 Ipratropium-Albuterol 3 Ml Neb INHALATION 3 ml QID PRN Administration Shortness Of Breath Or Wheezing Alprazolam 0.5 mg 01/14/24 20:20 01/19/24 16:13 Alprazolam 0.5 Mg Tab PO 0.5 mg Q6H PRN Administration Anxiety Aspirin 81 mg 01/14/24 09:00 01/19/24 08:18 Aspirin 81 Mg PO 81 mg DAILY DANIELLE Administration Atorvastatin Calcium 80 mg 01/13/24 21:00 01/19/24 21:30 Atorvastatin 80 Mg Tab PO 80 mg HS DANIELLE Administration Benzonatate 200 mg 01/13/24 14:29 01/19/24 08:18 Benzonatate 100 Mg Cap PO 200 mg TID PRN Administration Cough Budesonide/Formoterol Fumarate 2 puff 01/14/24 08:00 01/19/24 20:27 Symbicort 80-4.5 Mcg Inhaler INHALATION 2 puff RT-BID DANIELLE Administration Dextrose/Water 25 ml 01/15/24 16:18 Dextrose 50% Syringe 50 Ml IVP PER PROTOCOL PRN Hypoglycemia Protocol Dextrose/Water 50 ml 01/15/24 16:18 Dextrose 50% Syringe 50 Ml IVP PER PROTOCOL PRN Hypoglycemia Protocol Ezetimibe 10 mg 01/14/24 09:00 01/19/24 08:18 Ezetimibe 10 Mg Tab PO 10 mg DAILY DANIELLE Administration Heparin Sodium (Porcine) 5,000 unit 01/20/24 09:00 Heparin Sodium,Porcine 5,000 Unit/Ml 1 Ml Vial SQ Q12HR DANIELLE Insulin Aspart 0 unit 01/15/24 17:30 01/20/24 06:04 Insulin Aspart (Novolog) 100 Unit/Ml Vial SQ Not Given ACHS [facility] Protocol Insulin Detemir 15 unit 01/15/24 22:15 01/19/24 21:31 Insulin Detemir (Levemir) 100 Unit/Ml Syr SQ Not Given HS DANIELLE Ipratropium [place] 0.5 mg 01/13/24 16:00 01/19/24 20:27 Ipratropium 0.5 Mg/2.5 Ml Nebu INHALATION 0.5 mg RT-QID DANIELLE Administration Levothyroxine Sodium 25 mcg 01/14/24 09:00 01/19/24 08:18 Levothyroxine 25 Mcg Tab PO 25 mcg DAILY DANIELLE Administration Metoprolol Succinate 50 mg 01/14/24 09:00 01/19/24 08:18 Metoprolol Succinate (Er) 50 Mg Tab.Er.24h PO 50 mg DAILY DANIELLE Administration Morphine Sulfate 4 mg 01/13/24 13:09 01/19/24 15:36 Morphine Sulfate 4 Mg/Ml Syringe IV 4 mg Q4HR PRN Administration Severe Pain (Scale 7 to 10) Naloxone HCl 0.2 mg 01/13/24 13:09 Naloxone 0.4 Mg/Ml 1 Ml Vial IV Q2M PRN Opioid Reversal Olanzapine 10 mg 01/14/24 21:00 01/19/24 21:30 Olanzapine 10 Mg Tab PO 10 mg HS DANIELLE Administration Ondansetron HCl 4 mg 01/15/24 15:20 Ondansetron 4 Mg/2 Ml Vial IVP Q6HR PRN Nausea And Vomiting Polyethylene Glycol 17 gm 01/19/24 09:00 01/19/24 08:18 Polyethylene Glycol 3350 17 Gm Powd.Pack PO 17 gm DAILY DANIELLE Administration Senna/Docusate Sodium 2 each 01/18/24 10:45 01/19/24 21:30 Sennosides-Docusate Sodium 1 Each Tab PO 2 each BID DANIELLE Administration Sodium Bicarbonate 5 ml 01/15/24 16:00 01/20/24 06:04 Salt And Soda Mouthwash 1,000 Ml PO 5 ml 5XD DANIELLE Administration Intake and Output 01/19/24 01/20/24 01/20/24 22:59 06:59 14:59 Intake Total 1277 Balance 1277 Intake: Intake, IV Titration 500 Amount Etoposide 100 mg In 250 Sodium Chloride 0.9% 250 ml @ 255 mls/hr IV Q24H DANIELLE Rx#:[id number] Magnesium Sulfate-D5w Pmx 200 1 gm In Dextrose/Water 1 100ml.bag @ 100 mls/hr IVPB Q1H DANIELLE Rx#: [id number] Ondansetron 16 mg In 50 Sodium Chloride 0.9% 50 ml @ 232 mls/hr IVPB Q24H DANIELLE Rx#:[id number] Oral 777 Other: Voiding Method Toilet Toilet Toilet # Bowel Movements 1 01/20/24 06:44 07/13/24 06:44
--- NOTE | 2024-01-20 11:32 | P.PN ---
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 I performed the patient's bronchoscopy and the patient has a left hilar mass at the level of the secondary manuel and the left lower lobe causing significant mass effect and obstruction of the left lower lobe bronchus. The patient also had an outpatient PET/CT that showed mediastinal lymphadenopathy uptake and bilateral supraclavicular lymphadenopathy uptake. Based on that, the patient was seen by medical oncology. The patient was supposed to start systemic chemotherapy with cis napaimute and IRRIGATION FLUME LAYER-16 as of tomorrow. The patient was also given a session of radiation therapy on 01/10/2024 and due to the holidays no further treatment was given. Patient is coming in with worsening shortness of breath. He is quite anxious. He also has developed some edema in his upper and lower extremities. Currently on 2 L of oxygen by nasal cannula. The viral screen has been negative. D-dimer is at 2.8. CT of the chest was done that showed no significant changes in terms of his malignancy. The patient continues to have a left hilar mass and some atelectatic changes in the left lower lobe. There is significant mass effect on the left lower lobe bronchus. The patient has no evidence of any pulmonary embolism. He is currently on 2 L of oxygen by nasal cannula. He is complaining of shortness of breath. He has also COPD maintained on Trelegy Ellipta on outpatient basis. No hemoptysis. The patient is seen today January 15, 2024 in follow-up on the regular medical floor. He is currently sitting up in bed. Awake and alert in no acute distress. He does have some dyspnea with conversation. Dyspnea with exertion. Maintaining good O2 saturations in the 90s on room air. Chest x-ray remains stable. No acute cardiopulmonary process. Dopplers of the lower extremities were negative for DVT. Glucose 199. He is continued on DuoNeb inhalations, Symbicort, Solu-Medrol. He remains on IV diuretics. The plan is to start cisplatin and etoposide today per medical oncology. The patient is seen today January 16, 2024 in follow-up on the regular medical floor. He is currently resting in bed. Awake and alert in no acute distress. He is maintaining O2 saturations in the 90s on 2 L/min per nasal cannula. He did receive etoposide and cisplatin yesterday. He remains on Decadron 10 mg IV every 24 hours. Plan is for a radiation treatment again today. White count 18.1. Hemoglobin 8.0. Platelets 404. Glucose 164. Magnesium 2.1. He remains on DuoNebs and Symbicort, The patient is seen today January 17, 2024 in follow-up on the regular medical floor. He is awake and alert in no acute distress. Resting fairly comfortably in bed. Denies any worsening shortness of breath, cough or congestion. Maintaining O2 saturations in the 90s on 2 L/min per nasal cannula. He is continued on DuoNeb inhalations, Symbicort. Remains on Decadron. Continuing with radiation treatments. White count 16.2. Hemoglobin 8.6. Platelets 362. Sodium 134. Potassium 4.5. Bicarb 23. BUN 30. Creatinine 0.93. Glucose 115. proBNP 6020. Right upper extremity PICC line was placed today. Chest x-ray reveals no acute cardiopulmonary process. The patient is seen today January 18, 2024 in follow-up on the regular medical floor. He is currently resting in bed. Awake and alert in no acute distress. He did have radiation therapy again today. He is maintaining good O2 saturations in the 90s on 3 L/min per nasal cannula. He has been afebrile. Hemodynamically stable. White count 14.5. Hemoglobin 9.1. Platelets 399. Sodium 135. Potassium 4.0. Bicarb 25. BUN 28. Creatinine 0.8. Glucose 95. He remains on Decadron 10 mg IV daily. Remains on DuoNeb inhalations and Symbicort. To complete 5 days of etoposide. Today will be dose #4. The patient is seen today January 19, 2024 in follow-up on the regular medical floor. He is awake and alert in no acute distress. Resting comfortably in bed. Maintaining O2 saturations in the 90s on 2 L/min per nasal cannula. He has been afebrile. Hemodynamically stable. White count 13.4. Hemoglobin 9.7. Platelets 340. Sodium 134. Potassium 3.8. Bicarb 24. BUN 27. Creatinine 0.8. Glucose 89. Continued on DuoNeb inhalations, Symbicort, Decadron. Today is his fifth dose of etoposide. Continuing with radiation. Edema of the upper extremities is improving. The patient is seen today January 20, 2024 in follow-up on the selective care unit. Yesterday he was having issues with chest pain and palpitations. EKG revealed sinus rhythm with frequent PVCs. Troponins 0.042, 0.040. Is currently resting comfortably in bed. He denies any chest pain or shortness of breath. He is maintaining good O2 saturations in the mid 90s on room air. He has been afebrile. Hemodynamically stable. His main complaint is of fatigue. He is anxious to go home. 9.4. Platelets 240. Sodium 132. Potassium 3.9. Bicarb 24. BUN 34. Creatinine 0.71. Glucose 91. He is scheduled for cisplatin on January 22, 2024. Receiving concurrent radiation. Objective - Vital Signs Vital signs: Vital Signs Temp 98.0 F 01/20/24 11:08 Pulse 81 01/20/24 11:08 Resp 18 01/20/24 11:08 BP 106/66 01/20/24 11:08 Pulse Ox 96 01/20/24 11:08 FiO2 Intake & Output 01/19/24 01/20/24 01/20/24 18:59 06:59 18:59 Intake Total 737 540 Balance 737 540 Weight 86.183 kg Intake: Intake, IV Titration 500 Amount Etoposide 100 mg In 250 Sodium Chloride 0.9% 250 ml @ 255 mls/hr IV Q24H DANIELLE Rx#:[id number] Magnesium Sulfate-D5w Pmx 200 1 gm In Dextrose/Water 1 100ml.bag @ 100 mls/hr IVPB Q1H DANIELLE Rx#: [id number] Ondansetron 16 mg In 50 Sodium Chloride 0.9% 50 ml @ 232 mls/hr IVPB Q24H DANIELLE Rx#:[id number] Oral 237 540 Other: Voiding Method Toilet Toilet Toilet # Bowel Movements 1 - Exam GENERAL EXAM: Awake, alert, weak 63-year-old male, resting in bed, on room air, in no apparent distress. HEAD: Normocephalic. EYES: Normal reaction of pupils, equal size. NOSE: Clear with pink turbinates. THROAT: No erythema or exudates. NECK: No masses, no JVD. CHEST: No chest wall deformity. LUNGS: Equal air entry with few scattered rhonchi, diminished left basilar lung sounds. CVS: S1 and S2 normal with no audible murmur, regular rhythm. ABDOMEN: No hepatosplenomegaly, normal bowel sounds, no guarding or rigidity. SPINE: No scoliosis or deformity SKIN: No rashes CENTRAL NERVOUS SYSTEM: No focal deficits, tone is normal in all 4 extremities. EXTREMITIES: There is trace peripheral edema. No clubbing, no cyanosis. Peripheral pulses are intact. - Labs CBC & Chem 7: 01/20/24 06:44 01/20/24 06:44 Labs: Abnormal Lab Results - Last 24 Hours (Table) 01/19/24 01/19/24 01/19/24 Range/Units 16:05 17:12 19:58 WBC (3.8-10.6) k/uL RBC (4.30-5.90) m/uL Hgb (13.0-17.5) gm/dL Hct (39.0-53.0) % Neutrophils # (1.3-7.7) k/uL Sodium (137-145) mmol/L BUN (9-20) mg/dL POC Glucose (mg/dL) 162 H 193 H (70-110) mg/dL Calcium (8.4-10.2) mg/dL Troponin I 0.042 H* (0.000-0.034) ng/mL Total Protein (6.3-8.2) g/dL Albumin (3.5-5.0) g/dL 01/19/24 01/20/24 01/20/24 Range/Units 21:18 06:44 06:44 WBC 12.5 H (3.8-10.6) k/uL RBC 3.52 L (4.30-5.90) m/uL Hgb 9.4 L (13.0-17.5) gm/dL Hct 29.5 L (39.0-53.0) % Neutrophils # 10.7 H (1.3-7.7) k/uL Sodium 132 L (137-145) mmol/L BUN 34 H (9-20) mg/dL POC Glucose (mg/dL) (70-110) mg/dL Calcium 7.9 L (8.4-10.2) mg/dL Troponin I 0.040 H* (0.000-0.034) ng/mL Total Protein 5.2 L (6.3-8.2) g/dL Albumin 2.6 L (3.5-5.0) g/dL Assessment and Plan Assessment: Acute on chronic shortness of breath in a patient with 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 CAT scan of the chest was reviewed. No evidence of any disease progression in terms of malignancy. No evidence of pneumonia. He has an acute COPD exacerbation in addition to his background lung cancer. Acute hypoxic respiratory failure currently on 3 L of oxygen by nasal cannula Chest pain and palpitations requiring transfer to the selective care unit. EKG revealed sinus rhythm with PVCs. Troponin 0.042, 0.040. Acute coronary syndrome ruled out Stage IIIc squamous cell carcinoma of the lung. The patient has a left infrahilar mass, measuring approximately 4 cm, highly suspicious for bro nchogenic carcinoma. The left hilar fullness/mass encroaching on the left lower lobe bronchus, along with cutoff sign, debris in the ascending left main bronchus, and new lower lobe opacification, likely postobstructive atelectasis. Please refer to the results of the bronchoscopy and endobronchial ultrasound. The patient was given a session of radiation therapy on 01/10/2024. The patient was initiated on cisplatin and etoposide January 15, 2024. To receive cisplatin again on January 22, 2024 receiving concurrent radiation History of hemoptysis, currently inactive and stable PET scan showed mediastinal lymphadenopathy and supraclavicular lymphadenopathy Chronic obstructive pulmonary disease, patient was recently started on Trelegy and as needed albuterol inhaler History of CVA/TIA History of coronary artery disease with remote history of PCI/stenting History of hyperlipidemia History of hypertension Former tobacco smoker, with over [id number] history, quitting approximately 1 month ago Plan: The patient was seen and evaluated Chest x-ray, EKG, labs and medications reviewed Echocardiogram pending Currently stable and on room air We will continue to follow I have personally seen and examined the patient, performed the documentation and the assessment and plan as written. Number of minutes spent on the visit: 10.
[2024-01-20 11:41] LABS: Glucose,Whole Blood 109 mg/dL (70-110)
--- NOTE | 2024-01-20 15:31 | P.PN ---
Subjective Progress Note Date: 01/20/24 This is a pleasant 63 years old male with past medical history of hypertension, hypothyroidism, coronary artery disease, recently diagnosed left perihilar mass with a positive biopsy from 12/24 showing non-small cell lung cancer with squamous cell cancer with metastasis to the mediastinal and lower neck lym phadenopathy. Patient presents today with worsening dyspnea over 2 days, he cannot walk for shortness unless he got short of breath and he has to stop His cough and phlegm are scanned and little at the end of frequent. He complains also from some chest pain about 6-5 in severity on the left side, n onradiating. Patient recently received first radiotherapy with Dr. Bah on last Monday Also patient lost his appetite not eating much. No dysuria or urgency. No headache dizziness weakness numbness. Patient non-smoker no alcohol no illicit drugs. He quit smoking. Also patient is mildly tachycardic. Will. Blood pressure on the soft side but is improving. Patient has mild leukocytosis and anemia. Platelet count is elevated 464. Sodium low 129. D-dimer elevated 2.8 Chest x-ray was negative for acute process CTA of the chest showing no pulmonary embolism but showing a left perihilar mass with near complete obstruction of the left main bronchus with obstructing many lung airways with scattered mediastinal and lower neck lymphedema most likely secondary to metastatic disease. 01/14/24 Patient complaining of shortness of breath He has swelling of both hands and feet No chest pain. Hospital oxygen saturation on 2-3 L/min via nasal cannula IV Lasix 40 mg added as well as a steroid Plan to treat with radiotherapy and chemotherapy while in the hospital because of his near complete obstruction of the left main bronchus 01/15/2024 Patient is evaluated in follow up today on the medical floor. Continues to report shortness of breath and congested cough. He has been evaluated by on cology and recommending to initiate the patient on chemotherapy starting today with cisplatin and etoposide. Patient will also continue with radiation to the lung mass. He will be taken off the IV lasix, lower extremity swelling has improved. He is being hydrated. Venous doppler negative for DVT bilaterally. 01/16/2024 Patient evaluated today in follow up. Underwent chemotherapy yesterday, jeremy ated well. Patient will undergo radiation tomorrow. White blood cell count 18.19, hgb 8.0. Hemodynamically stable. 01/17/2024 Patient is evaluated in follow up today. On day 2 of chemotherapy with et oposide. Patient slept well last night. He does have increased peripheral edema. Was continued on normal saline at 50 ml/hr which will be discontinued. Sodium down to 134. White blood cell count 16.2, hgb 8.6, sodium 134, potassium 4.5, BUN 30, creatinine 9.3. 01/18/2024 Patient evaluated today resting in bed. Continues to report significant fatigue and has been mostly bedrest. Patient continues on course of chemotherapy, oncology is following closely. Patients shortness of breath has improved with dose of IV lasix and he is now requiring less oxygen. Sodium normalized to 135, potassium 4.0, BUN 27.7, creatinine 0.8. White blood cell count 14.52, hgb 9.1. Hemodynamically stable. 01/19/2024 Patient is evaluated today resting in bed. Patient has completed 5/5 days of etoposide. Patient went for radiation today. Patient received a second dose of IV lasix yesterday. He is requiring less oxygen demands. Sodium today 134, BUN 26.8, creatinine 0.8. Magnesium 1.8. White blood cell count 13.42. Hemoglobin 9.7. Blood pressure in the high 90s systolic. 01/20/2024 Patient is evaluated today in follow-up on the cardiac stepdown unit. Yesterday afternoon after completion of patient's round of chemotherapy and radiation patient developed a sharp stabbing pain to the mid back near the scapula with increased shortness of breath. Pain was relieved with morphine however EKG was completed which reveals sinus rhythm premature supraventricular complexes and PACs. Heart rate of 90. Patient did have troponin elevation of 0.042 and 0.040 noted that his troponin level was negative at the beginning of this admission prior to starting chemotherapy. Patient was ordered to have an echocardiogram today and cardiology was consulted for further evaluation. Upon evaluation of the bedside today patient reports no further episodes of chest pain or shortness of breath and actually his shortness of breath is significantly improved today and he has been weaned to room air. His lungs are essentially clear at this time also although a chest x-ray was completed revealing possible mild acute c ardiopulmonary disease involving the left lung base as described with suggestion of a small pleural effusion. A retrocardiac infiltrate cannot be entirely excluded. Upon further evaluation of the chest x-ray it was personally be reviewed by the attending doctor and felt there was no pleural effusion and chest x-ray is essentially clear. White blood cell count today is 12.5, hemoglobin 9.4, sodium level of 132, BUN of 44, creatinine of 0.71, calcium level 7.9. Patient is 96% on room air. Review of Systems Constitutional: Reports fatigue denied any fever. Cardio vascular: denied any chest pain, palpitations Gastrointestinal: denied any nausea, vomiting, diarrhea Pulmonary: Reports shortness of breath and cough Neurologic denied any new focal deficits All inpatient medications were reviewed and appropriate changes in these medications as dictated in the interval history and assessment and plan. PHYSICAL EXAMINATION: GENERAL: The patient is alert and oriented x3, not in any acute distress. Well developed, well nourished. HEENT: Pupils are round and equally reacting to light. EOMI. No scleral icterus. No conjunctival pallor. Normocephalic, atraumatic. No pharyngeal erythema. No thyromegaly. CARDIOVASCULAR: S1 and S2 present. No murmurs, rubs, or gallops. PULMONARY: Diminished with scattered ronchi ABDOMEN: Soft, nontender, nondistended, normoactive bowel sounds. No palpable organomegaly. MUSCULOSKELETAL: No joint swelling or deformity. EXTREMITIES: No cyanosis, clubbing, or pedal edema. NEUROLOGICAL: Gross neurological examination did not reveal any focal deficits. SKIN: No rashes. Assessment and Plan Assessment Mass 4 cm with biopsy positive for non-small cell cancer squamous cell cancer with metastasis to the mediastinal and lower neck lymphadenopathy Near complete obstruction of the left main bronchus secondary to tumor -Episode of chest pain following chemotherapy acute coronary syndrome has been ruled out this could be musculoskeletal in nature Hypoxemic respiratory failure secondary to above Hyponatremia hypervolemic Steroid induced hyperglycemia Hypertension Hypothyroidism Coronary artery disease with prior PCI -History of mild ischemic cardiomyopathy with an EF of 45 to 50% back in 2017 Chronic systolic dysfunction History of smoking GI prophylaxis DVT prophylaxis: subcu heparin Full Code Plan: Continue with bronchodilator, IV Solu-Medrol 60 mg Continue accuchecks ACHS Pulmonary consult, oncology consult On chemotherapy day 5 of 5. Radiation. Cardiology consultation in place and recommending outpatient stress test with his usual insurance examiner once discharged Echocardiogram ordered and pending Patient has been started on imdur Hold lasix and fluids today and repeat blood work in the AM PT/OT consultation. The impression and plan of care has been dictated by Denia Soni, Nurse Practitioner as directed. Dr. Delmar MD I have performed a history and physical examination and medical decision making of this patient, discussed the same with the dictator, and agree with the dictators assessment and plan as written, documented as a scribe. Based on total visit time, I have performed more than 50% of this visit. Objective - Vital Signs Vital signs: Vital Signs Temp 97.5 F L 01/20/24 07:53 Pulse 94 01/20/24 09:21 Resp 18 01/20/24 07:53 BP 107/73 01/20/24 07:53 Pulse Ox 94 L 01/20/24 09:08 FiO2 Intake & Output 01/19/24 01/20/24 01/20/24 18:59 06:59 18:59 Intake Total 737 540 Balance 737 540 Weight 86.183 kg Intake: Intake, IV Titration 500 Amount Etoposide 100 mg In 250 Sodium Chloride 0.9% 250 ml @ 255 mls/hr IV Q24H DANIELLE Rx#:[id number] Magnesium Sulfate-D5w Pmx 200 1 gm In Dextrose/Water 1 100ml.bag @ 100 mls/hr IVPB Q1H DANIELLE Rx#: [id number] Ondansetron 16 mg In 50 Sodium Chloride 0.9% 50 ml @ 232 mls/hr IVPB Q24H DANIELLE Rx#:[id number] Oral 237 540 Other: Voiding Method Toilet Toilet Toilet # Bowel Movements 1 - Labs CBC & Chem 7: 01/20/24 06:44 01/20/24 06:44 Labs: Abnormal Lab Results - Last 24 Hours (Table) 01/19/24 01/19/24 01/19/24 Range/Units 06:24 06:24 16:05 WBC 13.42 H (4.50-10.00) X 10*3/uL RBC 3.65 L (4.40-5.60) X 10*6/uL Hgb 9.7 L (13.0-17.0) g/dL Hct 30.0 L (39.6-50.0) % MCH 26.6 L (27.0-32.0) pg RDW 15.7 H (11.5-14.5) % Immature Gran # 0.09 H (0.00-0.04) X 10*3/uL Neutrophils # 11.79 H (1.80-7.70) X 10*3/uL Eosinophils # 0.02 L (0.04-0.35) X 10*3/uL Sodium 134 L (135-145) mmol/L BUN (9-20) mg/dL BUN/Creatinine Ratio 33.50 H (12.00-20.00) Ratio POC Glucose (mg/dL) (70-110) mg/dL Calcium 8.1 L (8.7-10.3) mg/dL Troponin I 0.042 H* (0.000-0.034) ng/mL Total Protein (6.3-8.2) g/dL Albumin (3.5-5.0) g/dL 01/19/24 01/19/24 01/19/24 Range/Units 17:12 19:58 21:18 WBC (4.50-10.00) X 10*3/uL RBC (4.40-5.60) X 10*6/uL Hgb (13.0-17.0) g/dL Hct (39.6-50.0) % MCH (27.0-32.0) pg RDW (11.5-14.5) % Immature Gran # (0.00-0.04) X 10*3/uL Neutrophils # (1.80-7.70) X 10*3/uL Eosinophils # (0.04-0.35) X 10*3/uL Sodium (135-145) mmol/L BUN (9-20) mg/dL BUN/Creatinine Ratio (12.00-20.00) Ratio POC Glucose (mg/dL) 162 H 193 H (70-110) mg/dL Calcium (8.7-10.3) mg/dL Troponin I 0.040 H* (0.000-0.034) ng/mL Total Protein (6.3-8.2) g/dL Albumin (3.5-5.0) g/dL 01/20/24 01/20/24 Range/Units 06:44 06:44 WBC 12.5 H (4.50-10.00) X 10*3/uL RBC 3.52 L (4.40-5.60) X 10*6/uL Hgb 9.4 L (13.0-17.0) g/dL Hct 29.5 L (39.6-50.0) % MCH (27.0-32.0) pg RDW (11.5-14.5) % Immature Gran # (0.00-0.04) X 10*3/uL Neutrophils # 10.7 H (1.80-7.70) X 10*3/uL Eosinophils # (0.04-0.35) X 10*3/uL Sodium 132 L (135-145) mmol/L BUN 34 H (9-20) mg/dL BUN/Creatinine Ratio (12.00-20.00) Ratio POC Glucose (mg/dL) (70-110) mg/dL Calcium 7.9 L (8.7-10.3) mg/dL Troponin I (0.000-0.034) ng/mL Total Protein 5.2 L (6.3-8.2) g/dL Albumin 2.6 L (3.5-5.0) g/dL Assessment and Plan Time with Patient: Less than 30
[2024-01-20 16:41] LABS: Glucose,Whole Blood 106 mg/dL (70-110)
[2024-01-20] MEDS: PANTOPRAZOLE 40 MG TABLET PO SCH (16:59)
--- NOTE | 2024-01-20 17:35 | US ---
EXAMINATION TYPE: US venous doppler duplex UE RT DATE OF EXAM: 01/20/2024 COMPARISON: NONE CLINICAL INDICATION: Male, 63 years old with history of RUE heaviness, edema. PICC line, r/o DVT; Hea viness in right arm, can't move it properly, PICC line in place, chemo patient for lung CA SIDE PERFORMED: Right Right Arm: Negative for DVT *internal echoes that do not compress around PICC line in basilic vein of upper arm - superficial thrombus IMPRESSION: Grayscale, color doppler, spectral doppler imaging performed of the deep veins of the upper extremiti es. There is normal flow, compressibility and vascular waveforms.
[2024-01-20] MEDS: ONDANSETRON 4 MG/2 ML VIAL IVP PRN (18:50)
--- NOTE | 2024-01-20 18:54 | CA ---
Transthoracic Echo Report Name: Chris Vaughan Age: 63 Gender: M : 1960 Exam Date: 01/20/2024 09:54 Exam Location: [facility] Ht (in): 72 Wt (lb): 190 Ordering Physician: Denia Soni Attending/Referring Phys: Zachariah [employer] Laboratory Director Drea Delong, TAY Procedure CPT: Indications: Chest Pain Cardiac Hx: Technical Quality: Fair Contrast 1: Total Dose (mL): Contrast 2: Total Dose (mL): MEASUREMENTS (Male / Female) Normal Values 2D ECHO LV Diastolic Diameter PLAX 4.3 cm 4.2 - 5.9 / 3.9 - 5.3 cm LV Systolic Diameter PLAX 2.7 cm IVS Diastolic Thickness 1.4 cm 0.6 - 1.0 / 0.6 - 0.9 cm LVPW Diastolic Thickness 1.4 cm 0.6 - 1.0 / 0.6 - 0.9 cm LV Relative Wall Thickness 0.6 RV Internal Dim ED PLAX 2.4 cm LA Systolic Diameter LX 3.8 cm 3.0 - 4.0 / 2.7 - 3.8 cm LV Diastolic Volume MOD BP 66.1 cm??? 67 - 155 / 56 - 104 cm??? LV Systolic Volume MOD BP 34.3 cm??? 22 - 58 / 19 - 49 cm??? LV Ejection Fraction MOD BP 48.1 % >= 55 % LV Diastolic Volume MOD 4C 68.4 cm??? LV Systolic Volume MOD 4C 35.1 cm??? LV Ejection Fraction MOD 4C 48.7 % LV Diastolic Length 4C 6.6 cm LV Systolic Length 4C 5.9 cm LV Diastolic Volume MOD 2C 61.6 cm??? LV Systolic Volume MOD 2C 30.6 cm??? LV Ejection Fraction MOD 2C 50.3 % LV Diastolic Length 2C 6.4 cm LV Systolic Length 2C 5.4 cm LA Volume 59.0 cm??? 18 - 58 / 22 - 52 cm??? LA Volume Index 28.1 cm???/m??? 16 - 28 cm???/m??? M-MODE Aortic Root Diameter MM 3.0 cm LA Systolic Diameter MM 4.2 cm LA Ao Ratio MM 1.4 AV Cusp Separation MM 2.0 cm DOPPLER AV Peak Velocity 140.2 cm/s AV Peak Gradient 7.9 mmHg MV Area PHT 2.8 cm??? Mitral E Point Velocity 63.2 cm/s Mitral A Point Velocity 85.3 cm/s Mitral E to A Ratio 0.7 MV Deceleration Time 272.8 ms TR Peak Velocity 237.0 cm/s TR Peak Gradient 22.5 mmHg Right Ventricular Systolic Press 26.7 mmHg FINDINGS Left Ventricle Left ventricular ejection fraction is estimated at 45-50 %. Mildly increased septal wall thickness. Mildly decreased left ventricular ejection fraction. Mildly reduced global left ventricular systolic function. Left ventricular cavity size normal. Right Ventricle Normal right ventricular size and function. Right ventricular systolic pressure within normal limits. Right Atrium Mild right atrial dilatation. Left Atrium Mildly increased left atrial volume. Mitral Valve Structurally normal mitral valve. Moderate mitral regurgitation. Aortic Valve Trileaflet aortic valve. No aortic stenosis. No aortic regurgitation. Tricuspid Valve Structurally normal tricuspid valve. Trace tricuspid regurgitation. No tricuspid stenosis. Pulmonic Valve Structurally normal pulmonic valve. Trace pulmonic regurgitation. Pericardium No pericardial or pleural effusion. Aorta Normal size aortic root and proximal ascending aorta. CONCLUSIONS Mild LV systolic dysfunction Moderate mitral regurgitation Previewed by: Dr. Evangelista Carlson MD (Electronically Signed) Final Date: 20 January 2024 18:53
[2024-01-20 20:25] LABS: Glucose,Whole Blood 116 mg/dL (70-110)
[2024-01-20] MEDS: CALCIUM CARBONATE 500 MG CHEWABLE PO PRN (20:54)
--- NOTE | 2024-01-20 22:37 | P.PN ---
Subjective Progress Note Date: 01/20/24 Patient had acute chest pain after chemo yesterday, troponin mildly elevated at 0.42, repeat trop 0.40. Pt was transferred to tele floor, and cardiology was consulted. Upon review of note they do not believe this is an acute coronary event. At todays visit, pt reporting intermittent RUE heaviness and weakness over the last 1-2 days, can exactly recall onset of symptoms. Also having persisting RUE edema. Denies RLE weakness, slurred speech and facial droop. Denies n/v/d, abdominal pain, chills. But is experinecing heart burn. Protonix daily ordered. Counts stable, WBC 12.5, hgb 9.4, plt 240,000. Pt afebrile. Plan to proceed with day 8 of cisplatin on 01/21 once cleared by cardiology Objective - Vital Signs Vital signs: Vital Signs Temp 98.4 F 01/20/24 16:00 Pulse 89 01/20/24 16:00 Resp 18 01/20/24 16:00 BP 95/54 01/20/24 16:00 Pulse Ox 95 01/20/24 16:00 FiO2 Intake & Output 01/19/24 01/20/24 01/20/24 18:59 06:59 18:59 Intake Total 737 540 10 Balance 737 540 10 Weight 86.183 kg Intake: IV 10 Invasive Line 5 10 Intake, IV Titration 500 Amount Etoposide 100 mg In 250 Sodium Chloride 0.9% 250 ml @ 255 mls/hr IV Q24H DANIELLE Rx#:[id number] Magnesium Sulfate-D5w Pmx 200 1 gm In Dextrose/Water 1 100ml.bag @ 100 mls/hr IVPB Q1H DANIELLE Rx#: [id number] Ondansetron 16 mg In 50 Sodium Chloride 0.9% 50 ml @ 232 mls/hr IVPB Q24H DANIELLE Rx#:[id number] Oral 237 540 Other: Voiding Method Toilet Toilet Toilet # Bowel Movements 1 - Constitutional General appearance: Present: average body habitus, no acute distress - EENT Eyes: Present: anicteric sclerae, EOMI ENT: Present: hearing grossly normal - Respiratory Details: breathing is even and unlabored - Cardiovascular Details: skin warm and dry - Gastrointestinal General gastrointestinal: Present: soft. Absent: tenderness - Integumentary Integumentary: Absent: cyanotic, jaundiced - Neurologic Neurologic Comment(s): RUE weakness, difficulty with abduction, but was able to do with difficulty. Actuarial Associate strength equal bilaterally. BLE strength 5/5. No slurred speech or facial droop noted - Musculoskeletal Musculoskeletal Comment(s): RUE weakness - Psychiatric Psychiatric: Present: A&O x's 3 - Labs CBC & Chem 7: 01/20/24 06:44 01/20/24 06:44 Labs: Abnormal Lab Results - Last 24 Hours (Table) 01/19/24 01/19/24 01/19/24 Range/Units 17:12 19:58 21:18 WBC (3.8-10.6) k/uL RBC (4.30-5.90) m/uL Hgb (13.0-17.5) gm/dL Hct (39.0-53.0) % Neutrophils # (1.3-7.7) k/uL Sodium (137-145) mmol/L BUN (9-20) mg/dL POC Glucose (mg/dL) 162 H 193 H (70-110) mg/dL Calcium (8.4-10.2) mg/dL Troponin I 0.040 H* (0.000-0.034) ng/mL Total Protein (6.3-8.2) g/dL Albumin (3.5-5.0) g/dL 01/20/24 01/20/24 Range/Units 06:44 06:44 WBC 12.5 H (3.8-10.6) k/uL RBC 3.52 L (4.30-5.90) m/uL Hgb 9.4 L (13.0-17.5) gm/dL Hct 29.5 L (39.0-53.0) % Neutrophils # 10.7 H (1.3-7.7) k/uL Sodium 132 L (137-145) mmol/L BUN 34 H (9-20) mg/dL POC Glucose (mg/dL) (70-110) mg/dL Calcium 7.9 L (8.4-10.2) mg/dL Troponin I (0.000-0.034) ng/mL Total Protein 5.2 L (6.3-8.2) g/dL Albumin 2.6 L (3.5-5.0) g/dL Assessment and Plan (1) Neutrophilic leukocytosis Current Visit: Yes Status: Acute Priority: Medium Code(s): D72.9 - DISORDER OF WHITE BLOOD CELLS, UNSPECIFIED SNOMED Code(s): 178273935 (2) Normocytic anemia Current Visit: Yes Status: Acute Priority: Medium Code(s): D64.9 - ANEMIA, UNSPECIFIED SNOMED Code(s): 427554136 (3) 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 Noted to have 6.1 cm mass in the left lower lobe with mediastinal and bilateral supraclavicular lymphadenopathy on PET/CT from 01/04/2024. Brain MRI on 01/03/2024 notes no evidence of intracranial metastases. Circulating tumor DNA analysis revealed no targetable mutations -He presented to hospital with progressive dyspnea. CTA revealing no evidence of pulmonary embolism, but did note large perihilar mass causing near complete obstruction of the left mainstem bronchus in addition to obstruction of multiple large airways of the left lower lung -Has started XRT. Chemotherapy with cisplatin/etoposide initiated 01/15/2024. Plan to complete day 8 Cisplatin on 01/21, once cleared by cardiology Normocytic anemia -Anemia workup results-iron studies most consistent with anemia of inflammation 2/2 malignancy. Vitamin B12 low normal, folate normal, methylmalonic acid normal. No supplement at this time. -Continue to monitor CBC while inpt -Hgb stable today at 9.4. No reported bleeding. -Transfuse for Hgb <7 or if symptomatic Neutrophilic leukocytosis -12.5 today, slowly improving. No intervention at this time, cont to monitor -Likely secondary to inflammation from malignancy, as well as steroids that are being given with chemo. -No fevers, signs or symptoms concerning for infection. Cont to monitor closely Chest pain -Patient had acute chest pain after chemo yesterday, troponin mildly elevated at 0.42, repeat trop 0.40. -Cardiology was consulted. Upon review of note they do not believe this is an acute coronary event. ECHO ordered -Cardiotoxicity rare with Etoposide, don't believe this is chemo SE. Will continue to monitor s/s with subsequent infusions -Will plan to continue with day 8 Cisplatin on 01/21, once cleared by cardiology -Defer management to Cardiology team RUE swelling, weakness: -Intermittent heaviness over last cpl days, persisting edema. Of note picc line in place in RUE -Will obtain stat RUE doppler
[2024-01-21 06:11] LABS: Glucose,Whole Blood 92 mg/dL (70-110)
[2024-01-21 07:43] LABS: WBC 9.6 k/uL (3.8-10.6)
[2024-01-21 07:44] LABS: Basophils % (A) 0 %; Eosinophils # (A) 0.1 k/uL (0-0.7); Eosinophils % (A) 1 %; HCT 28.3 % (39.0-53.0); HGB 9.2 gm/dL (13.0-17.5); Lymphocytes # (A) 0.9 k/uL (1.0-4.8); Lymphocytes % (A) 10 %; MCHC 32.6 g/dL (31.0-37.0); MCV 82.9 fL (80.0-100.0); Mean Platelet Volume 8.6; Monocytes # (A) 0.5 k/uL (0-1.0); Monocytes % (A) 5 %; Neutrophils % (A) 83 %; Platelet Count 226 k/uL (150-450); RBC 3.42 m/uL (4.30-5.90); RDW 14.9 % (11.5-15.5)
[2024-01-21 07:58] LABS: ALT 26 U/L (4-49); AST 21 U/L (17-59); African American GFR (CKD) >90 (>60 ml/min/1.73 sqM); Albumin 2.6 g/dL (3.5-5.0); Alkaline Phosphatase 95 U/L (38-126); Anion Gap 6 mmol/L; Blood Urea Nitrogen 30 mg/dL (9-20); Calcium 8.2 mg/dL (8.4-10.2); Carbon Dioxide 20 mmol/L (22-30); Chloride 104 mmol/L (98-107); Glucose 85 mg/dL (74-99); Non-African American GFR(CKD) >90 (>60 ml/min/1.73 sqM); Potassium 3.7 mmol/L (3.5-5.1); Sodium 130 mmol/L (137-145); Total Bilirubin 0.9 mg/dL (0.2-1.3); Total Protein 5.1 g/dL (6.3-8.2)
--- NOTE | 2024-01-21 10:17 | P.PN ---
Subjective HISTORY OF PRESENT ILLNESS: This is a 63-year-old male with a past medical history significant for hyperlipidemia, coronary artery disease with previous stenting, hypothyroidism, and lung cancer. Patient follows with a telephone exchange operator out of [facility]. We have been asked to see the patient in consultation for chest pain. Patient examined at the bedside. Patient states he presented to the hospital a little over a week ago with a chief complaint of shortness of breath. The patient does have stage III squamous cell carcinoma of the lung and has been undergoing radiation and chemotherapy. The patient does report having a frequent product emerald cough. The patient states yesterday he had an episode of chest pain. He also reports having some stabbing pain in the middle of his back. He denied any radiation of the pain. EKG completed which did not reveal any acute ischemic changes. The patient states he has not had any further episodes of chest pain or pressure. The patient's family ember at the bedside states that he was on Plavix but this was discontinued as he was coughing up blood. However the patient states his last stenting was in 2016. DIAGNOSTICS: - EKG reveals sinus mechanism with no signs of acute ischemia. - Chest xray possible mild acute cardiopulmonary disease involving the left lung base - Laboratory data: WBC 12.5. Hemoglobin 9.4. Platelet count 240. Sodium 132. Potassium 3.9. BUN 34. Creatinine 0.71. Troponin 0.012. 0.042. 0.040. - Current home cardiac medications include aspirin 81 mg daily, Zetia 10 mg daily, atorvastatin 80 mg at night, metoprolol succinate 50 mg daily. - Most recent echocardiogram obtained in 2016 revealed ejection fraction 45 to 50% with apical lateral and apical inferior hypokinesis 01/21/2024 Patient examined this morning at bedside. Patient reports mild shortness of breath. He denies any further episodes of chest pain or pressure. Echocardiogram completed revealing ejection fraction 45 to 50% with moderate MR. Vital signs are stable. PHYSICAL EXAM: VITAL SIGNS: Reviewed. GENERAL: Well-developed in no acute distress. HEENT: Head is normocephalic. Pupils are equal, round. Sclerae anicteric. Mucous membranes of the mouth are moist. Neck supple. No JVD or thyromegaly LUNGS: Respirations even and unlabored. Lungs essentially clear to auscultation bilaterally. HEART: Regular rate and rhythm. S1 and S2 heard. ABDOMEN: Soft. Nondistended. Nontender. EXTREMITIES: Normal range of motion. No clubbing or cyanosis. Peripheral pulses intact. No lower extremity edema NEUROLOGIC: Awake and alert. Oriented x 3. ASSESSMENT: Shortness of breath Acute hypoxic respiratory failure requiring supplemental oxygen Elevated troponin, likely type II OK secondary to oxygen supply and demand mismatch, no evidence of acute coronary syndrome Chest pain, acute coronary syndrome ruled out, likely secondary to active pulmonary issues Stage III squamous cell carcinoma of the lung, undergoing chemotherapy and radiation Coronary artery disease with previous stenting, last in 2016 History of mild ischemic cardiomyopathy, 45 to 50% History of hemoptysis with subsequent discontinuation of Plavix History of COPD Hyperlipidemia History of CVA/TIA Former nicotine dependence PLAN: An acute coronary event has been ruled out Continue aspirin 81 mg daily. Patient does not need to be continued on Plavix as his last stenting was in 2016 Recommend outpatient stress testing with patient's primary telephone exchange operator at [facility] once his acute issues have resolved No further inpatient recommendations from a cardiac standpoint We will sign off. Please reconsult if needed. Nurse practitioner note has been reviewed by physician. Signing provider agrees with the documented findings, assessment, and plan of care documented by [employer] as a scribe. Objective - Vital Signs Vital signs: Vital Signs Temp 97.9 F 01/21/24 08:28 Pulse 104 H 01/21/24 08:28 Resp 18 01/21/24 08:28 BP 102/68 01/21/24 08:28 Pulse Ox 93 L 01/21/24 08:28 FiO2 Intake & Output 01/20/24 01/21/24 01/21/24 18:59 06:59 18:59 Intake Total 10 20 10 Balance 10 20 10 Intake: IV 10 20 10 Invasive Line 5 10 20 10 Other: Voiding Method Toilet Toilet Toilet # Voids 1 - Labs CBC & Chem 7: 01/21/24 07:23 01/21/24 07:23 Labs: Abnormal Lab Results - Last 24 Hours (Table) 01/20/24 01/21/24 01/21/24 Range/Units 20:23 07:23 07:23 RBC 3.42 L (4.30-5.90) m/uL Hgb 9.2 L (13.0-17.5) gm/dL Hct 28.3 L (39.0-53.0) % Neutrophils # 8.0 H (1.3-7.7) k/uL Lymphocytes # 0.9 L (1.0-4.8) k/uL Sodium 130 L (137-145) mmol/L Carbon Dioxide 20 L (22-30) mmol/L BUN 30 H (9-20) mg/dL POC Glucose (mg/dL) 116 H (70-110) mg/dL Calcium 8.2 L (8.4-10.2) mg/dL Total Protein 5.1 L (6.3-8.2) g/dL Albumin 2.6 L (3.5-5.0) g/dL
--- NOTE | 2024-01-21 11:33 | CT ---
EXAMINATION TYPE: CT brain wo con DATE OF EXAM: 01/21/2024 COMPARISON: None HISTORY: RIGHT ARM WEAKNESS CT DLP: 2332.[address] of the brain was performed. The ventricles, basal cisterns and sulci overlying the cerebral convexities demonstrate mild enlargem ent. There is no evidence for intracranial hemorrhage or sulcal effacement. There is decreased attenuation about the periventricular white matter and deep white matter of both c erebral hemispheres, compatible with chronic small vessel ischemia. Differential diagnosis does inclu de demyelination. No mass effects are seen.No midline shift. Osseous calvarium is intact. If symptoms persist consider MRI. IMPRESSION: 1. Age related atrophic and chronic small vessel ischemic change without acute intracranial process s een at this time.
[2024-01-21 11:47] LABS: Glucose,Whole Blood 97 mg/dL (70-110)
[2024-01-21] MEDS: SODIUM CHLORIDE 0.9% 1,000 ML IV SCH (11:52)
--- NOTE | 2024-01-21 13:15 | P.PN ---
Subjective Progress Note Date: 01/21/24 This is a 63-year-old male patient with a recent diagnosis of 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 I performed the patient's bronchoscopy and the patient has a left hilar mass at the level of the secondary manuel and the left lower lobe causing significant mass effect and obstruction of the left lower lobe bronchus. The patient also had an outpatient PET/CT that showed mediastinal lymphadenopathy uptake and bilateral supraclavicular lymphadenopathy uptake. Based on that, the patient was seen by medical oncology. The patient was supposed to start systemic chemotherapy with cis [place] and TESTER COMPRESSED GASES-16 as of tomorrow. The patient was also given a session of radiation therapy on 01/10/2024 and due to the holidays no further treatment was given. Patient is coming in with worsening shortness of breath. He is quite anxious. He also has developed some edema in his upper and lower extremities. Currently on 2 L of oxygen by nasal cannula. The viral screen has been negative. D-dimer is at 2.8. CT of the chest was done that showed no significant changes in terms of his malignancy. The patient continues to have a left hilar mass and some atelectatic changes in the left lower lobe. There is significant mass effect on the left lower lobe bronchus. The patient has no evidence of any pulmonary embolism. He is currently on 2 L of oxygen by nasal cannula. He is complaining of shortness of breath. He has also COPD maintained on Trelegy Ellipta on outpatient basis. No hemoptysis. The patient is seen today January 15, 2024 in follow-up on the regular medical floor. He is currently sitting up in bed. Awake and alert in no acute distress. He does have some dyspnea with conversation. Dyspnea with exertion. Maintaining good O2 saturations in the 90s on room air. Chest x-ray remains stable. No acute cardiopulmonary process. Dopplers of the lower extremities were negative for DVT. Glucose 199. He is continued on DuoNeb inhalations, Symbicort, Solu-Medrol. He remains on IV diuretics. The plan is to start cisplatin and etoposide today per medical oncology. The patient is seen today January 16, 2024 in follow-up on the regular medical floor. He is currently resting in bed. Awake and alert in no acute distress. He is maintaining O2 saturations in the 90s on 2 L/min per nasal cannula. He did receive etoposide and cisplatin yesterday. He remains on Decadron 10 mg IV every 24 hours. Plan is for a radiation treatment again today. White count 18.1. Hemoglobin 8.0. Platelets 404. Glucose 164. Magnesium 2.1. He remains on DuoNebs and Symbicort, The patient is seen today January 17, 2024 in follow-up on the regular medical floor. He is awake and alert in no acute distress. Resting fairly comfortably in bed. Denies any worsening shortness of breath, cough or congestion. Maintaining O2 saturations in the 90s on 2 L/min per nasal cannula. He is continued on DuoNeb inhalations, Symbicort. Remains on Decadron. Continuing with radiation treatments. White count 16.2. Hemoglobin 8.6. Platelets 362. Sodium 134. Potassium 4.5. Bicarb 23. BUN 30. Creatinine 0.93. Glucose 115. proBNP 6020. Right upper extremity PICC line was placed today. Chest x-ray reveals no acute cardiopulmonary process. The patient is seen today January 18, 2024 in follow-up on the regular medical floor. He is currently resting in bed. Awake and alert in no acute distress. He did have radiation therapy again today. He is maintaining good O2 saturations in the 90s on 3 L/min per nasal cannula. He has been afebrile. Hemodynamically stable. White count 14.5. Hemoglobin 9.1. Platelets 399. Sodium 135. Potassium 4.0. Bicarb 25. BUN 28. Creatinine 0.8. Glucose 95. He remains on Decadron 10 mg IV daily. Remains on DuoNeb inhalations and Symbicort. To complete 5 days of etoposide. Today will be dose #4. The patient is seen today January 19, 2024 in follow-up on the regular medical floor. He is awake and alert in no acute distress. Resting comfortably in bed. Maintaining O2 saturations in the 90s on 2 L/min per nasal cannula. He has been afebrile. Hemodynamically stable. White count 13.4. Hemoglobin 9.7. Platelets 340. Sodium 134. Potassium 3.8. Bicarb 24. BUN 27. Creatinine 0.8. Glucose 89. Continued on DuoNeb inhalations, Symbicort, Decadron. Today is his fifth dose of etoposide. Continuing with radiation. Edema of the upper extremities is improving. The patient is seen today January 20, 2024 in follow-up on the selective care unit. Yesterday he was having issues with chest pain and palpitations. EKG revealed sinus rhythm with frequent PVCs. Troponins 0.042, 0.040. Is currently resting comfortably in bed. He denies any chest pain or shortness of breath. He is maintaining good O2 saturations in the mid 90s on room air. He has been afebrile. Hemodynamically stable. His main complaint is of fatigue. He is anxious to go home. 9.4. Platelets 240. Sodium 132. Potassium 3.9. Bicarb 24. BUN 34. Creatinine 0.71. Glucose 91. He is scheduled for cisplatin on January 22, 2024. Receiving concurrent radiation. The patient is seen today January 21, 2024 in follow-up on the selective care unit. He is awake and alert in no acute distress. He is resting fairly comfortably in bed. He is having issues with increased edema and weakness of his right upper extremity. PICC line is in place. Doppler revealed no evidence of DVT. CT scan of the brain revealed no acute intracranial process. White count 9.6. Hemoglobin 9.2. Platelets 226. Sodium 130. Potassium 3.7. Bicarb 20. BUN 30. Creatinine 0.66. Glucose 85. He is continued on DuoNeb inhalations, Symbicort, Tessalon Perles. Heparin for DVT prophylaxis. Normal saline at 50 MLS per hour. He remains in sinus rhythm with occasional PVCs. Echocardiogram revealed mildly impaired left ventricular systolic function with ejection fraction of 45 to 50%. Objective - Vital Signs Vital signs: Vital Signs Temp 98.3 F 01/21/24 11:50 Pulse 97 01/21/24 11:50 Resp 18 01/21/24 11:50 BP 104/64 01/21/24 11:50 Pulse Ox 94 L 01/21/24 11:50 FiO2 Intake & Output 01/20/24 01/21/24 01/21/24 18:59 06:59 18:59 Intake Total 10 20 10 Balance 10 20 10 Intake: IV 10 20 10 Invasive Line 5 10 20 10 Other: Voiding Method Toilet Toilet Toilet # Voids 1 - Exam GENERAL EXAM: Awake, very fatigued 63-year-old male, on room air oxygen, fairly comfortable, in no apparent distress. HEAD: Normocephalic. EYES: Normal reaction of pupils, equal size. NOSE: Clear with pink turbinates. THROAT: No erythema or exudates. NECK: No masses, no JVD. CHEST: No chest wall deformity. LUNGS: Equal air entry with few scattered rhonchi, diminished left basilar lung sounds. CVS: S1 and S2 normal with no audible murmur, regular rhythm. ABDOMEN: No hepatosplenomegaly, normal bowel sounds, no guarding or rigidity. SPINE: No scoliosis or deformity SKIN: No rashes CENTRAL NERVOUS SYSTEM: No focal deficits, tone is normal in all 4 extremities. EXTREMITIES: Right upper extremity edema. Right upper extremity PICC line in place. Peripheral pulses are intact. - Labs CBC & Chem 7: 01/21/24 07:23 01/21/24 07:23 Labs: Abnormal Lab Results - Last 24 Hours (Table) 01/20/24 01/21/24 01/21/24 Range/Units 20:23 07:23 07:23 RBC 3.42 L (4.30-5.90) m/uL Hgb 9.2 L (13.0-17.5) gm/dL Hct 28.3 L (39.0-53.0) % Neutrophils # 8.0 H (1.3-7.7) k/uL Lymphocytes # 0.9 L (1.0-4.8) k/uL Sodium 130 L (137-145) mmol/L Carbon Dioxide 20 L (22-30) mmol/L BUN 30 H (9-20) mg/dL POC Glucose (mg/dL) 116 H (70-110) mg/dL Calcium 8.2 L (8.4-10.2) mg/dL Total Protein 5.1 L (6.3-8.2) g/dL Albumin 2.6 L (3.5-5.0) g/dL Assessment and Plan Assessment: Acute on chronic shortness of breath in a patient with 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 CAT scan of the chest was reviewed. No evidence of any disease progression in terms of malignancy. No evidence of pneumonia. He has an acute COPD exacerbation in addition to his background lung cancer. Acute hypoxic respiratory failure currently on 3 L of oxygen by nasal cannula Chest pain and palpitations requiring transfer to the selective care unit. EKG revealed sinus rhythm with PVCs. Troponin 0.042, 0.040. Acute coronary syndrome ruled out. Echocardiogram revealed mildly impaired left ventricular systolic function with ejection fraction 45 to 50% mild global hypokinesia Stage IIIc squamous cell carcinoma of the lung. The patient has a left inf rahilar mass, measuring approximately 4 cm, highly suspicious for bronchogenic carcinoma. The left hilar fullness/mass encroaching on the left lower lobe bronchus, along with cutoff sign, debris in the ascending left main bronchus, and new lower lobe opacification, likely postobstructive atelectasis. Please refer to the results of the bronchoscopy and endobronchial ultrasound. The patient was given a session of radiation therapy on 01/10/2024. The patient was initiated on cisplatin and etoposide January 15, 2024. To receive cisplatin again on January 22, 2024 receiving concurrent radiation Right upper extremity weakness and edema. CT scan of the brain revealed no acute abnormalities. Doppler revealed no DVT. There is a right upper extremity PICC line in place History of hemoptysis, currently inactive and stable PET scan showed mediastinal lymphadenopathy and supraclavicular lymphadenopathy Chronic obstructive pulmonary disease, patient was recently started on Trelegy and as needed albuterol inhaler History of CVA/TIA History of coronary artery disease with remote history of PCI/stenting History of hyperlipidemia History of hypertension Former tobacco smoker, with over [id number] history, quitting approximately 1 month ago Plan: The patient was seen and evaluated Echocardiogram, labs and medications reviewed CT scan of the brain revealed no acute abnormalities Doppler of the right upper extremity ruled out DVT Right upper extremity PICC line in place May need to consider discontinuing Tomorrow will be day 8 of cisplatin We will continue to follow I have personally seen and examined the patient, performed the documentation and the assessment and plan as written. Number of minutes spent on the visit: 10.
--- NOTE | 2024-01-21 17:10 | P.PN ---
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 Patient presents today with worsening dyspnea over 2 days, he cannot walk for shortness unless he got short of breath and he has to stop His cough and phlegm are scanned and little at the end of frequent. He complains also from some chest pain about 6-5 in severity on the left side, n onradiating. Patient recently received first radiotherapy with Dr. Bah on last Monday Also patient lost his appetite not eating much. No dysuria or urgency. No headache dizziness weakness numbness. Patient non-smoker no alcohol no illicit drugs. He quit smoking. Also patient is mildly tachycardic. Will. Blood pressure on the soft side but is improving. Patient has mild leukocytosis and anemia. Platelet count is elevated 464. Sodium low 129. D-dimer elevated 2.8 Chest x-ray was negative for acute process CTA of the chest showing no pulmonary embolism but showing a left perihilar mass with near complete obstruction of the left main bronchus with obstructing many lung airways with scattered mediastinal and lower neck lymphedema most likely secondary to metastatic disease. 01/14/24 Patient complaining of shortness of breath He has swelling of both hands and feet No chest pain. Hospital oxygen saturation on 2-3 L/min via nasal cannula IV Lasix 40 mg added as well as a steroid Plan to treat with radiotherapy and chemotherapy while in the hospital because of his near complete obstruction of the left main bronchus 01/15/2024 Patient is evaluated in follow up today on the medical floor. Continues to report shortness of breath and congested cough. He has been evaluated by on cology and recommending to initiate the patient on chemotherapy starting today with cisplatin and etoposide. Patient will also continue with radiation to the lung mass. He will be taken off the IV lasix, lower extremity swelling has improved. He is being hydrated. Venous doppler negative for DVT bilaterally. 01/16/2024 Patient evaluated today in follow up. Underwent chemotherapy yesterday, jeremy ated well. Patient will undergo radiation tomorrow. White blood cell count 18.19, hgb 8.0. Hemodynamically stable. 01/17/2024 Patient is evaluated in follow up today. On day 2 of chemotherapy with et oposide. Patient slept well last night. He does have increased peripheral edema. Was continued on normal saline at 50 ml/hr which will be discontinued. Sodium down to 134. White blood cell count 16.2, hgb 8.6, sodium 134, potassium 4.5, BUN 30, creatinine 9.3. 01/18/2024 Patient evaluated today resting in bed. Continues to report significant fatigue and has been mostly bedrest. Patient continues on course of chemotherapy, oncology is following closely. Patients shortness of breath has improved with dose of IV lasix and he is now requiring less oxygen. Sodium normalized to 135, potassium 4.0, BUN 27.7, creatinine 0.8. White blood cell count 14.52, hgb 9.1. Hemodynamically stable. 01/19/2024 Patient is evaluated today resting in bed. Patient has completed 5/5 days of etoposide. Patient went for radiation today. Patient received a second dose of IV lasix yesterday. He is requiring less oxygen demands. Sodium today 134, BUN 26.8, creatinine 0.8. Magnesium 1.8. White blood cell count 13.42. Hemoglobin 9.7. Blood pressure in the high 90s systolic. 01/20/2024 Patient is evaluated today in follow-up on the cardiac stepdown unit. Yesterday afternoon after completion of patient's round of chemotherapy and radiation patient developed a sharp stabbing pain to the mid back near the scapula with increased shortness of breath. Pain was relieved with morphine however EKG was completed which reveals sinus rhythm premature supraventricular complexes and PACs. Heart rate of 90. Patient did have troponin elevation of 0.042 and 0.040 noted that his troponin level was negative at the beginning of this admission prior to starting chemotherapy. Patient was ordered to have an echocardiogram today and cardiology was consulted for further evaluation. Upon evaluation of the bedside today patient reports no further episodes of chest pain or shortness of breath and actually his shortness of breath is significantly improved today and he has been weaned to room air. His lungs are essentially clear at this time also although a chest x-ray was completed revealing possible mild acute c ardiopulmonary disease involving the left lung base as described with suggestion of a small pleural effusion. A retrocardiac infiltrate cannot be entirely excluded. Upon further evaluation of the chest x-ray it was personally be reviewed by the attending doctor and felt there was no pleural effusion and chest x-ray is essentially clear. White blood cell count today is 12.5, hemoglobin 9.4, sodium level of 132, BUN of 44, creatinine of 0.71, calcium level 7.9. Patient is 96% on room air. 01/21/2024 Patient is evaluated in follow up on the cardiac unit. He underwent an echocardiogram which reveals EF 45-50% with moderate MR. Patient has been evaluated by cardiology. Will continue on imdur. Patient having issues with his right arm and movement unable to lift above his head with 4/5 strength No other neurological deficits and lower extremity strength is 5/5 bilaterally. Per patient this started [address] is negative for acute findings. He states this has happened to him before at work where he was unable to lift his arm above his head. Sodium level today 130, potassium 3.7, BUN 30, creatinine 0.66. proBNP down to 422. White blood cell 9.6, hemoglobin 9.2. Review of Systems Constitutional: Reports fatigue denied any fever. Cardio vascular: denied any chest pain, palpitations Gastrointestinal: denied any nausea, vomiting, diarrhea Pulmonary: Reports shortness of breath and cough Neurologic denied any new focal deficits All inpatient medications were reviewed and appropriate changes in these medications as dictated in the interval history and assessment and plan. PHYSICAL EXAMINATION: GENERAL: The patient is alert and oriented x3, not in any acute distress. Well developed, well nourished. HEENT: Pupils are round and equally reacting to light. EOMI. No scleral icterus. No conjunctival pallor. Normocephalic, atraumatic. No pharyngeal erythema. No thyromegaly. CARDIOVASCULAR: S1 and S2 present. No murmurs, rubs, or gallops. PULMONARY: Diminished with scattered ronchi ABDOMEN: Soft, nontender, nondistended, normoactive bowel sounds. No palpable or ganomegaly. MUSCULOSKELETAL: No joint swelling or deformity. EXTREMITIES: No cyanosis, clubbing, or pedal edema. NEUROLOGICAL: Gross neurological examination did not reveal any focal deficits. SKIN: No rashes. Assessment and Plan Assessment Mass 4 cm with biopsy positive for 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 Hypoxemic respiratory failure secondary to above Hyponatremia hypervolemic Steroid induced hyperglycemia Hypertension Hypothyroidism Coronary artery disease with prior PCI -History of mild ischemic cardiomyopathy with an EF of 45 to 50% back in 2017 Chronic systolic dysfunction History of smoking GI prophylaxis DVT prophylaxis: subcu heparin Full Code Plan: Brain CT without contrast ordered Continue with bronchodilator, IV Solu-Medrol 60 mg Continue accuchecks ACHS Pulmonary consult, oncology consult Cardiology consultation in place and recommending outpatient stress test with his usual lofter once discharged Echocardiogram reviewed no change in his ejection fraction from echocardiogram back in 2016 Patient has been started on imdur Continue to hold lasix and patient has been started on normal saline at 50 mls/ hr Repeat blood work in the AM Patient will be transferred back to [address] [place] [address] PT/OT consultation. The impression and plan of care has been dictated by Denia Soni, Nurse Practitioner as directed. Dr. Delmar MD I have performed a history and physical examination and medical decision making of this patient, discussed the same with the dictator, and agree with the dictators assessment and plan as written, documented as a scribe. Based on total visit time, I have performed more than 50% of this visit. Objective - Vital Signs Vital signs: Vital Signs Temp 97.9 F 01/21/24 08:28 Pulse 104 H 01/21/24 08:28 Resp 18 01/21/24 08:28 BP 102/68 01/21/24 08:28 Pulse Ox 93 L 01/21/24 08:28 FiO2 Intake & Output 01/20/24 01/21/24 01/21/24 18:59 06:59 18:59 Intake Total 10 20 10 Balance 10 20 10 Intake: IV 10 20 10 Invasive Line 5 10 20 10 Other: Voiding Method Toilet Toilet # Voids 1 - Labs CBC & Chem 7: 01/21/24 07:23 01/21/24 07:23 Labs: Abnormal Lab Results - Last 24 Hours (Table) 01/20/24 01/21/24 01/21/24 Range/Units 20:23 07:23 07:23 RBC 3.42 L (4.30-5.90) m/uL Hgb 9.2 L (13.0-17.5) gm/dL Hct 28.3 L (39.0-53.0) % Neutrophils # 8.0 H (1.3-7.7) k/uL Lymphocytes # 0.9 L (1.0-4.8) k/uL Sodium 130 L (137-145) mmol/L Carbon Dioxide 20 L (22-30) mmol/L BUN 30 H (9-20) mg/dL POC Glucose (mg/dL) 116 H (70-110) mg/dL Calcium 8.2 L (8.4-10.2) mg/dL Total Protein 5.1 L (6.3-8.2) g/dL Albumin 2.6 L (3.5-5.0) g/dL Assessment and Plan Time with Patient: Less than 30
[2024-01-21 17:15] LABS: Glucose,Whole Blood 126 mg/dL (70-110)
[2024-01-21 20:27] LABS: Glucose,Whole Blood 121 mg/dL (70-110)
[2024-01-22 00:05] LABS: Glucose,Whole Blood 86 mg/dL (70-110)
[2024-01-22 00:49] LABS: Glucose,Whole Blood 83 mg/dL (70-110)
[2024-01-22 07:33] LABS: Glucose,Whole Blood 75 mg/dL (70-110)
[2024-01-22 08:37] LABS: HCT 25.1 % (39.6-50.0); HGB 8.3 g/dL (13.0-17.0); MCH 27.2 pg (27.0-32.0); MCHC 33.1 g/dL (32.0-37.0); MCV 82.3 FL (80.0-97.0); Mean Platelet Volume 11.5 FL (9.5-12.2); NRBC Per 100 WBC 0 X 10*3/uL (0.00-0.01); Platelet Count 189 X 10*3/uL (140-440); RBC 3.05 X 10*6/uL (4.40-5.60); RDW 15.6 % (11.5-14.5); WBC 6.38 X 10*3/uL (4.50-10.00)
[2024-01-22 09:41] LABS: ALT 23 U/L (10-49); AST 19 U/L (14-35); Albumin 2.9 g/dL (3.8-4.9); Albumin/Globulin Ratio 1.38 Ratio (1.60-3.17); Alkaline Phosphatase 95 U/L (41-126); BUN/Creat Ratio 33.12 Ratio (12.00-20.00); Blood Urea Nitrogen 26.5 mg/dL (9.0-27.0); Calcium 7.5 mg/dL (8.7-10.3); Carbon Dioxide 22.4 mmol/L (21.6-31.8); Chloride 102 mmol/L (96-109); Globulin 2.1 g/dL (1.6-3.3); Glucose 67 mg/dL (70-110); Potassium 3.8 mmol/L (3.5-5.5); Sodium 135 mmol/L (135-145); Total Bilirubin 0.3 mg/dL (0.3-1.2)
[2024-01-22 09:59] LABS: Basophils # (A) 0.02 X 10*3/uL (0.00-0.10); Basophils % (A) 0.3 %; Eosinophils # (A) 0.18 X 10*3/uL (0.04-0.35); Eosinophils % (A) 2.8 %; Lymphocytes # (A) 1.24 X 10*3/uL (0.90-5.00); Lymphocytes % (A) 19.4 %; Monocytes # (A) 0.06 X 10*3/uL (0.20-1.00); Monocytes % (A) 0.9 %; Neutrophils # (A) 4.77 X 10*3/uL (1.80-7.70); Neutrophils % (A) 74.9 %
[2024-01-22 10:00] LABS: RBC Morphology Normal (Normal)
--- NOTE | 2024-01-22 11:38 | P.PN ---
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 I performed the patient's bronchoscopy and the patient has a left hilar mass at the level of the secondary manuel and the left lower lobe causing significant mass effect and obstruction of the left lower lobe bronchus. The patient also had an outpatient PET/CT that showed mediastinal lymphadenopathy uptake and bilateral supraclavicular lymphadenopathy uptake. Based on that, the patient was seen by medical oncology. The patient was supposed to start systemic chemotherapy with cis eek and ALCOHOL [id number]-[id number] as of tomorrow. The patient was also given a session of radiation therapy on 01/10/2024 and due to the holidays no further treatment was given. Patient is coming in with worsening shortness of breath. He is quite anxious. He also has developed some edema in his upper and lower extremities. Currently on 2 L of oxygen by nasal cannula. The viral screen has been negative. D-dimer is at 2.8. CT of the chest was done that showed no significant changes in terms of his malignancy. The patient continues to have a left hilar mass and some atelectatic changes in the left lower lobe. There is significant mass effect on the left lower lobe bronchus. The patient has no evidence of any pulmonary embolism. He is currently on 2 L of oxygen by nasal cannula. He is complaining of shortness of breath. He has also COPD maintained on Trelegy Ellipta on outpatient basis. No hemoptysis. The patient is seen today January 15, 2024 in follow-up on the regular medical floor. He is currently sitting up in bed. Awake and alert in no acute distress. He does have some dyspnea with conversation. Dyspnea with exertion. Maintaining good O2 saturations in the 90s on room air. Chest x-ray remains stable. No acute cardiopulmonary process. Dopplers of the lower extremities were negative for DVT. Glucose 199. He is continued on DuoNeb inhalations, Symbicort, Solu-Medrol. He remains on IV diuretics. The plan is to start cisplatin and etoposide today per medical oncology. The patient is seen today January 16, 2024 in follow-up on the regular medical floor. He is currently resting in bed. Awake and alert in no acute distress. He is maintaining O2 saturations in the 90s on 2 L/min per nasal cannula. He did receive etoposide and cisplatin yesterday. He remains on Decadron 10 mg IV every 24 hours. Plan is for a radiation treatment again today. White count 18.1. Hemoglobin 8.0. Platelets 404. Glucose 164. Magnesium 2.1. He remains on DuoNebs and Symbicort, The patient is seen today January 17, 2024 in follow-up on the regular medical floor. He is awake and alert in no acute distress. Resting fairly comfortably in bed. Denies any worsening shortness of breath, cough or congestion. Maintaining O2 saturations in the 90s on 2 L/min per nasal cannula. He is continued on DuoNeb inhalations, Symbicort. Remains on Decadron. Continuing with radiation treatments. White count 16.2. Hemoglobin 8.6. Platelets 362. Sodium 134. Potassium 4.5. Bicarb 23. BUN 30. Creatinine 0.93. Glucose 115. proBNP 6020. Right upper extremity PICC line was placed today. Chest x-ray reveals no acute cardiopulmonary process. The patient is seen today January 18, 2024 in follow-up on the regular medical floor. He is currently resting in bed. Awake and alert in no acute distress. He did have radiation therapy again today. He is maintaining good O2 saturations in the 90s on 3 L/min per nasal cannula. He has been afebrile. Hemodynamically stable. White count 14.5. Hemoglobin 9.1. Platelets 399. Sodium 135. Potassium 4.0. Bicarb 25. BUN 28. Creatinine 0.8. Glucose 95. He remains on Decadron 10 mg IV daily. Remains on DuoNeb inhalations and Symbicort. To complete 5 days of etoposide. Today will be dose #4. The patient is seen today January 19, 2024 in follow-up on the regular medical floor. He is awake and alert in no acute distress. Resting comfortably in bed. Maintaining O2 saturations in the 90s on 2 L/min per nasal cannula. He has been afebrile. Hemodynamically stable. White count 13.4. Hemoglobin 9.7. Platelets 340. Sodium 134. Potassium 3.8. Bicarb 24. BUN 27. Creatinine 0.8. Glucose 89. Continued on DuoNeb inhalations, Symbicort, Decadron. Today is his fifth dose of etoposide. Continuing with radiation. Edema of the upper extremities is improving. The patient is seen today January 20, 2024 in follow-up on the selective care unit. Yesterday he was having issues with chest pain and palpitations. EKG revealed sinus rhythm with frequent PVCs. Troponins 0.042, 0.040. Is currently resting comfortably in bed. He denies any chest pain or shortness of breath. He is maintaining good O2 saturations in the mid 90s on room air. He has been afebrile. Hemodynamically stable. His main complaint is of fatigue. He is anxious to go home. 9.4. Platelets 240. Sodium 132. Potassium 3.9. Bicarb 24. BUN 34. Creatinine 0.71. Glucose 91. He is scheduled for cisplatin on January 22, 2024. Receiving concurrent radiation. The patient is seen today January 21, 2024 in follow-up on the selective care unit. He is awake and alert in no acute distress. He is resting fairly comfortably in bed. He is having issues with increased edema and weakness of his right upper extremity. PICC line is in place. Doppler revealed no evidence of DVT. CT scan of the brain revealed no acute intracranial process. White count 9.6. Hemoglobin 9.2. Platelets 226. Sodium 130. Potassium 3.7. Bicarb 20. BUN 30. Creatinine 0.66. Glucose 85. He is continued on DuoNeb inhalations, Symbicort, Tessalon Perles. Heparin for DVT prophylaxis. Normal saline at 50 MLS per hour. He remains in sinus rhythm with occasional PVCs. Echocardiogram revealed mildly impaired left ventricular systolic function with ejection fraction of 45 to 50%. The patient is seen today January 22, 2024 in follow-up back on the oncology unit. He is currently awake and alert in no acute distress. Resting fairly well in bed. Maintaining O2 saturations in the 90s on room air. He has been afebrile. Hemodynamically stable. The plan is for cisplatin today. He is continued on DuoNeb inhalations, Symbicort, Tessalon Perles. Heparin for DVT prophylaxis. Objective - Vital Signs Vital signs: Vital Signs Temp 99 F 01/22/24 07:30 Pulse 98 01/22/24 07:30 Resp 16 01/22/24 07:59 BP 110/67 01/22/24 07:30 Pulse Ox 93 L 01/22/24 07:30 FiO2 Intake & Output 01/21/24 01/22/24 01/22/24 18:59 06:59 18:59 Intake Total 10 120 Balance 10 120 Intake: IV 10 Invasive Line 5 10 Oral 120 Other: Voiding Method Toilet Toilet Toilet # Voids 3 3 - Exam GENERAL EXAM: Awake, fatigued 63-year-old male, on room air oxygen, comfortable, in no apparent distress. HEAD: Normocephalic. EYES: Normal reaction of pupils, equal size. NOSE: Clear with pink turbinates. THROAT: No erythema or exudates. NECK: No masses, no JVD. CHEST: No chest wall deformity. LUNGS: Equal air entry with few scattered rhonchi, diminished left basilar lung sounds. CVS: S1 and S2 normal with no audible murmur, regular rhythm. ABDOMEN: No hepatosplenomegaly, normal bowel sounds, no guarding or rigidity. SPINE: No scoliosis or deformity SKIN: No rashes CENTRAL NERVOUS SYSTEM: No focal deficits, tone is normal in all 4 extremities. EXTREMITIES: Right upper extremity edema. Right upper extremity PICC line in place. Peripheral pulses are intact. - Labs CBC & Chem 7: 01/22/24 02:56 01/22/24 02:56 Labs: Abnormal Lab Results - Last 24 Hours (Table) 01/21/24 01/21/24 01/22/24 Range/Units 17:14 20:26 02:56 RBC 3.05 L (4.40-5.60) X 10*6/uL Hgb 8.3 L (13.0-17.0) g/dL Hct 25.1 L (39.6-50.0) % RDW 15.6 H (11.5-14.5) % Immature Gran # 0.11 H (0.00-0.04) X 10*3/uL Monocytes # 0.06 L (0.20-1.00) X 10*3/uL BUN/Creatinine Ratio (12.00-20.00) Ratio Glucose (70-110) mg/dL POC Glucose (mg/dL) 126 H 121 H (70-110) mg/dL Calcium (8.7-10.3) mg/dL Total Protein (6.2-8.2) g/dL Albumin (3.8-4.9) g/dL Albumin/Globulin Ratio (1.60-3.17) Ratio 01/22/24 Range/Units 02:56 RBC (4.40-5.60) X 10*6/uL Hgb (13.0-17.0) g/dL Hct (39.6-50.0) % RDW (11.5-14.5) % Immature Gran # (0.00-0.04) X 10*3/uL Monocytes # (0.20-1.00) X 10*3/uL BUN/Creatinine Ratio 33.12 H (12.00-20.00) Ratio Glucose 67 L (70-110) mg/dL POC Glucose (mg/dL) (70-110) mg/dL Calcium 7.5 L (8.7-10.3) mg/dL Total Protein 5.0 L (6.2-8.2) g/dL Albumin 2.9 L (3.8-4.9) g/dL Albumin/Globulin Ratio 1.38 L (1.60-3.17) Ratio Assessment and Plan Assessment: Acute on chronic shortness of breath in a patient with 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 CAT scan of the chest was reviewed. No evidence of any disease progression in terms of malignancy. No evidence of pneumonia. He has an acute COPD exacerbation in addition to his background lung cancer. Acute hypoxic respiratory failure recovered and on room air Chest pain and palpitations requiring transfer to the selective care unit. EKG revealed sinus rhythm with PVCs. Troponin 0.042, 0.040. Acute coronary syndrome ruled out. Echocardiogram revealed mildly impaired left ventricular systolic function with ejection fraction 45 to 50% mild global hypokinesia Stage IIIc squamous cell carcinoma of the lung. The patient has a left infrahilar mass, measuring approximately 4 cm, highly suspicious for bronchogenic carcinoma. The left hilar fullness/mass encroaching on the left lower lobe bronchus, along with cutoff sign, debris in the ascending left main bronchus, and new lower lobe opacification, likely postobstructive atelectasis. Please refer to the results of the bronchoscopy and endobronchial ultrasound. The patient was given a session of radiation therapy on 01/10/2024. The patient was initiated on cisplatin and etoposide January 15, 2024. To receive cisplatin again on January 22, 2024 receiving concurrent radiation Right upper extremity weakness and edema. CT scan of the brain revealed no acute abnormalities. Doppler revealed no DVT. There is a right upper extremity PICC line in place History of hemoptysis, currently inactive and stable PET scan showed mediastinal lymphadenopathy and supraclavicular lymphadenopathy Chronic obstructive pulmonary disease, patient was recently started on Trelegy and albuterol inhalers History of CVA/TIA History of coronary artery disease with remote history of PCI/stenting History of hyperlipidemia History of hypertension Former tobacco smoker, with over [id number] history, quitting approximately 1 month ago Plan: The patient was seen and evaluated Labs and medications reviewed Remains stable and on room air Plan is to receive cisplatin again today Home once cleared by oncology Continue his home pulmonary medications at discharge This patient was seen independently by the pulmonary nurse practitioner addressing pulmonary issues I have personally seen and examined the patient, performed the documentation and the assessment and plan as written. Number of minutes spent on the visit: 24.
[2024-01-22 11:52] LABS: Glucose,Whole Blood 80 mg/dL (70-110)
[2024-01-22] MEDS: POTASSIUM CHLORIDE IV ONE (12:20)
[2024-01-22] MEDS: [UNRECOGNIZED DRUG - OTHER] IV ONE (12:20)
[2024-01-22] MEDS: MAGNESIUM SULFATE IV ONE (12:20)
--- NOTE | 2024-01-22 12:45 | P.PN ---
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 Patient presents today with worsening dyspnea over 2 days, he cannot walk for shortness unless he got short of breath and he has to stop His cough and phlegm are scanned and little at the end of frequent. He complains also from some chest pain about 6-5 in severity on the left side, n onradiating. Patient recently received first radiotherapy with Dr. Bah on last Monday Also patient lost his appetite not eating much. No dysuria or urgency. No headache dizziness weakness numbness. Patient non-smoker no alcohol no illicit drugs. He quit smoking. Also patient is mildly tachycardic. Will. Blood pressure on the soft side but is improving. Patient has mild leukocytosis and anemia. Platelet count is elevated 464. Sodium low 129. D-dimer elevated 2.8 Chest x-ray was negative for acute process CTA of the chest showing no pulmonary embolism but showing a left perihilar mass with near complete obstruction of the left main bronchus with obstructing many lung airways with scattered mediastinal and lower neck lymphedema most likely secondary to metastatic disease. 01/14/24 Patient complaining of shortness of breath He has swelling of both hands and feet No chest pain. Hospital oxygen saturation on 2-3 L/min via nasal cannula IV Lasix 40 mg added as well as a steroid Plan to treat with radiotherapy and chemotherapy while in the hospital because of his near complete obstruction of the left main bronchus 01/15/2024 Patient is evaluated in follow up today on the medical floor. Continues to report shortness of breath and congested cough. He has been evaluated by on cology and recommending to initiate the patient on chemotherapy starting today with cisplatin and etoposide. Patient will also continue with radiation to the lung mass. He will be taken off the IV lasix, lower extremity swelling has improved. He is being hydrated. Venous doppler negative for DVT bilaterally. 01/16/2024 Patient evaluated today in follow up. Underwent chemotherapy yesterday, jeremy ated well. Patient will undergo radiation tomorrow. White blood cell count 18.19, hgb 8.0. Hemodynamically stable. 01/17/2024 Patient is evaluated in follow up today. On day 2 of chemotherapy with et oposide. Patient slept well last night. He does have increased peripheral edema. Was continued on normal saline at 50 ml/hr which will be discontinued. Sodium down to 134. White blood cell count 16.2, hgb 8.6, sodium 134, potassium 4.5, BUN 30, creatinine 9.3. 01/18/2024 Patient evaluated today resting in bed. Continues to report significant fatigue and has been mostly bedrest. Patient continues on course of chemotherapy, oncology is following closely. Patients shortness of breath has improved with dose of IV lasix and he is now requiring less oxygen. Sodium normalized to 135, potassium 4.0, BUN 27.7, creatinine 0.8. White blood cell count 14.52, hgb 9.1. Hemodynamically stable. 01/19/2024 Patient is evaluated today resting in bed. Patient has completed 5/5 days of etoposide. Patient went for radiation today. Patient received a second dose of IV lasix yesterday. He is requiring less oxygen demands. Sodium today 134, BUN 26.8, creatinine 0.8. Magnesium 1.8. White blood cell count 13.42. Hemoglobin 9.7. Blood pressure in the high 90s systolic. 01/20/2024 Patient is evaluated today in follow-up on the cardiac stepdown unit. Yesterday afternoon after completion of patient's round of chemotherapy and radiation patient developed a sharp stabbing pain to the mid back near the scapula with increased shortness of breath. Pain was relieved with morphine however EKG was completed which reveals sinus rhythm premature supraventricular complexes and PACs. Heart rate of 90. Patient did have troponin elevation of 0.042 and 0.040 noted that his troponin level was negative at the beginning of this admission prior to starting chemotherapy. Patient was ordered to have an echocardiogram today and cardiology was consulted for further evaluation. Upon evaluation of the bedside today patient reports no further episodes of chest pain or shortness of breath and actually his shortness of breath is significantly improved today and he has been weaned to room air. His lungs are essentially clear at this time also although a chest x-ray was completed revealing possible mild acute c ardiopulmonary disease involving the left lung base as described with suggestion of a small pleural effusion. A retrocardiac infiltrate cannot be entirely excluded. Upon further evaluation of the chest x-ray it was personally be reviewed by the attending doctor and felt there was no pleural effusion and chest x-ray is essentially clear. White blood cell count today is 12.5, hemoglobin 9.4, sodium level of 132, BUN of 44, creatinine of 0.71, calcium level 7.9. Patient is 96% on room air. 01/21/2024 Patient is evaluated in follow up on the cardiac unit. He underwent an echocardiogram which reveals EF 45-50% with moderate MR. Patient has been evaluated by cardiology. Will continue on imdur. Patient having issues with his right arm and movement unable to lift above his head with 4/5 strength No other neurological deficits and lower extremity strength is 5/5 bilaterally. Per patient this started [address] is negative for acute findings. He states this has happened to him before at work where he was unable to lift his arm above his head. Sodium level today 130, potassium 3.7, BUN 30, creatinine 0.66. proBNP down to 422. White blood cell 9.6, hemoglobin 9.2. 01/22/2024 Patient is evaluated today in follow-up he has been transferred back to the oncology unit from [facility]. Patient underwent radiation therapy this morning. He continues to report right arm weakness however states that today he is able to lift his arm above his head. This is improved from yesterday. Noted that patient states that this has happened in the past however we will ask neurology to evaluate this patient to rule out any acute stroke. A brain CT that was negative for acute findings yesterday. He is having no other neurological deficits. Patient is fatigued and resting comfortably in bed he has no acute complaints at this time. He is continued on normal saline running at 50 MLS per hour. Sodium is up to 135, potassium 3.8, BUN of 26.5, creatinine of 0.8. His protein is 5.0, albumin 2.9, LFTs are within normal limits. Review of Systems Constitutional: Reports fatigue denied any fever. Cardio vascular: denied any chest pain, palpitations Gastrointestinal: denied any nausea, vomiting, diarrhea Pulmonary: Reports shortness of breath and cough Neurologic denied any new focal deficits All inpatient medications were reviewed and appropriate changes in these medications as dictated in the interval history and assessment and plan. PHYSICAL EXAMINATION: GENERAL: The patient is alert and oriented x3, not in any acute distress. Well developed, well nourished. HEENT: Pupils are round and equally reacting to light. EOMI. No scleral icterus. No conjunctival pallor. Normocephalic, atraumatic. No pharyngeal erythema. No thyromegaly. CARDIOVASCULAR: S1 and S2 present. No murmurs, rubs, or gallops. PULMONARY: Diminished with scattered ronchi ABDOMEN: Soft, nontender, nondistended, normoactive bowel sounds. No palpable organomegaly. MUSCULOSKELETAL: No joint swelling or deformity. EXTREMITIES: No cyanosis, clubbing, or pedal edema. NEUROLOGICAL: Gross neurological examination did not reveal any focal deficits. SKIN: No rashes. Assessment and Plan Assessment Mass 4 cm with biopsy positive for 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 Hypoxemic respiratory failure secondary to above Hyponatremia hypervolemic improved with IV Lasix then worsened secondary to dehydration and poor oral intake. Patient sodium has now improved with IV flu ids. Steroid induced hyperglycemia Hypertension Hypothyroidism Coronary artery disease with prior PCI -History of mild ischemic cardiomyopathy with an EF of 45 to 50% back in 2017 Chronic systolic dysfunction History of smoking GI prophylaxis DVT prophylaxis: subcu heparin Full Code Plan: Consult neurology for further evaluation of the right arm weakness. Brain CT was without acute findings. 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 today underwent radiation therapy this morning he is scheduled to chemotherapy this afternoon. PT/OT consultation. The impression and plan of care has been dictated by Denia Soni Nurse Practitioner as directed. Dr. Delmar MD I have performed a history and physical examination and medical decision making of this patient, discussed the same with the dictator, and agree with the dictators assessment and plan as written, documented as a scribe. Based on total visit time, I have performed more than 50% of this visit. Objective - Vital Signs Vital signs: Vital Signs Temp 99 F 01/22/24 07:30 Pulse 98 01/22/24 07:30 Resp 16 01/22/24 07:59 BP 110/67 01/22/24 07:30 Pulse Ox 93 L 01/22/24 07:30 FiO2 Intake & Output 01/21/24 01/22/24 01/22/24 18:59 06:59 18:59 Intake Total 10 120 Balance 10 120 Intake: IV 10 Invasive Line 5 10 Oral 120 Other: Voiding Method Toilet Toilet Toilet # Voids 3 3 - Labs CBC & Chem 7: 01/22/24 02:56 01/22/24 02:56 Labs: Abnormal Lab Results - Last 24 Hours (Table) 01/21/24 01/21/24 01/22/24 Range/Units 17:14 20:26 02:56 RBC 3.05 L (4.40-5.60) X 10*6/uL Hgb 8.3 L (13.0-17.0) g/dL Hct 25.1 L (39.6-50.0) % RDW 15.6 H (11.5-14.5) % POC Glucose (mg/dL) 126 H 121 H (70-110) mg/dL Assessment and Plan Time with Patient: Less than 30
[2024-01-22] MEDS: FOSAPREPITANT DIMEGLUMINE 150 MG in SODIUM CHLORIDE 0.9% 145 ML IV ONE (14:20)
[2024-01-22] MEDS: ONDANSETRON 16 MG in SODIUM CHLORIDE 0.9% 50 ML IVPB ONE (15:01)
[2024-01-22] MEDS: FAMOTIDINE 20 MG/2 ML VIAL IV ONE (15:01)
[2024-01-22] MEDS: DEXAMETHASONE SOD PHOSPHATE 10 MG/ML 1 ML VIAL IV ONE (15:01)
[2024-01-22] MEDS: MANNITOL IV ONE (15:29)
[2024-01-22] MEDS: CISPLATIN IV ONE (15:29)
[2024-01-22] MEDS: SODIUM CHLORIDE 0.9% IV ONE (15:29)
[2024-01-22] MEDS: [UNRECOGNIZED DRUG - OTHER] IV ONE (15:29)
--- NOTE | 2024-01-22 16:04 | P.PN ---
Subjective Progress Note Date: 01/22/24 Principal diagnosis: Tonia IIIC Sq cell NSCLC In f/u pt cont to report that he is tired, sleeping a lot, feels weak. No specific chemo SE to report, still no BM. Having trouble moving the RUE, he had thrombus diagnosed around PICC Objective - Vital Signs Vital signs: Vital Signs Temp 98.7 F 01/22/24 12:01 Pulse 91 01/22/24 12:01 Resp 16 01/22/24 12:01 BP 93/56 01/22/24 12:01 Pulse Ox 92 L 01/22/24 12:01 FiO2 Intake & Output 01/21/24 01/22/24 01/22/24 18:59 06:59 18:59 Intake Total 10 120 Balance 10 120 Intake: IV 10 Invasive Line 5 10 Oral 120 Other: Voiding Method Toilet Toilet Toilet # Voids 3 3 - Constitutional General appearance: Present: average body habitus, cooperative, no acute distress - EENT EENT Comment(s): dry mouth Eyes: Present: anicteric sclerae, EOMI ENT: Present: hearing grossly normal - Respiratory Respiratory: right: rhonchi, left: diminished - Cardiovascular Rhythm: regular Heart sounds: normal: S1, S2 Abnormal Heart Sounds: Absent: systolic murmur, diastolic murmur, rub, S3 Gallop, S4 Gallop, click, other - Peripheral edema leg Peripheral Edema: bilateral: Trace - Gastrointestinal General gastrointestinal: Present: normal bowel sounds, soft - Integumentary Integumentary: Present: normal - Neurologic Neurologic: Present: CNII-XII intact - Musculoskeletal Musculoskeletal Comment(s): pt moved his RUEE with other arm, once it is past a certain point he can move the arm on his own. - Psychiatric Psychiatric: Present: A&O x's 3, appropriate affect, intact judgment & insight - Labs CBC & Chem 7: 01/22/24 02:56 01/22/24 02:56 Labs: Abnormal Lab Results - Last 24 Hours (Table) 01/21/24 01/21/24 01/22/24 Range/Units 17:14 20:26 02:56 RBC 3.05 L (4.40-5.60) X 10*6/uL Hgb 8.3 L (13.0-17.0) g/dL Hct 25.1 L (39.6-50.0) % RDW 15.6 H (11.5-14.5) % Immature Gran # 0.11 H (0.00-0.04) X 10*3/uL Monocytes # 0.06 L (0.20-1.00) X 10*3/uL BUN/Creatinine Ratio (12.00-20.00) Ratio Glucose (70-110) mg/dL POC Glucose (mg/dL) 126 H 121 H (70-110) mg/dL Calcium (8.7-10.3) mg/dL Total Protein (6.2-8.2) g/dL Albumin (3.8-4.9) g/dL Albumin/Globulin Ratio (1.60-3.17) Ratio 01/22/24 Range/Units 02:56 RBC (4.40-5.60) X 10*6/uL Hgb (13.0-17.0) g/dL Hct (39.6-50.0) % RDW (11.5-14.5) % Immature Gran # (0.00-0.04) X 10*3/uL Monocytes # (0.20-1.00) X 10*3/uL BUN/Creatinine Ratio 33.12 H (12.00-20.00) Ratio Glucose 67 L (70-110) mg/dL POC Glucose (mg/dL) (70-110) mg/dL Calcium 7.5 L (8.7-10.3) mg/dL Total Protein 5.0 L (6.2-8.2) g/dL Albumin 2.9 L (3.8-4.9) g/dL Albumin/Globulin Ratio 1.38 L (1.60-3.17) Ratio - Imaging and Cardiology CT Scan - head: report reviewed Venous US: report reviewed Assessment and Plan (1) Bronchial obstruction Current Visit: Yes Status: Acute Priority: High Code(s): J98.09 - OTHER DISEASES OF BRONCHUS, NOT ELSEWHERE CLASSIFIED SNOMED Code(s): 66095655 (2) Stage III squamous cell carcinoma of left lung Current Visit: Yes Status: Acute Priority: High Code(s): C34.92 - MALIGNANT NEOPLASM OF UNSP PART OF LEFT BRONCHUS OR LUNG SNOMED Code(s): 434390254 (3) Constipation Current Visit: Yes Status: Acute Priority: Medium Code(s): K59.00 - CONSTIPATION, UNSPECIFIED SNOMED Code(s): 82040369 (4) Superficial venous thrombosis of right upper extremity Current Visit: Yes Status: Acute Priority: Medium Code(s): I82.611 - ACUTE EMBOLISM AND THOMBOS OF SUPERFIC VEINS OF R UP EXTREM SNOMED Code(s): 24089782339114935 (5) Normocytic anemia Current Visit: Yes Status: Acute Priority: Medium Code(s): D64.9 - ANEMIA, UNSPECIFIED SNOMED Code(s): 486708578 Plan: Stage IIIC squamous cell carcinoma of the left lower lobe -Biopsy of left lower lobe lung lesion and station 7 subcarinal lymph node from 12/22/2023 revealed squamous cell carcinoma. Noted to have 6.1 cm mass in the left lower lobe with mediastinal and bilateral supraclavicular lymphadenopathy on PET/CT from 01/04/2024. Brain MRI on 01/03/2024 notes no evidence of intracranial metastases. Circulating tumor DNA analysis revealed no targetable mutations -He presented to hospital with progressive dyspnea. CTA revealing no evidence of pulmonary embolism, but did note large perihilar mass causing near complete obstruction of the left mainstem bronchus in addition to obstruction of multiple large airways of the left lower lung -Simulated with plans to start radiation today. Chemotherapy with cisplatin/etoposide initiated 01/15/2024. -Swelling of the upper extremities is significantly improved. May have been some degree of SVC syndrome and fluid overload. Bilateral lower extremity swelling-doppler neg for DVT RUE doppler positive for superficial clot at PICC. Pt is on asa now Normocytic anemia -Anemia workup results-iron studies most consistent with anemia of inflammation 2/2 malignancy. Vitamin B12 low normal, folate normal, methylmalonic acid normal. No supplement at this time. -Continue to monitor CBC while inpt -Considering pt just had a week of chemo. Hgb 8.3 is stable. -Transfuse for Hgb <7 or if symptomatic Neutrophilic leukocytosis-resolved -WBC 6.3 today. Previously elevated secondary to inflammation from malignancy, as well as steroids given with chemo. Now, chemo is bringing the count down. -No fevers, signs or symptoms concerning for infection. Cont to monitor closely -IS added, ambulate 4 times a day (this was stressed again as very important) -GCSF post chemo possibly Constipation BM documented on 01/17. Cont bowel regimen. Cont liberal fluids. Pt encouraged to ambulate, move around, get up in chair-PT/OT consult for bed exercises. He was also encouraged to do IS. He needs to move around or he is going to get weaker and lay around and sleep more. Pt and family verbalized understanding. Difficulty moving the RUE -Pt states that he has had this problem for quite some time, even prior to diagnosis -Superficial blood clot at PICC-on asa -CT head without contrast neg -Neurology consulted Chest pain, elevated trop -Cardiology has seen pt -Not felt to be acute cardiac event -Recommend cont aspirin
[2024-01-22 17:04] LABS: Glucose,Whole Blood 154 mg/dL (70-110)
--- NOTE | 2024-01-22 19:29 | P.CNNES ---
History of Present Illness Consult date: 01/22/24 Requesting physician: Denia Snoi Reason for Consult: Right arm weakness History of Present Illness: Patient is a 63-year-old left-handed male with history of lung cancer, tobacco use, came to the hospital on 01/13/2024 for shortness of breath. Patient has been receiving chemotherapy. Patient's was also present who mentions that on Monday, 2 days ago, he noticed swelling of the right arm and right leg, but weakness of the right upper limb. The swelling in the right leg has improved, but the right arm swelling is still present. He noticed that he could not lift his hand up to his mouth for drinking coffee. He felt as if he has been sleeping on the right arm for a couple days although he has not been. Yesterday could hardly lift his right hand. He started doing physical therapy on his own, by moving his arm up and down and today it is better. Patient denied any weakness of the legs, any visual symptoms, any facial droop or slurred speech. He has been careful walking, just because of undergoing chemo and radiation. He believes that he is not very active lately, therefore he is feeling generalized weakness. Patient and his were concerned if right arm weakness is related to PICC line placement, however the PICC line was placed on 01/16/2024, but the weakness of the right upper limb did not start until Monday, therefore unlikely. He denies any significant pain in the neck, or shoulder or upper extremities. Blood test shows normal WBC hemoglobin 8.3, platelets are normal. Basic metabolic panel is normal. Hepatic panel normal, influenza screen, RSV and coronavirus PCR negative. B12 488, MMA 0.25, RBC folate 739. TSH is normal. Hemoglobin A1c 5.9 on 06/08/2023. CT of head revealed age-related atrophic and chronic small vessel ischemic change without acute intracranial process seen at this time. I personally reviewed CT head, agree with the findings. The visualized paranasal sinuses are clear. PET scan revealed left lower lobe infrahilar mass with metastatic disease to the mediastinum and bilateral supraclavicular region. CT chest from 12/21/2023 revealed approximately 4 cm left lower lobe mass similar to prior. Worrisome for malignancy. [place] or involves the left lower lobe bronchus. Patient currently takes aspirin 81 mg, Lipitor 80 mg, Zetia 10 mg, levothyroxine, Zyprexa. Patient denies any history of strokes or TIA. Denies any neck pain. Patient is having some shortness of breath. 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 Patient's brain MRI on 01/03/2024 shows no evidence of intracranial metastasis. Circulating tumor DNA analysis revealed no targetable mutations. Patient started on radiation and chemotherapy with cisplatin, etoposide on 01/15/2024. Patient had bilateral lower extremity ultrasound negative for DVT. Right upper extremity Doppler positive for superficial clot at the PICC line. Patient is on aspirin. Patient has history of hypertension but denies diabetes. He has smoked about 1 pack/day for 45 years, quit in November 2023. He has drank alcohol quite a bit but was not alcoholic. Review of Systems All pertinent positives and negatives mentioned in HPI. Past Medical History Past Medical History: Coronary Artery Disease (CAD), Cancer, Hypertension, Thyroid Disorder Additional Past Medical History / Comment(s): lung ca History of Any Multi-Drug Resistant Organisms: None Reported Past Surgical History: Heart Catheterization With Stent Additional Past Surgical History / Comment(s): Throat surgery Date of Last Stent Placement:: 2016 Past Psychological History: No Psychological Hx Reported Smoking Status: Former smoker Past Alcohol Use History: Occasional Past Drug Use History: Marijuana Additional Drug Use History / Comment(s): pt quit smoking November 2023 - Past Family History Father History Unknown: Yes Family Medical History: Cancer Additional Family Medical History / Comment(s): Lung ca Mother Additional Family Medical History / Comment(s): at age og 96 Medications and Allergies Home Medications Medication Instructions Recorded Confirmed Type Aspirin 81 mg PO DAILY 12/05/20 01/13/24 History Atorvastatin Calcium [Lipitor] 80 mg PO HS 12/05/20 01/13/24 History Ezetimibe [Zetia] 10 mg PO DAILY 12/05/20 01/13/24 History Levothyroxine Sodium 25 mcg PO DAILY 12/05/20 01/13/24 History Metoprolol Succinate (ER) [Toprol 50 mg PO DAILY 12/05/20 01/13/24 History XL] Albuterol Sulfate [Ventolin HFA] 2 puff INHALATION RT-Q4H 12/21/23 01/13/24 History Fluticasone/Umeclidin/Vilanter 1 puff INHALATION RT-DAILY 12/21/23 01/13/24 History [Landrylegab Ellipta 100-62.5-25] Sildenafil Citrate 20 mg PO DAILY PRN 12/21/23 01/13/24 History Benzonatate [Tessalon Perles] 200 mg PO TID PRN #30 cap 12/23/23 01/13/24 Rx HYDROcodone/APAP 5-325MG [[place] 1 tab PO Q6H PRN 01/13/24 01/13/24 History 5-325] OLANZapine 10 mg PO DIRECTED 01/13/24 01/13/24 History Ondansetron Odt [Zofran Odt] 4 mg PO Q6H PRN 01/13/24 01/13/24 History Allergies Allergy/AdvReac Type Severity Reaction Status Date / Time No Known Allergies Allergy Verified 01/13/24 14:08 Physical Examination - Vital Signs Vital Signs: Vital Signs Temp Pulse Pulse Resp BP Pulse Ox 01/22/24 12:01 98.7 F 91 16 93/56 92 L 01/22/24 11:48 96 01/22/24 11:37 92 93 L 01/22/24 07:59 16 01/22/24 07:30 99 F 98 16 110/67 93 L 01/22/24 00:00 98.4 F 94 16 122/79 94 L 01/21/24 20:00 99 F 93 16 101/64 92 L 01/21/24 19:22 100 01/21/24 19:13 104 H Intake and Output 01/22/24 01/22/24 01/22/24 06:59 14:59 22:59 Other: Voiding Method Toilet # Voids 3 2 Patient is an elderly male, in no acute distress. Patient is alert awake oriented to time place and person. Patient knows it is January 2024 and that he is in [facility] in [facility]. Speech and language functions are normal. Patient can name and repeat very well. No a phasia or dysarthria. Attention, concentration and fund of knowledge is adequate. On cranial nerve examination, pupils are equal, round and reacting to light, visual naranjo are full on confrontation, with no neglect on double simultaneous stimulation. Extraocular muscles are intact with no nystagmus. Face is symmetric, tongue protrudes to the midline. Palatal elevation and sensation normal, hearing and shoulder shrug normal, facial sensation normal. On muscle strength testing, there is right pronator drift. The strength is (right/left) deltoid 2/5, biceps 4+/5, triceps 4/5, wrist extension 5/5, finger extension 5/5, wrist flexion and finger flexion all are 5/5. Hip flexion 5-/5-, ankle dorsiflexion 5/5. Deep tendon reflexes are symmetric 0 at the biceps, trace at the brachiorad ialis, 1+ at the triceps. Sensory to touch and pinprick is equal in all dermatomes, and there is no neglect on double simultaneous stimulation. Cerebellar function showed no ataxia for [id number] testing. No dysdiadochokinesia. No ataxia for [id number] testing on either side. Tone and bulk of muscles normal. Gait deferred.. On general examination, there is no carotid bruit or murmur, S1-S2 audible. Chest is clear on consultation. Abdomen is soft nontender. No organomegaly, bowel sounds present. Patient has peripheral edema. Some bruises present. Results - Laboratory Findings CBC and BMP: 01/22/24 02:56 01/22/24 02:56 Abnormal Lab Findings: Abnormal Labs 01/13/24 01/13/24 01/13/24 11:34 11:34 11:34 WBC 12.8 H RBC 3.49 L Hgb 9.6 L Hct 29.8 L MCH RDW Plt Count 464 H Immature Gran # Neutrophils # 11.1 H Lymphocytes # 0.8 L Monocytes # Eosinophils # D-Dimer 2.82 H Sodium 129 L Carbon Dioxide BUN Creatinine 0.62 L BUN/Creatinine Ratio Glucose 142 H POC Glucose (mg/dL) Calcium 8.3 L Iron TIBC % Saturation Transferrin Ferritin Total Bilirubin AST ALT Troponin I Total Protein 5.8 L Albumin 2.8 L Albumin/Globulin Ratio 01/14/24 01/14/24 01/14/24 06:12 06:12 12:44 WBC 13.07 H RBC 3.09 L Hgb 8.6 L Hct 25.9 L MCH RDW 15.6 H Plt Count Immature Gran # 0.06 H Neutrophils # 11.19 H Lymphocytes # 0.79 L Monocytes # Eosinophils # D-Dimer Sodium 134 L Carbon Dioxide BUN Creatinine BUN/Creatinine Ratio Glucose 117 H POC Glucose (mg/dL) Calcium 8.4 L Iron 12 L TIBC 174 L % Saturation 6.90 L Transferrin 124.0 L Ferritin 601.0 H Total Bilirubin AST ALT Troponin I Total Protein Albumin Albumin/Globulin Ratio 01/14/24 01/14/24 01/14/24 17:16 19:53 23:22 WBC RBC Hgb Hct MCH RDW Plt Count Immature Gran # Neutrophils # Lymphocytes # Monocytes # Eosinophils # D-Dimer Sodium Carbon Dioxide BUN Creatinine BUN/Creatinine Ratio Glucose POC Glucose (mg/dL) 150 H 291 H 259 H Calcium Iron TIBC % Saturation Transferrin Ferritin Total Bilirubin AST ALT Troponin I Total Protein Albumin Albumin/Globulin Ratio 01/15/24 01/15/24 01/15/24 07:18 12:07 17:03 WBC RBC Hgb Hct MCH RDW Plt Count Immature Gran # Neutrophils # Lymphocytes # Monocytes # Eosinophils # D-Dimer Sodium Carbon Dioxide BUN Creatinine BUN/Creatinine Ratio Glucose POC Glucose (mg/dL) 199 H 301 H 277 H Calcium Iron TIBC % Saturation Transferrin Ferritin Total Bilirubin AST ALT Troponin I Total Protein Albumin Albumin/Globulin Ratio 01/15/24 01/16/24 01/16/24 20:10 03:05 06:26 WBC 18.19 H RBC 2.96 L Hgb 8.0 L Hct 24.9 L MCH RDW 15.3 H Plt Count Immature Gran # 0.21 H Neutrophils # 16.88 H Lymphocytes # 0.60 L Monocytes # Eosinophils # 0 L D-Dimer Sodium Carbon Dioxide BUN Creatinine BUN/Creatinine Ratio Glucose POC Glucose (mg/dL) 260 H 172 H Calcium Iron TIBC % Saturation Transferrin Ferritin Total Bilirubin AST ALT Troponin I Total Protein Albumin Albumin/Globulin Ratio 01/16/24 01/16/24 01/16/24 06:26 07:11 12:05 WBC RBC Hgb Hct MCH RDW Plt Count Immature Gran # Neutrophils # Lymphocytes # Monocytes # Eosinophils # D-Dimer Sodium Carbon Dioxide 20.0 L BUN Creatinine BUN/Creatinine Ratio 29.25 H Glucose 142 H POC Glucose (mg/dL) 164 H 136 H Calcium 8.1 L Iron TIBC % Saturation Transferrin Ferritin Total Bilirubin <0.2 L AST 75 H ALT 89 H Troponin I Total Protein 5.3 L Albumin 2.8 L Albumin/Globulin Ratio 1.12 L 01/16/24 01/16/24 01/17/24 17:13 20:29 02:28 WBC RBC Hgb Hct MCH RDW Plt Count Immature Gran # Neutrophils # Lymphocytes # Monocytes # Eosinophils # D-Dimer Sodium Carbon Dioxide BUN Creatinine BUN/Creatinine Ratio Glucose POC Glucose (mg/dL) 177 H 162 H 149 H Calcium Iron TIBC % Saturation Transferrin Ferritin Total Bilirubin AST ALT Troponin I Total Protein Albumin Albumin/Globulin Ratio 01/17/24 01/17/24 01/17/24 07:41 07:41 08:12 WBC 16.2 H RBC 3.12 L Hgb 8.6 L Hct 26.5 L MCH RDW Plt Count Immature Gran # Neutrophils # 14.7 H Lymphocytes # 0.5 L Monocytes # Eosinophils # D-Dimer Sodium 134 L Carbon Dioxide BUN 30 H Creatinine BUN/Creatinine Ratio Glucose 115 H POC Glucose (mg/dL) 146 H Calcium Iron TIBC % Saturation Transferrin Ferritin Total Bilirubin AST ALT 63 H Troponin I Total Protein 5.2 L Albumin 2.5 L Albumin/Globulin Ratio 01/17/24 01/17/24 01/17/24 11:57 17:09 20:48 WBC RBC Hgb Hct MCH RDW Plt Count Immature Gran # Neutrophils # Lymphocytes # Monocytes # Eosinophils # D-Dimer Sodium Carbon Dioxide BUN Creatinine BUN/Creatinine Ratio Glucose POC Glucose (mg/dL) 147 H 165 H 200 H Calcium Iron TIBC % Saturation Transferrin Ferritin Total Bilirubin AST ALT Troponin I Total Protein Albumin Albumin/Globulin Ratio 01/18/24 01/18/24 01/18/24 01:38 05:19 05:19 WBC 14.52 H RBC 3.34 L Hgb 9.1 L Hct 27.9 L MCH RDW 15.7 H Plt Count Immature Gran # 0.11 H Neutrophils # 12.91 H Lymphocytes # 0.89 L Monocytes # Eosinophils # 0 L D-Dimer Sodium Carbon Dioxide BUN 27.7 H Creatinine BUN/Creatinine Ratio 34.62 H Glucose POC Glucose (mg/dL) 131 H Calcium 8.2 L Iron TIBC % Saturation Transferrin Ferritin Total Bilirubin AST ALT 61 H Troponin I Total Protein 5.6 L Albumin 3.0 L Albumin/Globulin Ratio 1.15 L 01/18/24 01/19/24 01/19/24 20:30 06:24 06:24 WBC 13.42 H RBC 3.65 L Hgb 9.7 L Hct 30.0 L MCH 26.6 L RDW 15.7 H Plt Count Immature Gran # 0.09 H Neutrophils # 11.79 H Lymphocytes # Monocytes # Eosinophils # 0.02 L D-Dimer Sodium 134 L Carbon Dioxide BUN Creatinine BUN/Creatinine Ratio 33.50 H Glucose POC Glucose (mg/dL) 202 H Calcium 8.1 L Iron TIBC % Saturation Transferrin Ferritin Total Bilirubin AST ALT Troponin I Total Protein Albumin Albumin/Globulin Ratio 01/19/24 01/19/24 01/19/24 16:05 17:12 19:58 WBC RBC Hgb Hct MCH RDW Plt Count Immature Gran # Neutrophils # Lymphocytes # Monocytes # Eosinophils # D-Dimer Sodium Carbon Dioxide BUN Creatinine BUN/Creatinine Ratio Glucose POC Glucose (mg/dL) 162 H 193 H Calcium Iron TIBC % Saturation Transferrin Ferritin Total Bilirubin AST ALT Troponin I 0.042 H* Total Protein Albumin Albumin/Globulin Ratio 01/19/24 01/20/24 01/20/24 21:18 06:44 06:44 WBC 12.5 H RBC 3.52 L Hgb 9.4 L Hct 29.5 L MCH RDW Plt Count Immature Gran # Neutrophils # 10.7 H Lymphocytes # Monocytes # Eosinophils # D-Dimer Sodium 132 L Carbon Dioxide BUN 34 H Creatinine BUN/Creatinine Ratio Glucose POC Glucose (mg/dL) Calcium 7.9 L Iron TIBC % Saturation Transferrin Ferritin Total Bilirubin AST ALT Troponin I 0.040 H* Total Protein 5.2 L Albumin 2.6 L Albumin/Globulin Ratio 01/20/24 01/21/24 01/21/24 20:23 07:23 07:23 WBC RBC 3.42 L Hgb 9.2 L Hct 28.3 L MCH RDW Plt Count Immature Gran # Neutrophils # 8.0 H Lymphocytes # 0.9 L Monocytes # Eosinophils # D-Dimer Sodium 130 L Carbon Dioxide 20 L BUN 30 H Creatinine BUN/Creatinine Ratio Glucose POC Glucose (mg/dL) 116 H Calcium 8.2 L Iron TIBC % Saturation Transferrin Ferritin Total Bilirubin AST ALT Troponin I Total Protein 5.1 L Albumin 2.6 L Albumin/Globulin Ratio 01/21/24 01/21/24 01/22/24 17:14 20:26 02:56 WBC RBC 3.05 L Hgb 8.3 L Hct 25.1 L MCH RDW 15.6 H Plt Count Immature Gran # 0.11 H Neutrophils # Lymphocytes # Monocytes # 0.06 L Eosinophils # D-Dimer Sodium Carbon Dioxide BUN Creatinine BUN/Creatinine Ratio Glucose POC Glucose (mg/dL) 126 H 121 H Calcium Iron TIBC % Saturation Transferrin Ferritin Total Bilirubin AST ALT Troponin I Total Protein Albumin Albumin/Globulin Ratio 01/22/24 01/22/24 02:56 17:02 WBC RBC Hgb Hct MCH RDW Plt Count Immature Gran # Neutrophils # Lymphocytes # Monocytes # Eosinophils # D-Dimer Sodium Carbon Dioxide BUN Creatinine BUN/Creatinine Ratio 33.12 H Glucose 67 L POC Glucose (mg/dL) 154 H Calcium 7.5 L Iron TIBC % Saturation Transferrin Ferritin Total Bilirubin AST ALT Troponin I Total Protein 5.0 L Albumin 2.9 L Albumin/Globulin Ratio 1.38 L Assessment and Plan Assessment: * Acute weakness of the proximal right upper extremity, mainly involving the deltoid > biceps and triceps, for the last 2 or 3 days, unclear cause. Patient denies any neck pain, therefore doubt cervical radiculopathy. Patient denies any other focal symptoms, therefore CVA less likely. Patient has developed superficial DVT around PICC line. Certainly if related to vascular congestion around the brachial plexus affecting the muscles. * Stage IIIc squamous cell lung cancer of the left lower lobe, started on chemotherapy and radiation. * Hypertension * Tobacco use Plan: * CT head was completed, which revealed no acute process. Nonspecific white matter changes. * Patient has acute onset of weakness of right upper extremity, which seems to be getting better. Patient does have multiple vascular risk factors, including stage III cancer, and previous history of tobacco use. * Check MRI of the brain, rule out CVA. * 2D echo revealed mild LV systolic dysfunction, with LVEF 45 to 50%. Mildly increased septal wall thickness. Mildly decreased left ventricular EF. Mildly reduced global left ventricular systolic function. Mildly increased left atrial volume. Moderate MR. * Check carotid Doppler. * Continue aspirin and statins. * Dr. Cesar Mays will resume neurology service in the morning. * Thank you for the consult.
[2024-01-22 21:01] LABS: Glucose,Whole Blood 229 mg/dL (70-110)
--- NOTE | 2024-01-22 21:28 | US ---
EXAMINATION TYPE: US carotid duplex BILAT DATE OF EXAM: 01/22/2024 COMPARISON: NONE CLINICAL INDICATION: Male, 63 years old with history of Right arm weakness, rule out CVA; Right arm w eakness TECHNIQUE: Carotid duplex ultrasound examination. Indirect Doppler criteria was utilized. FINDINGS: EXAM MEASUREMENTS: RIGHT: Peak Systolic Velocity (PSV) cm/sec ----- Right CCA: 84.2 ----- Right ICA: 99.5 ----- Right ECA: 169.4 ICA/CCA ratio: 1.2 RIGHT: End Diastole cm/sec ----- Right CCA: 12.7 ----- Right ICA: 9.2 ----- Right ECA: 9.1 LEFT: Peak Systolic Velocity (PSV) cm/sec ----- Left CCA: 134.5 ----- Left ICA: 85.3 ----- Left ECA: 201.9 ICA/CCA ratio: 0.6 LEFT: End Diastole cm/sec ----- Left CCA: 20.7 ----- Left ICA: 19.3 ----- Left ECA: 6.7 VERTEBRALS (direction of flow): Right Vertebral: Antegrade Left Vertebral: Antegrade Rhythm: Normal TRAVEL MED SURG RN NOTES: limited due to tortuosity of vessels. Elevated velocities seen within right ECA and left CCA and ECA. Plaque seen bilateral bulbs. IMPRESSION: 1. Exam limitations as above. No hemodynamically significant internal carotid artery stenosis identif ied on either side. 2. Elevated peak systolic velocity left CCA may represent a mild or moderate proximal left CCA stenos is. Criteria for Assigning % of Stenosis / Diameter reduction (Estimation based on the indirect measurements of the internal carotid artery velocities (ICA PSV). 1. Normal (no stenosis)=ICA PSV < 125 cm/s: ratio < 2.0: ICA EDV<40 cm/s. 2. Less than 50% stenosis=ICA PSV < 125 cm/s: ratio < 2.0: ICA EDV<40 cm/s. 3. 50 to 69% stenosis=ICA PSV of 125 to 230 cm/s: ration 2.0 ? 4.0: ICA EDV 40-100 cm/s. 4. Greater than 70% stenosis to near occlusion= ICA PSV > 230 cm/s: ratio > 4.0: ICA EDV > 100 cm/s. 5. Near occlusion= ICA PSV velocities may be low or undetectable: variable ratio and ICA EDV. 6. Total occlusion=unable to detect flow.
[2024-01-22 22:56] LABS: Glucose,Whole Blood 230 mg/dL (70-110)
[2024-01-23 07:03] LABS: Glucose,Whole Blood 190 mg/dL (70-110)
[2024-01-23 07:39] VITALS: RESP 15
[2024-01-23 11:08] LABS: BUN/Creat Ratio 33.33 Ratio (12.00-20.00); Calcium 8.2 mg/dL (8.7-10.3); Carbon Dioxide 20.2 mmol/L (21.6-31.8); Chloride 105 mmol/L (96-109); Glucose 171 mg/dL (70-110); Potassium 4.2 mmol/L (3.5-5.5); Sodium 136 mmol/L (135-145)
[2024-01-23 11:18] LABS: Basophils # (A) 0.02 X 10*3/uL (0.00-0.10); Basophils % (A) 0.3 %; Eosinophils # (A) 0 X 10*3/uL (0.04-0.35); Eosinophils % (A) 0 %; HCT 29.9 % (39.6-50.0); HGB 9.6 g/dL (13.0-17.0); Lymphocytes # (A) 0.31 X 10*3/uL (0.90-5.00); Lymphocytes % (A) 5.2 %; MCH 26.4 pg (27.0-32.0); MCHC 32.1 g/dL (32.0-37.0); MCV 82.4 FL (80.0-97.0); Mean Platelet Volume 11.4 FL (9.5-12.2); Monocytes # (A) 0.03 X 10*3/uL (0.20-1.00); Monocytes % (A) 0.5 %; NRBC Per 100 WBC 0 X 10*3/uL (0.00-0.01); Neutrophils # (A) 5.45 X 10*3/uL (1.80-7.70); Neutrophils % (A) 92.1 %; Platelet Count 196 X 10*3/uL (140-440); RBC 3.63 X 10*6/uL (4.40-5.60); RDW 15.4 % (11.5-14.5); WBC 5.92 X 10*3/uL (4.50-10.00)
[2024-01-23 12:04] LABS: Glucose,Whole Blood 132 mg/dL (70-110)
--- NOTE | 2024-01-23 12:27 | P.PN ---
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 I performed the patient's bronchoscopy and the patient has a left hilar mass at the level of the secondary manuel and the left lower lobe causing significant mass effect and obstruction of the left lower lobe bronchus. The patient also had an outpatient PET/CT that showed mediastinal lymphadenopathy uptake and bilateral supraclavicular lymphadenopathy uptake. Based on that, the patient was seen by medical oncology. The patient was supposed to start systemic chemotherapy with cis tribe and FOOD [employer]EVERAGE [employer]ER-16 as of tomorrow. The patient was also given a session of radiation therapy on 01/10/2024 and due to the holidays no further treatment was given. Patient is coming in with worsening shortness of breath. He is quite anxious. He also has developed some edema in his upper and lower extremities. Currently on 2 L of oxygen by nasal cannula. The viral screen has been negative. D-dimer is at 2.8. CT of the chest was done that showed no significant changes in terms of his malignancy. The patient continues to have a left hilar mass and some atelectatic changes in the left lower lobe. There is significant mass effect on the left lower lobe bronchus. The patient has no evidence of any pulmonary embolism. He is currently on 2 L of oxygen by nasal cannula. He is complaining of shortness of breath. He has also COPD maintained on Trelegy Ellipta on outpatient basis. No hemoptysis. The patient is seen today January 15, 2024 in follow-up on the regular medical floor. He is currently sitting up in bed. Awake and alert in no acute distress. He does have some dyspnea with conversation. Dyspnea with exertion. Maintaining good O2 saturations in the 90s on room air. Chest x-ray remains stable. No acute cardiopulmonary process. Dopplers of the lower extremities were negative for DVT. Glucose 199. He is continued on DuoNeb inhalations, Symbicort, Solu-Medrol. He remains on IV diuretics. The plan is to start cisplatin and etoposide today per medical oncology. The patient is seen today January 16, 2024 in follow-up on the regular medical floor. He is currently resting in bed. Awake and alert in no acute distress. He is maintaining O2 saturations in the 90s on 2 L/min per nasal cannula. He did receive etoposide and cisplatin yesterday. He remains on Decadron 10 mg IV every 24 hours. Plan is for a radiation treatment again today. White count 18.1. Hemoglobin 8.0. Platelets 404. Glucose 164. Magnesium 2.1. He remains on DuoNebs and Symbicort, The patient is seen today January 17, 2024 in follow-up on the regular medical floor. He is awake and alert in no acute distress. Resting fairly comfortably in bed. Denies any worsening shortness of breath, cough or congestion. Maintaining O2 saturations in the 90s on 2 L/min per nasal cannula. He is continued on DuoNeb inhalations, Symbicort. Remains on Decadron. Continuing with radiation treatments. White count 16.2. Hemoglobin 8.6. Platelets 362. Sodium 134. Potassium 4.5. Bicarb 23. BUN 30. Creatinine 0.93. Glucose 115. proBNP 6020. Right upper extremity PICC line was placed today. Chest x-ray reveals no acute cardiopulmonary process. The patient is seen today January 18, 2024 in follow-up on the regular medical floor. He is currently resting in bed. Awake and alert in no acute distress. He did have radiation therapy again today. He is maintaining good O2 saturations in the 90s on 3 L/min per nasal cannula. He has been afebrile. Hemodynamically stable. White count 14.5. Hemoglobin 9.1. Platelets 399. Sodium 135. Potassium 4.0. Bicarb 25. BUN 28. Creatinine 0.8. Glucose 95. He remains on Decadron 10 mg IV daily. Remains on DuoNeb inhalations and Symbicort. To complete 5 days of etoposide. Today will be dose #4. The patient is seen today January 19, 2024 in follow-up on the regular medical floor. He is awake and alert in no acute distress. Resting comfortably in bed. Maintaining O2 saturations in the 90s on 2 L/min per nasal cannula. He has been afebrile. Hemodynamically stable. White count 13.4. Hemoglobin 9.7. Platelets 340. Sodium 134. Potassium 3.8. Bicarb 24. BUN 27. Creatinine 0.8. Glucose 89. Continued on DuoNeb inhalations, Symbicort, Decadron. Today is his fifth dose of etoposide. Continuing with radiation. Edema of the upper extremities is improving. The patient is seen today January 20, 2024 in follow-up on the selective care unit. Yesterday he was having issues with chest pain and palpitations. EKG revealed sinus rhythm with frequent PVCs. Troponins 0.042, 0.040. Is currently resting comfortably in bed. He denies any chest pain or shortness of breath. He is maintaining good O2 saturations in the mid 90s on room air. He has been afebrile. Hemodynamically stable. His main complaint is of fatigue. He is anxious to go home. 9.4. Platelets 240. Sodium 132. Potassium 3.9. Bicarb 24. BUN 34. Creatinine 0.71. Glucose 91. He is scheduled for cisplatin on January 22, 2024. Receiving concurrent radiation. The patient is seen today January 21, 2024 in follow-up on the selective care unit. He is awake and alert in no acute distress. He is resting fairly comfortably in bed. He is having issues with increased edema and weakness of his right upper extremity. PICC line is in place. Doppler revealed no evidence of DVT. CT scan of the brain revealed no acute intracranial process. White count 9.6. Hemoglobin 9.2. Platelets 226. Sodium 130. Potassium 3.7. Bicarb 20. BUN 30. Creatinine 0.66. Glucose 85. He is continued on DuoNeb inhalations, Symbicort, Tessalon Perles. Heparin for DVT prophylaxis. Normal saline at 50 MLS per hour. He remains in sinus rhythm with occasional PVCs. Echocardiogram revealed mildly impaired left ventricular systolic function with ejection fraction of 45 to 50%. The patient is seen today January 22, 2024 in follow-up back on the oncology unit. He is currently awake and alert in no acute distress. Resting fairly well in bed. Maintaining O2 saturations in the 90s on room air. He has been afebrile. Hemodynamically stable. The plan is for cisplatin today. He is continued on DuoNeb inhalations, Symbicort, Tessalon Perles. Heparin for DVT prophylaxis. The patient is seen today January 23, 2024 in follow-up on the oncology unit. He is currently sitting up in a chair. Awake and alert in no acute distress. Denies any shortness of breath, cough or congestion. No chest pain or palpitations. He is maintaining good O2 saturations in the 90s on room air. He is afebrile. Hemodynamically stable. Plans for radiation treatment this morning. Received cystoscopy tribe yesterday. Remains on DuoNeb inhalations, Symbicort, saline at 50 MLS per hour. He is on heparin for DVT prophylaxis. White count 5.9. Hemoglobin 9.6. Platelets 196. Sodium 136. Potassium 4.2. Bicarb 20. BUN 30. Creatinine 0.9. Glucose 171. Objective - Vital Signs Vital signs: Vital Signs Temp 97.4 F L 01/23/24 06:48 Pulse 94 01/23/24 11:57 Resp 15 01/23/24 06:48 BP 134/75 01/23/24 06:48 Pulse Ox 96 01/23/24 11:49 FiO2 Intake & Output 01/22/24 01/23/24 01/23/24 18:59 06:59 18:59 Intake Total 500 240 Balance 500 240 Intake: Intake, IV Titration 500 Amount Sodium Chloride 0.9% 1, 500 000 ml @ 50 mls/hr IV . Q20H [facility] Rx#:[id number] Oral 240 Other: Voiding Method Toilet Toilet # Voids 2 - Exam GENERAL EXAM: Awake, alert 63-year-old male, on room air, sitting up in a chair, in no apparent distress. HEAD: Normocephalic. EYES: Normal reaction of pupils, equal size. NOSE: Clear with pink turbinates. THROAT: No erythema or exudates. NECK: No masses, no JVD. CHEST: No chest wall deformity. LUNGS: Equal air entry with few scattered rhonchi, diminished left basilar lung sounds. CVS: S1 and S2 normal with no audible murmur, regular rhythm. ABDOMEN: No hepatosplenomegaly, normal bowel sounds, no guarding or rigidity. SPINE: No scoliosis or deformity SKIN: No rashes CENTRAL NERVOUS SYSTEM: No focal deficits, tone is normal in all 4 extremities. EXTREMITIES: Right upper extremity edema. Right upper extremity PICC line in place. Peripheral pulses are intact. - Labs CBC & Chem 7: 01/23/24 06:38 01/23/24 06:38 Labs: Abnormal Lab Results - Last 24 Hours (Table) 01/22/24 01/22/24 01/22/24 Range/Units 17:02 20:59 22:53 RBC (4.40-5.60) X 10*6/uL Hgb (13.0-17.0) g/dL Hct (39.6-50.0) % MCH (27.0-32.0) pg RDW (11.5-14.5) % Immature Gran # (0.00-0.04) X 10*3/uL Lymphocytes # (0.90-5.00) X 10*3/uL Monocytes # (0.20-1.00) X 10*3/uL Eosinophils # (0.04-0.35) X 10*3/uL Carbon Dioxide (21.6-31.8) mmol/L BUN (9.0-27.0) mg/dL BUN/Creatinine Ratio (12.00-20.00) Ratio Glucose (70-110) mg/dL POC Glucose (mg/dL) 154 H 229 H 230 H (70-110) mg/dL Calcium (8.7-10.3) mg/dL 01/23/24 01/23/24 01/23/24 Range/Units 06:38 06:38 07:01 RBC 3.63 L (4.40-5.60) X 10*6/uL Hgb 9.6 L (13.0-17.0) g/dL Hct 29.9 L (39.6-50.0) % MCH 26.4 L (27.0-32.0) pg RDW 15.4 H (11.5-14.5) % Immature Gran # 0.11 H (0.00-0.04) X 10*3/uL Lymphocytes # 0.31 L (0.90-5.00) X 10*3/uL Monocytes # 0.03 L (0.20-1.00) X 10*3/uL Eosinophils # 0 L (0.04-0.35) X 10*3/uL Carbon Dioxide 20.2 L (21.6-31.8) mmol/L BUN 30.0 H (9.0-27.0) mg/dL BUN/Creatinine Ratio 33.33 H (12.00-20.00) Ratio Glucose 171 H (70-110) mg/dL POC Glucose (mg/dL) 190 H (70-110) mg/dL Calcium 8.2 L (8.7-10.3) mg/dL 01/23/24 Range/Units 12:02 RBC (4.40-5.60) X 10*6/uL Hgb (13.0-17.0) g/dL Hct (39.6-50.0) % MCH (27.0-32.0) pg RDW (11.5-14.5) % Immature Gran # (0.00-0.04) X 10*3/uL Lymphocytes # (0.90-5.00) X 10*3/uL Monocytes # (0.20-1.00) X 10*3/uL Eosinophils # (0.04-0.35) X 10*3/uL Carbon Dioxide (21.6-31.8) mmol/L BUN (9.0-27.0) mg/dL BUN/Creatinine Ratio (12.00-20.00) Ratio Glucose (70-110) mg/dL POC Glucose (mg/dL) 132 H (70-110) mg/dL Calcium (8.7-10.3) mg/dL Assessment and Plan Assessment: Acute on chronic shortness of breath in a patient with 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 CAT scan of the chest was reviewed. No evidence of any disease progression in terms of malignancy. No evidence of pneumonia. He has an acute COPD exacerbation in addition to his background lung cancer. Acute hypoxic respiratory failure recovered and on room air Chest pain and palpitations requiring transfer to the selective care unit. EKG revealed sinus rhythm with PVCs. Troponin 0.042, 0.040. Acute coronary syndrome ruled out. Echocardiogram revealed mildly impaired left ventricular systolic function with ejection fraction 45 to 50% mild global hypokinesia Stage IIIc squamous cell carcinoma of the lung. The patient has a left infrahilar mass, measuring approximately 4 cm, highly suspicious for bronchogenic carcinoma. The left hilar fullness/mass encroaching on the left lower lobe bronchus, along with cutoff sign, debris in the ascending left main b ronchus, and new lower lobe opacification, likely postobstructive atelectasis. Please refer to the results of the bronchoscopy and endobronchial ultrasound. The patient was given a session of radiation therapy on 01/10/2024. The patient was initiated on cisplatin and etoposide January 15, 2024. Received cisplatin again on January 22, 2024 and receiving concurrent radiation Right upper extremity weakness and edema. CT scan of the brain revealed no acute abnormalities. Doppler revealed no DVT. There is a right upper extremity PICC line in place History of hemoptysis, currently inactive and stable PET scan showed mediastinal lymphadenopathy and supraclavicular lymphadenopathy Chronic obstructive pulmonary disease, patient was recently started on Trelegy and albuterol inhalers History of CVA/TIA History of coronary artery disease with remote history of PCI/stenting History of hyperlipidemia History of hypertension Former tobacco smoker, with over 90-xohj-azfj history, quitting approximately 1 month ago Plan: The patient was seen and evaluated Labs and medications reviewed Remains stable and on room air Received cisplatin yesterday Receiving concurrent radiation therapy Home once cleared by oncology Continue his home pulmonary medications at discharge This patient was seen independently by the pulmonary nurse practitioner addressing pulmonary issues I have personally seen and examined the patient, performed the documentation and the assessment and plan as written. Number of minutes spent on the visit: 23.
[2024-01-23 12:50] VITALS: BP 121/71; PULSE 84; TEMP 97.7
--- NOTE | 2024-01-23 15:07 | P.PN ---
Subjective Progress Note Date: 01/23/24 I am seeing the patient for the first time during this hospital visit. Please refer to Dr. Ag for further details. It seems the patient has right upper extremity weakness recently and has DVT around the PICC line. He feels he is doing better and feels strength is improving. He does not want to pursue with MRI Brain. Objective - Vital Signs Vital signs: Vital Signs Temp 97.7 F 01/23/24 12:01 Pulse 84 01/23/24 12:01 Resp 15 01/23/24 12:01 BP 121/71 01/23/24 12:01 Pulse Ox 93 L 01/23/24 12:01 FiO2 Intake & Output 01/22/24 01/23/24 01/23/24 18:59 06:59 18:59 Intake Total 500 240 Balance 500 240 Intake: Intake, IV Titration 500 Amount Sodium Chloride 0.9% 1, 500 000 ml @ 50 mls/hr IV . Q20H [facility] Rx#:[id number] Oral 240 Other: Voiding Method Toilet Toilet # Voids 2 - Exam General: Lying in bed and is not in acute distress. Neuro: The patient is awake, alert, oriented to self, place and time. Patient is following simple commands. No aphasia or neglect. Pupils are round, equal and reactive to light. Visual naranjo are full to confrontation. EOM intact and no nystagmus. No facial weakness. No dysarhtria. Motor: Right upper extremity: Right forearm extension is 4+ while flexion is 5. Otherwise rest of extremities are 5/5. sensation is normal to touch throughout. - Labs CBC & Chem 7: 01/23/24 06:38 01/23/24 06:38 Labs: Abnormal Lab Results - Last 24 Hours (Table) 01/22/24 01/22/24 01/22/24 Range/Units 17:02 20:59 22:53 RBC (4.40-5.60) X 10*6/uL Hgb (13.0-17.0) g/dL Hct (39.6-50.0) % MCH (27.0-32.0) pg RDW (11.5-14.5) % Immature Gran # (0.00-0.04) X 10*3/uL Lymphocytes # (0.90-5.00) X 10*3/uL Monocytes # (0.20-1.00) X 10*3/uL Eosinophils # (0.04-0.35) X 10*3/uL Carbon Dioxide (21.6-31.8) mmol/L BUN (9.0-27.0) mg/dL BUN/Creatinine Ratio (12.00-20.00) Ratio Glucose (70-110) mg/dL POC Glucose (mg/dL) 154 H 229 H 230 H (70-110) mg/dL Calcium (8.7-10.3) mg/dL 01/23/24 01/23/24 01/23/24 Range/Units 06:38 06:38 07:01 RBC 3.63 L (4.40-5.60) X 10*6/uL Hgb 9.6 L (13.0-17.0) g/dL Hct 29.9 L (39.6-50.0) % MCH 26.4 L (27.0-32.0) pg RDW 15.4 H (11.5-14.5) % Immature Gran # 0.11 H (0.00-0.04) X 10*3/uL Lymphocytes # 0.31 L (0.90-5.00) X 10*3/uL Monocytes # 0.03 L (0.20-1.00) X 10*3/uL Eosinophils # 0 L (0.04-0.35) X 10*3/uL Carbon Dioxide 20.2 L (21.6-31.8) mmol/L BUN 30.0 H (9.0-27.0) mg/dL BUN/Creatinine Ratio 33.33 H (12.00-20.00) Ratio Glucose 171 H (70-110) mg/dL POC Glucose (mg/dL) 190 H (70-110) mg/dL Calcium 8.2 L (8.7-10.3) mg/dL 01/23/24 Range/Units 12:02 RBC (4.40-5.60) X 10*6/uL Hgb (13.0-17.0) g/dL Hct (39.6-50.0) % MCH (27.0-32.0) pg RDW (11.5-14.5) % Immature Gran # (0.00-0.04) X 10*3/uL Lymphocytes # (0.90-5.00) X 10*3/uL Monocytes # (0.20-1.00) X 10*3/uL Eosinophils # (0.04-0.35) X 10*3/uL Carbon Dioxide (21.6-31.8) mmol/L BUN (9.0-27.0) mg/dL BUN/Creatinine Ratio (12.00-20.00) Ratio Glucose (70-110) mg/dL POC Glucose (mg/dL) 132 H (70-110) mg/dL Calcium (8.7-10.3) mg/dL Assessment and Plan Assessment: * Acute weakness of the proximal right upper extremity, mainly involving the deltoid > biceps and triceps, for the last 2 or 3 days, unclear cause. Patient denies any neck pain, therefore doubt cervical radiculopathy. Patient denies any other focal symptoms, therefore CVA less likely. Patient has developed superficial DVT around PICC line. Certainly if related to vascular congestion around the brachial plexus affecting the muscles. * Stage IIIc squamous cell lung cancer of the left lower lobe, started on chemotherapy and radiation. * Hypertension * Tobacco use Plan: * CT head was completed, which revealed no acute process. Nonspecific white mat ter changes. * Patient has acute onset of weakness of right upper extremity, which seems to be getting better. Patient does have multiple vascular risk factors, including stage III cancer, and previous history of tobacco use. * Dr. Ag ordered MRI Brain but patient is declining as inpatient and will consider it as outpatient since had recent MRI and was normal. * 2D echo revealed mild LV systolic dysfunction, with LVEF 45 to 50%. Mildly increased septal wall thickness. Mildly decreased left ventricular EF. Mildly reduced global left ventricular systolic function. Mildly increased left atrial volume. Moderate MR. * Carotid Doppler: Exam limitation as above. No hemodynamically significant internal carotid artery identified in either side. Elevated peak systolic velocity left CCA a may represent mild or moderate proximal left common carotid artery stenosis. Admit to follow-up with vascular surgery team as an outpatient for further evaluation * Continue aspirin and statins. * Made the patient to follow-up with a neurologist as an outpatient for further evaluation. The patient continues to have weakness or numbness of the right upper extremity then recommend an EMG with nerve conduction study as an outpatient as well as consider repeating MRI of the brain. The plan discussed with the patient and his nurse. Time with Patient: Less than 30
--- NOTE | 2024-01-23 15:15 | P.PN ---
Subjective Progress Note Date: 01/23/24 Patient completed cycle 1 Cis/UNDERGRADUATE INTERNSHIP yesterday, overall tolerated treatment well. Denies N/V/D, tolerating oral intake. RUE weakness improved. Counts stable, WBC 5.9, hgb 9.6, plt 196,000. Pt afebrile, hemodynamically stable. Continues with RT, tolerating well. Plan for d/c today Objective - Vital Signs Vital signs: Vital Signs Temp 97.4 F L 01/23/24 06:48 Pulse 100 01/23/24 11:48 Resp 15 01/23/24 06:48 BP 134/75 01/23/24 06:48 Pulse Ox 96 01/23/24 11:49 FiO2 Intake & Output 01/22/24 01/23/24 01/23/24 18:59 06:59 18:59 Intake Total 500 240 Balance 500 240 Intake: Intake, IV Titration 500 Amount Sodium Chloride 0.9% 1, 500 000 ml @ 50 mls/hr IV . Q20H [facility] Rx#:[id number] Oral 240 Other: Voiding Method Toilet Toilet # Voids 2 - Constitutional General appearance: Present: average body habitus, no acute distress - EENT Eyes: Present: anicteric sclerae, EOMI ENT: Present: hearing grossly normal - Respiratory Details: breathing is even and unlabored - Cardiovascular Details: well perfused - Gastrointestinal General gastrointestinal: Present: soft. Absent: tenderness - Integumentary Integumentary: Absent: cyanotic, jaundiced - Psychiatric Psychiatric: Present: A&O x's 3 - Labs CBC & Chem 7: 01/23/24 06:38 01/23/24 06:38 Labs: Abnormal Lab Results - Last 24 Hours (Table) 01/22/24 01/22/24 01/22/24 Range/Units 17:02 20:59 22:53 RBC (4.40-5.60) X 10*6/uL Hgb (13.0-17.0) g/dL Hct (39.6-50.0) % MCH (27.0-32.0) pg RDW (11.5-14.5) % Immature Gran # (0.00-0.04) X 10*3/uL Lymphocytes # (0.90-5.00) X 10*3/uL Monocytes # (0.20-1.00) X 10*3/uL Eosinophils # (0.04-0.35) X 10*3/uL Carbon Dioxide (21.6-31.8) mmol/L BUN (9.0-27.0) mg/dL BUN/Creatinine Ratio (12.00-20.00) Ratio Glucose (70-110) mg/dL POC Glucose (mg/dL) 154 H 229 H 230 H (70-110) mg/dL Calcium (8.7-10.3) mg/dL 01/23/24 01/23/24 01/23/24 Range/Units 06:38 06:38 07:01 RBC 3.63 L (4.40-5.60) X 10*6/uL Hgb 9.6 L (13.0-17.0) g/dL Hct 29.9 L (39.6-50.0) % MCH 26.4 L (27.0-32.0) pg RDW 15.4 H (11.5-14.5) % Immature Gran # 0.11 H (0.00-0.04) X 10*3/uL Lymphocytes # 0.31 L (0.90-5.00) X 10*3/uL Monocytes # 0.03 L (0.20-1.00) X 10*3/uL Eosinophils # 0 L (0.04-0.35) X 10*3/uL Carbon Dioxide 20.2 L (21.6-31.8) mmol/L BUN 30.0 H (9.0-27.0) mg/dL BUN/Creatinine Ratio 33.33 H (12.00-20.00) Ratio Glucose 171 H (70-110) mg/dL POC Glucose (mg/dL) 190 H (70-110) mg/dL Calcium 8.2 L (8.7-10.3) mg/dL Assessment and Plan (1) Neutrophilic leukocytosis Current Visit: No Status: Acute Priority: Medium Code(s): D72.9 - DISORDER OF WHITE BLOOD CELLS, UNSPECIFIED SNOMED Code(s): 656057488 (2) Normocytic anemia Current Visit: No Status: Acute Priority: Medium Code(s): D64.9 - ANEMIA, UNSPECIFIED SNOMED Code(s): 478314765 (3) Stage III squamous cell carcinoma of left lung Current Visit: No Status: Acute Priority: High Code(s): C34.92 - MALIGNANT NEOPLASM OF UNSP PART OF LEFT BRONCHUS OR LUNG SNOMED Code(s): 947180552 Plan: Stage IIIC squamous cell carcinoma of the left lower lobe -Biopsy of left lower lobe lung lesion and station 7 subcarinal lymph node from 12/22/2023 revealed squamous cell carcinoma. Noted to have 6.1 cm mass in the left lower lobe with mediastinal and bilateral supraclavicular lymphadenopathy on PET/CT from 01/04/2024. Brain MRI on 01/03/2024 notes no evidence of intracranial metastases. Circulating tumor DNA analysis revealed no targetable mutations -He presented to hospital with progressive dyspnea. CTA revealing no evidence of pulmonary embolism, but did note large perihilar mass causing near complete obstruction of the left mainstem bronchus in addition to obstruction of multiple large airways of the left lower lung -Concurrent RT started. Chemotherapy with cisplatin/etoposide initiated 01/15/2024, cycle 1 completed yesterday. Bilateral lower extremity swelling-doppler neg for DVT RUE doppler positive for superficial clot at [facility]. Pt is on asa now Normocytic anemia -Anemia workup results-iron studies most consistent with anemia of inflammation 2/2 malignancy. Vitamin B12 low normal, folate normal, methylmalonic acid normal. No supplement at this time. -Continue to monitor CBC while inpt -Considering pt just had a week of chemo. Hgb stable, 9.6 today. -Transfuse for Hgb <7 or if symptomatic Neutrophilic leukocytosis-resolved -WBC 5.9 today. Previously elevated secondary to inflammation from malignancy, as well as steroids given with chemo. Now, chemo is bringing the count down. -No fevers, signs or symptoms concerning for infection. Cont to monitor closely -IS added, ambulate 4 times a day (this was stressed again as very important) -GCSF post chemo possibly Constipation BM documented on 01/17. Cont bowel regimen. Cont liberal fluids. Pt encouraged to ambulate, move around, get up in chair-PT/OT consult for bed exercises. He was also encouraged to do IS. He needs to move around or he is going to get weaker and lay around and sleep more. Pt and family verbalized understanding. Difficulty moving the RUE -Pt states that he has had this problem for quite some time, even prior to diagnosis -Superficial blood clot at PICC-on asa -CT head without contrast neg -Neurology consulted -RUE weakness improeved today Chest pain, elevated trop -Cardiology has seen pt -Not felt to be acute cardiac event -Recommend cont aspirin Plans for discharge today. Discussed plan of care with internal medicine team. Also spoke with Dr. Marshall of radiation oncology, he also cleared patient for discharge and is okay with completing treatment outpatient. Patient is scheduled tomorrow morning for radiation at 8:45 am. Clinic f/u in d/c plan
--- NOTE | 2024-01-26 21:35 | P.DS ---
Providers Date of admission: 01/13/24 15:03 Attending physician: Telma Dave Consults: 01/13/24 13:09 Consult Physician Urgent Consulting Provider: Rocco Weiss Consult Reason/Comments: Lung cancer pt, near complete left bronchial obstruction Do you want consulting provider notified?: Yes 01/13/24 13:12 Consult Physician Urgent Consulting Provider: Naeem Monreal Consult Reason/Comments: Lung cancer patient Do you want consulting provider notified?: Yes 01/14/24 10:53 Consult Physician Routine Consulting Provider: Eliu Bah Consult Reason/Comments: Stage III lung cancer on RT with dyspnea Do you want consulting provider notified?: Yes, Notify in am 01/22/24 09:54 Consult Physician Routine Consulting Provider: Lisa Ag Consult Reason/Comments: right arm weakness Do you want consulting provider notified?: Yes [facility]: Final Diagnosis Mass 4 cm with biopsy positive for 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 Hypoxemic respiratory failure secondary to above Hyponatremia hypervolemic improved with IV Lasix then worsened secondary to dehydration and poor oral intake. Patient sodium has now improved with IV fluids. Steroid induced hyperglycemia Hypertension Hypothyroidism Coronary artery disease with prior PCI -History of mild ischemic cardiomyopathy with an EF of 45 to 50% back in 2017 Chronic systolic dysfunction History of smoking Discharge Disposition Patient is stable for discharge home. Patient to continue radiation therapy and will return at 845 am to [facility] for next scheduled session. Patient has an appt to follow up with Dr. Suárez, Dr. Kern and Oncology. Patient will continue on imdur 30 mg daily. Patient to repeat blood work in 2 to 3 days. Hospital Course This is a pleasant 63 years old male with past medical history of hypertension, hypothyroidism, coronary artery disease, recently diagnosed left perihilar mass with a positive biopsy from 12/24 showing non-small cell lung cancer with squamous cell cancer with metastasis to the mediastinal and lower neck lymph adenopathy. Patient presents with worsening dyspnea over 2 days, also reports cough and left sided chest pain which is rating 6/10 and nonradiating. Patient has received his first dose of radiotherapy outpatient Monday before admission. Also patient lost his appetite not eating much. No dysuria or urgency. No headache dizziness weakness numbness. Patient non-smoker no alcohol no illicit drugs. He quit smoking recently. Patient has mild leukocytosis and anemia. Platelet count is elevated 464. Sodium low 129. 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 Patient was admitted to the hospital under medicine with oncology and pulmonary consultation. Patient will be started on chemoradiation this admission due to the near complete obstruction of his left main bronchus. Patient also has known cardiomyopathy had mild peripheral edema on admission and was started on IV lasix. Patient developed acute episode of sharp stabbing pain to the left scapula after round of chemotherapy. Pain was relieved with morphine however EKG was completed which reveals sinus rhythm premature supraventricular complexes and PACs. Heart rate of 90. Patient did have troponin elevation of 0.042 and 0.040 noted that his troponin level was negative at the beginning of this admission prior to starting chemotherapy. Patient was ordered to have an echocardiogram today and cardiology was consulted for further evaluation. chest x-ray was completed revealing possible mild acute cardiopulmonary disease involving the left lung base as described with suggestion of a small pleural effusion. A retrocardiac infiltrate cannot be entirely excluded. Echocardiogram which reveals EF 45-50% with moderate MR. 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 He has no further reports of chest pain or shoulder/back pain at this time. Patient having issues with his right arm and movement unable to lift above his head with 4/5 strength No other neurological deficits and lower extremity strength is 5/5 bilaterally. ongoing for last few days. Brain CT is negative for acute findings. He states this has happened to him before at work where he was unable to lift his arm above his head. He also had carotid doppler which reveals no significant stenosis. He was evaluated by neurology recommending MRI however patient refused and now his arm is strength 5/5 and he has full range of motion. He states this has happened in the past and likely musculoskeletal. 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 Patient has completed course of chemotherapy and will continue on daily radiation treatments. He has been weaned down to room air and now on oral prenisone taper. He has been up ambulating in the hallway. No chest pain, minimal shortness of breath. Most recent blood work reveals WBC 5.92, hgb 9.6, sodium 136, potassium 4.2, BUN 30, creatinine 0.9, calcium 8.2. Hemodynamically he is stable. He will be discharged home. Please see medication reconciliation for a list of current medications. Thank you for allowing us to participate in the care of this patient. The impression and plan of care has been dictated by Denia Soni, Nurse Practitioner as directed. Dr. Delmar MD I have performed a history and physical examination and medical decision making of this patient, discussed the same with the dictator, and agree with the dictators assessment and plan as written, documented as a scribe. Based on total visit time, I have performed more than 50% of this visit. Patient Condition at Discharge: Stable Plan - Discharge Summary Discharge Rx Participant: No New Discharge Prescriptions: New Pantoprazole [Protonix] 40 mg PO AC-BRKFST #30 tab polyethylene glycoL 3350 [Miralax] 17 gm PO DAILY packet Isosorbide Mononitrate ER [Imdur] 30 mg PO DAILY #30 tab Continue Metoprolol Succinate (ER) [Toprol XL] 50 mg PO DAILY Levothyroxine Sodium 25 mcg PO DAILY Atorvastatin Calcium [Lipitor] 80 mg PO HS Aspirin 81 mg PO DAILY Sildenafil Citrate 20 mg PO DAILY PRN PRN Reason: E.D. Albuterol Sulfate [Ventolin HFA] 2 puff INHALATION RT-Q4H Ondansetron Odt [Zofran ODT] 4 mg PO Q6H PRN PRN Reason: Nausea Ezetimibe [Zetia] 10 mg PO DAILY Fluticasone/Umeclidin/Vilanter [Trelegy Ellipta 100-62.5-25] 1 puff INHALATION RT-DAILY Benzonatate [Tessalon Perles] 200 mg PO TID PRN #30 cap PRN Reason: Cough HYDROcodone/APAP 5-325MG [Ceylon 5-325] 1 tab PO Q6H PRN PRN Reason: Pain OLANZapine 10 mg PO DIRECTED Discharge Medication List Aspirin 81 mg PO DAILY 12/05/20 [History] Atorvastatin Calcium [Lipitor] 80 mg PO HS 12/05/20 [History] Ezetimibe [Zetia] 10 mg PO DAILY 12/05/20 [History] Levothyroxine Sodium 25 mcg PO DAILY 12/05/20 [History] Metoprolol Succinate (ER) [Toprol XL] 50 mg PO DAILY 12/05/20 [History] Albuterol Sulfate [Ventolin HFA] 2 puff INHALATION RT-Q4H 12/21/23 [History] Fluticasone/Umeclidin/Vilanter [Trelegy Ellipta 100-62.5-25] 1 puff INHALATION RT-DAILY 12/21/23 [History] Sildenafil Citrate 20 mg PO DAILY PRN 12/21/23 [History] Benzonatate [Tessalon Perles] 200 mg PO TID PRN #30 cap 12/23/23 [Rx] HYDROcodone/APAP 5-325MG [Ceylon 5-325] 1 tab PO Q6H PRN 01/13/24 [History] OLANZapine 10 mg PO DIRECTED 01/13/24 [History] Ondansetron Odt [Zofran ODT] 4 mg PO Q6H PRN 01/13/24 [History] Isosorbide Mononitrate ER [Imdur] 30 mg PO DAILY #30 tab 01/23/24 [Rx] Pantoprazole [Protonix] 40 mg PO AC-BRKFST #30 tab 01/23/24 [Rx] polyethylene glycoL 3350 [Miralax] 17 gm PO DAILY packet 01/23/24 [Rx] Follow up Appointment(s)/Referral(s): Angel Suárez MD [STAFF PHYSICIAN] - 02/13/24 10:00 am Tayler Mccallum NPC [Nurse Practitioner] - 02/01/24 1:15 pm (Dr. Ramirez's CLUTCH OPERATOR ) [facility],Equipment [NON-STAFF] - 1 Week Will Marina MD [STAFF PHYSICIAN] - 01/24/24 8:45 am ([facility] for radiation) Jose Kern DO [Primary Care Provider] - 02/05/24 2:00 pm Ambulatory/Diagnostic Orders: Basic Metabolic Panel [LAB.AMB] Time Frame: 3 Days, Location: None Selected Complete Blood Count w/diff [LAB.AMB] Location: None Selected Patient Instructions/Handouts: Squamous Cell Carcinoma (DC) Activity/Diet/Wound Care/Special Instructions: Follow up with your known Tax Appraiser on discharge. Radiation appointment with Dr Marina at [facility] at 8:45 on 01/24/24. Discharge Disposition: HOME SELF-CARE
--- NOTE | 2024-02-08 05:59 | CDI ---
Documentation Clarification Form Date: 02/08/24 From: Zahira Teran Admit Date: 01/13/2024 03:03:00 PM Patient Name: Chris Vauhgan Visit Number: [id number] Discharge Date: 01/23/2024 02:23:00 PM ATTENTION: The Clinical Documentation Specialists (CDI) and [facility] Coding Staff appreciate your assistance in clarifying documentation. Please respond to the clarification below the line at the bottom and electronically sign. The CDI & [facility] Coding staff will review the response and follow-up if needed. Please note: Queries are made part of the Legal Health Record. If you have any questions, please contact the author of this message via ITS. Doctor David Jacobsen, Your patient has chronic systolic dysfunction. Based on this information and the findings below, is there an additional diagnosis that is clinically appropriate for this patient? Patient history/risk factors: Hypertension, hypothyroidism, CAD, non-small cell lung cancer with metastasis to mediastinal and lower neck lymphadenopathy, mild ischemic cardiomyopathy Clinical Indicators: ECHO: Left ventricular ejection fraction is estimated at 45-50 %.Mildly increased septal wall thickness. Mildly decreased left ventricular ejection fraction. Mildlyreducedglobal left ventricular systolic function. Left ventricular cavitysize normal. Normal right ventricular size and function. Right ventricular systolicpressure within normal limits. Treatment: Home med Metoprolol Succinate ER 50 mg po daily, In-House Meds IV Lasix 20 mg IV, 40 mg IV, Discharge Med Metoprolol Succinate ER 50 mg po daily Is there an additional diagnosis that is clinically appropriate for this patient? [ ] Hypertension with chronic systolic CHF [ x ] Hypertension with acute on chronic systolic CHF [ ] Hypertension without heart failure [ ] No additional diagnosis/Not clinically significant [ ] Unable to determine [ ] Other, please specify MTDD
== END 2024-01-23 14:23 | disposition home or self-care (01) | DRG 180 ==
LOC: EC 10:52 → 5NMEDONC 15:03 → 4SSUR 15:53 → 5NMEDONC 16:02 → 3SCARD 01-19 18:14 → 5NMEDONC 01-21 12:57
PROVIDERS: ADMIT Hospitalist; ATTEND Hospitalist
PROC: 3E04305 Introduction of Other Antineoplastic into Central Vein, Percutaneous Approach (ICD-10-PCS; principal; 2024-01-15)
PROC: DB022ZZ Beam Radiation of Lung using Photons >10 MeV (ICD-10-PCS; 2024-01-15)
PROC: 05HB33Z Insertion of Infusion Device into Right Basilic Vein, Percutaneous Approach (ICD-10-PCS; 2024-01-16)
DX: C34.32 Malignant neoplasm of lower lobe, left bronchus or lung (principal); I21.A1 Myocardial infarction type 2; J96.01 Acute respiratory failure with hypoxia; I50.23 Acute on chronic systolic (congestive) heart failure; C77.0 Secondary and unspecified malignant neoplasm of lymph nodes of head, face and neck; C78.1 Secondary malignant neoplasm of mediastinum; E87.1 Hypo-osmolality and hyponatremia; J44.1 Chronic obstructive pulmonary disease with (acute) exacerbation; I82.611 Acute embolism and thrombosis of superficial veins of right upper extremity; T82.868A Thrombosis due to vascular prosthetic devices, implants and grafts, initial encounter; J98.11 Atelectasis; E86.0 Dehydration; E86.1 Hypovolemia; I11.0 Hypertensive heart disease with heart failure; D63.0 Anemia in neoplastic disease; E03.9 Hypothyroidism, unspecified; D72.828 Other elevated white blood cell count; J98.09 Other diseases of bronchus, not elsewhere classified; E78.5 Hyperlipidemia, unspecified; I49.3 Ventricular premature depolarization; I49.1 Atrial premature depolarization; E87.70 Fluid overload, unspecified; K59.00 Constipation, unspecified; R73.9 Hyperglycemia, unspecified; T38.0X5A Adverse effect of glucocorticoids and synthetic analogues, initial encounter; I25.10 Atherosclerotic heart disease of native coronary artery without angina pectoris; I25.5 Ischemic cardiomyopathy; Z79.82 Long term (current) use of aspirin; Z79.890 Hormone replacement therapy; Z79.51 Long term (current) use of inhaled steroids; Z79.899 Other long term (current) drug therapy; Z95.5 Presence of coronary angioplasty implant and graft; Z87.891 Personal history of nicotine dependence; Z86.73 Personal history of transient ischemic attack (TIA), and cerebral infarction without residual deficits; Z71.3 Dietary counseling and surveillance; Y84.8 Other medical procedures as the cause of abnormal reaction of the patient, or of later complication, without mention of misadventure at the time of the procedure; Y92.230 Patient room in hospital as the place of occurrence of the external cause
CPT/HCPCS: 36415; 36573; 70450; 71045; 71046; 71275; 77290; 77293; 77300; 77301; 77338; 77386; 77412; 80048; 80053; 82607; 82728; 82747; 83540; 83550; 83605; 83735; 83880; 83921; 84484; 85025; 85379; 85610; 85730; 87636; 93005; 93306; 93880; 93970; 94640; 94760; 96360; 99285

== ENCOUNTER → 2024-04-12 | Outpatient (CLI) | payer MEDICARE ==
[2024-04-12 12:42] LABS: African American GFR (CKD) 86 (>60 ml/min/1.73 sqM); Blood Urea Nitrogen 19 mg/dL (9-20); Non-African American GFR(CKD) 75 (>60 ml/min/1.73 sqM)
--- NOTE | 2024-04-12 14:20 | CT ---
EXAMINATION TYPE: CT chest w con CT DLP: 315.2 mGycm, Automated exposure control for dose reduction was used. DATE OF EXAM: 04/12/2024 1:00 PM COMPARISON: Chest radiograph from 03/12/2024, CTA chest 01/13/2024, PET/CT 01/04/2024, CT chest 12/21/2023, CT low-dose lung 12/15/2023 CLINICAL INDICATION:Male, 63 years old with history of C34.32 MALIGNANT NEOPLASM OF LOWER LOBE, LEFT BRON; PHH, f/u lung ca TECHNIQUE: Multiple axial images were obtained through the chest following the administration of 100 cc of Isovue 300. . Coronal and sagittal reformats reviewed. FINDINGS: LUNGS/ PLEURA: No pleural effusion or pneumothorax. Bilateral lower lobe dependent subsegmental atele ctasis. No focal consolidation. Decrease size of left perihilar mass now measuring 2.6 x 1.2 cm, pre viously measured at least 5.1 x 3.6 cm (series 3, image 28). Residual left lower lobe pleural thicken ing identified. A few peripheral bilateral upper lobe opacities identified. AIRWAY: Patent and unremarkable.. Improvement in previously demonstrated obstruction of the left main stem bronchus. HEART: Size within normal limits. No pericardial effusion. Moderate coronary jugular calcifications. MEDIASTINUM: Decreased mediastinal adenopathy measuring less than 1 cm short axis now. VASCULATURE: No aortic aneurysm. No filling defect identified within the pulmonary arteries. MUSCULOSKELETAL: Mild disc degeneration changes are present throughout the thoracolumbar spine. No ac point lay ira thoracic process. No aggressive osseous lesion. SOFT TISSUES/LYMPH NODES: Surgical clip identified within the anterior right chest wall. LOWER NECK: No significant findings. UPPER ABDOMEN: Left renal cyst redemonstrated. IMPRESSION: Significant improvement in obstructing left lower lobe perihilar mass and adenopathy. [facility], , 04/12/2024 2:18 PM
== END | disposition home or self-care (01) ==
LOC: RADCTMAIN 12:08
PROVIDERS: ATTEND Internal Medicine Hematology & Oncology
DX: C34.32 Malignant neoplasm of lower lobe, left bronchus or lung (principal); R59.0 Localized enlarged lymph nodes
CPT/HCPCS: 82565; 84520; 71260; 36415; Q9967

== ENCOUNTER → 2024-07-19 | Outpatient (CLI) | payer MEDICARE ==
[2024-07-19 12:39] LABS: African American GFR (CKD) 74 (>60 ml/min/1.73 sqM); Blood Urea Nitrogen 26 mg/dL (9-20); Non-African American GFR(CKD) 64 (>60 ml/min/1.73 sqM)
--- NOTE | 2024-07-19 15:34 | CT ---
EXAMINATION TYPE: CT chest w con DATE OF EXAM: 07/19/2024 COMPARISON: Prior CT April 12, 2024 and older studies HISTORY: lung cancer progress study. CT DLP: 412.70 mGycm. Automated Exposure Control for Dose Reduction was Utilized. TECHNIQUE: CT scan of the thorax is performed following with IV Contrast, patient injected with 100 mL of Isovue 300. FINDINGS: LUNGS: There is new groundglass opacity in the medial right upper lung and to greater degree involvin g left upper lobe where there is some central consolidation and air bronchograms. More prominent grou ndglass opacity consolidation in the superior aspect of the left lower lobe. Stable Bilateral lower l obe dependent subsegmental atelectasis. Fairly stable left perihilar mass now measuring 2.6 x 1.6 cm axial image 28 similar to prior. No new nodules or masses. No pleural effusion or pneumothorax bilat erally. MEDIASTINUM: There are no new greater than 1 cm hilar or mediastinal lymph nodes. Stable prominent bu t subcentimeter mediastinal lymph nodes No cardiomegaly or pericardial effusion is seen. Persisten t coronary artery calcification and stents. OTHER: Stable slightly low dense nodular thickening left adrenal gland. Stable simple cortical cyst a nterior upper pole of left kidney. IMPRESSION: 1. Stable left perihilar mass/neoplasm. Stable subcentimeter prominent mediastinal adenopathy. No sig nificant change from most recent prior CT. 2. New areas of groundglass opacity and consolidation in both lungs more prominent in the left lung l ikely reflecting posttreatment change or radiation pneumonitis. Correlate clinically. Acute infectiou s process not entirely excluded but felt less likely. [facility], , 07/19/2024 3:31 PM
== END | disposition home or self-care (01) ==
LOC: RADCTMAIN 11:55
PROVIDERS: ATTEND Internal Medicine Hematology & Oncology
DX: C34.32 Malignant neoplasm of lower lobe, left bronchus or lung (principal); R91.8 Other nonspecific abnormal finding of lung field
CPT/HCPCS: 82565; 84520; 71260; 36415; Q9967

== ENCOUNTER → 2024-10-28 | Outpatient (CLI) | payer MEDICARE ==
[2024-10-28 11:40] LABS: African American GFR (CKD) 73 (>60 ml/min/1.73 sqM); Blood Urea Nitrogen 32 mg/dL (9-20); Non-African American GFR(CKD) 63 (>60 ml/min/1.73 sqM)
--- NOTE | 2024-10-28 12:34 | CT ---
EXAMINATION TYPE: CT chest w con DATE OF EXAM: 10/28/2024 12:16 PM COMPARISON: 07/19/2024 CLINICAL INDICATION: Male, 63 years old with history of C34.32 LUNG CANCER; PHH, f/u lung ca TECHNIQUE: Multiple axial images were obtained through the chest. Sagittal and coronal reformats were created for review. MIP was performed on a separate workstation. Contrast used:100 mL of Isovue 300 with IV Contrast (None if empty) Oral contrast used: (None if empty) CT DLP: 376.7 mGycm, Automated exposure control for dose reduction was used. FINDINGS: LUNGS/ PLEURA: Stable morphology to the right upper lung medial groundglass opacities. No new or enla rging right-sided pulmonary nodules. Stable left upper lobe parenchymal morphology. No enlarging nodule identified. No focal consolidation , pneumothorax or pleural effusion. AIRWAY: Patent and unremarkable. HEART: Size within normal limits. Mild coronary artery calcifications present. MEDIASTINUM: Stable soft tissue around the left perihilar region measuring 27 x 12 mm not significant ly changed from prior given differences in measuring technique and slice selection. No new or enlargi ng mediastinal nodes. Enlarged lymph nodes similar FDG avid on 01/04/2024 not appreciated. VASCULATURE: No aortic aneurysm. MUSCULOSKELETAL: No acute osseous abnormalities SOFT TISSUES/LYMPH NODES: Unremarkable. LOWER NECK: No significant findings. UPPER ABDOMEN: Scattered bilateral renal cysts the largest on the left measuring up to 22 mm and on t he right measuring up to 5 mm. Follow-up recommended. IMPRESSION: Stable morphology of the lungs and left perihilar soft tissue. No new or enlarging pulmonary nodules or lymph nodes. Attention on follow-up PET/CT of this area within the left perihilar region. [facility], , 10/28/2024 12:32 PM
== END | disposition home or self-care (01) ==
LOC: RADCTMAIN 10:53
PROVIDERS: ATTEND Internal Medicine Hematology & Oncology
DX: C34.32 Malignant neoplasm of lower lobe, left bronchus or lung (principal); I67.89 Other cerebrovascular disease; E03.9 Hypothyroidism, unspecified; J44.9 Chronic obstructive pulmonary disease, unspecified
CPT/HCPCS: 82565; 84520; 71260; 36415; Q9967

== ENCOUNTER 2024-10-30 09:05 | Inpatient (IN) | payer MEDICARE ==
[2024-10-30] MEDS: SODIUM CHLORIDE 0.9% 1,000 ML IV ONE ×2 (09:46→11:34)
[2024-10-30] MEDS: ONDANSETRON 4 MG/2 ML VIAL IVP STA ×2 (09:46→11:17)
[2024-10-30 09:58] LABS: Basophils # (A) 0.08 10*3/uL (0.00-0.10); Basophils % (A) 0.5 %; Eosinophils # (A) 0.01 10*3/uL (0.04-0.35); Eosinophils % (A) 0.1 %; HCT 47.5 % (39.6-50.0); HGB 15.9 g/dL (13.0-17.0); Lymphocytes # (A) 0.73 10*3/uL (0.90-5.00); Lymphocytes % (A) 4.5 %; MCH 30.9 pg (27.0-32.0); MCHC 33.5 g/dL (32.0-37.0); MCV 92.4 fL (80.0-97.0); Mean Platelet Volume 11.2 fL (9.5-12.2); Monocytes # (A) 1.33 10*3/uL (0.20-1.00); Monocytes % (A) 8.3 %; Neutrophils # (A) 13.59 10*3/uL (1.80-7.70); Neutrophils % (A) 84.6 %; Platelet Count 286 10*3/uL (140-440); RBC 5.14 10*6/uL (4.40-5.60); RDW 13.2 % (11.5-14.5); WBC 16.06 10*3/uL (4.50-10.00)
--- NOTE | 2024-10-30 10:02 | XR ---
EXAMINATION TYPE: XR chest 2V DATE OF EXAM: 10/30/2024 9:55 AM COMPARISON: 01/08/2024 CLINICAL INDICATION: Male, 63 years old with history of difficulty breathing, very short of breath TECHNIQUE: XR chest 2V view(s) obtained. FINDINGS: The heart size is normal. The pulmonary vasculature is normal. There is a left suprahilar infiltrate. Correlate for pneumonia. Follow-up to clearing is recommended. IMPRESSION: 1. Left upper lobe infiltrate. Correlate for pneumonia. Follow-up to clearing is recommended. [facility], Workstation: [id number], 10/30/2024 10:00 AM
[2024-10-30 10:20] LABS: ALT 26 U/L (4-49); AST 18 U/L (17-59); African American GFR (CKD) 40 (>60 ml/min/1.73 sqM); Albumin 5.1 g/dL (3.5-5.0); Alkaline Phosphatase 166 U/L (38-126); Blood Urea Nitrogen 37 mg/dL (9-20); Calcium 10.1 mg/dL (8.4-10.2); Chloride 92 mmol/L (98-107); Non-African American GFR(CKD) 35 (>60 ml/min/1.73 sqM); Sodium 131 mmol/L (137-145); Total Bilirubin 0.8 mg/dL (0.2-1.3)
[2024-10-30 10:24] LABS: INR 0.9 (<1.2); Partial Thromboplastin Time 22.5 sec (22.0-30.0); Prothrombin Time 10.1 sec (10.0-12.5)
[2024-10-30 10:28] LABS: Influenza A Not Detected (Not Detectd); Influenza B Not Detected (Not Detectd); RSV Not Detected (Not Detectd)
[2024-10-30 10:29] LABS: NT-Pro-B-Type Natriuretic Pept 782 pg/mL
--- NOTE | 2024-10-30 10:29 | ED ---
SOB HPI - General Chief Complaint: Shortness of Breath Stated Complaint: SOB Time Seen by Provider: 10/30/24 09:13 Source: patient Mode of arrival: ambulatory Limitations: no limitations - History of Present Illness Initial Comments: 63-year-old male with past medical history of stage III lung cancer, hypertension, coronary artery disease who presents emergency department with shortness of breath. He had a CT scan at our facility on Monday to evaluate the progression of his lung cancer. He had chemotherapy and radiation last year. Patient is currently on immunotherapy and had treatment 1 week ago on Monday. Patient has not had results of his CT scan on Monday. After the imaging the patient was having increased shortness of breath. He was exposed to RSV and was concerned that this is his source. He denies having any fevers. Admits to nausea with 2 episodes of vomiting yesterday. Patient was able to hold down some fluids. He denies any chest pain. Does have history of coronary disease. Denies any calf pain or feeling. No history of DVT or PE. He is not currently on any anticoagulation. No abdominal pain. Has noted an increased thirst and urination. No other alleviating, precipitating or modifying factors Pt is a pt of Dr. Palmer - Related Data Home Medications Medication Instructions Recorded Confirmed Aspirin 81 mg PO DAILY 12/05/20 10/30/24 Atorvastatin Calcium [Lipitor] 80 mg PO DAILY 12/05/20 10/30/24 Ezetimibe [Zetia] 10 mg PO DAILY 12/05/20 10/30/24 Fluticasone/Umeclidin/Vilanter 1 puff INHALATION RT-DAILY 12/21/23 10/30/24 [Trelegy Ellipta 100-62.5-25] Albuterol Sulfate [Accuneb] 0.63 mg INHALATION RT-Q6H 10/30/24 10/30/24 Levothyroxine Sodium 150 mcg PO DAILY 10/30/24 10/30/24 Metoprolol Tartrate [Lopressor] 50 mg PO DAILY 10/30/24 10/30/24 Previous Rx's Medication Instructions Recorded Benzonatate [Tessalon Perles] 200 mg PO TID PRN #30 cap 12/23/23 Isosorbide Mononitrate ER [Imdur] 30 mg PO DAILY #30 tab 01/23/24 Allergies Allergy/AdvReac Type Severity Reaction Status Date / Time No Known Allergies Allergy Verified 10/30/24 11:46 Review of Systems ROS Statement: Those systems with pertinent positive or pertinent negative responses have been documented in the HPI. ROS Other: All systems not noted in ROS Statement are negative. Past Medical History Past Medical History: Coronary Artery Disease (CAD), Cancer, Hypertension, Thyr oid Disorder Additional Past Medical History / Comment(s): lung ca History of Any Multi-Drug Resistant Organisms: None Reported Past Surgical History: Heart Catheterization With Stent Additional Past Surgical History / Comment(s): Throat surgery Date of Last Stent Placement:: 2016 Past Psychological History: No Psychological Hx Reported Smoking Status: Former smoker Past Alcohol Use History: Occasional Past Drug Use History: Marijuana - Past Family History Father History Unknown: Yes Family Medical History: Cancer Additional Family Medical History / Comment(s): Lung ca Mother Additional Family Medical History / Comment(s): at age og 96 Sister(s) Family Medical History: Diabetes Mellitus General Exam Limitations: no limitations General appearance: alert, in distress Head exam: Present: atraumatic, normocephalic, normal inspection Eye exam: Present: normal appearance, PERRL, EOMI. Absent: scleral icterus, conjunctival injection, periorbital swelling ENT exam: Present: mucous membranes dry Neck exam: Present: normal inspection. Absent: tenderness, meningismus, lymphadenopathy Respiratory exam: Present: normal lung sounds bilaterally. Absent: respiratory distress, wheezes, rales, rhonchi, stridor Cardiovascular Exam: Present: regular rate, normal rhythm, normal heart sounds. Absent: systolic murmur, diastolic murmur, rubs, gallop, clicks GI/Abdominal exam: Present: soft, normal bowel sounds. Absent: distended, tenderness, guarding, rebound, rigid Extremities exam: Present: normal inspection, full ROM, normal capillary refill. Absent: tenderness, pedal edema, joint swelling, calf tenderness Neurological exam: Present: alert, oriented X3, CN II-XII intact Psychiatric exam: Present: anxious Course Vital Signs 10/30/24 10/30/24 10/30/24 09:09 09:40 09:45 Temperature 98.2 F Pulse Rate 91 Respiratory 24 36 H Rate Blood Pressure 144/88 O2 Sat by Pulse 100 100 Oximetry 10/30/24 10/30/24 10/30/24 10:08 11:20 12:24 Temperature Pulse Rate 92 101 H 107 H Respiratory 28 H 30 H 26 H Rate Blood Pressure 166/72 151/78 158/75 O2 Sat by Pulse 99 100 100 Oximetry 10/30/24 10/30/24 10/30/24 12:53 12:56 13:01 Temperature Pulse Rate 107 H 118 H Respiratory 32 H Rate Blood Pressure 138/97 O2 Sat by Pulse 98 100 Oximetry 10/30/24 10/30/24 10/30/24 13:03 14:00 15:32 Temperature Pulse Rate 115 H 118 H 89 Respiratory 28 H 20 Rate Blood Pressure 152/68 128/76 O2 Sat by Pulse 100 100 Oximetry 10/30/24 10/30/24 16:08 17:16 Temperature Pulse Rate 95 97 Respiratory 16 18 Rate Blood Pressure 111/61 128/71 O2 Sat by Pulse 99 100 Oximetry Medical Decision Making - Medical Decision Making Was pt. sent in by a medical professional or institution (, PA, BARIATRIC NURSE, urgent care, hospital, or long term...) When possible be specific @ -No Did you speak to anyone other than the patient for history (EMS, parent, family, police, friend...)? What history was obtained from this source @ -Spoke with the for history Did you review nursing and triage notes (agree or disagree)? Why? @ -I reviewed and agree with nursing and triage notes Were old charts reviewed (outside hosp., previous admission, EMS record, old EKG, old radiological studies, urgent care reports/EKG's, long term records)? Report findings @ -I reviewed the patient's CT of his chest which was performed on the and demonstrated no progression of the patient's disease Differential Diagnosis (chest pain, altered mental status, abdominal pain women, abdominal pain men, vaginal bleeding, weakness, fever, dyspnea, syncope, headache, dizziness, GI bleed, back pain, seizure, CVA, palpatations, mental health, musculoskeletal)? @ -Differential Dyspnea: Coronary syndrome, arrhythmia, tamponade, asthma, COPD, pulmonary embolism, pneumonia, pneumothorax, pulmonary effusion, anaphylaxis, diabetic ketoacidosis, flailed chest, pulmonary contusion, diaphragmatic rupture, anemia, neuromuscular, this is not meant to be an all-inclusive list. EKG interpreted by me (3pts min.). @ -Yes and demonstrates sinus rhythm with a rate of 89. MS interval 154. QRS 108. QTc of 427. No acute ST segment elevations or depressions X-rays interpreted by me (1pt min.). @ -Yes which demonstrates the patient's previous lung mass without signs of ac [place] findings CT interpreted by me (1pt min.). @ -None done U/S interpreted by me (1pt. min.). @ -None done What testing was considered but not performed or refused? (CT, X-rays, U/S, labs)? Why? @ -None What meds were considered but not given or refused? Why? @ -None Did you discuss the management of the patient with other professionals (professionals i.e. DrBeth, PA, BARIATRIC NURSE, lab, RT, psych nurse, social science instructor, wet pan mixer, teacher, infantry officer, case management manager)? Give summary @Spoke with Dr. Eubanks for the admission. Also spoke with Dr. Choi from ICU Was smoking cessation discussed for >3mins.? @ -No Was critical care preformed (if so, how long)? @ -35 minutes for management of new onset DKA Were there social determinants of health that impacted care today? How? (Homelessness, low income, unemployed, alcoholism, drug addiction, transportation, low edu. Level, literacy, decrease access to med. care, usp, rehab)? @ -No Was there de-escalation of care discussed even if they declined (Discuss DNR or withdrawal of care, Hospice)? DNR status @ -No What co-morbidities impacted this encounter? (DM, HTN, Smoking, COPD, CAD, Cancer, CVA, ARF, Chemo, Hep., AIDS, mental health diagnosis, sleep apnea, morbid obesity)? @ -Lung cancer on immunotherapy Was patient admitted / discharged? Hospital course, mention meds given and route, prescriptions, significant lab abnormalities, going to OR and other pertinent info. @ -Upon arrival patient seen and evaluated in bed 6. Thorough history and physical exam was performed. Patient is tachypneic with a strong smell of acetone. Admits to only 2 episodes of vomiting and no history of diabetes. IV was established and he was administered 2 L bolus of normal saline. Laboratory studies were conducted. Chest x-ray was performed. Patient does have profound abnormal labs with a glucose of 925. White blood cell count is 16. Potassium 6.4. CO2 less than 5. Creatinine 1.9. He is acetone positive. Patient was administered 2 A of bicarb. He was started on normal saline at 200 cc/h. Insulin drip was initiated. Patient requires admission due to new onset DKA. I spoke with Dr. Eubanks for the admission. I spoke with Dr. Choi from the ICU Undiagnosed new problem with uncertain prognosis? @ -No Drug Therapy requiring intensive monitoring for toxicity (Heparin, Nitro, Insulin, Cardizem)? @ -Insulin Were any procedures done? @ -No Diagnosis/symptom? @ -Acute respiratory insufficiency, new onset DKA, CRESCENCIO, hyperkalemia Acute, or Chronic, or Acute on Chronic? @ -Acute Uncomplicated (without systemic symptoms) or Complicated (systemic symptoms)? @ -Complicated Side effects of treatment? @ -No Exacerbation, Progression, or Severe Exacerbation? @ -No Poses a threat to life or bodily function? How? (Chest pain, [place], [place], pneumonia, PE, COPD, DKA, ARF, appy, cholecystitis, CVA, Diverticulitis, Homicidal, Suicidal, threat to staff... and all critical care pts) @ -Yes if patient has any new onset DKA - Lab Data Result diagrams: 10/30/24 09:40 10/30/24 19:56 Lab Results 10/30/24 10/30/24 10/30/24 Range/Units 09:40 09:40 09:40 WBC 16.06 H (4.50-10.00) 10*3/uL RBC 5.14 (4.40-5.60) 10*6/uL Hgb 15.9 (13.0-17.0) g/dL Hct 47.5 (39.6-50.0) % MCV 92.4 (80.0-97.0) fL MCH 30.9 (27.0-32.0) pg MCHC 33.5 (32.0-37.0) g/dL Plt Count 286 (140-440) 10*3/uL MPV 11.2 (9.5-12.2) fL Immature Gran % (Auto) 2.0 % Neutrophils % 84.6 % Lymphocytes % 4.5 % Monocytes % 8.3 % Eosinophils % 0.1 % Basophils % 0.5 % Immature Gran # 0.32 H (0.00-0.04) 10*3/uL Neutrophils # 13.59 H (1.80-7.70) 10*3/uL Lymphocytes # 0.73 L (0.90-5.00) 10*3/uL Monocytes # 1.33 H (0.20-1.00) 10*3/uL Eosinophils # 0.01 L (0.04-0.35) 10*3/uL Basophils # 0.08 (0.00-0.10) 10*3/uL PT 10.1 (10.0-12.5) sec INR 0.9 (<1.2) APTT 22.5 (22.0-30.0) sec D-Dimer 0.53 (<0.60) mg/L FEU Sodium 131 L (137-145) mmol/L Potassium 6.4 H* (3.5-5.1) mmol/L Chloride 92 L (98-107) mmol/L Carbon Dioxide <5 L* (22-30) mmol/L Anion Gap mmol/L BUN 37 H (9-20) mg/dL Creatinine 1.96 H (0.66-1.25) mg/dL Est GFR (CKD-EPI)AfAm 40 (>60 ml/min/1.73 sqM) Est GFR (CKD-EPI)NonAf 35 (>60 ml/min/1.73 sqM) Glucose 925 H* (74-99) mg/dL Lactic Ac Sepsis Rflx Plasma Lactic Acid Gareth (0.7-2.0) mmol/L Calcium 10.1 (8.4-10.2) mg/dL Phosphorus (2.5-4.5) mg/dL Total Bilirubin 0.8 (0.2-1.3) mg/dL AST 18 (17-59) U/L ALT 26 (4-49) U/L Alkaline Phosphatase 166 H (38-126) U/L Troponin I (0.000-0.034) ng/mL NT-Pro-B Natriuret Pep 782 pg/mL Total Protein 8.0 (6.3-8.2) g/dL Albumin 5.1 H (3.5-5.0) g/dL TSH (0.465-4.680) mIU/L Acetone, Qual Positive (Negative) Influenza Type A (PCR) (Not Detectd) Influenza Type B (PCR) (Not Detectd) RSV (PCR) (Not Detectd) SARS-CoV-2 (PCR) (Not Detectd) 10/30/24 10/30/24 10/30/24 Range/Units 09:40 09:40 09:40 WBC (4.50-10.00) 10*3/uL RBC (4.40-5.60) 10*6/uL Hgb (13.0-17.0) g/dL Hct (39.6-50.0) % MCV (80.0-97.0) fL MCH (27.0-32.0) pg MCHC (32.0-37.0) g/dL Plt Count (140-440) 10*3/uL MPV (9.5-12.2) fL Immature Gran % (Auto) % Neutrophils % % Lymphocytes % % Monocytes % % Eosinophils % % Basophils % % Immature Gran # (0.00-0.04) 10*3/uL Neutrophils # (1.80-7.70) 10*3/uL Lymphocytes # (0.90-5.00) 10*3/uL Monocytes # (0.20-1.00) 10*3/uL Eosinophils # (0.04-0.35) 10*3/uL Basophils # (0.00-0.10) 10*3/uL PT (10.0-12.5) sec INR (<1.2) APTT (22.0-30.0) sec D-Dimer (<0.60) mg/L FEU Sodium (137-145) mmol/L Potassium (3.5-5.1) mmol/L Chloride (98-107) mmol/L Carbon Dioxide (22-30) mmol/L Anion Gap mmol/L BUN (9-20) mg/dL Creatinine (0.66-1.25) mg/dL Est GFR (CKD-EPI)AfAm (>60 ml/min/1.73 sqM) Est GFR (CKD-EPI)NonAf (>60 ml/min/1.73 sqM) Glucose (74-99) mg/dL Lactic Ac Sepsis Rflx Plasma Lactic Acid Gareth 2.4 H* (0.7-2.0) mmol/L Calcium (8.4-10.2) mg/dL Phosphorus (2.5-4.5) mg/dL Total Bilirubin (0.2-1.3) mg/dL AST (17-59) U/L ALT (4-49) U/L Alkaline Phosphatase (38-126) U/L Troponin I <0.012 (0.000-0.034) ng/mL NT-Pro-B Natriuret Pep pg/mL Total Protein (6.3-8.2) g/dL Albumin (3.5-5.0) g/dL TSH (0.465-4.680) mIU/L Acetone, Qual (Negative) Influenza Type A (PCR) Not Detected (Not Detectd) Influenza Type B (PCR) Not Detected (Not Detectd) RSV (PCR) Not Detected (Not Detectd) SARS-CoV-2 (PCR) Not Detected (Not Detectd) 10/30/24 10/30/24 10/30/24 Range/Units 10:13 11:40 11:40 WBC (4.50-10.00) 10*3/uL RBC (4.40-5.60) 10*6/uL Hgb (13.0-17.0) g/dL Hct (39.6-50.0) % MCV (80.0-97.0) fL MCH (27.0-32.0) pg MCHC (32.0-37.0) g/dL Plt Count (140-440) 10*3/uL MPV (9.5-12.2) fL Immature Gran % (Auto) % Neutrophils % % Lymphocytes % % Monocytes % % Eosinophils % % Basophils % % Immature Gran # (0.00-0.04) 10*3/uL Neutrophils # (1.80-7.70) 10*3/uL Lymphocytes # (0.90-5.00) 10*3/uL Monocytes # (0.20-1.00) 10*3/uL Eosinophils # (0.04-0.35) 10*3/uL Basophils # (0.00-0.10) 10*3/uL PT (10.0-12.5) sec INR (<1.2) APTT (22.0-30.0) sec D-Dimer (<0.60) mg/L FEU Sodium 135 L (137-145) mmol/L Potassium 5.9 H (3.5-5.1) mmol/L Chloride 97 L (98-107) mmol/L Carbon Dioxide <5 L* (22-30) mmol/L Anion Gap mmol/L BUN 37 H (9-20) mg/dL Creatinine 1.85 H (0.66-1.25) mg/dL Est GFR (CKD-EPI)AfAm 43 (>60 ml/min/1.73 sqM) Est GFR (CKD-EPI)NonAf 37 (>60 ml/min/1.73 sqM) Glucose 849 H* (74-99) mg/dL Lactic Ac Sepsis Rflx Y Plasma Lactic Acid Gareth (0.7-2.0) mmol/L Calcium (8.4-10.2) mg/dL Phosphorus 7.3 H (2.5-4.5) mg/dL Total Bilirubin (0.2-1.3) mg/dL AST (17-59) U/L ALT (4-49) U/L Alkaline Phosphatase (38-126) U/L Troponin I (0.000-0.034) ng/mL NT-Pro-B Natriuret Pep pg/mL Total Protein (6.3-8.2) g/dL Albumin (3.5-5.0) g/dL TSH 1.200 (0.465-4.680) mIU/L Acetone, Qual (Negative) Influenza Type A (PCR) (Not Detectd) Influenza Type B (PCR) (Not Detectd) RSV (PCR) (Not Detectd) SARS-CoV-2 (PCR) (Not Detectd) Disposition Clinical Impression: 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
[2024-10-30 10:38] LABS: Carbon Dioxide <5 mmol/L (22-30); Glucose 925 mg/dL (74-99); Potassium 6.4 mmol/L (3.5-5.1)
[2024-10-30] MEDS: SODIUM CHLORIDE 0.9% 1,000 ML IV SCH (11:34)
[2024-10-30] MEDS: INSULIN REGULAR 100 UNIT in SODIUM CHLORIDE 0.9% 100 ML IV SCH (11:35)
[2024-10-30] MEDS ORDERED: Magnesium Replacement Protocol 1 EACH MISC MISCELLANE PRN (11:55)
[2024-10-30] MEDS ORDERED: NALOXONE 0.4 MG/ML 1 ML VIAL IV PRN (11:55)
[2024-10-30 12:10] LABS: African American GFR (CKD) 43 (>60 ml/min/1.73 sqM); Blood Urea Nitrogen 37 mg/dL (9-20); Chloride 97 mmol/L (98-107); Non-African American GFR(CKD) 37 (>60 ml/min/1.73 sqM); Potassium 5.9 mmol/L (3.5-5.1); Sodium 135 mmol/L (137-145)
[2024-10-30 12:35] LABS: Carbon Dioxide <5 mmol/L (22-30); Glucose 849 mg/dL (74-99)
[2024-10-30 12:49] LABS: Glucose,Whole Blood >600 mg/dL (70-110)
[2024-10-30] MEDS: IPRATROPIUM-ALBUTEROL 3 ML NEB INHALATION PRN (12:53)
[2024-10-30 13:09] LABS: ABG Oxygen Saturation 98.1 % (94-97); ABG PO2 137 mmHg (83-108); Allen Test Performed? Yes
[2024-10-30 13:15] LABS: ABG PH 7.06 (7.35-7.45)
[2024-10-30 13:16] LABS: ABG PCO2 <15 mmHg (35-45)
[2024-10-30] MEDS: SODIUM BICARB 8.4% 50 ML SYR (1 MEQ/ML) IV STA (13:57)
[2024-10-30] MEDS: guaiFENesin-DM 100-10MG/5ML 10 ML CUP PO PRN (13:57)
[2024-10-30 14:02] LABS: Glucose,Whole Blood >600 mg/dL (70-110)
[2024-10-30 15:05] LABS: Glucose,Whole Blood >600 mg/dL (70-110)
[2024-10-30 16:03] LABS: Glucose,Whole Blood >600 mg/dL (70-110)
[2024-10-30 16:33] LABS: African American GFR (CKD) 52 (>60 ml/min/1.73 sqM); Anion Gap 27 mmol/L; Blood Urea Nitrogen 40 mg/dL (9-20); Chloride 103 mmol/L (98-107); Non-African American GFR(CKD) 45 (>60 ml/min/1.73 sqM); Potassium 3.9 mmol/L (3.5-5.1); Sodium 138 mmol/L (137-145)
[2024-10-30 16:43] LABS: Carbon Dioxide 8 mmol/L (22-30); Glucose 591 mg/dL (74-99)
--- NOTE | 2024-10-30 17:04 | P.HPIM ---
History of Present Illness This is a pleasant 63 years old male with past medical history significant for lung cancer diagnosed last December of last year. He is status post immunotherapy he got 6 cycles so far last immunotherapy he received was about 1 week to 8 days ago. He follows up with Dr. Solo and Dr. Ramirez. Presents because of worsening shortness of breath and generalized weakness. Patient with the help of the female family at bedside has been having shortness of breath for 2 days associated with cough and little phlegm but no chest pain This has been associated with severe weakness and difficulty ambulating He has been vomiting and last time he vomited was yesterday but no abdominal pain. Although he complains from epigastric discomfort could be related to his vomiting no bowel movement today. No headache dizziness weakness or numbness On admission patient was found to have sugar significantly elevated more than 600 and in diabetic ketoacidosis however patient has no history of diabetes and has not taken diabetes medication. Has been complaining from blurred vision lately and been is evaluated by finishing machine operator with no cause found. He used to smoke and quit when he was diagnosed with cancer a year ago. No alcohol other than occasional and rare and no illicit drugs On admission patient is tachycardic and tachypneic but afebrile. He is saturating 100% on 2 L. Labs show leukocytosis of 16,000, sodium 131, potassium 5.4. Carbon dioxide less than 5. Creatinine elevated 1.9 with baseline 0.9-1.0 D-dimer is negative at 0.53 Lactic acid is 2.4 and 4.0. Glucose was 9025, acetone is positive proBNP is 782 which is negative Chest x-ray suspicious for left upper lobe infiltrate. EKG shows sinus rhythm at [address]-T changes Review of Systems Review of systems CONSTITUTIONAL: No fever, no malaise, no fatigue. HEENT: No recent visual problems or hearing problems. Denied any sore throat. CARDIOVASCULAR: No orthopnea, PND, no palpitations, no syncope. PULMONARY:no chest wall tenderness, no hemoptysis. GASTROINTESTINAL: No diarrhea, no nausea, no vomiting, no abdominal pain. Normoactive bowel sounds. NEUROLOGICAL: No headaches, no weakness, no numbness. HEMATOLOGICAL: Denies any bleeding or petechiae. GENITOURINARY: Denies any burning micturition, frequency, or urgency. MUSCULOSKELETAL/RHEUMATOLOGICAL: Denies any joint pain, swelling, or any muscle pain. ENDOCRINE: Denies any polyuria or polydipsia. Past Medical History Past Medical History: Coronary Artery Disease (CAD), Cancer (Non-small cell lung cancer, squamous cell, stage IIIb), COPD, Hyperlipidemia, Hypertension, Thyroid Disorder Additional Past Medical History / Comment(s): lung ca History of Any Multi-Drug Resistant Organisms: None Reported Past Surgical History: Heart Catheterization With Stent Additional Past Surgical History / Comment(s): Throat surgery Date of Last Stent Placement:: 2016 Past Psychological History: No Psychological Hx Reported Smoking Status: Former smoker Past Alcohol Use History: Occasional Past Drug Use History: Marijuana - Past Family History Father History Unknown: Yes Family Medical History: Cancer Additional Family Medical History / Comment(s): Lung ca Mother Additional Family Medical History / Comment(s): at age og 96 Medications and Allergies Home Medications Medication Instructions Recorded Confirmed Type Aspirin 81 mg PO DAILY 12/05/20 10/30/24 History Atorvastatin Calcium [Lipitor] 80 mg PO DAILY 12/05/20 10/30/24 History Ezetimibe [Zetia] 10 mg PO DAILY 12/05/20 10/30/24 History Fluticasone/Umeclidin/Vilanter 1 puff INHALATION RT-DAILY 12/21/23 10/30/24 History [Luke Leeta 100-62.5-25] Benzonatate [Tessalon Perles] 200 mg PO TID PRN #30 cap 12/23/23 10/30/24 Rx Isosorbide Mononitrate ER [Imdur] 30 mg PO DAILY #30 tab 01/23/24 10/30/24 Rx Albuterol Sulfate [Accuneb] 0.63 mg INHALATION RT-Q6H 10/30/24 10/30/24 History Levothyroxine Sodium 150 mcg PO DAILY 10/30/24 10/30/24 History Metoprolol Tartrate [Lopressor] 50 mg PO DAILY 10/30/24 10/30/24 History Allergies Allergy/AdvReac Type Severity Reaction Status Date / Time No Known Allergies Allergy Verified 10/30/24 11:46 Physical Exam Vitals: Vital Signs Temp Pulse Resp BP Pulse Ox 10/30/24 14:00 118 H 28 H 152/68 100 10/30/24 13:03 115 H 10/30/24 13:01 118 H 32 H 138/97 100 10/30/24 12:56 98 10/30/24 12:53 107 H 10/30/24 12:24 107 H 26 H 158/75 100 10/30/24 11:20 101 H 30 H 151/78 100 10/30/24 10:08 92 28 H 166/72 99 10/30/24 09:45 100 10/30/24 09:40 36 H 10/30/24 09:09 98.2 F 91 24 144/88 100 Intake and Output 10/29/24 10/30/24 10/30/24 22:59 06:59 14:59 Other: Weight 90.718 kg -GENERAL: The patient is alert and oriented x3, not in any acute distress. Well developed, well nourished. Generally weak HEENT: Pupils are round and equally reacting to light. EOMI. No scleral icterus. No conjunctival pallor. Normocephalic, atraumatic. No pharyngeal erythema. No thyromegaly. CARDIOVASCULAR: S1 and S2 present. No murmurs, rubs, or gallops. -PULMONARY: Chest is clear to auscultation, no wheezing , no crackles. Patient is tachypneic ABDOMEN: Soft, nontender, nondistended, normoactive bowel sounds. No palpable organomegaly. MUSCULOSKELETAL: No joint swelling or deformity. EXTREMITIES: No cyanosis, clubbing, or pedal edema. NEUROLOGICAL: Gross neurological examination did not reveal any focal deficits. SKIN: No rashes. no petechiae. Results CBC & Chem 7: 10/30/24 09:40 10/30/24 16:02 Labs: Abnormal Lab Results - Last 24 Hours (Table) 10/30/24 10/30/24 10/30/24 Range/Units 09:40 09:40 09:40 WBC 16.06 H (4.50-10.00) 10*3/uL Immature Gran # 0.32 H (0.00-0.04) 10*3/uL Neutrophils # 13.59 H (1.80-7.70) 10*3/uL Lymphocytes # 0.73 L (0.90-5.00) 10*3/uL Monocytes # 1.33 H (0.20-1.00) 10*3/uL Eosinophils # 0.01 L (0.04-0.35) 10*3/uL ABG pH (7.35-7.45) ABG pCO2 (35-45) mmHg ABG pO2 (83-108) mmHg ABG O2 Saturation (94-97) % Sodium 131 L (137-145) mmol/L Potassium 6.4 H* (3.5-5.1) mmol/L Chloride 92 L (98-107) mmol/L Carbon Dioxide <5 L* (22-30) mmol/L BUN 37 H (9-20) mg/dL Creatinine 1.96 H (0.66-1.25) mg/dL Glucose 925 H* (74-99) mg/dL POC Glucose (mg/dL) (70-110) mg/dL Plasma Lactic Acid Gareth 2.4 H* (0.7-2.0) mmol/L Phosphorus (2.5-4.5) mg/dL Alkaline Phosphatase 166 H (38-126) U/L Albumin 5.1 H (3.5-5.0) g/dL 10/30/24 10/30/24 10/30/24 Range/Units 11:40 11:40 12:24 WBC (4.50-10.00) 10*3/uL Immature Gran # (0.00-0.04) 10*3/uL Neutrophils # (1.80-7.70) 10*3/uL Lymphocytes # (0.90-5.00) 10*3/uL Monocytes # (0.20-1.00) 10*3/uL Eosinophils # (0.04-0.35) 10*3/uL ABG pH (7.35-7.45) ABG pCO2 (35-45) mmHg ABG pO2 (83-108) mmHg ABG O2 Saturation (94-97) % Sodium 135 L (137-145) mmol/L Potassium 5.9 H (3.5-5.1) mmol/L Chloride 97 L (98-107) mmol/L Carbon Dioxide <5 L* (22-30) mmol/L BUN 37 H (9-20) mg/dL Creatinine 1.85 H (0.66-1.25) mg/dL Glucose 849 H* (74-99) mg/dL POC Glucose (mg/dL) (70-110) mg/dL Plasma Lactic Acid Gareth 4.0 H* (0.7-2.0) mmol/L Phosphorus 7.3 H (2.5-4.5) mg/dL Alkaline Phosphatase (38-126) U/L Albumin (3.5-5.0) g/dL 10/30/24 10/30/24 10/30/24 Range/Units 12:46 13:05 13:57 WBC (4.50-10.00) 10*3/uL Immature Gran # (0.00-0.04) 10*3/uL Neutrophils # (1.80-7.70) 10*3/uL Lymphocytes # (0.90-5.00) 10*3/uL Monocytes # (0.20-1.00) 10*3/uL Eosinophils # (0.04-0.35) 10*3/uL ABG pH 7.06 L* (7.35-7.45) ABG pCO2 <15 L* (35-45) mmHg ABG pO2 137 H (83-108) mmHg ABG O2 Saturation 98.1 H (94-97) % Sodium (137-145) mmol/L Potassium (3.5-5.1) mmol/L Chloride (98-107) mmol/L Carbon Dioxide (22-30) mmol/L BUN (9-20) mg/dL Creatinine (0.66-1.25) mg/dL Glucose (74-99) mg/dL POC Glucose (mg/dL) >600 H* >600 H* (70-110) mg/dL Plasma Lactic Acid Gareth (0.7-2.0) mmol/L Phosphorus (2.5-4.5) mg/dL Alkaline Phosphatase (38-126) U/L Albumin (3.5-5.0) g/dL Assessment and Plan Assessment: Diabetic ketoacidosis Diabetes mellitus with hyperglycemia. New onset Left upper lobe infiltrate could be related to his cancer. Rule out pneumonia Left infrahilar lung cancer,squamous cell carcinoma of the lung, status post chemo and immunotherapy Severe metabolic acidosis secondary to above Lactic acidemia Acute kidney injury Electrolyte abnormality with hyponatremia and hyperkalemia Plan: Continue with insulin drip Continue with aggressive IV hydration Symptomatic treatment Pulmonary team consult. Patient will be admitted to the ICU for close monitoring Check proCalcitonin Labs and medication were reviewed.. Continue same treatment. Continue with symptomatic treatment. Resume home medication. Monitor labs and vitals. DVT and GI prophylaxis. Further recommendations as per clinical course of the patient DVT prophylaxis: Subcutaneous heparin GI Prophylaxis: Pepcid PT/OT: deferred Prognosis is guarded
[2024-10-30 17:09] LABS: Glucose,Whole Blood 568 mg/dL (70-110)
[2024-10-30 18:07] LABS: Glucose,Whole Blood 545 mg/dL (70-110)
[2024-10-30 18:16] LABS: Glucose,Whole Blood 587 mg/dL (70-110)
[2024-10-30 19:27] LABS: Glucose,Whole Blood 422 mg/dL (70-110)
[2024-10-30] MEDS: D5-0.45% NACL WITH KCL 20MEQ/L 1,000 ML IV SCH (19:55)
[2024-10-30 21:05] LABS: Glucose,Whole Blood 326 mg/dL (70-110)
[2024-10-30 21:19] LABS: African American GFR (CKD) 57 (>60 ml/min/1.73 sqM); Anion Gap 15 mmol/L; Blood Urea Nitrogen 37 mg/dL (9-20); Carbon Dioxide 16 mmol/L (22-30); Chloride 105 mmol/L (98-107); Glucose 348 mg/dL (74-99); Non-African American GFR(CKD) 49 (>60 ml/min/1.73 sqM); Phosphorus 1.9 mg/dL (2.5-4.5); Potassium 3.8 mmol/L (3.5-5.1); Sodium 136 mmol/L (137-145)
[2024-10-30 22:04] LABS: Glucose,Whole Blood 318 mg/dL (70-110)
[2024-10-30] MEDS ORDERED: Potassium Replacement Protocol 1 EACH MISC MISCELLANE PRN (22:27)
[2024-10-30 22:50] LABS: Appearance,Urine Clear (Clear); Bilirubin,Urine Negative (Negative); Blood,Urine Negative (Negative); Color,Urine Colorless; Glucose,Urine (UA) 4+ (Negative); Leukocyte Esterase,Urine Negative (Negative); Nitrite,Urine Negative (Negative); Protein,Urine Trace (Negative); Specific Gravity,Urine 1.023 (1.001-1.035); Urobilinogen,Urine <2.0 mg/dL (<2.0)
[2024-10-30] MEDS: POTASSIUM CHLORIDE ER 20 MEQ TAB.ER PO SCH (22:55)
[2024-10-30] MEDS: CALCIUM CARBONATE 500 MG CHEWABLE PO PRN (22:55)
[2024-10-30 23:03] LABS: Glucose,Whole Blood 298 mg/dL (70-110)
[2024-10-30 23:25] LABS: Ketones,Urine 2+ (Negative)
[2024-10-31 00:05] LABS: Glucose,Whole Blood 257 mg/dL (70-110)
[2024-10-31 00:53] LABS: African American GFR (CKD) 80 (>60 ml/min/1.73 sqM); Anion Gap 14 mmol/L; Blood Urea Nitrogen 33 mg/dL (9-20); Carbon Dioxide 18 mmol/L (22-30); Chloride 103 mmol/L (98-107); Glucose 238 mg/dL (74-99); Non-African American GFR(CKD) 69 (>60 ml/min/1.73 sqM); Phosphorus 1.4 mg/dL (2.5-4.5); Potassium 3.5 mmol/L (3.5-5.1); Sodium 135 mmol/L (137-145)
[2024-10-31 01:09] LABS: Glucose,Whole Blood 236 mg/dL (70-110)
[2024-10-31] MEDS ORDERED: ALBUTEROL NEBULIZED 2.5 MG/3 ML INHALATION PRN (01:12)
--- NOTE | 2024-10-31 01:18 | P.CNPUL ---
History of Present Illness Consult date: 10/31/24 Requesting physician: Laura Romero Reason for consult: other (Diabetic ketoacidosis, new onset) Chief complaint: Polyuria, polydipsia, nausea and vomiting History of present illness: Patient is a 63-year-old male with past medical history significant for hypertension, hyperlipidemia, hypothyroidism, COPD, stage III squamous cell carcinoma of the lung, status post chemoradiation. Currently, maintained on immunotherapy, and last treatment was on October 23. His oncologist is Dr. Ramirez. Patient states his blood sugars were running high at the previous appointment. No documented history of known diabetes. Developed symptoms of blurred vision, was going to see an internet sales associate for eyeglasses. Also, noted to be voiding often and having increased thirst. Develops nausea and vomiting over the last 24 hours. Developed hallucinations and reportedly short of breath. Recent sick contact, was a grandson that had RSV. Workup in the emergency department consistent with diabetic ketoacidosis, with new onset diabetes. Glucose was 925 mg/dL, serum bicarb less than 5, anion gap unmea surable. Ketone positive. ABG consistent with severe metabolic acidosis, secondary to previous. Patient was started on the DKA protocol. Remainder of the workup including a CBC with a WBC count of 16, hemoglobin 15.9, platelets 286. D-dimer 0.53. Most recent CMP with a sodium 136, potassium 3.8, chloride 105, serum bicarb up to 16, anion gap 15, BUN 37, creatinine 1.47, glucose currently 257. Lactic 1.8. LFTs unremarkable. Troponin less than 0.012. Procalcitonin level low. Urinalysis not concerning for infection. Viral screen negative for influenza A/B, RSV, COVID. Chest x-ray showing a left upper lobe opacity, consistent with patient's known history of non-small cell lung cancer. Did recently have a CT of the chest with contrast done on 10/28/2024 and findings were consistent with stable morphology of the lung and left perihilar soft tissue. No new or enlarging pulmonary nodules or lymph nodes. Patient currently being evaluated in the intensive care unit. He is awake and and oriented x 3. Continues on IV insulin per protocol. D5W/half-normal saline/20 mEq of K is infusing at 150 mL/h. No further episodes of nausea or vomiting. He is on 2 L/min nasal cannula. Respirations are nonlabored. Patient endorses above-mentioned symptoms. Denies any infectious-like symptoms. Denies any fevers or chills. Current vital signs: Temperature 98.8 F, heart rate 92 bpm, blood pressure 138/78 mmHg, nontachypneic, SpO2 recorded at 97% on 2 L/min nasal cannula. Review of Systems Constitutional: Reports fatigue, Denies chills, Denies fever, Denies poor appetite, Denies sweats, Denies weight gain, Denies weight loss Ears, nose, mouth and throat: Denies headache, Denies nasal congestion, Denies nasal discharge, Denies post-nasal drip, Denies sinus pain, Denies sinus pressure, Denies sore throat Cardiovascular: Denies chest pain, Denies leg edema, Denies lightheadedness, Den ies orthopnea, Denies palpitations, Denies paroxysmal nocturnal dyspnea, Denies syncope Respiratory: Reports dyspnea, Denies congestion, Denies cough, Denies cough with sputum, Denies home oxygen, Denies pain on inspiration Gastrointestinal: Reports nausea, Reports vomiting (Resolved), Denies abdominal pain, Denies change in bowel habits, Denies coffee ground emesis, Denies diarrhea, Denies hematemesis, Denies loss of appetite, Denies melena Genitourinary: Reports polyuria, Denies dysuria, Denies flank pain, Denies baldemar turia Musculoskeletal: Denies limitation of motion Integumentary: Denies rash Neurological: Reports confusion, Reports visual changes (Blurry vision), Denies aphasia, Denies ataxia, Denies head injury, Denies headaches, Denies loss of vision, Denies numbness, Denies paralysis, Denies paresthesias, Denies seizures, Denies sensory deficit Psychiatric: Denies anxiety, Denies depression Endocrine: Reports excessive thirst, Reports fatigue, Reports high blood sugars, Reports polydipsia, Reports polyuria, Denies cold intolerance, Denies excessive sweating Past Medical History Past Medical History: Coronary Artery Disease (CAD), Cancer, Hypertension, Thyroid Disorder Additional Past Medical History / Comment(s): lung ca History of Any Multi-Drug Resistant Organisms: None Reported Past Surgical History: Heart Catheterization With Stent Additional Past Surgical History / Comment(s): Throat surgery Past Anesthesia/Blood Transfusion Reactions: No Reported Reaction Date of Last Stent Placement:: 2016 Past Psychological History: No Psychological Hx Reported Smoking Status: Former smoker Past Alcohol Use History: Occasional Past Drug Use History: Marijuana - Past Family History Father History Unknown: Yes Family Medical History: Cancer Additional Family Medical History / Comment(s): Lung ca Mother Additional Family Medical History / Comment(s): at age og 96 Sister(s) Family Medical History: Diabetes Mellitus Medications and Allergies Home Medications Medication Instructions Recorded Confirmed Type Aspirin 81 mg PO DAILY 12/05/20 10/30/24 History Atorvastatin Calcium [Lipitor] 80 mg PO DAILY 12/05/20 10/30/24 History Ezetimibe [Zetia] 10 mg PO DAILY 12/05/20 10/30/24 History Fluticasone/Umeclidin/Vilanter 1 puff INHALATION RT-DAILY 12/21/23 10/30/24 History [Trelegy Ellipta 100-62.5-25] Benzonatate [Tessalon Perles] 200 mg PO TID PRN #30 cap 12/23/23 10/30/24 Rx Isosorbide Mononitrate ER [Imdur] 30 mg PO DAILY #30 tab 01/23/24 10/30/24 Rx Albuterol Sulfate [Accuneb] 0.63 mg INHALATION RT-Q6H 10/30/24 10/30/24 History Levothyroxine Sodium 150 mcg PO DAILY 10/30/24 10/30/24 History Metoprolol Tartrate [Lopressor] 50 mg PO DAILY 10/30/24 10/30/24 History Allergies Allergy/AdvReac Type Severity Reaction Status Date / Time No Known Allergies Allergy Verified 10/30/24 11:46 Physical Exam Vitals: Vital Signs Temp Pulse Resp BP Pulse Ox 10/31/24 00:00 98.8 F 92 19 138/78 97 10/30/24 23:00 9 L 138/77 98 10/30/24 22:00 90 19 130/66 97 10/30/24 21:30 89 23 98 10/30/24 21:00 90 18 112/68 100 10/30/24 20:30 86 23 99 10/30/24 20:25 98.0 F 20 99 10/30/24 20:00 98.0 F 87 25 H 134/75 100 10/30/24 19:30 39 H 100 10/30/24 19:00 85 21 124/74 100 10/30/24 18:30 97.5 F L 85 19 134/79 100 10/30/24 18:15 97.9 F 90 18 125/79 99 10/30/24 17:16 97 18 128/71 100 10/30/24 16:08 95 16 111/61 99 10/30/24 15:32 89 20 128/76 100 10/30/24 14:00 118 H 28 H 152/68 100 10/30/24 13:03 115 H 10/30/24 13:01 118 H 32 H 138/97 100 10/30/24 12:56 98 10/30/24 12:53 107 H 10/30/24 12:24 107 H 26 H 158/75 100 10/30/24 11:20 101 H 30 H 151/78 100 10/30/24 10:08 92 28 H 166/72 99 10/30/24 09:45 100 10/30/24 09:40 36 H 10/30/24 09:09 98.2 F 91 24 144/88 100 Intake and Output 10/30/24 10/30/24 10/31/24 14:59 22:59 06:59 Intake Total 1111.172 350 Output Total 480 Balance 1111.172 -130 Intake: Intake, IV Titration 1111.172 350 Amount D5-0.45% NaCl with KCl 150 20Meq/l 1,000 ml @ 150 mls/hr IV .Q6H40M DANIELLE Rx# :[id number] Insulin Regular 100 unit 111.172 In Sodium Chloride 0.9% 100 ml @ 0.1 UNITS/KG/HR 9.163 mls/hr IV .Q11H2M DANIELLE Rx#:[id number] Sodium Chloride 0.9% 1, 1000 200 000 ml @ 200 mls/hr IV . Q5H DANIELLE Rx#:[id number] Output: Urine 480 Other: Weight 90.718 kg 90.718 kg GENERAL EXAM: Alert, well-nourished, 63-year-old male, comfortable in no apparent distress. HEAD: Normocephalic and atraumatic EYES: Normal reaction of pupils, equal size. NOSE: Clear with pink turbinates. THROAT: No erythema or exudates. Dry mucous membranes. NECK: No masses, no JVD. CHEST: No chest wall deformity. LUNGS: Equal air entry with no crackles, wheeze, rhonchi or dullness. On 2 L/min nasal cannula. No conversational dyspnea or accessory muscle use. No Kussmaul respirations. CVS: S1 and S2 normal with no audible murmur, regular rhythm. No extra heart sounds ABDOMEN: No hepatosplenomegaly, active bowel sounds, no guarding or rigidity. SPINE: No scoliosis or deformity SKIN: No rashes CENTRAL NERVOUS SYSTEM: No focal deficits, tone is normal in all 4 extremities. EXTREMITIES: There is no peripheral edema, clubbing, or cyanosis. Peripheral pulses are intact. Results - Laboratory Findings CBC and BMP: 10/31/24 05:41 10/31/24 05:41 ABG ABG pH 7.06 (7.35-7.45) L* 10/30/24 13:05 ABG pCO2 <15 mmHg (35-45) L* 10/30/24 13:05 ABG pO2 137 mmHg (83-108) H 10/30/24 13:05 ABG O2 Saturation 98.1 % (94-97) H 10/30/24 13:05 PT/INR, D-dimer PT 10.1 sec (10.0-12.5) 10/30/24 09:40 INR 0.9 (<1.2) 10/30/24 09:40 D-Dimer 0.53 mg/L FEU (<0.60) 10/30/24 09:40 Abnormal lab findings: Abnormal Labs 10/30/24 10/30/24 10/30/24 09:40 09:40 09:40 WBC 16.06 H Immature Gran # 0.32 H Neutrophils # 13.59 H Lymphocytes # 0.73 L Monocytes # 1.33 H Eosinophils # 0.01 L ABG pH ABG pCO2 ABG pO2 ABG O2 Saturation Sodium 131 L Potassium 6.4 H* Chloride 92 L Carbon Dioxide <5 L* BUN 37 H Creatinine 1.96 H Glucose 925 H* POC Glucose (mg/dL) Plasma Lactic Acid Gareth 2.4 H* Phosphorus Alkaline Phosphatase 166 H Albumin 5.1 H Urine Protein Urine Glucose (UA) Urine Ketones 10/30/24 10/30/24 10/30/24 11:40 11:40 12:24 WBC Immature Gran # Neutrophils # Lymphocytes # Monocytes # Eosinophils # ABG pH ABG pCO2 ABG pO2 ABG O2 Saturation Sodium 135 L Potassium 5.9 H Chloride 97 L Carbon Dioxide <5 L* BUN 37 H Creatinine 1.85 H Glucose 849 H* POC Glucose (mg/dL) Plasma Lactic Acid Gareth 4.0 H* Phosphorus 7.3 H Alkaline Phosphatase Albumin Urine Protein Urine Glucose (UA) Urine Ketones 10/30/24 10/30/24 10/30/24 12:46 13:05 13:57 WBC Immature Gran # Neutrophils # Lymphocytes # Monocytes # Eosinophils # ABG pH 7.06 L* ABG pCO2 <15 L* ABG pO2 137 H ABG O2 Saturation 98.1 H Sodium Potassium Chloride Carbon Dioxide BUN Creatinine Glucose POC Glucose (mg/dL) >600 H* >600 H* Plasma Lactic Acid Gareth Phosphorus Alkaline Phosphatase Albumin Urine Protein Urine Glucose (UA) Urine Ketones 10/30/24 10/30/24 10/30/24 15:03 16:00 16:02 WBC Immature Gran # Neutrophils # Lymphocytes # Monocytes # Eosinophils # ABG pH ABG pCO2 ABG pO2 ABG O2 Saturation Sodium Potassium Chloride Carbon Dioxide BUN Creatinine Glucose POC Glucose (mg/dL) >600 H* >600 H* Plasma Lactic Acid Gareth Phosphorus 2.4 L Alkaline Phosphatase Albumin Urine Protein Urine Glucose (UA) Urine Ketones 10/30/24 10/30/24 10/30/24 16:02 16:02 17:07 WBC Immature Gran # Neutrophils # Lymphocytes # Monocytes # Eosinophils # ABG pH ABG pCO2 ABG pO2 ABG O2 Saturation Sodium Potassium Chloride Carbon Dioxide 8 L* BUN 40 H Creatinine 1.59 H Glucose 591 H* POC Glucose (mg/dL) 568 H* Plasma Lactic Acid Gareth 2.1 H* Phosphorus Alkaline Phosphatase Albumin Urine Protein Urine Glucose (UA) Urine Ketones 10/30/24 10/30/24 10/30/24 18:05 18:14 19:26 WBC Immature Gran # Neutrophils # Lymphocytes # Monocytes # Eosinophils # ABG pH ABG pCO2 ABG pO2 ABG O2 Saturation Sodium Potassium Chloride Carbon Dioxide BUN Creatinine Glucose POC Glucose (mg/dL) 545 H* 587 H* 422 H Plasma Lactic Acid Gareth Phosphorus Alkaline Phosphatase Albumin Urine Protein Urine Glucose (UA) Urine Ketones 10/30/24 10/30/24 10/30/24 19:56 21:04 22:03 WBC Immature Gran # Neutrophils # Lymphocytes # Monocytes # Eosinophils # ABG pH ABG pCO2 ABG pO2 ABG O2 Saturation Sodium 136 L Potassium Chloride Carbon Dioxide 16 L BUN 37 H Creatinine 1.47 H Glucose 348 H POC Glucose (mg/dL) 326 H 318 H Plasma Lactic Acid Gareth Phosphorus 1.9 L Alkaline Phosphatase Albumin Urine Protein Urine Glucose (UA) Urine Ketones 10/30/24 10/30/24 10/31/24 22:35 23:01 00:04 WBC Immature Gran # Neutrophils # Lymphocytes # Monocytes # Eosinophils # ABG pH ABG pCO2 ABG pO2 ABG O2 Saturation Sodium Potassium Chloride Carbon Dioxide BUN Creatinine Glucose POC Glucose (mg/dL) 298 H 257 H Plasma Lactic Acid Gareth Phosphorus Alkaline Phosphatase Albumin Urine Protein Trace H Urine Glucose (UA) 4+ H Urine Ketones 2+ H - Diagnostic Findings Chest x-ray: image reviewed Assessment and Plan Assessment: Acute diabetic ketoacidosis, with new onset diabetes, labs done on arrival including a blood glucose 925 mg/dL, serum bicarb less than 5, anion gap unmeasurable, and ketone positive; continues on DKA protocol Acute dyspnea, secondary to above Acute leukocytosis, reactive to DKA Anion gap metabolic acidosis, secondary to DKA Acute kidney injury, improved History of stage III squamous cell carcinoma of the lung, status post chemoradiation. Currently maintained on immunotherapy, and last treatment was on October 23. Chronic obstructive pulmonary disease, inactive Hypertension History of hyperlipidemia History of CVA/CVA History of coronary artery disease with previous PCI/stents Former tobacco smoker Plan: Patient's medications, labs, chest x-ray reviewed Continues on DKA protocol Replace electrolytes per protocol New onset diabetes education formed No focal infiltrates or evidence of pneumonia. Viral 4 Plex negative for influenza, RSV, COVID Urinalysis unremarkable for infection Patient will continue to be monitored in the intensive care unit until DKA resolves I have personally seen and examined the patient, performed the documentation and the assessment and plan as written. Number of minutes spent on the visit:20 Time with Patient: Greater than 30
[2024-10-31] MEDS: POTASSIUM CHLORIDE ER 20 MEQ TAB.ER PO SCH ×2 (02:03→08:12)
[2024-10-31 02:04] LABS: Glucose,Whole Blood 226 mg/dL (70-110)
[2024-10-31 03:06] LABS: Glucose,Whole Blood 209 mg/dL (70-110)
[2024-10-31 04:13] LABS: Glucose,Whole Blood 196 mg/dL (70-110)
[2024-10-31 05:00] LABS: Glucose,Whole Blood 162 mg/dL (70-110)
[2024-10-31 06:08] LABS: Glucose,Whole Blood 150 mg/dL (70-110)
[2024-10-31 06:14] LABS: Basophils # (A) 0.02 10*3/uL (0.00-0.10); Basophils % (A) 0.2 %; Eosinophils # (A) 0.07 10*3/uL (0.04-0.35); Eosinophils % (A) 0.7 %; HCT 33.5 % (39.6-50.0); Lymphocytes # (A) 0.42 10*3/uL (0.90-5.00); Lymphocytes % (A) 4.1 %; MCH 30.1 pg (27.0-32.0); MCHC 35.8 g/dL (32.0-37.0); Mean Platelet Volume 10.2 fL (9.5-12.2); Monocytes # (A) 0.91 10*3/uL (0.20-1.00); Monocytes % (A) 8.8 %; Neutrophils # (A) 8.87 10*3/uL (1.80-7.70); Neutrophils % (A) 85.5 %; Platelet Count 180 10*3/uL (140-440); RBC 3.99 10*6/uL (4.40-5.60); RDW 12.8 % (11.5-14.5); WBC 10.36 10*3/uL (4.50-10.00)
[2024-10-31] MEDS: LEVOTHYROXINE 75 MCG TAB PO SCH (06:30)
[2024-10-31] MEDS: PANTOPRAZOLE 40 MG TABLET PO SCH (06:31)
[2024-10-31 06:45] LABS: African American GFR (CKD) >90 (>60 ml/min/1.73 sqM); Anion Gap 10 mmol/L; Blood Urea Nitrogen 28 mg/dL (9-20); Calcium 9.2 mg/dL (8.4-10.2); Carbon Dioxide 19 mmol/L (22-30); Chloride 106 mmol/L (98-107); Glucose 152 mg/dL (74-99); Magnesium 1.8 mg/dL (1.6-2.3); Non-African American GFR(CKD) 82 (>60 ml/min/1.73 sqM); Potassium 3.7 mmol/L (3.5-5.1); Sodium 135 mmol/L (137-145)
[2024-10-31 07:02] LABS: Glucose,Whole Blood 137 mg/dL (70-110)
[2024-10-31] MEDS ORDERED: DEXTROSE 50% SYRINGE 50 ML IVP PRN ×2 (07:33)
[2024-10-31] MEDS: MAGNESIUM SULFATE-D5W PMX 1 GM in DEXTROSE/WATER 1 100ML.BAG IVPB ONE (08:12)
[2024-10-31 08:21] LABS: Glucose,Whole Blood 224 mg/dL (70-110)
[2024-10-31] MEDS: INSULIN LISPRO (HumaLOG) 100 UNIT/ML 10 mL VL SQ SCH ×2 (08:38→08:39)
[2024-10-31] MEDS: INSULIN GLARGINE (LANTUS) 100 UNIT/ML SYR SQ SCH (08:38)
[2024-10-31] MEDS: ISOSORBIDE MONONITRATE ER 30 MG TAB.ER.24H PO SCH (08:43)
[2024-10-31] MEDS: ASPIRIN 81 MG PO SCH (08:43)
[2024-10-31] MEDS: EZETIMIBE 10 MG TAB PO SCH (08:43)
[2024-10-31] MEDS: METOPROLOL TARTRATE 50 MG TAB PO SCH (08:43)
[2024-10-31] MEDS: ATORVASTATIN 80 MG TAB PO SCH (08:43)
[2024-10-31] MEDS ORDERED: INSULIN GLARGINE (LANTUS) 100 UNIT/ML SYR SQ SCH (09:00)
[2024-10-31] MEDS: SYMBICORT 80-4.5 MCG INHALER INHALATION SCH (09:16)
[2024-10-31 10:15] LABS: Glucose,Whole Blood 190 mg/dL (70-110)
[2024-10-31 11:01] LABS: Glucose,Whole Blood 168 mg/dL (70-110)
--- NOTE | 2024-10-31 12:15 | P.CNPUL ---
History of Present Illness Consult date: 10/30/24 History of present illness: This is a 63-year-old male patient with a recent diagnosis of 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 I performed the patient's bronchoscopy and the patient has a left hilar mass at the level of the secondary manuel and the left lower lobe causing significant mass effect and obstruction of the left lower lobe bronchus. The patient also had an outpatient PET/CT that showed mediastinal lymphadenopathy uptake and bilateral supraclavicular lymphadenopathy uptake. Based on that, the patient was seen by medical oncology. The patient completed systemic chemotherapy and radiation therapy and the Patient is currently receiving immunotherapy under the care of medical oncology. The patient also has other comorbidities including COPD, coronary artery disease with previous coronary stenting done at [facility] back in 2017, hypertension, hyperlipidemia and hypothyroidism. He is under the care of Dr. Ramirez. The most recent CAT scan of the chest done on this patient on 07/19/2024 showed a stable left perihilar mass and stable subcentimeter prominent mediastinal adenopathy without any significant change and the patient had some new areas of groundglass opacities and consolidation in both lungs more prominent in the left lung. The patient presented to the emergency department today with increased shortness of breath. He was exposed to RSV and he was concerned that he was infected with the virus. No reports of fever. He was having nausea and emesis and he was unable to hold any food and liquid material. Denied having any chest pain. No abdominal pain. He was feeling thirsty and he had increased polyuria and polydipsia. In the Emergency Department, the patient was hemodynamically stable. His initial blood work showed severe hyperglycemia with a glucose of 925. He was an anion gap metabolic acidosis with a sodium level of 131, serum bicarb of less than 5 and chloride level of 92 with a potassium level of 6.4. BUN was 37 with a creatinine of 1.9. The white cell count was 16 with a hemoglobin 15.9 and platelet count of 286. Serum acetone was positive. proBNP level was 792. LFTs were within normal limits. Phosphorus level was at 7.4 with a lactic acid level of 4.0. A chest x-ray was done in the ED that showed left suprahilar opacity/infiltrate. The most recent CAT scan of the chest that was done on this patient on 10/28/2024 showed stable morphology of the lungs and stable left perihilar soft tissue density without any new enlarging nodules. The soft tissue density in the left perihilar area was measuring 27 x 12 mm in size, not significantly changed and the patient had no enlarging mediastinal lymph nodes. Based on that, the patient was hospitalized and an ICU consultation was requested. He is currently on 2 L of oxygen by nasal cannula. The viral screen was negative for RSV and negative for any other viruses. Blood gases showed severe acidosis with a pH of 7.06 with a PCO2 of less than 15 and pO2 of 137 this was on FiO2 of 28%. Patient was diagnosed having a new onset diabetes mellitus/DKA. Started on IV fluids. He is currently on normal saline at rate of 200 cc an hour. He receives also 2 L bolus. He is currently on insulin drip at 0.1 units/kg/h per DKA protocol. Review of Systems Constitutional: Reports fatigue, Reports weakness Eyes: denies as per HPI, denies blurred vision, denies bulging eye, denies decreased vision, denies diplopia, denies discharge, denies dry eye, denies irritation, denies itching, denies pain, denies photophobia, denies loss of peripheral vision, denies loss of vision, denies tunnel vision/blind spots Ears: deny: decreased hearing, ear discharge, earache, tinnitus Ears, nose, mouth and throat: Reports as per HPI Breasts: absent: as per HPI, gynecomastia Cardiovascular: Reports as per HPI Respiratory: Reports as per HPI Gastrointestinal: Reports nausea, Reports vomiting Genitourinary: Reports as per HPI Musculoskeletal: Reports as per HPI Musculoskeletal: absent: ankle pain, ankle stiffness, ankle swelling, as per HP I, elbow pain, elbow stiffness, elbow swelling, foot pain, foot stiffness, foot swelling, hand pain, hand stiffness, hand swelling, hip pain, hip stiffness, hip swelling, knee pain, knee stiffness, knee swelling, shoulder pain, shoulder stiffness, shoulder swelling, wrist pain, wrist stiffness, wrist swelling Integumentary: Reports as per HPI Neurological: Reports as per HPI Psychiatric: Reports as per HPI Endocrine: Reports fatigue, Reports high blood sugars, Reports polydipsia Hematologic/Lymphatic: Reports as per HPI Allergic/Immunologic: Reports as per HPI Past Medical History Past Medical History: Coronary Artery Disease (CAD), Cancer (Non-small cell lung cancer, squamous cell, stage IIIb), COPD, Hyperlipidemia, Hypertension, Thyroid Disorder Additional Past Medical History / Comment(s): lung ca History of Any Multi-Drug Resistant Organisms: None Reported Past Surgical History: Heart Catheterization With Stent Additional Past Surgical History / Comment(s): Throat surgery Date of Last Stent Placement:: 2016 Past Psychological History: No Psychological Hx Reported Smoking Status: Former smoker Past Alcohol Use History: Occasional Past Drug Use History: Marijuana - Past Family History Father History Unknown: Yes Family Medical History: Cancer Additional Family Medical History / Comment(s): Lung ca Mother Additional Family Medical History / Comment(s): at age og 96 Medications and Allergies Home Medications Medication Instructions Recorded Confirmed Type Aspirin 81 mg PO DAILY 12/05/20 10/30/24 History Atorvastatin Calcium [Lipitor] 80 mg PO DAILY 12/05/20 10/30/24 History Ezetimibe [Zetia] 10 mg PO DAILY 12/05/20 10/30/24 History Fluticasone/Umeclidin/Vilanter 1 puff INHALATION RT-DAILY 12/21/23 10/30/24 History [Trelegab Ellipta 100-62.5-25] Benzonatate [Tessalon Perles] 200 mg PO TID PRN #30 cap 12/23/23 10/30/24 Rx Isosorbide Mononitrate ER [Imdur] 30 mg PO DAILY #30 tab 01/23/24 10/30/24 Rx Albuterol Sulfate [Accuneb] 0.63 mg INHALATION RT-Q6H 10/30/24 10/30/24 History Levothyroxine Sodium 150 mcg PO DAILY 10/30/24 10/30/24 History Metoprolol Tartrate [Lopressor] 50 mg PO DAILY 10/30/24 10/30/24 History Allergies Allergy/AdvReac Type Severity Reaction Status Date / Time No Known Allergies Allergy Verified 10/30/24 11:46 Physical Exam Vitals: Vital Signs Temp Pulse Resp BP Pulse Ox 10/30/24 13:03 115 H 10/30/24 13:01 118 H 32 H 138/97 100 10/30/24 12:56 98 10/30/24 12:53 107 H 10/30/24 12:24 107 H 26 H 158/75 100 10/30/24 11:20 101 H 30 H 151/78 100 10/30/24 10:08 92 28 H 166/72 99 10/30/24 09:45 100 10/30/24 09:40 36 H 10/30/24 09:09 98.2 F 91 24 144/88 100 Intake and Output 10/29/24 10/30/24 10/30/24 22:59 06:59 14:59 Other: Weight 90.718 kg The patient appeared well nourished and normally developed. Vital signs as documented. Patient is currently on 2 L of oxygen by nasal cannula. Head exam is unremarkable. No scleral icterus or corneal arcus noted. Neck is without jugular venous distension, thyromegaly, or carotid bruits. Carotid upstrokes are brisk bilaterally. Lungs are clear to auscultation and percussion. Diminished breath sounds bilaterally along with scattered expiratory wheezes Cardiac exam reveals the PMI to be normally sized and situated. Rhythm is regular. First and second heart sounds normal. No murmurs, rubs or gallops. Abdominal exam reveals normal bowel sounds, no masses, no organomegaly and no aortic enlargement. Extremities are nonedematous and both femoral and pedal pulses are normal. Examination of the skin revealed no evidence of significant rashes, suspicious appearing nevi or other concerning lesions. Neurologically, the patient is awake and alert and the patient does not have any focal neurological deficit. Cranial nerves are essentially intact. Results - Laboratory Findings CBC and BMP: 10/30/24 09:40 10/30/24 11:40 ABG ABG pH 7.06 (7.35-7.45) L* 10/30/24 13:05 ABG pCO2 <15 mmHg (35-45) L* 10/30/24 13:05 ABG pO2 137 mmHg (83-108) H 10/30/24 13:05 ABG O2 Saturation 98.1 % (94-97) H 10/30/24 13:05 PT/INR, D-dimer PT 10.1 sec (10.0-12.5) 10/30/24 09:40 INR 0.9 (<1.2) 10/30/24 09:40 D-Dimer 0.53 mg/L FEU (<0.60) 10/30/24 09:40 Abnormal lab findings: Abnormal Labs 10/30/24 10/30/24 10/30/24 09:40 09:40 09:40 WBC 16.06 H Immature Gran # 0.32 H Neutrophils # 13.59 H Lymphocytes # 0.73 L Monocytes # 1.33 H Eosinophils # 0.01 L ABG pH ABG pCO2 ABG pO2 ABG O2 Saturation Sodium 131 L Potassium 6.4 H* Chloride 92 L Carbon Dioxide <5 L* BUN 37 H Creatinine 1.96 H Glucose 925 H* POC Glucose (mg/dL) Plasma Lactic Acid Gareth 2.4 H* Phosphorus Alkaline Phosphatase 166 H Albumin 5.1 H 10/30/24 10/30/24 10/30/24 11:40 11:40 12:24 WBC Immature Gran # Neutrophils # Lymphocytes # Monocytes # Eosinophils # ABG pH ABG pCO2 ABG pO2 ABG O2 Saturation Sodium 135 L Potassium 5.9 H Chloride 97 L Carbon Dioxide <5 L* BUN 37 H Creatinine 1.85 H Glucose 849 H* POC Glucose (mg/dL) Plasma Lactic Acid Gareth 4.0 H* Phosphorus 7.3 H Alkaline Phosphatase Albumin 10/30/24 10/30/24 12:46 13:05 WBC Immature Gran # Neutrophils # Lymphocytes # Monocytes # Eosinophils # ABG pH 7.06 L* ABG pCO2 <15 L* ABG pO2 137 H ABG O2 Saturation 98.1 H Sodium Potassium Chloride Carbon Dioxide BUN Creatinine Glucose POC Glucose (mg/dL) >600 H* Plasma Lactic Acid Gareth Phosphorus Alkaline Phosphatase Albumin - Diagnostic Findings Chest x-ray: image reviewed CT scan - chest: image reviewed Assessment and Plan Plan: New onset diabetes mellitus presenting with DKA. Consider immunotherapy induced diabetes mellitus. Anion gap metabolic acidosis secondary to DKA Acute kidney injury secondary to DKA Acute hypokalemia secondary to above COPD, maintained on Trelegy Ellipta on outpatient basis. 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 The patient completed chemoradiation therapy and the patient currently is on immunotherapy. The patient had a CAT scan of the chest on 10/28/2024 that showed a stable left suprahilar mass without any evidence of disease progression. Coronary artery disease, currently inactive and stable, previous coronary angioplasty and stenting Hypertension Hyperlipidemia Hypothyroidism Plan Titrate oxygen flow to maintain oxygen saturation above 90% Patient was given 2 L of IV fluid bolus and the patient is currently on 200 cc an hour Insulin drip per DKA protocol Hourly blood sugars Monitor potassium level Monitor renal function Reviewed the most recent CAT scan of the chest Will admit the patient to the ICU for treatment of his DKA
--- NOTE | 2024-10-31 12:21 | P.PN ---
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 I performed the patient's bronchoscopy and the patient has a left hilar mass at the level of the secondary manuel and the left lower lobe causing significant mass effect and obstruction of the left lower lobe bronchus. The patient also had an outpatient PET/CT that showed mediastinal lymphadenopathy uptake and bilateral supraclavicular lymphadenopathy uptake. Based on that, the patient was seen by medical oncology. The patient completed systemic chemotherapy and radiation therapy and the Patient is currently receiving immunotherapy under the care of medical oncology. The patient also has other comorbidities including COPD, coronary artery disease with previous coronary stenting done at [facility] back in 2017, hypertension, hyperlipidemia and hypothyroidism. He is under the care of Dr. Ramirez. The most recent CAT scan of the chest done on this patient on 07/19/2024 showed a stable left perihilar mass and stable subcentimeter prominent mediastinal adenopathy without any significant change and the patient had some new areas of groundglass opacities and consolidation in both lungs more prominent in the left lung. The patient presented to the emergency department today with increased shortness of breath. He was exposed to RSV and he was concerned that he was infected with the virus. No reports of fever. He was having nausea and emesis and he was unable to hold any food and liquid material. Denied having any chest pain. No abdominal pain. He was feeling thirsty and he had increased polyuria and polydipsia. In the Emergency Department, the patient was hemodynamically stable. His initial blood work showed severe hyperglycemia with a glucose of 925. He was an anion gap metabolic acidosis with a sodium level of 131, serum bicarb of less than 5 and chloride level of 92 with a potassium level of 6.4. BUN was 37 with a creatinine of 1.9. The white cell count was 16 with a hemoglobin 15.9 and platelet count of 286. Serum acetone was positive. proBNP level was 792. LFTs were within normal limits. Phosphorus level was at 7.4 with a lactic acid level of 4.0. A chest x-ray was done in the ED that showed left suprahilar opacity/infiltrate. The most recent CAT scan of the chest that was done on this patient on 10/28/2024 showed stable m orphology of the lungs and stable left perihilar soft tissue density without any new enlarging nodules. The soft tissue density in the left perihilar area was measuring 27 x 12 mm in size, not significantly changed and the patient had no enlarging mediastinal lymph nodes. Based on that, the patient was hospitalized and an ICU consultation was requested. He is currently on 2 L of oxygen by nasal cannula. The viral screen was negative for RSV and negative for any other viruses. Blood gases showed severe acidosis with a pH of 7.06 with a PCO2 of less than 15 and pO2 of 137 this was on FiO2 of 28%. Patient was diagnosed having a new onset diabetes mellitus/DKA. Started on IV fluids. He is currently on normal saline at rate of 200 cc an hour. He receives also 2 L bolus. He is currently on insulin drip at 0.1 units/kg/h per DKA protocol. On 10/31/2024, the patient is much improved, awake and alert and communicating. The patient was treated for DKA based on the DKA protocol done earlier this morning, the patient was transition to long-acting insulin. Most recent electrolytes show a serum bicarb of 19 and a gap of 10 and a blood sugars at 168. Potassium levels are 3.7. WBC count 10.3 with a hemoglobin 12 and a platelet count of 180. Discussed the case with medical oncology and the patient was being treated with Imfinzi on outpatient basis. The patient is on D5 half-normal saline at rate of 50 cc an hour. Doing well. No specific complaints. No chest pain. No shortness of breath. Currently on room air oxygen. Objective - Vital Signs Vital signs: Vital Signs Temp 98.3 F 10/31/24 04:00 Pulse 82 10/31/24 12:00 Resp 19 10/31/24 12:00 BP 99/65 10/31/24 12:00 Pulse Ox 99 10/31/24 10:00 FiO2 Intake & Output 10/30/24 10/31/24 10/31/24 18:59 06:59 18:59 Intake Total 209.16 3190.356 559.545 Output Total 480 550 Balance 209.16 2710.356 9.545 Weight 90.718 kg 88.6 kg Intake: Intake, IV Titration 209.16 2230.356 159.545 Amount D5-0.45% NaCl with KCl 1050 150 20Meq/l 1,000 ml @ 50 mls /hr IV .Q20H DANIELLE Rx#: [id number] Insulin Regular 100 unit 9.16 180.356 9.545 In Sodium Chloride 0.9% 100 ml @ 0.1 UNITS/KG/HR 9.163 mls/hr IV .Q11H2M DANIELLE Rx#:[id number] Sodium Chloride 0.9% 1, 200 1000 000 ml @ 200 mls/hr IV . Q5H DANIELLE Rx#:[id number] Oral 960 400 Output: Urine 480 550 Other: Voiding Method Urinal Urinal # Voids 0 - Exam The patient appeared well nourished and normally developed. Vital signs as documented. Patient is currently on room air oxygen Head exam is unremarkable. No scleral icterus or corneal arcus noted. Neck is without jugular venous distension, thyromegaly, or carotid bruits. Carotid upstrokes are brisk bilaterally. Lungs are clear to auscultation and percussion. Diminished breath sounds bilaterally along with scattered expiratory wheezes Cardiac exam reveals the PMI to be normally sized and situated. Rhythm is regular. First and second heart sounds normal. No murmurs, rubs or gallops. Abdominal exam reveals normal bowel sounds, no masses, no organomegaly and no aortic enlargement. Extremities are nonedematous and both femoral and pedal pulses are normal. Examination of the skin revealed no evidence of significant rashes, suspicious appearing nevi or other concerning lesions. Neurologically, the patient is awake and alert and the patient does not have any focal neurological deficit. Cranial nerves are essentially intact. - Labs CBC & Chem 7: 10/31/24 05:41 10/31/24 05:41 Labs: Abnormal Lab Results - Last 24 Hours (Table) 10/30/24 10/30/24 10/30/24 Range/Units 11:40 12:24 12:46 WBC (4.50-10.00) 10*3/uL RBC (4.40-5.60) 10*6/uL Hgb (13.0-17.0) g/dL Hct (39.6-50.0) % Immature Gran # (0.00-0.04) 10*3/uL Neutrophils # (1.80-7.70) 10*3/uL Lymphocytes # (0.90-5.00) 10*3/uL ABG pH (7.35-7.45) ABG pCO2 (35-45) mmHg ABG pO2 (83-108) mmHg ABG O2 Saturation (94-97) % Sodium 135 L (137-145) mmol/L Potassium 5.9 H (3.5-5.1) mmol/L Chloride 97 L (98-107) mmol/L Carbon Dioxide <5 L* (22-30) mmol/L BUN 37 H (9-20) mg/dL Creatinine 1.85 H (0.66-1.25) mg/dL Glucose 849 H* (74-99) mg/dL POC Glucose (mg/dL) >600 H* (70-110) mg/dL Hemoglobin A1c (<=6.0) % Plasma Lactic Acid Gareth 4.0 H* (0.7-2.0) mmol/L Phosphorus (2.5-4.5) mg/dL Urine Protein (Negative) Urine Glucose (UA) (Negative) Urine Ketones (Negative) 10/30/24 10/30/24 10/30/24 Range/Units 13:05 13:57 15:03 WBC (4.50-10.00) 10*3/uL RBC (4.40-5.60) 10*6/uL Hgb (13.0-17.0) g/dL Hct (39.6-50.0) % Immature Gran # (0.00-0.04) 10*3/uL Neutrophils # (1.80-7.70) 10*3/uL Lymphocytes # (0.90-5.00) 10*3/uL ABG pH 7.06 L* (7.35-7.45) ABG pCO2 <15 L* (35-45) mmHg ABG pO2 137 H (83-108) mmHg ABG O2 Saturation 98.1 H (94-97) % Sodium (137-145) mmol/L Potassium (3.5-5.1) mmol/L Chloride (98-107) mmol/L Carbon Dioxide (22-30) mmol/L BUN (9-20) mg/dL Creatinine (0.66-1.25) mg/dL Glucose (74-99) mg/dL POC Glucose (mg/dL) >600 H* >600 H* (70-110) mg/dL Hemoglobin A1c (<=6.0) % Plasma Lactic Acid Gareth (0.7-2.0) mmol/L Phosphorus (2.5-4.5) mg/dL Urine Protein (Negative) Urine Glucose (UA) (Negative) Urine Ketones (Negative) 10/30/24 10/30/24 10/30/24 Range/Units 16:00 16:02 16:02 WBC (4.50-10.00) 10*3/uL RBC (4.40-5.60) 10*6/uL Hgb (13.0-17.0) g/dL Hct (39.6-50.0) % Immature Gran # (0.00-0.04) 10*3/uL Neutrophils # (1.80-7.70) 10*3/uL Lymphocytes # (0.90-5.00) 10*3/uL ABG pH (7.35-7.45) ABG pCO2 (35-45) mmHg ABG pO2 (83-108) mmHg ABG O2 Saturation (94-97) % Sodium (137-145) mmol/L Potassium (3.5-5.1) mmol/L Chloride (98-107) mmol/L Carbon Dioxide 8 L* (22-30) mmol/L BUN 40 H (9-20) mg/dL Creatinine 1.59 H (0.66-1.25) mg/dL Glucose 591 H* (74-99) mg/dL POC Glucose (mg/dL) >600 H* (70-110) mg/dL Hemoglobin A1c (<=6.0) % Plasma Lactic Acid Gareth (0.7-2.0) mmol/L Phosphorus 2.4 L (2.5-4.5) mg/dL Urine Protein (Negative) Urine Glucose (UA) (Negative) Urine Ketones (Negative) 10/30/24 10/30/24 10/30/24 Range/Units 16:02 17:07 18:05 WBC (4.50-10.00) 10*3/uL RBC (4.40-5.60) 10*6/uL Hgb (13.0-17.0) g/dL Hct (39.6-50.0) % Immature Gran # (0.00-0.04) 10*3/uL Neutrophils # (1.80-7.70) 10*3/uL Lymphocytes # (0.90-5.00) 10*3/uL ABG pH (7.35-7.45) ABG pCO2 (35-45) mmHg ABG pO2 (83-108) mmHg ABG O2 Saturation (94-97) % Sodium (137-145) mmol/L Potassium (3.5-5.1) mmol/L Chloride (98-107) mmol/L Carbon Dioxide (22-30) mmol/L BUN (9-20) mg/dL Creatinine (0.66-1.25) mg/dL Glucose (74-99) mg/dL POC Glucose (mg/dL) 568 H* 545 H* (70-110) mg/dL Hemoglobin A1c (<=6.0) % Plasma Lactic Acid Gareth 2.1 H* (0.7-2.0) mmol/L Phosphorus (2.5-4.5) mg/dL Urine Protein (Negative) Urine Glucose (UA) (Negative) Urine Ketones (Negative) 10/30/24 10/30/24 10/30/24 Range/Units 18:14 19:26 19:56 WBC (4.50-10.00) 10*3/uL RBC (4.40-5.60) 10*6/uL Hgb (13.0-17.0) g/dL Hct (39.6-50.0) % Immature Gran # (0.00-0.04) 10*3/uL Neutrophils # (1.80-7.70) 10*3/uL Lymphocytes # (0.90-5.00) 10*3/uL ABG pH (7.35-7.45) ABG pCO2 (35-45) mmHg ABG pO2 (83-108) mmHg ABG O2 Saturation (94-97) % Sodium 136 L (137-145) mmol/L Potassium (3.5-5.1) mmol/L Chloride (98-107) mmol/L Carbon Dioxide 16 L (22-30) mmol/L BUN 37 H (9-20) mg/dL Creatinine 1.47 H (0.66-1.25) mg/dL Glucose 348 H (74-99) mg/dL POC Glucose (mg/dL) 587 H* 422 H (70-110) mg/dL Hemoglobin A1c (<=6.0) % Plasma Lactic Acid Gareth (0.7-2.0) mmol/L Phosphorus 1.9 L (2.5-4.5) mg/dL Urine Protein (Negative) Urine Glucose (UA) (Negative) Urine Ketones (Negative) 10/30/24 10/30/24 10/30/24 Range/Units 21:04 22:03 22:35 WBC (4.50-10.00) 10*3/uL RBC (4.40-5.60) 10*6/uL Hgb (13.0-17.0) g/dL Hct (39.6-50.0) % Immature Gran # (0.00-0.04) 10*3/uL Neutrophils # (1.80-7.70) 10*3/uL Lymphocytes # (0.90-5.00) 10*3/uL ABG pH (7.35-7.45) ABG pCO2 (35-45) mmHg ABG pO2 (83-108) mmHg ABG O2 Saturation (94-97) % Sodium (137-145) mmol/L Potassium (3.5-5.1) mmol/L Chloride (98-107) mmol/L Carbon Dioxide (22-30) mmol/L BUN (9-20) mg/dL Creatinine (0.66-1.25) mg/dL Glucose (74-99) mg/dL POC Glucose (mg/dL) 326 H 318 H (70-110) mg/dL Hemoglobin A1c (<=6.0) % Plasma Lactic Acid Gareth (0.7-2.0) mmol/L Phosphorus (2.5-4.5) mg/dL Urine Protein Trace H (Negative) Urine Glucose (UA) 4+ H (Negative) Urine Ketones 2+ H (Negative) 10/30/24 10/31/24 10/31/24 Range/Units 23:01 00:03 00:04 WBC (4.50-10.00) 10*3/uL RBC (4.40-5.60) 10*6/uL Hgb (13.0-17.0) g/dL Hct (39.6-50.0) % Immature Gran # (0.00-0.04) 10*3/uL Neutrophils # (1.80-7.70) 10*3/uL Lymphocytes # (0.90-5.00) 10*3/uL ABG pH (7.35-7.45) ABG pCO2 (35-45) mmHg ABG pO2 (83-108) mmHg ABG O2 Saturation (94-97) % Sodium 135 L (137-145) mmol/L Potassium (3.5-5.1) mmol/L Chloride (98-107) mmol/L Carbon Dioxide 18 L (22-30) mmol/L BUN 33 H (9-20) mg/dL Creatinine (0.66-1.25) mg/dL Glucose 238 H (74-99) mg/dL POC Glucose (mg/dL) 298 H 257 H (70-110) mg/dL Hemoglobin A1c (<=6.0) % Plasma Lactic Acid Gareth (0.7-2.0) mmol/L Phosphorus 1.4 L (2.5-4.5) mg/dL Urine Protein (Negative) Urine Glucose (UA) (Negative) Urine Ketones (Negative) 10/31/24 10/31/24 10/31/24 Range/Units 01:08 02:02 03:05 WBC (4.50-10.00) 10*3/uL RBC (4.40-5.60) 10*6/uL Hgb (13.0-17.0) g/dL Hct (39.6-50.0) % Immature Gran # (0.00-0.04) 10*3/uL Neutrophils # (1.80-7.70) 10*3/uL Lymphocytes # (0.90-5.00) 10*3/uL ABG pH (7.35-7.45) ABG pCO2 (35-45) mmHg ABG pO2 (83-108) mmHg ABG O2 Saturation (94-97) % Sodium (137-145) mmol/L Potassium (3.5-5.1) mmol/L Chloride (98-107) mmol/L Carbon Dioxide (22-30) mmol/L BUN (9-20) mg/dL Creatinine (0.66-1.25) mg/dL Glucose (74-99) mg/dL POC Glucose (mg/dL) 236 H 226 H 209 H (70-110) mg/dL Hemoglobin A1c (<=6.0) % Plasma Lactic Acid Gareth (0.7-2.0) mmol/L Phosphorus (2.5-4.5) mg/dL Urine Protein (Negative) Urine Glucose (UA) (Negative) Urine Ketones (Negative) 10/31/24 10/31/24 10/31/24 Range/Units 04:12 04:58 05:41 WBC (4.50-10.00) 10*3/uL RBC (4.40-5.60) 10*6/uL Hgb (13.0-17.0) g/dL Hct (39.6-50.0) % Immature Gran # (0.00-0.04) 10*3/uL Neutrophils # (1.80-7.70) 10*3/uL Lymphocytes # (0.90-5.00) 10*3/uL ABG pH (7.35-7.45) ABG pCO2 (35-45) mmHg ABG pO2 (83-108) mmHg ABG O2 Saturation (94-97) % Sodium (137-145) mmol/L Potassium (3.5-5.1) mmol/L Chloride (98-107) mmol/L Carbon Dioxide (22-30) mmol/L BUN (9-20) mg/dL Creatinine (0.66-1.25) mg/dL Glucose (74-99) mg/dL POC Glucose (mg/dL) 196 H 162 H (70-110) mg/dL Hemoglobin A1c 11.8 H (<=6.0) % Plasma Lactic Acid Gareth (0.7-2.0) mmol/L Phosphorus (2.5-4.5) mg/dL Urine Protein (Negative) Urine Glucose (UA) (Negative) Urine Ketones (Negative) 10/31/24 10/31/24 10/31/24 Range/Units 05:41 05:41 06:07 WBC 10.36 H (4.50-10.00) 10*3/uL RBC 3.99 L (4.40-5.60) 10*6/uL Hgb 12.0 L D (13.0-17.0) g/dL Hct 33.5 L (39.6-50.0) % Immature Gran # 0.07 H (0.00-0.04) 10*3/uL Neutrophils # 8.87 H (1.80-7.70) 10*3/uL Lymphocytes # 0.42 L (0.90-5.00) 10*3/uL ABG pH (7.35-7.45) ABG pCO2 (35-45) mmHg ABG pO2 (83-108) mmHg ABG O2 Saturation (94-97) % Sodium 135 L (137-145) mmol/L Potassium (3.5-5.1) mmol/L Chloride (98-107) mmol/L Carbon Dioxide 19 L (22-30) mmol/L BUN 28 H (9-20) mg/dL Creatinine (0.66-1.25) mg/dL Glucose 152 H (74-99) mg/dL POC Glucose (mg/dL) 150 H (70-110) mg/dL Hemoglobin A1c (<=6.0) % Plasma Lactic Acid Gareth (0.7-2.0) mmol/L Phosphorus (2.5-4.5) mg/dL Urine Protein (Negative) Urine Glucose (UA) (Negative) Urine Ketones (Negative) 10/31/24 10/31/24 10/31/24 Range/Units 07:01 08:19 10:13 WBC (4.50-10.00) 10*3/uL RBC (4.40-5.60) 10*6/uL Hgb (13.0-17.0) g/dL Hct (39.6-50.0) % Immature Gran # (0.00-0.04) 10*3/uL Neutrophils # (1.80-7.70) 10*3/uL Lymphocytes # (0.90-5.00) 10*3/uL ABG pH (7.35-7.45) ABG pCO2 (35-45) mmHg ABG pO2 (83-108) mmHg ABG O2 Saturation (94-97) % Sodium (137-145) mmol/L Potassium (3.5-5.1) mmol/L Chloride (98-107) mmol/L Carbon Dioxide (22-30) mmol/L BUN (9-20) mg/dL Creatinine (0.66-1.25) mg/dL Glucose (74-99) mg/dL POC Glucose (mg/dL) 137 H 224 H 190 H (70-110) mg/dL Hemoglobin A1c (<=6.0) % Plasma Lactic Acid Gareth (0.7-2.0) mmol/L Phosphorus (2.5-4.5) mg/dL Urine Protein (Negative) Urine Glucose (UA) (Negative) Urine Ketones (Negative) 10/31/24 Range/Units 11:00 WBC (4.50-10.00) 10*3/uL RBC (4.40-5.60) 10*6/uL Hgb (13.0-17.0) g/dL Hct (39.6-50.0) % Immature Gran # (0.00-0.04) 10*3/uL Neutrophils # (1.80-7.70) 10*3/uL Lymphocytes # (0.90-5.00) 10*3/uL ABG pH (7.35-7.45) ABG pCO2 (35-45) mmHg ABG pO2 (83-108) mmHg ABG O2 Saturation (94-97) % Sodium (137-145) mmol/L Potassium (3.5-5.1) mmol/L Chloride (98-107) mmol/L Carbon Dioxide (22-30) mmol/L BUN (9-20) mg/dL Creatinine (0.66-1.25) mg/dL Glucose (74-99) mg/dL POC Glucose (mg/dL) 168 H (70-110) mg/dL Hemoglobin A1c (<=6.0) % Plasma Lactic Acid Gareth (0.7-2.0) mmol/L Phosphorus (2.5-4.5) mg/dL Urine Protein (Negative) Urine Glucose (UA) (Negative) Urine Ketones (Negative) Assessment and Plan Plan: New onset diabetes mellitus presenting with DKA. Consider immunotherapy induced diabetes mellitus. The patient was being treated with Imfinzi for the past 6 months regarding his locally advanced non-small cell lung cancer. DKA was treated appropriately and the patient will be transition to long-acting insulin Anion gap metabolic acidosis secondary to DKA, recovered Acute kidney injury secondary to DKA, recovered Acute hypokalemia secondary to above, recovered COPD, maintained on Trelegy Ellipta on outpatient basis. 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 The patient completed chemoradiation therapy and the patient currently is on immunotherapy. The patient had a CAT scan of the chest on 10/28/2024 that showed a stable left suprahilar mass without any evidence of disease progression. Coronary artery disease, currently inactive and stable, previous coronary angioplasty and stenting Hypertension Hyperlipidemia Hypothyroidism Plan Titrate oxygen flow to maintain oxygen saturation above 90%, currently the patient is on room air oxygen. Discontinue the insulin drip can put the patient on Lantus 10 units daily in addition to NovoLog 9 units with meals + scale coverage Monitor blood sugar Discussed future and present treatment with Imfinzi treatment with medical o ncology Reviewed the most recent CAT scan of the chest Will continue to follow. Time with Patient: Greater than 30
[2024-10-31] MEDS: ONDANSETRON 4 MG/2 ML VIAL IVP PRN (15:49)
[2024-10-31] MEDS: INSULIN NPH 100 UNIT/ML 10 ML VIAL SQ ONE (15:51)
[2024-10-31 20:41] LABS: Glucose,Whole Blood 237 mg/dL (70-110)
--- NOTE | 2024-10-31 21:04 | P.PN ---
Subjective This is a pleasant 63 years old male with past medical history significant for lung cancer diagnosed last December of last year. He is status post immunotherapy he got 6 cycles so far last immunotherapy he received was about 1 week to 8 days ago. He follows up with Dr. Solo and Dr. Ramirez. Presents because of worsening shortness of breath and generalized weakness. Patient with the help of the female family at bedside has been having shortness of breath for 2 days associated with cough and little phlegm but no chest pain This has been associated with severe weakness and difficulty ambulating He has been vomiting and last time he vomited was yesterday but no abdominal pain. Although he complains from epigastric discomfort could be related to his vomiting no bowel movement today. No headache dizziness weakness or numbness On admission patient was found to have sugar significantly elevated more than 600 and in diabetic ketoacidosis however patient has no history of diabetes and has not taken diabetes medication. Has been complaining from blurred vision lately and been is evaluated by citizenship teacher with no cause found. He used to smoke and quit when he was diagnosed with cancer a year ago. No alcohol other than occasional and rare and no illicit drugs On admission patient is tachycardic and tachypneic but afebrile. He is satu rating 100% on 2 L. Labs show leukocytosis of 16,000, sodium 131, potassium 5.4. Carbon dioxide les s than 5. Creatinine elevated 1.9 with baseline 0.9-1.0 D-dimer is negative at 0.53 Lactic acid is 2.4 and 4.0. Glucose was 9025, acetone is positive proBNP is 782 which is negative Chest x-ray suspicious for left upper lobe infiltrate. EKG shows sinus rhythm at [address]-T changes 10/31 patient dyspnea significantly improved No chest pain no other complaint. No diarrhea no rash His anion gap closed and insulin is switched to Lantus 10 units increase later to 12 units and Humalog 9 units with meals Hemoglobin A1c 11.8 WBC improved significant 10.3 with evidence of hemodilution, hemoglobin also came down to 12. Platelet count is normal. Sodium is stable. Potassium is improved and within the reference range. Creatinine also improved. Patient already improved Patient is going to be transferred out of the ICU today and possible discharge in . However if he keeps improving Objective - Vital Signs Vital signs: Vital Signs Temp 98.3 F 10/31/24 04:00 Pulse 94 10/31/24 07:00 Resp 17 10/31/24 07:00 BP 126/91 10/31/24 07:00 Pulse Ox 98 10/31/24 07:00 FiO2 Intake & Output 10/30/24 10/31/24 10/31/24 18:59 06:59 18:59 Intake Total 209.16 3190.356 153.512 Output Total 480 550 Balance 209.16 2710.356 -396.488 Weight 90.718 kg 88.6 kg Intake: Intake, IV Titration 209.16 2230.356 153.512 Amount D5-0.45% NaCl with KCl 1050 150 20Meq/l 1,000 ml @ 150 mls/hr IV .Q6H40M DANIELLE Rx# :[id number] Insulin Regular 100 unit 9.16 180.356 3.512 In Sodium Chloride 0.9% 100 ml @ 0.1 UNITS/KG/HR 9.163 mls/hr IV .Q11H2M DANIELLE Rx#:[id number] Sodium Chloride 0.9% 1, 200 1000 000 ml @ 200 mls/hr IV . Q5H DANIELLE Rx#:[id number] Oral 960 Output: Urine 480 550 Other: Voiding Method Urinal # Voids 0 - Exam Neutropenic GENERAL: The patient is alert and oriented x3, not in any acute distress. Well developed, well nourished. HEENT: Pupils are round and equally reacting to light. EOMI. No scleral icterus. No conjunctival pallor. Normocephalic, atraumatic. No pharyngeal erythema. No thyromegaly. CARDIOVASCULAR: S1 and S2 present. No murmurs, rubs, or gallops. PULMONARY: Chest is clear to auscultation, no wheezing , no crackles. Mildly tachypneic ABDOMEN: Soft, nontender, nondistended, normoactive bowel sounds. No palpable organomegaly. MUSCULOSKELETAL: No joint swelling or deformity. EXTREMITIES: No cyanosis, clubbing, or pedal edema. NEUROLOGICAL: Gross neurological examination did not reveal any focal deficits. SKIN: No rashes. no petechiae. - Labs CBC & Chem 7: 10/31/24 05:41 10/31/24 05:41 Labs: Abnormal Lab Results - Last 24 Hours (Table) 0410/30/24 10/30/24 Range/Units 09:40 09:40 09:40 WBC 16.06 H (4.50-10.00) 10*3/uL RBC (4.40-5.60) 10*6/uL Hgb (13.0-17.0) g/dL Hct (39.6-50.0) % Immature Gran # 0.32 H (0.00-0.04) 10*3/uL Neutrophils # 13.59 H (1.80-7.70) 10*3/uL Lymphocytes # 0.73 L (0.90-5.00) 10*3/uL Monocytes # 1.33 H (0.20-1.00) 10*3/uL Eosinophils # 0.01 L (0.04-0.35) 10*3/uL ABG pH (7.35-7.45) ABG pCO2 (35-45) mmHg ABG pO2 (83-108) mmHg ABG O2 Saturation (94-97) % Sodium 131 L (137-145) mmol/L Potassium 6.4 H* (3.5-5.1) mmol/L Chloride 92 L (98-107) mmol/L Carbon Dioxide <5 L* (22-30) mmol/L BUN 37 H (9-20) mg/dL Creatinine 1.96 H (0.66-1.25) mg/dL Glucose 925 H* (74-99) mg/dL POC Glucose (mg/dL) (70-110) mg/dL Plasma Lactic Acid Gareth 2.4 H* (0.7-2.0) mmol/L Phosphorus (2.5-4.5) mg/dL Alkaline Phosphatase 166 H (38-126) U/L Albumin 5.1 H (3.5-5.0) g/dL Urine Protein (Negative) Urine Glucose (UA) (Negative) Urine Ketones (Negative) 10/30/24 10/30/24 10/30/24 Range/Units 11:40 11:40 12:24 WBC (4.50-10.00) 10*3/uL RBC (4.40-5.60) 10*6/uL Hgb (13.0-17.0) g/dL Hct (39.6-50.0) % Immature Gran # (0.00-0.04) 10*3/uL Neutrophils # (1.80-7.70) 10*3/uL Lymphocytes # (0.90-5.00) 10*3/uL Monocytes # (0.20-1.00) 10*3/uL Eosinophils # (0.04-0.35) 10*3/uL ABG pH (7.35-7.45) ABG pCO2 (35-45) mmHg ABG pO2 (83-108) mmHg ABG O2 Saturation (94-97) % Sodium 135 L (137-145) mmol/L Potassium 5.9 H (3.5-5.1) mmol/L Chloride 97 L (98-107) mmol/L Carbon Dioxide <5 L* (22-30) mmol/L BUN 37 H (9-20) mg/dL Creatinine 1.85 H (0.66-1.25) mg/dL Glucose 849 H* (74-99) mg/dL POC Glucose (mg/dL) (70-110) mg/dL Plasma Lactic Acid Gareth 4.0 H* (0.7-2.0) mmol/L Phosphorus 7.3 H (2.5-4.5) mg/dL Alkaline Phosphatase (38-126) U/L Albumin (3.5-5.0) g/dL Urine Protein (Negative) Urine Glucose (UA) (Negative) Urine Ketones (Negative) 10/30/24 10/30/24 10/30/24 Range/Units 12:46 13:05 13:57 WBC (4.50-10.00) 10*3/uL RBC (4.40-5.60) 10*6/uL Hgb (13.0-17.0) g/dL Hct (39.6-50.0) % Immature Gran # (0.00-0.04) 10*3/uL Neutrophils # (1.80-7.70) 10*3/uL Lymphocytes # (0.90-5.00) 10*3/uL Monocytes # (0.20-1.00) 10*3/uL Eosinophils # (0.04-0.35) 10*3/uL ABG pH 7.06 L* (7.35-7.45) ABG pCO2 <15 L* (35-45) mmHg ABG pO2 137 H (83-108) mmHg ABG O2 Saturation 98.1 H (94-97) % Sodium (137-145) mmol/L Potassium (3.5-5.1) mmol/L Chloride (98-107) mmol/L Carbon Dioxide (22-30) mmol/L BUN (9-20) mg/dL Creatinine (0.66-1.25) mg/dL Glucose (74-99) mg/dL POC Glucose (mg/dL) >600 H* >600 H* (70-110) mg/dL Plasma Lactic Acid Gareth (0.7-2.0) mmol/L Phosphorus (2.5-4.5) mg/dL Alkaline Phosphatase (38-126) U/L Albumin (3.5-5.0) g/dL Urine Protein (Negative) Urine Glucose (UA) (Negative) Urine Ketones (Negative) 10/30/24 10/30/24 10/30/24 Range/Units 15:03 16:00 16:02 WBC (4.50-10.00) 10*3/uL RBC (4.40-5.60) 10*6/uL Hgb (13.0-17.0) g/dL Hct (39.6-50.0) % Immature Gran # (0.00-0.04) 10*3/uL Neutrophils # (1.80-7.70) 10*3/uL Lymphocytes # (0.90-5.00) 10*3/uL Monocytes # (0.20-1.00) 10*3/uL Eosinophils # (0.04-0.35) 10*3/uL ABG pH (7.35-7.45) ABG pCO2 (35-45) mmHg ABG pO2 (83-108) mmHg ABG O2 Saturation (94-97) % Sodium (137-145) mmol/L Potassium (3.5-5.1) mmol/L Chloride (98-107) mmol/L Carbon Dioxide (22-30) mmol/L BUN (9-20) mg/dL Creatinine (0.66-1.25) mg/dL Glucose (74-99) mg/dL POC Glucose (mg/dL) >600 H* >600 H* (70-110) mg/dL Plasma Lactic Acid Gareth (0.7-2.0) mmol/L Phosphorus 2.4 L (2.5-4.5) mg/dL Alkaline Phosphatase (38-126) U/L Albumin (3.5-5.0) g/dL Urine Protein (Negative) Urine Glucose (UA) (Negative) Urine Ketones (Negative) 10/30/24 10/30/24 10/30/24 Range/Units 16:02 16:02 17:07 WBC (4.50-10.00) 10*3/uL RBC (4.40-5.60) 10*6/uL Hgb (13.0-17.0) g/dL Hct (39.6-50.0) % Immature Gran # (0.00-0.04) 10*3/uL Neutrophils # (1.80-7.70) 10*3/uL Lymphocytes # (0.90-5.00) 10*3/uL Monocytes # (0.20-1.00) 10*3/uL Eosinophils # (0.04-0.35) 10*3/uL ABG pH (7.35-7.45) ABG pCO2 (35-45) mmHg ABG pO2 (83-108) mmHg ABG O2 Saturation (94-97) % Sodium (137-145) mmol/L Potassium (3.5-5.1) mmol/L Chloride (98-107) mmol/L Carbon Dioxide 8 L* (22-30) mmol/L BUN 40 H (9-20) mg/dL Creatinine 1.59 H (0.66-1.25) mg/dL Glucose 591 H* (74-99) mg/dL POC Glucose (mg/dL) 568 H* (70-110) mg/dL Plasma Lactic Acid Gareth 2.1 H* (0.7-2.0) mmol/L Phosphorus (2.5-4.5) mg/dL Alkaline Phosphatase (38-126) U/L Albumin (3.5-5.0) g/dL Urine Protein (Negative) Urine Glucose (UA) (Negative) Urine Ketones (Negative) 10/30/24 10/30/24 10/30/24 Range/Units 18:05 18:14 19:26 WBC (4.50-10.00) 10*3/uL RBC (4.40-5.60) 10*6/uL Hgb (13.0-17.0) g/dL Hct (39.6-50.0) % Immature Gran # (0.00-0.04) 10*3/uL Neutrophils # (1.80-7.70) 10*3/uL Lymphocytes # (0.90-5.00) 10*3/uL Monocytes # (0.20-1.00) 10*3/uL Eosinophils # (0.04-0.35) 10*3/uL ABG pH (7.35-7.45) ABG pCO2 (35-45) mmHg ABG pO2 (83-108) mmHg ABG O2 Saturation (94-97) % Sodium (137-145) mmol/L Potassium (3.5-5.1) mmol/L Chloride (98-107) mmol/L Carbon Dioxide (22-30) mmol/L BUN (9-20) mg/dL Creatinine (0.66-1.25) mg/dL Glucose (74-99) mg/dL POC Glucose (mg/dL) 545 H* 587 H* 422 H (70-110) mg/dL Plasma Lactic Acid Gareth (0.7-2.0) mmol/L Phosphorus (2.5-4.5) mg/dL Alkaline Phosphatase (38-126) U/L Albumin (3.5-5.0) g/dL Urine Protein (Negative) Urine Glucose (UA) (Negative) Urine Ketones (Negative) 10/30/24 10/30/24 10/30/24 Range/Units 19:56 21:04 22:03 WBC (4.50-10.00) 10*3/uL RBC (4.40-5.60) 10*6/uL Hgb (13.0-17.0) g/dL Hct (39.6-50.0) % Immature Gran # (0.00-0.04) 10*3/uL Neutrophils # (1.80-7.70) 10*3/uL Lymphocytes # (0.90-5.00) 10*3/uL Monocytes # (0.20-1.00) 10*3/uL Eosinophils # (0.04-0.35) 10*3/uL ABG pH (7.35-7.45) ABG pCO2 (35-45) mmHg ABG pO2 (83-108) mmHg ABG O2 Saturation (94-97) % Sodium 136 L (137-145) mmol/L Potassium (3.5-5.1) mmol/L Chloride (98-107) mmol/L Carbon Dioxide 16 L (22-30) mmol/L BUN 37 H (9-20) mg/dL Creatinine 1.47 H (0.66-1.25) mg/dL Glucose 348 H (74-99) mg/dL POC Glucose (mg/dL) 326 H 318 H (70-110) mg/dL Plasma Lactic Acid Gareth (0.7-2.0) mmol/L Phosphorus 1.9 L (2.5-4.5) mg/dL Alkaline Phosphatase (38-126) U/L Albumin (3.5-5.0) g/dL Urine Protein (Negative) Urine Glucose (UA) (Negative) Urine Ketones (Negative) 10/30/24 10/30/24 10/31/24 Range/Units 22:35 23:01 00:03 WBC (4.50-10.00) 10*3/uL RBC (4.40-5.60) 10*6/uL Hgb (13.0-17.0) g/dL Hct (39.6-50.0) % Immature Gran # (0.00-0.04) 10*3/uL Neutrophils # (1.80-7.70) 10*3/uL Lymphocytes # (0.90-5.00) 10*3/uL Monocytes # (0.20-1.00) 10*3/uL Eosinophils # (0.04-0.35) 10*3/uL ABG pH (7.35-7.45) ABG pCO2 (35-45) mmHg ABG pO2 (83-108) mmHg ABG O2 Saturation (94-97) % Sodium 135 L (137-145) mmol/L Potassium (3.5-5.1) mmol/L Chloride (98-107) mmol/L Carbon Dioxide 18 L (22-30) mmol/L BUN 33 H (9-20) mg/dL Creatinine (0.66-1.25) mg/dL Glucose 238 H (74-99) mg/dL POC Glucose (mg/dL) 298 H (70-110) mg/dL Plasma Lactic Acid Gareth (0.7-2.0) mmol/L Phosphorus 1.4 L (2.5-4.5) mg/dL Alkaline Phosphatase (38-126) U/L Albumin (3.5-5.0) g/dL Urine Protein Trace H (Negative) Urine Glucose (UA) 4+ H (Negative) Urine Ketones 2+ H (Negative) 10/31/24 10/31/24 10/31/24 Range/Units 00:04 01:08 02:02 WBC (4.50-10.00) 10*3/uL RBC (4.40-5.60) 10*6/uL Hgb (13.0-17.0) g/dL Hct (39.6-50.0) % Immature Gran # (0.00-0.04) 10*3/uL Neutrophils # (1.80-7.70) 10*3/uL Lymphocytes # (0.90-5.00) 10*3/uL Monocytes # (0.20-1.00) 10*3/uL Eosinophils # (0.04-0.35) 10*3/uL ABG pH (7.35-7.45) ABG pCO2 (35-45) mmHg ABG pO2 (83-108) mmHg ABG O2 Saturation (94-97) % Sodium (137-145) mmol/L Potassium (3.5-5.1) mmol/L Chloride (98-107) mmol/L Carbon Dioxide (22-30) mmol/L BUN (9-20) mg/dL Creatinine (0.66-1.25) mg/dL Glucose (74-99) mg/dL POC Glucose (mg/dL) 257 H 236 H 226 H (70-110) mg/dL Plasma Lactic Acid Gareth (0.7-2.0) mmol/L Phosphorus (2.5-4.5) mg/dL Alkaline Phosphatase (38-126) U/L Albumin (3.5-5.0) g/dL Urine Protein (Negative) Urine Glucose (UA) (Negative) Urine Ketones (Negative) 10/31/24 10/31/24 10/31/24 Range/Units 03:05 04:12 04:58 WBC (4.50-10.00) 10*3/uL RBC (4.40-5.60) 10*6/uL Hgb (13.0-17.0) g/dL Hct (39.6-50.0) % Immature Gran # (0.00-0.04) 10*3/uL Neutrophils # (1.80-7.70) 10*3/uL Lymphocytes # (0.90-5.00) 10*3/uL Monocytes # (0.20-1.00) 10*3/uL Eosinophils # (0.04-0.35) 10*3/uL ABG pH (7.35-7.45) ABG pCO2 (35-45) mmHg ABG pO2 (83-108) mmHg ABG O2 Saturation (94-97) % Sodium (137-145) mmol/L Potassium (3.5-5.1) mmol/L Chloride (98-107) mmol/L Carbon Dioxide (22-30) mmol/L BUN (9-20) mg/dL Creatinine (0.66-1.25) mg/dL Glucose (74-99) mg/dL POC Glucose (mg/dL) 209 H 196 H 162 H (70-110) mg/dL Plasma Lactic Acid Gareth (0.7-2.0) mmol/L Phosphorus (2.5-4.5) mg/dL Alkaline Phosphatase (38-126) U/L Albumin (3.5-5.0) g/dL Urine Protein (Negative) Urine Glucose (UA) (Negative) Urine Ketones (Negative) 10/31/24 10/31/24 10/31/24 Range/Units 05:41 05:41 06:07 WBC 10.36 H (4.50-10.00) 10*3/uL RBC 3.99 L (4.40-5.60) 10*6/uL Hgb 12.0 L D (13.0-17.0) g/dL Hct 33.5 L (39.6-50.0) % Immature Gran # 0.07 H (0.00-0.04) 10*3/uL Neutrophils # 8.87 H (1.80-7.70) 10*3/uL Lymphocytes # 0.42 L (0.90-5.00) 10*3/uL Monocytes # (0.20-1.00) 10*3/uL Eosinophils # (0.04-0.35) 10*3/uL ABG pH (7.35-7.45) ABG pCO2 (35-45) mmHg ABG pO2 (83-108) mmHg ABG O2 Saturation (94-97) % Sodium 135 L (137-145) mmol/L Potassium (3.5-5.1) mmol/L Chloride (98-107) mmol/L Carbon Dioxide 19 L (22-30) mmol/L BUN 28 H (9-20) mg/dL Creatinine (0.66-1.25) mg/dL Glucose 152 H (74-99) mg/dL POC Glucose (mg/dL) 150 H (70-110) mg/dL Plasma Lactic Acid Gareth (0.7-2.0) mmol/L Phosphorus (2.5-4.5) mg/dL Alkaline Phosphatase (38-126) U/L Albumin (3.5-5.0) g/dL Urine Protein (Negative) Urine Glucose (UA) (Negative) Urine Ketones (Negative) 10/31/24 Range/Units 07:01 WBC (4.50-10.00) 10*3/uL RBC (4.40-5.60) 10*6/uL Hgb (13.0-17.0) g/dL Hct (39.6-50.0) % Immature Gran # (0.00-0.04) 10*3/uL Neutrophils # (1.80-7.70) 10*3/uL Lymphocytes # (0.90-5.00) 10*3/uL Monocytes # (0.20-1.00) 10*3/uL Eosinophils # (0.04-0.35) 10*3/uL ABG pH (7.35-7.45) ABG pCO2 (35-45) mmHg ABG pO2 (83-108) mmHg ABG O2 Saturation (94-97) % Sodium (137-145) mmol/L Potassium (3.5-5.1) mmol/L Chloride (98-107) mmol/L Carbon Dioxide (22-30) mmol/L BUN (9-20) mg/dL Creatinine (0.66-1.25) mg/dL Glucose (74-99) mg/dL POC Glucose (mg/dL) 137 H (70-110) mg/dL Plasma Lactic Acid Gareth (0.7-2.0) mmol/L Phosphorus (2.5-4.5) mg/dL Alkaline Phosphatase (38-126) U/L Albumin (3.5-5.0) g/dL Urine Protein (Negative) Urine Glucose (UA) (Negative) Urine Ketones (Negative) Assessment and Plan Assessment: Diabetic ketoacidosis. Resolved Diabetes mellitus with hyperglycemia. New onset. Hemoglobin A1c 11.8% Left upper lobe infiltrate could be related to his cancer. Rule out pneumonia Left infrahilar lung cancer,squamous cell carcinoma of the lung, status post chemo and immunotherapy Severe metabolic acidosis secondary to above. Resolved Lactic acidemia. Resolved Acute kidney injury. Improved Electrolyte abnormality with hyponatremia and hyperkalemia Plan: Discontinue insulin drip Start the patient on Levemir 10 units increase later to 12 units and NovoLog/Humalog 9 units with meal Encourage hydration Symptomatic treatment Pulmonary team consult. Patient will be admitted to the ICU for close monitoring Check proCalcitonin is negative. Labs and medication were reviewed.. Continue same treatment. Continue with symptomatic treatment. Resume home medication. Monitor labs and vitals. DVT and GI prophylaxis. Further recommendations as per clinical course of the patient DVT prophylaxis: Subcutaneous heparin GI Prophylaxis: Pepcid PT/OT: deferred Prognosis is guarded
--- NOTE | 2024-10-31 21:12 | P.CONS ---
History of Present Illness - Reason for Consult Consult date: 10/31/24 lung cancer Requesting physician: Sher Marte - Chief Complaint SOB , confusion - History of Present Illness Mr. 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 He notes feeling warm, but denies any objective fevers, chills, night sweats, or hemoptysis. He denies any sick contacts. He feels he is working hard to breathe air in. He does have increased swelling in the lower extremities bilaterally, which is more prominent on the right. In addition, he appears to have increased swelling in the right arm. He denies any numbness or tingling in the right arm. He started radiation therapy on 01/10/2024 and was scheduled to start cisplatin/etoposide concurrently with radiation therapy on 01/15/2024. He completed chemo/ RT. And most recently completed cycle 7 of maintenance Imfinzi on 10/21/2024. Pt has been tolerating treatment well. Treatment response CT chest on 10/28/24 showed stable morphology of the lungs and left perihilar soft tissue. No new or enlarging pulmonary nodules or lymph nodes. Patient presents emergency room with shortness of breath, and patient states he believes he was exposed to RSV. Patient and spouse states he was having issues with blurred vision and then began having increasing confusion at which time he presented to emergency room for further evaluation. Upon admission chest x-ray showed left upper lobe infiltrate. Procalcitonin <0.20. Viral PCR negative. Labs reviewed WBC 10.3, hemoglobin 12.0, platelets 180,000. Coags WNL. Creatinine improving at 1.12, GFR > 90. Upon admission sodium noted at 131, potassium 6.4, creatinine 1.96, GFR 35. Glucose significantly elevated at 925. Lactic acid 2.4. Bilirubin 0.8, AST 18, ALT 26, ALP 166, BNP 782, troponin negative. Patient was started on insulin drip and was transferred to the ICU for further management. Pt afebrile. At todays visit, pt is lethargic. Spouse is providing most of HPI Review of Systems 10 point ROS is negative except as stated in the HPI Past Medical History Past Medical History: Coronary Artery Disease (CAD), Cancer, Hypertension, Thyroid Disorder Additional Past Medical History / Comment(s): lung ca History of Any Multi-Drug Resistant Organisms: None Reported Past Surgical History: Heart Catheterization With Stent Additional Past Surgical History / Comment(s): Throat surgery Past Anesthesia/Blood Transfusion Reactions: No Reported Reaction Date of Last Stent Placement:: 2016 Past Psychological History: No Psychological Hx Reported Smoking Status: Former smoker Past Alcohol Use History: Occasional Past Drug Use History: Marijuana - Past Family History Father History Unknown: Yes Family Medical History: Cancer Additional Family Medical History / Comment(s): Lung ca Mother Additional Family Medical History / Comment(s): at age og 96 Sister(s) Family Medical History: Diabetes Mellitus Medications and Allergies Home Medications Medication Instructions Recorded Confirmed Type Aspirin 81 mg PO DAILY 12/05/20 10/30/24 History Atorvastatin Calcium [Lipitor] 80 mg PO DAILY 12/05/20 10/30/24 History Ezetimibe [Zetia] 10 mg PO DAILY 12/05/20 10/30/24 History Fluticasone/Umeclidin/Vilanter 1 puff INHALATION RT-DAILY 12/21/23 10/30/24 History [Trelegy Ellipta 100-62.5-25] Benzonatate [Tessalon Perles] 200 mg PO TID PRN #30 cap 12/23/23 10/30/24 Rx Isosorbide Mononitrate ER [Imdur] 30 mg PO DAILY #30 tab 01/23/24 10/30/24 Rx Albuterol Sulfate [Accuneb] 0.63 mg INHALATION RT-Q6H 10/30/24 10/30/24 History Levothyroxine Sodium 150 mcg PO DAILY 10/30/24 10/30/24 History Metoprolol Tartrate [Lopressor] 50 mg PO DAILY 10/30/24 10/30/24 History Allergies Allergy/AdvReac Type Severity Reaction Status Date / Time No Known Allergies Allergy Verified 10/30/24 11:46 Physical Exam Vitals: Vital Signs Temp Pulse Resp BP Pulse Ox 10/31/24 12:00 82 19 99/65 10/31/24 11:00 76 18 103/67 10/31/24 10:00 75 21 99 10/31/24 09:00 85 25 H 116/73 99 10/31/24 08:00 87 21 126/91 98 10/31/24 07:00 94 17 126/91 98 10/31/24 06:00 92 15 93/66 97 10/31/24 05:00 93 20 118/67 96 10/31/24 04:00 98.3 F 94 19 123/71 96 10/31/24 03:00 90 21 123/71 95 10/31/24 02:00 21 129/80 95 10/31/24 01:00 90 20 120/65 98 10/31/24 00:12 93 16 99 10/31/24 00:00 98.8 F 92 19 138/78 97 10/30/24 23:00 9 L 138/77 98 10/30/24 22:00 90 19 130/66 97 10/30/24 21:30 89 23 98 10/30/24 21:00 90 18 112/68 100 10/30/24 20:30 86 23 99 10/30/24 20:25 98.0 F 20 99 10/30/24 20:00 98.0 F 87 25 H 134/75 100 10/30/24 19:30 39 H 100 10/30/24 19:00 85 21 124/74 100 10/30/24 18:30 97.5 F L 85 19 134/79 100 10/30/24 18:15 97.9 F 90 18 125/79 99 10/30/24 17:16 97 18 128/71 100 10/30/24 16:08 95 16 111/61 99 10/30/24 15:32 89 20 128/76 100 10/30/24 14:00 118 H 28 H 152/68 100 10/30/24 13:03 115 H 10/30/24 13:01 118 H 32 H 138/97 100 10/30/24 12:56 98 10/30/24 12:53 107 H Intake and Output 10/30/24 10/31/24 10/31/24 22:59 06:59 14:59 Intake Total 8413.113 3685.344 559.545 Output Total 480 550 Balance 0205.253 8819.344 9.545 Intake: Intake, IV Titration 2911.564 8755.344 159.545 Amount D5-0.45% NaCl with KCl 1050 150 20Meq/l 1,000 ml @ 50 mls /hr IV .Q20H DANIELLE Rx#: [id number] Insulin Regular 100 unit 111.172 78.344 9.545 In Sodium Chloride 0.9% 100 ml @ 0.1 UNITS/KG/HR 9.163 mls/hr IV .Q11H2M DANIELLE Rx#:[id number] Sodium Chloride 0.9% 1, 1000 200 000 ml @ 200 mls/hr IV . Q5H DANIELLE Rx#:[id number] Oral 480 480 400 Output: Urine 480 550 Other: Voiding Method Urinal Urinal # Voids 0 0 Weight 90.718 kg 88.6 kg - Constitutional General appearance: average body habitus, no acute distress - EENT Eyes: anicteric sclerae, EOMI ENT: hearing grossly normal - Respiratory Respiratory: bilateral: CTA, diminished - Cardiovascular Rhythm: regular - Gastrointestinal General gastrointestinal: soft, no tenderness - Integumentary Integumentary: no cyanotic - Neurologic lethargic - Musculoskeletal Musculoskeletal: generalized weakness Results CBC & Chem 7: 10/31/24 05:41 10/31/24 05:41 Labs: Abnormal Lab Results - Last 24 Hours (Table) 10/30/24 10/30/24 10/30/24 Range/Units 11:40 12:24 12:46 WBC (4.50-10.00) 10*3/uL RBC (4.40-5.60) 10*6/uL Hgb (13.0-17.0) g/dL Hct (39.6-50.0) % Immature Gran # (0.00-0.04) 10*3/uL Neutrophils # (1.80-7.70) 10*3/uL Lymphocytes # (0.90-5.00) 10*3/uL ABG pH (7.35-7.45) ABG pCO2 (35-45) mmHg ABG pO2 (83-108) mmHg ABG O2 Saturation (94-97) % Sodium 135 L (137-145) mmol/L Potassium 5.9 H (3.5-5.1) mmol/L Chloride 97 L (98-107) mmol/L Carbon Dioxide <5 L* (22-30) mmol/L BUN 37 H (9-20) mg/dL Creatinine 1.85 H (0.66-1.25) mg/dL Glucose 849 H* (74-99) mg/dL POC Glucose (mg/dL) >600 H* (70-110) mg/dL Hemoglobin A1c (<=6.0) % Plasma Lactic Acid Gareth 4.0 H* (0.7-2.0) mmol/L Phosphorus (2.5-4.5) mg/dL Urine Protein (Negative) Urine Glucose (UA) (Negative) Urine Ketones (Negative) 10/30/24 10/30/24 10/30/24 Range/Units 13:05 13:57 15:03 WBC (4.50-10.00) 10*3/uL RBC (4.40-5.60) 10*6/uL Hgb (13.0-17.0) g/dL Hct (39.6-50.0) % Immature Gran # (0.00-0.04) 10*3/uL Neutrophils # (1.80-7.70) 10*3/uL Lymphocytes # (0.90-5.00) 10*3/uL ABG pH 7.06 L* (7.35-7.45) ABG pCO2 <15 L* (35-45) mmHg ABG pO2 137 H (83-108) mmHg ABG O2 Saturation 98.1 H (94-97) % Sodium (137-145) mmol/L Potassium (3.5-5.1) mmol/L Chloride (98-107) mmol/L Carbon Dioxide (22-30) mmol/L BUN (9-20) mg/dL Creatinine (0.66-1.25) mg/dL Glucose (74-99) mg/dL POC Glucose (mg/dL) >600 H* >600 H* (70-110) mg/dL Hemoglobin A1c (<=6.0) % Plasma Lactic Acid Gareth (0.7-2.0) mmol/L Phosphorus (2.5-4.5) mg/dL Urine Protein (Negative) Urine Glucose (UA) (Negative) Urine Ketones (Negative) 10/30/24 10/30/24 10/30/24 Range/Units 16:00 16:02 16:02 WBC (4.50-10.00) 10*3/uL RBC (4.40-5.60) 10*6/uL Hgb (13.0-17.0) g/dL Hct (39.6-50.0) % Immature Gran # (0.00-0.04) 10*3/uL Neutrophils # (1.80-7.70) 10*3/uL Lymphocytes # (0.90-5.00) 10*3/uL ABG pH (7.35-7.45) ABG pCO2 (35-45) mmHg ABG pO2 (83-108) mmHg ABG O2 Saturation (94-97) % Sodium (137-145) mmol/L Potassium (3.5-5.1) mmol/L Chloride (98-107) mmol/L Carbon Dioxide 8 L* (22-30) mmol/L BUN 40 H (9-20) mg/dL Creatinine 1.59 H (0.66-1.25) mg/dL Glucose 591 H* (74-99) mg/dL POC Glucose (mg/dL) >600 H* (70-110) mg/dL Hemoglobin A1c (<=6.0) % Plasma Lactic Acid Gareth (0.7-2.0) mmol/L Phosphorus 2.4 L (2.5-4.5) mg/dL Urine Protein (Negative) Urine Glucose (UA) (Negative) Urine Ketones (Negative) 10/30/24 10/30/24 10/30/24 Range/Units 16:02 17:07 18:05 WBC (4.50-10.00) 10*3/uL RBC (4.40-5.60) 10*6/uL Hgb (13.0-17.0) g/dL Hct (39.6-50.0) % Immature Gran # (0.00-0.04) 10*3/uL Neutrophils # (1.80-7.70) 10*3/uL Lymphocytes # (0.90-5.00) 10*3/uL ABG pH (7.35-7.45) ABG pCO2 (35-45) mmHg ABG pO2 (83-108) mmHg ABG O2 Saturation (94-97) % Sodium (137-145) mmol/L Potassium (3.5-5.1) mmol/L Chloride (98-107) mmol/L Carbon Dioxide (22-30) mmol/L BUN (9-20) mg/dL Creatinine (0.66-1.25) mg/dL Glucose (74-99) mg/dL POC Glucose (mg/dL) 568 H* 545 H* (70-110) mg/dL Hemoglobin A1c (<=6.0) % Plasma Lactic Acid Gareth 2.1 H* (0.7-2.0) mmol/L Phosphorus (2.5-4.5) mg/dL Urine Protein (Negative) Urine Glucose (UA) (Negative) Urine Ketones (Negative) 10/30/24 10/30/24 10/30/24 Range/Units 18:14 19:26 19:56 WBC (4.50-10.00) 10*3/uL RBC (4.40-5.60) 10*6/uL Hgb (13.0-17.0) g/dL Hct (39.6-50.0) % Immature Gran # (0.00-0.04) 10*3/uL Neutrophils # (1.80-7.70) 10*3/uL Lymphocytes # (0.90-5.00) 10*3/uL ABG pH (7.35-7.45) ABG pCO2 (35-45) mmHg ABG pO2 (83-108) mmHg ABG O2 Saturation (94-97) % Sodium 136 L (137-145) mmol/L Potassium (3.5-5.1) mmol/L Chloride (98-107) mmol/L Carbon Dioxide 16 L (22-30) mmol/L BUN 37 H (9-20) mg/dL Creatinine 1.47 H (0.66-1.25) mg/dL Glucose 348 H (74-99) mg/dL POC Glucose (mg/dL) 587 H* 422 H (70-110) mg/dL Hemoglobin A1c (<=6.0) % Plasma Lactic Acid Gareth (0.7-2.0) mmol/L Phosphorus 1.9 L (2.5-4.5) mg/dL Urine Protein (Negative) Urine Glucose (UA) (Negative) Urine Ketones (Negative) 10/30/24 10/30/24 10/30/24 Range/Units 21:04 22:03 22:35 WBC (4.50-10.00) 10*3/uL RBC (4.40-5.60) 10*6/uL Hgb (13.0-17.0) g/dL Hct (39.6-50.0) % Immature Gran # (0.00-0.04) 10*3/uL Neutrophils # (1.80-7.70) 10*3/uL Lymphocytes # (0.90-5.00) 10*3/uL ABG pH (7.35-7.45) ABG pCO2 (35-45) mmHg ABG pO2 (83-108) mmHg ABG O2 Saturation (94-97) % Sodium (137-145) mmol/L Potassium (3.5-5.1) mmol/L Chloride (98-107) mmol/L Carbon Dioxide (22-30) mmol/L BUN (9-20) mg/dL Creatinine (0.66-1.25) mg/dL Glucose (74-99) mg/dL POC Glucose (mg/dL) 326 H 318 H (70-110) mg/dL Hemoglobin A1c (<=6.0) % Plasma Lactic Acid Gareth (0.7-2.0) mmol/L Phosphorus (2.5-4.5) mg/dL Urine Protein Trace H (Negative) Urine Glucose (UA) 4+ H (Negative) Urine Ketones 2+ H (Negative) 10/30/24 10/31/24 10/31/24 Range/Units 23:01 00:03 00:04 WBC (4.50-10.00) 10*3/uL RBC (4.40-5.60) 10*6/uL Hgb (13.0-17.0) g/dL Hct (39.6-50.0) % Immature Gran # (0.00-0.04) 10*3/uL Neutrophils # (1.80-7.70) 10*3/uL Lymphocytes # (0.90-5.00) 10*3/uL ABG pH (7.35-7.45) ABG pCO2 (35-45) mmHg ABG pO2 (83-108) mmHg ABG O2 Saturation (94-97) % Sodium 135 L (137-145) mmol/L Potassium (3.5-5.1) mmol/L Chloride (98-107) mmol/L Carbon Dioxide 18 L (22-30) mmol/L BUN 33 H (9-20) mg/dL Creatinine (0.66-1.25) mg/dL Glucose 238 H (74-99) mg/dL POC Glucose (mg/dL) 298 H 257 H (70-110) mg/dL Hemoglobin A1c (<=6.0) % Plasma Lactic Acid Gareth (0.7-2.0) mmol/L Phosphorus 1.4 L (2.5-4.5) mg/dL Urine Protein (Negative) Urine Glucose (UA) (Negative) Urine Ketones (Negative) 10/31/24 10/31/24 10/31/24 Range/Units 01:08 02:02 03:05 WBC (4.50-10.00) 10*3/uL RBC (4.40-5.60) 10*6/uL Hgb (13.0-17.0) g/dL Hct (39.6-50.0) % Immature Gran # (0.00-0.04) 10*3/uL Neutrophils # (1.80-7.70) 10*3/uL Lymphocytes # (0.90-5.00) 10*3/uL ABG pH (7.35-7.45) ABG pCO2 (35-45) mmHg ABG pO2 (83-108) mmHg ABG O2 Saturation (94-97) % Sodium (137-145) mmol/L Potassium (3.5-5.1) mmol/L Chloride (98-107) mmol/L Carbon Dioxide (22-30) mmol/L BUN (9-20) mg/dL Creatinine (0.66-1.25) mg/dL Glucose (74-99) mg/dL POC Glucose (mg/dL) 236 H 226 H 209 H (70-110) mg/dL Hemoglobin A1c (<=6.0) % Plasma Lactic Acid Gareth (0.7-2.0) mmol/L Phosphorus (2.5-4.5) mg/dL Urine Protein (Negative) Urine Glucose (UA) (Negative) Urine Ketones (Negative) 10/31/24 10/31/24 10/31/24 Range/Units 04:12 04:58 05:41 WBC (4.50-10.00) 10*3/uL RBC (4.40-5.60) 10*6/uL Hgb (13.0-17.0) g/dL Hct (39.6-50.0) % Immature Gran # (0.00-0.04) 10*3/uL Neutrophils # (1.80-7.70) 10*3/uL Lymphocytes # (0.90-5.00) 10*3/uL ABG pH (7.35-7.45) ABG pCO2 (35-45) mmHg ABG pO2 (83-108) mmHg ABG O2 Saturation (94-97) % Sodium (137-145) mmol/L Potassium (3.5-5.1) mmol/L Chloride (98-107) mmol/L Carbon Dioxide (22-30) mmol/L BUN (9-20) mg/dL Creatinine (0.66-1.25) mg/dL Glucose (74-99) mg/dL POC Glucose (mg/dL) 196 H 162 H (70-110) mg/dL Hemoglobin A1c 11.8 H (<=6.0) % Plasma Lactic Acid Gareth (0.7-2.0) mmol/L Phosphorus (2.5-4.5) mg/dL Urine Protein (Negative) Urine Glucose (UA) (Negative) Urine Ketones (Negative) 10/31/24 10/31/24 10/31/24 Range/Units 05:41 05:41 06:07 WBC 10.36 H (4.50-10.00) 10*3/uL RBC 3.99 L (4.40-5.60) 10*6/uL Hgb 12.0 L D (13.0-17.0) g/dL Hct 33.5 L (39.6-50.0) % Immature Gran # 0.07 H (0.00-0.04) 10*3/uL Neutrophils # 8.87 H (1.80-7.70) 10*3/uL Lymphocytes # 0.42 L (0.90-5.00) 10*3/uL ABG pH (7.35-7.45) ABG pCO2 (35-45) mmHg ABG pO2 (83-108) mmHg ABG O2 Saturation (94-97) % Sodium 135 L (137-145) mmol/L Potassium (3.5-5.1) mmol/L Chloride (98-107) mmol/L Carbon Dioxide 19 L (22-30) mmol/L BUN 28 H (9-20) mg/dL Creatinine (0.66-1.25) mg/dL Glucose 152 H (74-99) mg/dL POC Glucose (mg/dL) 150 H (70-110) mg/dL Hemoglobin A1c (<=6.0) % Plasma Lactic Acid Gareth (0.7-2.0) mmol/L Phosphorus (2.5-4.5) mg/dL Urine Protein (Negative) Urine Glucose (UA) (Negative) Urine Ketones (Negative) 10/31/24 10/31/24 10/31/24 Range/Units 07:01 08:19 10:13 WBC (4.50-10.00) 10*3/uL RBC (4.40-5.60) 10*6/uL Hgb (13.0-17.0) g/dL Hct (39.6-50.0) % Immature Gran # (0.00-0.04) 10*3/uL Neutrophils # (1.80-7.70) 10*3/uL Lymphocytes # (0.90-5.00) 10*3/uL ABG pH (7.35-7.45) ABG pCO2 (35-45) mmHg ABG pO2 (83-108) mmHg ABG O2 Saturation (94-97) % Sodium (137-145) mmol/L Potassium (3.5-5.1) mmol/L Chloride (98-107) mmol/L Carbon Dioxide (22-30) mmol/L BUN (9-20) mg/dL Creatinine (0.66-1.25) mg/dL Glucose (74-99) mg/dL POC Glucose (mg/dL) 137 H 224 H 190 H (70-110) mg/dL Hemoglobin A1c (<=6.0) % Plasma Lactic Acid Gareth (0.7-2.0) mmol/L Phosphorus (2.5-4.5) mg/dL Urine Protein (Negative) Urine Glucose (UA) (Negative) Urine Ketones (Negative) 10/31/24 Range/Units 11:00 WBC (4.50-10.00) 10*3/uL RBC (4.40-5.60) 10*6/uL Hgb (13.0-17.0) g/dL Hct (39.6-50.0) % Immature Gran # (0.00-0.04) 10*3/uL Neutrophils # (1.80-7.70) 10*3/uL Lymphocytes # (0.90-5.00) 10*3/uL ABG pH (7.35-7.45) ABG pCO2 (35-45) mmHg ABG pO2 (83-108) mmHg ABG O2 Saturation (94-97) % Sodium (137-145) mmol/L Potassium (3.5-5.1) mmol/L Chloride (98-107) mmol/L Carbon Dioxide (22-30) mmol/L BUN (9-20) mg/dL Creatinine (0.66-1.25) mg/dL Glucose (74-99) mg/dL POC Glucose (mg/dL) 168 H (70-110) mg/dL Hemoglobin A1c (<=6.0) % Plasma Lactic Acid Graeth (0.7-2.0) mmol/L Phosphorus (2.5-4.5) mg/dL Urine Protein (Negative) Urine Glucose (UA) (Negative) Urine Ketones (Negative) Chest x-ray: report reviewed Assessment and Plan (1) CRESCENCIO (acute kidney injury) Current Visit: Yes Status: Acute Code(s): N17.9 - ACUTE KIDNEY FAILURE, UNSPECIFIED SNOMED Code(s): 30434739 (2) DKA (diabetic ketoacidosis) Current Visit: Yes Status: Acute Code(s): E11.10 - TYPE 2 DIABETES MELLITUS WITH KETOACIDOSIS WITHOUT COMA SNOMED Code(s): 343669407 (3) Hyperkalemia Current Visit: Yes Status: Acute Code(s): E87.5 - HYPERKALEMIA SNOMED Code(s): 08634739 (4) Stage III squamous cell carcinoma of left lung Current Visit: Yes Status: Acute Priority: High Code(s): C34.92 - MALIGNANT NEOPLASM OF UNSP PART OF LEFT BRONCHUS OR LUNG SNOMED Code(s): 159173281 Plan: DKA: Patient presents emergency room with shortness of breath, blurred vision, and confusion. -Upon admission chest x-ray showed left upper lobe infiltrate. Procalcitonin <0.20. Viral PCR negative. -WBC 10.3, hemoglobin 12.0, platelets 180,000. Coags WNL. Creatinine improving, today 1.12, GFR > 90. Upon admission potassium 6.4, creatinine 1.96, GFR 35. Glucose significantly elevated at 925. Lactic acid 2.4. Bilirubin 0.8, AST 18, ALT 26, ALP 166, BNP 782, troponin negative. -Patient was started on insulin drip and was transferred to the ICU for further management. 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 Will place outpt referral for further management -Discussed with patient once recovered he can continue on IO as this has kept disease stable, with management of glucose levels with close f/u with endocrinology. Pt is apprehensive about further treatment at this time. Will schedule clinic f/u upon discharge to further discuss treatment options Squamous cell carcinoma of lung: -Oncology history as dictated in the HPI -Has been tolerating treatment well. Completed cycle 7 of maintenance Imfinzi on 10/21/2024. -Treatment response CT chest on 10/28/24 showed stable morphology of the lungs and left perihilar soft tissue. No new or enlarging pulmonary nodules or lymph nodes. -Treatment will be held until acutely recovered -Clinic f/u upon discharge Case and plan of care discussed with pulmonology team today Doctor attests: I performed a history and physical examination of this patient, developed impression and plan of care. Discussed with dictator. I agree with dictators note, documented as a scribe.
[2024-11-01 02:20] LABS: Glucose,Whole Blood 367 mg/dL (70-110)
[2024-11-01] MEDS ORDERED: INSULIN GLARGINE (LANTUS) 100 UNIT/ML SYR SQ SCH (07:00)
[2024-11-01 07:17] LABS: Glucose,Whole Blood 311 mg/dL (70-110)
[2024-11-01 07:58] LABS: Basophils # (A) 0.03 X 10*3/uL (0.00-0.10); Basophils % (A) 0.4 %; Eosinophils # (A) 0.05 X 10*3/uL (0.04-0.35); Eosinophils % (A) 0.6 %; HCT 34.8 % (39.6-50.0); HGB 12.4 g/dL (13.0-17.0); Lymphocytes # (A) 0.64 X 10*3/uL (0.90-5.00); Lymphocytes % (A) 7.8 %; MCH 30.2 pg (27.0-32.0); MCHC 35.6 g/dL (32.0-37.0); MCV 84.9 FL (80.0-97.0); Mean Platelet Volume 10.9 FL (9.5-12.2); Monocytes % (A) 12.2 %; NRBC Per 100 WBC 0 X 10*3/uL (0.00-0.01); Neutrophils # (A) 6.44 X 10*3/uL (1.80-7.70); Neutrophils % (A) 78.3 %; Platelet Count 156 X 10*3/uL (140-440); RDW 13.2 % (11.5-14.5); WBC 8.22 X 10*3/uL (4.50-10.00)
[2024-11-01 08:47] LABS: Blood Urea Nitrogen 17.7 mg/dL (9.0-27.0); Calcium 8.4 mg/dL (8.7-10.3); Carbon Dioxide 21.6 mmol/L (21.6-31.8); Chloride 100 mmol/L (96-109); Glucose 308 mg/dL (70-110); Magnesium 1.7 mg/dL (1.5-2.4); Potassium 3.9 mmol/L (3.5-5.5); Sodium 133 mmol/L (135-145)
[2024-11-01] MEDS: INSULIN GLARGINE (LANTUS) 100 UNIT/ML SYR SQ SCH ×2 (11:23→11:27)
[2024-11-01 12:05] VITALS: BMI 20.6
[2024-11-01 12:14] LABS: Glucose,Whole Blood 397 mg/dL (70-110)
--- NOTE | 2024-11-01 12:21 | P.PN ---
Subjective Progress Note Date: 11/01/24 No acute events overnight. Reporting persisting fatigue. BG today ranging from 200-300. Patient had temperature last night of 100.3, has since resolved. Objective - Vital Signs Vital signs: Vital Signs Temp 98.4 F 11/01/24 08:00 Pulse 95 11/01/24 08:00 Resp 18 11/01/24 08:00 BP 126/78 11/01/24 08:00 Pulse Ox 98 11/01/24 08:00 FiO2 Intake & Output 10/31/24 11/01/24 11/01/24 18:59 06:59 18:59 Intake Total 1099.545 540 Output Total 1300 Balance -200.455 540 Weight 88.6 kg 67 kg Intake: Intake, IV Titration 159.545 Amount D5-0.45% NaCl with KCl 150 20Meq/l 1,000 ml @ 50 mls /hr IV .Q20H DANIELLE Rx#: [id number] Insulin Regular 100 unit 9.545 In Sodium Chloride 0.9% 100 ml @ 0.1 UNITS/KG/HR 9.163 mls/hr IV .Q11H2M DANIELLE Rx#:[id number] Oral 940 540 Output: Urine 1300 Other: Voiding Method Urinal Urinal # Voids 1 1 - Constitutional General appearance: Present: average body habitus, no acute distress - EENT Eyes: Present: anicteric sclerae, EOMI ENT: Present: hearing grossly normal - Respiratory Details: breathing is even and unlabored - Cardiovascular Details: skin warm and dry - Gastrointestinal General gastrointestinal: Present: soft. Absent: tenderness - Integumentary Integumentary: Absent: cyanotic - Psychiatric Psychiatric: Present: A&O x's 3 - Labs CBC & Chem 7: 11/01/24 05:46 11/01/24 05:46 Labs: Abnormal Lab Results - Last 24 Hours (Table) 10/31/24 10/31/24 11/01/24 Range/Units 05:41 20:37 02:18 RBC (4.40-5.60) X 10*6/uL Hgb (13.0-17.0) g/dL Hct (39.6-50.0) % Immature Gran # (0.00-0.04) X 10*3/uL Lymphocytes # (0.90-5.00) X 10*3/uL Sodium (135-145) mmol/L Glucose (70-110) mg/dL POC Glucose (mg/dL) 237 H 367 H (70-110) mg/dL Hemoglobin A1c (<=6.0) % C-Peptide 0.30 L (0.81-3.85) ng/mL Calcium (8.7-10.3) mg/dL 11/01/24 11/01/24 11/01/24 Range/Units 05:46 05:46 05:46 RBC 4.10 L (4.40-5.60) X 10*6/uL Hgb 12.4 L (13.0-17.0) g/dL Hct 34.8 L (39.6-50.0) % Immature Gran # 0.06 H (0.00-0.04) X 10*3/uL Lymphocytes # 0.64 L (0.90-5.00) X 10*3/uL Sodium 133 L (135-145) mmol/L Glucose 308 H (70-110) mg/dL POC Glucose (mg/dL) (70-110) mg/dL Hemoglobin A1c 11.5 H (<=6.0) % C-Peptide (0.81-3.85) ng/mL Calcium 8.4 L (8.7-10.3) mg/dL 11/01/24 Range/Units 07:14 RBC (4.40-5.60) X 10*6/uL Hgb (13.0-17.0) g/dL Hct (39.6-50.0) % Immature Gran # (0.00-0.04) X 10*3/uL Lymphocytes # (0.90-5.00) X 10*3/uL Sodium (135-145) mmol/L Glucose (70-110) mg/dL POC Glucose (mg/dL) 311 H (70-110) mg/dL Hemoglobin A1c (<=6.0) % C-Peptide (0.81-3.85) ng/mL Calcium (8.7-10.3) mg/dL Assessment and Plan (1) CRESCENCIO (acute kidney injury) Current Visit: Yes Status: Acute Code(s): N17.9 - ACUTE KIDNEY FAILURE, UNSPECIFIED SNOMED Code(s): 84757997 (2) DKA (diabetic ketoacidosis) Current Visit: Yes Status: Acute Code(s): E11.10 - TYPE 2 DIABETES MELLITUS WITH KETOACIDOSIS WITHOUT COMA SNOMED Code(s): 589553096 (3) Hyperkalemia Current Visit: Yes Status: Acute Code(s): E87.5 - HYPERKALEMIA SNOMED Code(s): 65416654 (4) Stage III squamous cell carcinoma of left lung Current Visit: Yes Status: Acute Priority: High Code(s): C34.92 - MALIGNANT NEOPLASM OF UNSP PART OF LEFT BRONCHUS OR LUNG SNOMED Code(s): 381397574 Plan: DKA: Patient presents emergency room with shortness of breath, blurred vision, and confusion. -Upon admission chest x-ray showed left upper lobe infiltrate. Procalcitonin <0.20. Viral PCR negative. -WBC 10.3, hemoglobin 12.0, platelets 180,000. Coags WNL. Creatinine improving, today 1.12, GFR > 90. Upon admission potassium 6.4, creatinine 1.96, GFR 35. Glucose significantly elevated at 925. Lactic acid 2.4. Bilirubin 0.8, AST 18, ALT 26, ALP 166, BNP 782, troponin negative. -Patient was started on insulin drip and was transferred to the ICU for further management. 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 Will place outpt referral for further management -Discussed with patient once recovered he can continue on IO as this has kept d isease stable, with management and close f/u with endocrinology. Pt is apprehensive about further treatment at this time. Will schedule clinic f/u upon discharge to further discuss treatment options Squamous cell carcinoma of lung: -Oncology history as dictated in the HPI -Has been tolerating treatment well. Completed cycle 7 of maintenance Imfinzi on 10/21/2024. -Treatment response CT chest on 10/28/24 showed stable morphology of the lungs and left perihilar soft tissue. No new or enlarging pulmonary nodules or lymph nodes. -Treatment will be held until acutely recovered -Clinic f/u upon discharge
[2024-11-01] MEDS: INSULIN LISPRO (HumaLOG) 100 UNIT/ML 10 mL VL SQ SCH (13:06)
--- NOTE | 2024-11-01 16:51 | P.PN ---
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 I performed the patient's bronchoscopy and the patient has a left hilar mass at the level of the secondary manuel and the left lower lobe causing significant mass effect and obstruction of the left lower lobe bronchus. The patient also had an outpatient PET/CT that showed mediastinal lymphadenopathy uptake and bilateral supraclavicular lymphadenopathy uptake. Based on that, the patient was seen by medical oncology. The patient completed systemic chemotherapy and radiation therapy and the Patient is currently receiving immunotherapy under the care of medical oncology. The patient also has other comorbidities including COPD, coronary artery disease with previous coronary stenting done at [facility] back in 2017, hypertension, hyperlipidemia and hypothyroidism. He is under the care of Dr. Ramirez. The most recent CAT scan of the chest done on this patient on 07/19/2024 showed a stable left perihilar mass and stable subcentimeter prominent mediastinal adenopathy without any significant change and the patient had some new areas of groundglass opacities and consolidation in both lungs more prominent in the left lung. The patient presented to the emergency department today with increased shortness of breath. He was exposed to RSV and he was concerned that he was infected with the virus. No reports of fever. He was having nausea and emesis and he was unable to hold any food and liquid material. Denied having any chest pain. No abdominal pain. He was feeling thirsty and he had increased polyuria and polydipsia. In the Emergency Department, the patient was hemodynamically stable. His initial blood work showed severe hyperglycemia with a glucose of 925. He was an anion gap metabolic acidosis with a sodium level of 131, serum bicarb of less than 5 and chloride level of 92 with a potassium level of 6.4. BUN was 37 with a creatinine of 1.9. The white cell count was 16 with a hemoglobin 15.9 and platelet count of 286. Serum acetone was positive. proBNP level was 792. LFTs were within normal limits. Phosphorus level was at 7.4 with a lactic acid level of 4.0. A chest x-ray was done in the ED that showed left suprahilar opacity/infiltrate. The most recent CAT scan of the chest that was done on this patient on 10/28/2024 showed stable m orphology of the lungs and stable left perihilar soft tissue density without any new enlarging nodules. The soft tissue density in the left perihilar area was measuring 27 x 12 mm in size, not significantly changed and the patient had no enlarging mediastinal lymph nodes. Based on that, the patient was hospitalized and an ICU consultation was requested. He is currently on 2 L of oxygen by nasal cannula. The viral screen was negative for RSV and negative for any other viruses. Blood gases showed severe acidosis with a pH of 7.06 with a PCO2 of less than 15 and pO2 of 137 this was on FiO2 of 28%. Patient was diagnosed having a new onset diabetes mellitus/DKA. Started on IV fluids. He is currently on normal saline at rate of 200 cc an hour. He receives also 2 L bolus. He is currently on insulin drip at 0.1 units/kg/h per DKA protocol. On 10/31/2024, the patient is much improved, awake and alert and communicating. The patient was treated for DKA based on the DKA protocol done earlier this morning, the patient was transition to long-acting insulin. Most recent electrolytes show a serum bicarb of 19 and a gap of 10 and a blood sugars at 168. Potassium levels are 3.7. WBC count 10.3 with a hemoglobin 12 and a platelet count of 180. Discussed the case with medical oncology and the patient was being treated with Imfinzi on outpatient basis. The patient is on D5 half-normal saline at rate of 50 cc an hour. Doing well. No specific complaints. No chest pain. No shortness of breath. Currently on room air oxygen. 11/01/2024, the patient is transferred out of the intensive care unit. He has recovered from his DKA. No other acute events overnight. He is reporting some fatigue. Blood sugars are still being monitored. Electrolytes show a gap of 11 with a serum bicarb of 21 and sodium level of 133. Procalcitonin less than 0.2. CBC is within normal limits. Patient is currently on Lantus insulin 15 units daily, NovoLog 11 units with meals and a sliding scale coverage. Rest of the medications are resumed. He did have a spike of temperature of 100.3. Curr ently is afebrile. Noted the patient was receiving Imfinzi for immunotherapy on outpatient basis. Medical oncology throughout the case. Objective - Vital Signs Vital signs: Vital Signs Temp 98.2 F 11/01/24 13:27 Pulse 93 11/01/24 13:27 Resp 18 11/01/24 13:27 BP 125/77 11/01/24 13:27 Pulse Ox 98 11/01/24 13:27 FiO2 Intake & Output 10/31/24 11/01/24 11/01/24 18:59 06:59 18:59 Intake Total 1099.545 540 Output Total 1300 Balance -200.455 540 Weight 88.6 kg 67 kg 67 kg Intake: Intake, IV Titration 159.545 Amount D5-0.45% NaCl with KCl 150 20Meq/l 1,000 ml @ 50 mls /hr IV .Q20H DANIELLE Rx#: [id number] Insulin Regular 100 unit 9.545 In Sodium Chloride 0.9% 100 ml @ 0.1 UNITS/KG/HR 9.163 mls/hr IV .Q11H2M DANIELLE Rx#:[id number] Oral 940 540 Output: Urine 1300 Other: Voiding Method Urinal Urinal # Voids 1 1 - Exam The patient appeared well nourished and normally developed. Vital signs as documented. Patient is currently on room air oxygen Head exam is unremarkable. No scleral icterus or corneal arcus noted. Neck is without jugular venous distension, thyromegaly, or carotid bruits. Carotid upstrokes are brisk bilaterally. Lungs are clear to auscultation and percussion. Diminished breath sounds bilaterally along with scattered expiratory wheezes Cardiac exam reveals the PMI to be normally sized and situated. Rhythm is regular. First and second heart sounds normal. No murmurs, rubs or gallops. Abdominal exam reveals normal bowel sounds, no masses, no organomegaly and no aortic enlargement. Extremities are nonedematous and both femoral and pedal pulses are normal. Examination of the skin revealed no evidence of significant rashes, suspicious appearing nevi or other concerning lesions. Neurologically, the patient is awake and alert and the patient does not have any focal neurological deficit. Cranial nerves are essentially intact. - Labs CBC & Chem 7: 11/01/24 05:46 11/01/24 05:46 Labs: Abnormal Lab Results - Last 24 Hours (Table) 10/31/24 10/31/24 11/01/24 Range/Units 05:41 20:37 02:18 RBC (4.40-5.60) X 10*6/uL Hgb (13.0-17.0) g/dL Hct (39.6-50.0) % Immature Gran # (0.00-0.04) X 10*3/uL Lymphocytes # (0.90-5.00) X 10*3/uL Sodium (135-145) mmol/L Glucose (70-110) mg/dL POC Glucose (mg/dL) 237 H 367 H (70-110) mg/dL Hemoglobin A1c (<=6.0) % C-Peptide 0.30 L (0.81-3.85) ng/mL Calcium (8.7-10.3) mg/dL 11/01/24 11/01/24 11/01/24 Range/Units 05:46 05:46 05:46 RBC 4.10 L (4.40-5.60) X 10*6/uL Hgb 12.4 L (13.0-17.0) g/dL Hct 34.8 L (39.6-50.0) % Immature Gran # 0.06 H (0.00-0.04) X 10*3/uL Lymphocytes # 0.64 L (0.90-5.00) X 10*3/uL Sodium 133 L (135-145) mmol/L Glucose 308 H (70-110) mg/dL POC Glucose (mg/dL) (70-110) mg/dL Hemoglobin A1c 11.5 H (<=6.0) % C-Peptide (0.81-3.85) ng/mL Calcium 8.4 L (8.7-10.3) mg/dL 11/01/24 11/01/24 Range/Units 07:14 12:11 RBC (4.40-5.60) X 10*6/uL Hgb (13.0-17.0) g/dL Hct (39.6-50.0) % Immature Gran # (0.00-0.04) X 10*3/uL Lymphocytes # (0.90-5.00) X 10*3/uL Sodium (135-145) mmol/L Glucose (70-110) mg/dL POC Glucose (mg/dL) 311 H 397 H (70-110) mg/dL Hemoglobin A1c (<=6.0) % C-Peptide (0.81-3.85) ng/mL Calcium (8.7-10.3) mg/dL Assessment and Plan Plan: New onset diabetes mellitus presenting with DKA. Consider immunotherapy induced diabetes mellitus. The patient was being treated with Imfinzi for the past 6 months regarding his locally advanced non-small cell lung cancer. DKA was treat ed appropriately and the patient will be transition to long-acting insulin, the patient got transferred out of the intensive care unit. Anion gap metabolic acidosis secondary to DKA, recovered Acute kidney injury secondary to DKA, recovered Acute hypokalemia secondary to above, recovered COPD, maintained on Trelegy Ellipta on outpatient basis. 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 The patient completed chemoradiation therapy and the patient currently is on immunotherapy. The patient had a CAT scan of the chest on 10/28/2024 that showed a stable left suprahilar mass without any evidence of disease progression. Coronary artery disease, currently inactive and stable, previous coronary angioplasty and stenting Hypertension Hyperlipidemia Hypothyroidism Plan Titrate oxygen flow to maintain oxygen saturation above 90%, currently the patient is on room air oxygen. Discontinue the insulin drip can put the patient on Lantus 13 units daily in addition to NovoLog 11 units with meals + scale coverage Monitor blood sugar Discussed future and present treatment with Imfinzi treatment with medical oncology Reviewed the most recent CAT scan of the chest Will continue to follow.
[2024-11-01 17:15] LABS: Glucose,Whole Blood 346 mg/dL (70-110)
[2024-11-01 20:31] LABS: Glucose,Whole Blood 300 mg/dL (70-110)
[2024-11-01] MEDS: INSULIN GLARGINE (LANTUS) 100 UNIT/ML SYR SQ ONE (20:59)
--- NOTE | 2024-11-01 21:13 | P.PN ---
Subjective This is a pleasant 63 years old male with past medical history significant for lung cancer diagnosed last December of last year. He is status post immunotherapy he got 6 cycles so far last immunotherapy he received was about 1 week to 8 days ago. He follows up with Dr. Solo and Dr. Ramirez. Presents because of worsening shortness of breath and generalized weakness. Patient with the help of the female family at bedside has been having shortness of breath for 2 days associated with cough and little phlegm but no chest pain This has been associated with severe weakness and difficulty ambulating He has been vomiting and last time he vomited was yesterday but no abdominal pain. Although he complains from epigastric discomfort could be related to his vomiting no bowel movement today. No headache dizziness weakness or numbness On admission patient was found to have sugar significantly elevated more than 600 and in diabetic ketoacidosis however patient has no history of diabetes and has not taken diabetes medication. Has been complaining from blurred vision lately and been is evaluated by bulldozer/loader/compactor/scraper with no cause found. He used to smoke and quit when he was diagnosed with cancer a year ago. No alcohol other than occasional and rare and no illicit drugs On admission patient is tachycardic and tachypneic but afebrile. He is satu rating 100% on 2 L. Labs show leukocytosis of 16,000, sodium 131, potassium 5.4. Carbon dioxide les s than 5. Creatinine elevated 1.9 with baseline 0.9-1.0 D-dimer is negative at 0.53 Lactic acid is 2.4 and 4.0. Glucose was 9025, acetone is positive proBNP is 782 which is negative Chest x-ray suspicious for left upper lobe infiltrate. EKG shows sinus rhythm at [address]-T changes 10/31 patient dyspnea significantly improved No chest pain no other complaint. No diarrhea no rash His anion gap closed and insulin is switched to Lantus 10 units increase later to 12 units and Humalog 9 units with meals Hemoglobin A1c 11.8 WBC improved significant 10.3 with evidence of hemodilution, hemoglobin also came down to 12. Platelet count is normal. Sodium is stable. Potassium is improved and within the reference range. Creatinine also improved. Patient already improved Patient is going to be transferred out of the ICU today and possible discharge in . However if he keeps improving 11/01 Patient breathing is okay. No chest pain. No other complaint Patient states he is able to walk to the bathroom with no difficulty. No other specific GI/urinary symptom His sugar still elevated around 310 and he is requiring extra insulin between 6 to 10 units as such increase his Lantus 15 units daily up to 25 units tomorrow also he is on NovoLog 11 units with meals or Humalog. He had low-grade temperature yesterday at 7 PM around 100.3. He has no more fever for 24 hours. No other signs of infection. Leukocytosis actually improving down to 8.2. We rechecked procalcitonin again it is negative again today. We will monitor him for another 24 hours if he remains afebrile then no need for antibiotic for now but close monitoring outpatient Possible discharge in 24 to 48 hours Objective - Vital Signs Vital signs: Vital Signs Temp 98.4 F 11/01/24 08:00 Pulse 95 11/01/24 08:00 Resp 18 11/01/24 08:00 BP 126/78 11/01/24 08:00 Pulse Ox 98 11/01/24 08:00 FiO2 Intake & Output 10/31/24 11/01/24 11/01/24 18:59 06:59 18:59 Intake Total 1099.545 540 Output Total 1300 Balance -200.455 540 Weight 88.6 kg 67 kg Intake: Intake, IV Titration 159.545 Amount D5-0.45% NaCl with KCl 150 20Meq/l 1,000 ml @ 50 mls /hr IV .Q20H DANIELLE Rx#: [id number] Insulin Regular 100 unit 9.545 In Sodium Chloride 0.9% 100 ml @ 0.1 UNITS/KG/HR 9.163 mls/hr IV .Q11H2M DANIELLE Rx#:[id number] Oral 940 540 Output: Urine 1300 Other: Voiding Method Urinal Urinal # Voids 1 1 - Exam Neutropenic GENERAL: The patient is alert and oriented x3, not in any acute distress. Well developed, well nourished. HEENT: Pupils are round and equally reacting to light. EOMI. No scleral icterus. No conjunctival pallor. Normocephalic, atraumatic. No pharyngeal erythema. No thyromegaly. CARDIOVASCULAR: S1 and S2 present. No murmurs, rubs, or gallops. PULMONARY: Chest is clear to auscultation, no wheezing , no crackles. Mildly tachypneic ABDOMEN: Soft, nontender, nondistended, normoactive bowel sounds. No palpable organomegaly. MUSCULOSKELETAL: No joint swelling or deformity. EXTREMITIES: No cyanosis, clubbing, or pedal edema. NEUROLOGICAL: Gross neurological examination did not reveal any focal deficits. SKIN: No rashes. no petechiae. - Labs CBC & Chem 7: 11/01/24 05:46 11/01/24 05:46 Labs: Abnormal Lab Results - Last 24 Hours (Table) 10/31/24 10/31/24 11/01/24 Range/Units 05:41 20:37 02:18 RBC (4.40-5.60) X 10*6/uL Hgb (13.0-17.0) g/dL Hct (39.6-50.0) % Immature Gran # (0.00-0.04) X 10*3/uL Lymphocytes # (0.90-5.00) X 10*3/uL Sodium (135-145) mmol/L Glucose (70-110) mg/dL POC Glucose (mg/dL) 237 H 367 H (70-110) mg/dL Hemoglobin A1c (<=6.0) % C-Peptide 0.30 L (0.81-3.85) ng/mL Calcium (8.7-10.3) mg/dL 11/01/24 11/01/24 11/01/24 Range/Units 05:46 05:46 05:46 RBC 4.10 L (4.40-5.60) X 10*6/uL Hgb 12.4 L (13.0-17.0) g/dL Hct 34.8 L (39.6-50.0) % Immature Gran # 0.06 H (0.00-0.04) X 10*3/uL Lymphocytes # 0.64 L (0.90-5.00) X 10*3/uL Sodium 133 L (135-145) mmol/L Glucose 308 H (70-110) mg/dL POC Glucose (mg/dL) (70-110) mg/dL Hemoglobin A1c 11.5 H (<=6.0) % C-Peptide (0.81-3.85) ng/mL Calcium 8.4 L (8.7-10.3) mg/dL 11/01/24 Range/Units 07:14 RBC (4.40-5.60) X 10*6/uL Hgb (13.0-17.0) g/dL Hct (39.6-50.0) % Immature Gran # (0.00-0.04) X 10*3/uL Lymphocytes # (0.90-5.00) X 10*3/uL Sodium (135-145) mmol/L Glucose (70-110) mg/dL POC Glucose (mg/dL) 311 H (70-110) mg/dL Hemoglobin A1c (<=6.0) % C-Peptide (0.81-3.85) ng/mL Calcium (8.7-10.3) mg/dL Assessment and Plan Assessment: Diabetic ketoacidosis. Resolved Diabetes mellitus with hyperglycemia. New onset. Hemoglobin A1c 11.8% Left upper lobe infiltrate could be related to his cancer. Rule out pneumonia Left infrahilar lung cancer,squamous cell carcinoma of the lung, status post chemo and immunotherapy Severe metabolic acidosis secondary to above. Resolved Lactic acidemia. Resolved Acute kidney injury. Improved Electrolyte abnormality with hyponatremia and hyperkalemia Plan: Discontinue insulin drip On Lantus 25 units and Humalog 11 units with meals Encourage hydration Symptomatic treatment Pulmonary team consult. Patient will be admitted to the ICU for close monitoring Check proCalcitonin is negative. Currently does not need antibiotics Labs and medication were reviewed.. Continue same treatment. Continue with symptomatic treatment. Resume home medication. Monitor labs and vitals. DVT and GI prophylaxis. Further recommendations as per clinical course of the patient DVT prophylaxis: Subcutaneous heparin GI Prophylaxis: Pepcid PT/OT: deferred Prognosis is guarded
[2024-11-02 02:08] LABS: Glucose,Whole Blood 224 mg/dL (70-110)
[2024-11-02] MEDS: ACETAMINOPHEN TAB 325 MG TAB PO PRN (06:27)
[2024-11-02] MEDS ORDERED: INSULIN GLARGINE (LANTUS) 100 UNIT/ML SYR SQ SCH (07:00)
[2024-11-02 07:38] LABS: Glucose,Whole Blood 239 mg/dL (70-110)
[2024-11-02 07:52] VITALS: RESP 16
[2024-11-02] MEDS: INSULIN GLARGINE (LANTUS) 100 UNIT/ML SYR SQ SCH (08:33)
[2024-11-02 11:58] LABS: Glucose,Whole Blood 237 mg/dL (70-110)
[2024-11-02 12:23] VITALS: BP 96/58; PULSE 85; TEMP 98.2
--- NOTE | 2024-11-02 14:51 | P.PN ---
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 I performed the patient's bronchoscopy and the patient has a left hilar mass at the level of the secondary manuel and the left lower lobe causing significant mass effect and obstruction of the left lower lobe bronchus. The patient also had an outpatient PET/CT that showed mediastinal lymphadenopathy uptake and bilateral supraclavicular lymphadenopathy uptake. Based on that, the patient was seen by medical oncology. The patient completed systemic chemotherapy and radiation therapy and the Patient is currently receiving immunotherapy under the care of medical oncology. The patient also has other comorbidities including COPD, coronary artery disease with previous coronary stenting done at [facility] back in 2017, hypertension, hyperlipidemia and hypothyroidism. He is under the care of Dr. Ramirez. The most recent CAT scan of the chest done on this patient on 07/19/2024 showed a stable left perihilar mass and stable subcentimeter prominent mediastinal adenopathy without any significant change and the patient had some new areas of groundglass opacities and consolidation in both lungs more prominent in the left lung. The patient presented to the emergency department today with increased shortness of breath. He was exposed to RSV and he was concerned that he was infected with the virus. No reports of fever. He was having nausea and emesis and he was unable to hold any food and liquid material. Denied having any chest pain. No abdominal pain. He was feeling thirsty and he had increased polyuria and polydipsia. In the Emergency Department, the patient was hemodynamically stable. His initial blood work showed severe hyperglycemia with a glucose of 925. He was an anion gap metabolic acidosis with a sodium level of 131, serum bicarb of less than 5 and chloride level of 92 with a potassium level of 6.4. BUN was 37 with a creatinine of 1.9. The white cell count was 16 with a hemoglobin 15.9 and platelet count of 286. Serum acetone was positive. proBNP level was 792. LFTs were within normal limits. Phosphorus level was at 7.4 with a lactic acid level of 4.0. A chest x-ray was done in the ED that showed left suprahilar opacity/infiltrate. The most recent CAT scan of the chest that was done on this patient on 10/28/2024 showed stable m orphology of the lungs and stable left perihilar soft tissue density without any new enlarging nodules. The soft tissue density in the left perihilar area was measuring 27 x 12 mm in size, not significantly changed and the patient had no enlarging mediastinal lymph nodes. Based on that, the patient was hospitalized and an ICU consultation was requested. He is currently on 2 L of oxygen by nasal cannula. The viral screen was negative for RSV and negative for any other viruses. Blood gases showed severe acidosis with a pH of 7.06 with a PCO2 of less than 15 and pO2 of 137 this was on FiO2 of 28%. Patient was diagnosed having a new onset diabetes mellitus/DKA. Started on IV fluids. He is currently on normal saline at rate of 200 cc an hour. He receives also 2 L bolus. He is currently on insulin drip at 0.1 units/kg/h per DKA protocol. On 10/31/2024, the patient is much improved, awake and alert and communicating. The patient was treated for DKA based on the DKA protocol done earlier this morning, the patient was transition to long-acting insulin. Most recent electrolytes show a serum bicarb of 19 and a gap of 10 and a blood sugars at 168. Potassium levels are 3.7. WBC count 10.3 with a hemoglobin 12 and a platelet count of 180. Discussed the case with medical oncology and the patient was being treated with Imfinzi on outpatient basis. The patient is on D5 half-normal saline at rate of 50 cc an hour. Doing well. No specific complaints. No chest pain. No shortness of breath. Currently on room air oxygen. 11/01/2024, the patient is transferred out of the intensive care unit. He has recovered from his DKA. No other acute events overnight. He is reporting some fatigue. Blood sugars are still being monitored. Electrolytes show a gap of 11 with a serum bicarb of 21 and sodium level of 133. Procalcitonin less than 0.2. CBC is within normal limits. Patient is currently on Lantus insulin 15 units daily, NovoLog 11 units with meals and a sliding scale coverage. Rest of the medications are resumed. He did have a spike of temperature of 100.3. Curr ently is afebrile. Noted the patient was receiving Imfinzi for immunotherapy on outpatient basis. Medical oncology throughout the case. On 11/02/2024, the patient is being seen for a follow-up. The patient is doing well. He is currently on Lantus 25 units daily and NovoLog 11 units with meals + scale coverage. Anion gap metabolic acidosis recovered. Feeling fatigued and tired. Afebrile. Hemodynamically stable. Most recent blood sugars at 237. No other significant events overnight and the patient remains on room air oxygen. Objective - Vital Signs Vital signs: Vital Signs Temp 98.3 F 11/02/24 07:51 Pulse 91 11/02/24 07:51 Resp 16 11/02/24 07:51 BP 130/75 11/02/24 07:51 Pulse Ox 95 11/02/24 07:51 FiO2 Intake & Output 11/01/24 11/02/24 11/02/24 18:59 06:59 18:59 Intake Total 780 960 Balance 780 960 Weight 67 kg 85.3 kg Intake: Oral 780 960 Other: Voiding Method Toilet Urinal - Exam The patient appeared well nourished and normally developed. Vital signs as documented. Patient is currently on room air oxygen Head exam is unremarkable. No scleral icterus or corneal arcus noted. Neck is without jugular venous distension, thyromegaly, or carotid bruits. Carotid upstrokes are brisk bilaterally. Lungs are clear to auscultation and percussion. Diminished breath sounds bilaterally along with scattered expiratory wheezes Cardiac exam reveals the PMI to be normally sized and situated. Rhythm is regul ar. First and second heart sounds normal. No murmurs, rubs or gallops. Abdominal exam reveals normal bowel sounds, no masses, no organomegaly and no aortic enlargement. Extremities are nonedematous and both femoral and pedal pulses are normal. Examination of the skin revealed no evidence of significant rashes, suspicious appearing nevi or other concerning lesions. Neurologically, the patient is awake and alert and the patient does not have any focal neurological deficit. Cranial nerves are essentially intact. - Labs CBC & Chem 7: 11/01/24 05:46 11/01/24 05:46 Labs: Abnormal Lab Results - Last 24 Hours (Table) 11/01/24 11/01/24 11/01/24 Range/Units 12:11 17:12 20:30 POC Glucose (mg/dL) 397 H 346 H 300 H (70-110) mg/dL 11/02/24 11/02/24 Range/Units 02:07 07:37 POC Glucose (mg/dL) 224 H 239 H (70-110) mg/dL Microbiology - Last 24 Hours (Table) 10/31/24 20:59 Blood Culture - Preliminary Blood Assessment and Plan Assessment: rformed the documentation and the assessment and plan as written. Number of m inutes spent on the visit:20 Plan: New onset diabetes mellitus presenting with DKA. Consider immunotherapy induced diabetes mellitus. The patient was being treated with Imfinzi for the past 6 months regarding his locally advanced non-small cell lung cancer. DKA was tr eated appropriately and the patient will be transition to long-acting insulin, the patient got transferred out of the intensive care unit. Currently on the medical floor. Blood sugars under better control and the patient has recovered from his DKA. Anion gap metabolic acidosis secondary to DKA, recovered Acute kidney injury secondary to DKA, recovered Acute hypokalemia secondary to above, recovered COPD, maintained on Trelegy Ellipta on outpatient basis. 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 The patient completed chemoradiation therapy and the patient currently is on immunotherapy. The patient had a CAT scan of the chest on 10/28/2024 that showed a stable left suprahilar mass without any evidence of disease progression. Coronary artery disease, currently inactive and stable, previous coronary angioplasty and stenting Hypertension Hyperlipidemia Hypothyroidism Plan Titrate oxygen flow to maintain oxygen saturation above 90%, currently the patient is on room air oxygen. Discontinue the insulin drip can put the patient on Lantus 25 units daily in addition to NovoLog 11 units with meals + scale coverage Monitor blood sugar Discussed future and present treatment with Imfinzi treatment with medical oncology Reviewed the most recent CAT scan of the chest Likely get discharged today.
[2024-11-02 15:58] LABS: Glucose,Whole Blood 214 mg/dL (70-110)
--- NOTE | 2024-11-02 23:38 | P.DS ---
Providers Date of admission: 10/30/24 11:58 Attending physician: Doyle Eubanks MD Consults: 10/30/24 11:56 Consult Physician Stat Consulting Provider: Rocco Weiss Consult Reason/Comments: acute dka - new onset Do you want consulting provider notified?: Already Contacted 10/31/24 01:11 Consult Physician Routine Consulting Provider: Danette Ramirez Consult Reason/Comments: Known, lung cancer Do you want consulting provider notified?: Yes, Notify in am 10/31/24 12:28 Consult Physician Routine Consulting Provider: Jarrett Petty Consult Reason/Comments: DKA, concern for IO induced diabetes Do you want consulting provider notified?: Yes Primary care physician: [facility] Course: Diagnoses Diabetic ketoacidosis. Resolved Diabetes mellitus with hyperglycemia. New onset. Hemoglobin A1c 11.8%. Patient discharged on insulin Left upper lobe infiltrate could be related to his cancer. pneumonia ruled out with no fever leukocytosis and procalcitonin negative and symptoms improved Left infrahilar lung cancer,squamous cell carcinoma of the lung, status post chemo and immunotherapy Severe metabolic acidosis secondary to above. Resolved Lactic acidemia. Resolved Acute kidney injury. Improved Electrolyte abnormality with hyponatremia and hyperkalemia Hospital course: This is a pleasant 63 years old male with past medical history significant for lung cancer diagnosed last December of last year. He is status post immunotherapy he got 6 cycles so far last immunotherapy he received was about 1 week to 8 days ago. He follows up with Dr. Solo and Dr. Ramirez. Presents because of worsening shortness of breath and generalized weakness. Patient was found to have acute diabetic ketoacidosis he was admitted to the ICU and treated per protocol. Currently his symptoms all resolved. No chest pain no dyspnea. No other GI/ symptom. Patient doing fine. Patient eager to go home. at bedside. Patient was started on Lantus 25 units and Humalog 11 units with meals. Also glucometer provided for him with detailed instruction about hypo and hyperglycemia and monitoring of glucose and when to come to the emergency room. Written instructions also provided and all questions answered to his satisfaction. Patient was cleared for discharge by pulmonary service. Also patient has some low-grade fever 2 days ago it was 100.3 but no other symptoms no more fever for 48 hours. The suspicion of infection is very low and no indication for antibiotics for now as they have more risks and benefits Problems and management plan were discussed with the patient and he verbalized understanding and acceptance Patient was found stable and can be discharged home in guarded prognosis however he needs follow-up as an outpatient. Patient was instructed to follow up with PCP within one week and patient agrees Patient was instructed to follow-up with his technical aid Dr. hines in 2 weeks and he agrees. He told me and his that he has appointment with Dr. Ralph this coming Monday which he plans to keep. Also patient might benefit from follow-up with line operator and contact information was provided for Dr. Petty to follow-up in 1 to 2 weeks Physical exam Gen: patient is a AAOx3, no distress CVS: S1-S2, RRR, no murmur Lungs: B/L CTA, no wheezing Abdomen: soft, no distention, no tenderness, positive bowel sounds Extremity: no leg edema or induration Time spent more than 35 minutes Patient Condition at Discharge: Serious Plan - Discharge Summary Discharge Rx Participant: No New Discharge Prescriptions: New INSULIN LISPRO (HumaLOG) [HumaLOG] 11 unit SQ AC-TID #10 ml Insulin Glargine (Lantus) [Lantus Vial] 25 unit SQ DAILY@0700 #10 ml Continue Atorvastatin Calcium [Lipitor] 80 mg PO DAILY Aspirin 81 mg PO DAILY Albuterol Sulfate [Accuneb] 0.63 mg INHALATION RT-Q6H Levothyroxine Sodium 150 mcg PO DAILY Ezetimibe [Zetia] 10 mg PO DAILY Fluticasone/Umeclidin/Vilanter [Trelegy Ellipta 100-62.5-25] 1 puff INHALATION RT-DAILY Benzonatate [Tessalon Perles] 200 mg PO TID PRN #30 cap PRN Reason: Cough Isosorbide Mononitrate ER [Imdur] 30 mg PO DAILY #30 tab Metoprolol Tartrate [Lopressor] 50 mg PO DAILY Discharge Medication List Aspirin 81 mg PO DAILY 12/05/20 [History] Atorvastatin Calcium [Lipitor] 80 mg PO DAILY 12/05/20 [History] Ezetimibe [Zetia] 10 mg PO DAILY 12/05/20 [History] Fluticasone/Umeclidin/Vilanter [Trelegy Ellipta 100-62.5-25] 1 puff INHALATION RT-DAILY 12/21/23 [History] Benzonatate [Tessalon Perles] 200 mg PO TID PRN #30 cap 12/23/23 [Rx] Isosorbide Mononitrate ER [Imdur] 30 mg PO DAILY #30 tab 01/23/24 [Rx] Albuterol Sulfate [Accuneb] 0.63 mg INHALATION RT-Q6H 10/30/24 [History] Levothyroxine Sodium 150 mcg PO DAILY 10/30/24 [History] Metoprolol Tartrate [Lopressor] 50 mg PO DAILY 10/30/24 [History] INSULIN LISPRO (HumaLOG) [HumaLOG] 11 unit SQ AC-TID #10 ml 11/02/24 [Rx] Insulin Glargine (Lantus) [Lantus Vial] 25 unit SQ DAILY@0700 #10 ml 11/02/24 [Rx] Follow up Appointment(s)/Referral(s): Jarrett Petty MD [REFERRING] - 1 Week (diabetes doctor, please call during office hours to make an appointment) [facility] [NON-STAFF] - 1 Week (Please call during normal office hours to schedule an appointment.) None,Stated [REFERRING] - 1-2 days Rocco Weiss MD [STAFF PHYSICIAN] - 2 Weeks (Please call durning normal office hours to schedule an appointment.) Danette Ramirez MD [STAFF PHYSICIAN] - 11/04/24 Patient Instructions/Handouts: Insulin Glargine (By injection), Insulin Lispro (By injection), Diabetes Insipidus (DC), Type 2 Diabetes in Adults: New [place]en gnosis (DC), What is Insulin (ED), How to Give an Insulin Injection (DC), Basic Carbohydrate Counting (DC), Meal Planning with the Plate Method (DC), Managing Diabetes During Sick Days (DC), How to Check your Blood Sugar (DC) Activity/Diet/Wound Care/Special Instructions: low carbohydrate diet 1800 kcal/day We recommend to check your glucose 4 times a day before each meal and at bedtime. Keep the results in a log book and bring it to your doctor on your appointment date If your glucose less than 70 or more than 400 then come to the hospital Discharge Disposition: HOME SELF-CARE
--- NOTE | 2024-11-07 12:56 | CDI ---
Documentation Clarification Form Date: 11/07/2024 12:01:53 PM From: Veronica Abarca RN, CCDS Email: [email or web address] Admit Date: 10/30/2024 11:58:00 AM Patient Name: Chris Vaughan Visit Number: [id number] Discharge Date: 11/02/2024 04:32:00 PM ATTENTION: The Clinical Documentation Specialists (CDI) and [facility] Coding Staff appreciate your assistance in clarifying documentation. Please respond to the clarification below the line at the bottom and electronically sign. The CDI & [facility] Coding staff will review the response and follow-up if needed. Please note: Queries are made part of the Legal Health Record. If you have any questions, please contact the author of this message via ITS. Doctor Doyle E Sheet The patient exhibited tachycardia, tachypnea and leukocytosis. Based on this information and the findings below, is there an additional diagnosis that is clinically appropriate for this patient? History/Risk Factors: CAD, COPD, HTN, thyroid disorder and lung cancer s/p immunotherapy. Presented with SOB, weakness and vomiting. Found to have DKA. Clinical Indicators: 10/30 ED: "Patient does have profound abnormal labs with a glucose of 925. White blood cell count is 16. Patient is tachypneic with a strong smell of acetone. Stage III squamous cell carcinoma of left lung, DKA, Hyperkalemia, CRESCENCIO." 10/30 H&P: "On admission patient is tachycardic and tachypneic but afebrile. Diabetic ketoacidosis. Diabetes mellitus with hyperglycemia. New onset. Lactic acidemia. Acute kidney injury." 10/31 Pulmonary: "Acute leukocytosis, reactive to DKA." 10/30 WBC 16.06, Cr 1.9, lactic acid 2.4-4.0-2.1, Na 131, Glucose 925, K+ 6.4 10/30 HR high of 118; RR 24-36 Treatment: Insulin drip titrated 10/30-10/31; Sodium bicarbonate 50mL IV x1 on 10/30; 2L 0.9 NS IV bolus on 10/30; 0.9 NS @200mL/hr 10/30-10/31 Is there an additional diagnosis that is clinically appropriate for this patient? [ x ] Non-infectious SIRS from DKA causing CRESCENCIO and Lactic Acidemia [ ] Non-infectious SIRS from DKA not causing CRESCENCIO and Lactic Acidemia [ ] No additional diagnosis/not clinically significant [ ] Other, please specify [ ] Unable to determine SIRS Criteria: 2 or more of the following may indicate SIRS Temperature < 96.8F (36C) or > 101.0F (38.3C) Heart Rate > 90 bpm Respiratory Rate > 20 breaths/min or PaCO2 < 32 mmHg White Blood Cell Count > 12,000 or < 4,000 cells/mm3 or > 10% bands MTDD
== END 2024-11-02 16:32 | disposition home or self-care (01) | DRG 637 ==
LOC: EC 09:05 → 2SICU 11:58 → 5NMEDONC 10-31 15:43
PROVIDERS: ADMIT Internal Medicine; ATTEND Internal Medicine
DX: E11.10 Type 2 diabetes mellitus with ketoacidosis without coma (principal); R65.11 Systemic inflammatory response syndrome (SIRS) of non-infectious origin with acute organ dysfunction; C34.92 Malignant neoplasm of unspecified part of left bronchus or lung; E87.1 Hypo-osmolality and hyponatremia; N17.9 Acute kidney failure, unspecified; D72.829 Elevated white blood cell count, unspecified; J44.9 Chronic obstructive pulmonary disease, unspecified; I10 Essential (primary) hypertension; E03.9 Hypothyroidism, unspecified; E87.5 Hyperkalemia; I25.10 Atherosclerotic heart disease of native coronary artery without angina pectoris; E78.5 Hyperlipidemia, unspecified; R59.0 Localized enlarged lymph nodes; Z20.828 Contact with and (suspected) exposure to other viral communicable diseases; Z79.51 Long term (current) use of inhaled steroids; Z79.82 Long term (current) use of aspirin; Z79.890 Hormone replacement therapy; Z79.899 Other long term (current) drug therapy; Z87.891 Personal history of nicotine dependence; Z92.21 Personal history of antineoplastic chemotherapy; Z92.3 Personal history of irradiation; Z95.5 Presence of coronary angioplasty implant and graft; Z86.73 Personal history of transient ischemic attack (TIA), and cerebral infarction without residual deficits
CPT/HCPCS: 36415; 36600; 71046; 71260; 80048; 80051; 80053; 81003; 82009; 82565; 82805; 82947; 83036; 83605; 83735; 83880; 84100; 84145; 84443; 84484; 84520; 84681; 85025; 85379; 85610; 85730; 87040; 87636; 93005; 94640; 94760; 96361; 96374; 96375; 96376; 99291

== ENCOUNTER → 2025-01-17 | Outpatient (CLI) | payer MEDICARE ==
[2025-01-17 09:49] LABS: African American GFR (CKD) 82 (>60 ml/min/1.73 sqM); Blood Urea Nitrogen 20 mg/dL (9-20); Non-African American GFR(CKD) 71 (>60 ml/min/1.73 sqM)
--- NOTE | 2025-01-17 10:41 | CT ---
EXAMINATION TYPE: CT chest w con DATE OF EXAM: 01/17/2025 10:19 AM COMPARISON: 10/28/2024. CLINICAL INDICATION: Male, 64 years old with history of C34.32 LUNG CANCER; PHH, Hx of lung cancer. TECHNIQUE: Multiple axial images were obtained through the chest. Sagittal and coronal reformats were created for review. MIP was performed on a separate workstation. Contrast used:100ml mL of Isovue 300 with IV Contrast (None if empty) Oral contrast used: (None if empty) CT DLP: 434.3 mGycm, Automated exposure control for dose reduction was used. FINDINGS: FINDINGS: LUNGS/ PLEURA: Again, Stable morphology to the right upper lung medial groundglass opacities. No new or enlarging right-sided pulmonary nodules. Stable left upper lobe parenchymal morphology. No enlarging nodule identified. No focal consolidation , pneumothorax or pleural effusion. AIRWAY: Patent and unremarkable. HEART: Size within normal limits. Mild coronary artery calcifications present. MEDIASTINUM: Stable soft tissue around the left perihilar region not not significantly changed from p rior given differences in measuring technique and slice selection. No new or enlarging mediastinal no dania. VASCULATURE: No aortic aneurysm. MUSCULOSKELETAL: No acute osseous abnormalities SOFT TISSUES/LYMPH NODES: Unremarkable. LOWER NECK: No significant findings. UPPER ABDOMEN: Scattered bilateral renal cysts the largest on the left measuring up to 22 mm and on t he right measuring up to 5 mm. No Follow-up recommended. IMPRESSION: There remains stable morphology of the lung parenchyma predominantly on the left. The left perihilar soft tissue. No new or enlarging pulmonary nodules or lymph nodes. Attention on follow-up PET/CT of t his area within the left perihilar region. [facility], , 01/17/2025 10:38 AM
== END | disposition home or self-care (01) ==
LOC: RADCTMAIN 09:10
PROVIDERS: ATTEND Internal Medicine Hematology & Oncology
DX: C34.32 Malignant neoplasm of lower lobe, left bronchus or lung (principal)
CPT/HCPCS: 82565; 84520; 71260; 36415; Q9967